=== PATIENT | female | born 1940 | race Caucasian/White ===

== ENCOUNTER → 2018-03-04 10:38 | Outpatient (CLI) | payer MEDICARE, SELFPAY ==
[2018-03-04 12:22] LABS: Absolute Lymphocyte Count 1.89 X10^3/ul (0.83-4.51); Absolute Neutrophil Count 5.1 X10^3/uL (2.0-7.7); Basophil# 0.04 X10^3/uL; Basophil% 0.5 % (0-1); Eosinophil# 0.11 X10^3/uL; Eosinophils% 1.5 % (0-5); Hematocrit 38.6 % (37-47); Hemoglobin 13.3 g/dl (12.0-15.0); Lymphocyte # 1.89 X10^3/ul (4.0); Mean Corp Hgb Conc 34.5 g/gl (32-36); Mean Corpuscular Hgb 32.7 pg (27.0-32.0); Mean Corpuscular Volume 94.8 fL (81-99); Mean Platelet Vol. 10.5 fl (6.2-12.0); Monocyte# 0.45 X10^3/uL; Neutrophil # 5.06 X10^3/uL (2.7-7.7); Neutrophil % 66.9 % (47-70); Platelet Count 209 K/mm3 (150-450); RBC Distribution Width CV 12.6 % (11.6-14.6); RBC Distribution Width SD 42.8 fl (35.1-43.9); Red Blood Count 4.07 M/mm3 (4.2-5.4); White Blood Count 7.6 K/mm3 (4.4-11.0)
[2018-03-04 12:38] LABS: POSITIVE COUNT NO; POSITIVE DIFFERENTIAL NO; POSITIVE MORPHOLOGY NO
[2018-03-04 12:51] LABS: Microalbumin,Random Urine 51.6 mg/L (NO RANGE EST.); Microalbumin:Creatinine Ratio 39.1 mg/g CRE (<30 mg/g CRE)
[2018-03-04 12:55] LABS: ALB/GLOB Ratio 1.2 RATIO (0.9-2.4); AST(SGOT) 16 U/L (15-37); Alanine Aminotransfer ALT/SGPT 20 U/L (13-56); Albumin, Serum 3.9 g/dL (3.2-5.0); Alkaline Phosphatase 59 U/L (45-117); Anion Gap 8 (5-15); BUN 21 mg/dL (7-18); BUN/Creat Ratio 18.3 RATIO (10-20); Calcium,Total 9.7 mg/dL (8.5-10.1); Chloride 110 mmol/L (98-107); Cholesterol 163 mg/dL (200); Creatinine, Serum 1.15 mg/dL (0.55-1.02); EST Glomerular Filtration Rate 49 mL/min (>60); Est Glom Filt Rate - Afr Amer 59 mL/min (>60); Globulin 3.2 g/dL (2.2-4.2); Glucose 69 mg/dL (74-106); High Density Lipoprotein 36 mg/dL; Potassium 3.9 mmol/L (3.5-5.1); Protein, Total 7.1 g/dL (6.4-8.2); Sodium Level 142 mmol/L (136-145); T4 Free Direct 1.59 ng/dL (0.76-1.46); Thyroid Stim Hormone (TSH) 0.56 uIU/mL (0.358-3.74); Triglycerides 247 mg/dL; Uric Acid 6.7 mg/dL (2.6-6.0); Very Low Density Lipoprotein 49 mg/dL (5-40)
== END ==
PROVIDERS: Family Provider Family Medicine; PCP Family Medicine; Visit Provider Family Medicine
DX: E11.9 Type 2 diabetes mellitus without complications (principal); E03.9 Hypothyroidism, unspecified; N18.3 Chronic kidney disease, stage 3 (moderate); M10.9 Gout, unspecified; R80.9 Proteinuria, unspecified
CPT/HCPCS: 36415; 80053; 80061; 82043; 82570; 83036; 84439; 84443; 84550; 85025

== ENCOUNTER → 2018-09-08 09:30 | Outpatient (CLI) | payer MEDICARE, SELFPAY ==
[2018-09-08 12:42] LABS: Hemoglobin A1c 6.3 % (4.2-6.3)
[2018-09-08 13:05] LABS: Anion Gap 7 (5-15); BUN 17 mg/dL (7-18); BUN/Creat Ratio 14.7 RATIO (10-20); Chloride 113 mmol/L (98-107); Creatinine, Serum 1.16 mg/dL (0.55-1.02); EST Glomerular Filtration Rate 48 mL/min (>60); Est Glom Filt Rate - Afr Amer 58 mL/min (>60); Glucose 77 mg/dL (74-106); Potassium 4.2 mmol/L (3.5-5.1); Sodium Level 145 mmol/L (136-145); T4 Free Direct 1.47 ng/dL (0.76-1.46); Thyroid Stim Hormone (TSH) 0.99 uIU/mL (0.358-3.74)
== END ==
LOC: LAB.FUTURE 04-17 15:09 → BFHLAB 09-21 14:05
PROVIDERS: Family Provider Family Medicine; PCP Family Medicine; Visit Provider Family Medicine
DX: E11.22 Type 2 diabetes mellitus with diabetic chronic kidney disease (principal); N18.3 Chronic kidney disease, stage 3 (moderate); E03.9 Hypothyroidism, unspecified; M10.9 Gout, unspecified; R80.9 Proteinuria, unspecified
CPT/HCPCS: 36415; 80048; 83036; 84439; 84443

== ENCOUNTER → 2019-03-24 10:04 | Outpatient (CLI) | payer MEDICARE, SELFPAY ==
[2019-03-24 12:21] LABS: Absolute Lymphocyte Count 2.13 X10^3/uL (0.83-4.51); Absolute Neutrophil Count 4.7 X10^3/uL (2.0-7.7); Basophil# 0.05 X10^3/uL; Basophil% 0.7 % (0-1); Eosinophil# 0.09 X10^3/uL; Eosinophils% 1.2 % (0-5); Hematocrit 38.4 % (37-47); Hemoglobin 12.7 g/dL (12.0-15.0); Lymphocyte # 2.13 X10^3/ul (4.0); Lymphocyte % 28.2 % (19-41); Mean Corp Hgb Conc 33.1 g/dL (32-36); Mean Corpuscular Hgb 30.5 pg (27.0-32.0); Mean Corpuscular Volume 92.3 fL (81-99); Monocyte# 0.51 X10^3/uL; Monocyte% 6.8 % (0-10); NRBC Flagged by Analyzer 0 % (0-5); Neutrophil # 4.74 X10^3/uL (2.7-7.7); Neutrophil % 62.8 % (47-70); Platelet Count 216 K/mm3 (150-450); RBC Distribution Width CV 12.4 % (11.6-14.6); RBC Distribution Width SD 42.1 fl (35.1-43.9); Red Blood Count 4.16 M/mm3 (4.2-5.4); White Blood Count 7.5 K/mm3 (4.4-11.0)
[2019-03-24 12:32] LABS: Hemoglobin A1c 6.1 % (4.2-6.3)
[2019-03-24 12:42] LABS: ALB/GLOB Ratio 1.2 RATIO (0.9-2.4); AST(SGOT) 13 U/L (15-37); Alanine Aminotransfer ALT/SGPT 17 U/L (13-56); Albumin, Serum 3.8 g/dL (3.2-5.0); Alkaline Phosphatase 71 U/L (45-117); Anion Gap 8 (5-15); BUN 18 mg/dL (7-18); BUN/Creat Ratio 15.9 RATIO (10-20); Calcium,Total 10.3 mg/dL (8.5-10.1); Chloride 111 mmol/L (98-107); Cholesterol 161 mg/dL (200); Creatinine, Serum 1.13 mg/dL (0.55-1.02); EST Glomerular Filtration Rate 49 mL/min (>60); Est Glom Filt Rate - Afr Amer 60 mL/min (>60); Globulin 3.3 g/dL (2.2-4.2); Glucose 95 mg/dL (74-106); High Density Lipoprotein 35 mg/dL; Potassium 4.2 mmol/L (3.5-5.1); Protein, Total 7.1 g/dL (6.4-8.2); Sodium Level 143 mmol/L (136-145); T4 Total, Thyroxin 14.1 ug/dL (4.8-13.9); Thyroid Stim Hormone (TSH) 0.01 uIU/mL (0.358-3.74); Triglycerides 275 mg/dL; Uric Acid 6.9 mg/dL (2.6-6.0); Very Low Density Lipoprotein 55 mg/dL (5-40)
== END ==
LOC: LAB.FUTURE 03-27 09:34 → BFHLAB 09-21 14:06
PROVIDERS: Family Provider Family Medicine; PCP Family Medicine; Visit Provider Family Medicine
DX: E03.9 Hypothyroidism, unspecified (principal); E11.22 Type 2 diabetes mellitus with diabetic chronic kidney disease; N18.3 Chronic kidney disease, stage 3 (moderate); M10.9 Gout, unspecified; R80.9 Proteinuria, unspecified
CPT/HCPCS: 36415; 80053; 80061; 83036; 84436; 84443; 84550; 85025

== ENCOUNTER → 2020-03-26 10:06 | Outpatient (CLI) | payer MEDICARE, SELFPAY ==
[2020-03-26 12:09] LABS: Absolute Lymphocyte Count 1.84 X10^3/uL (0.83-4.51); Absolute Neutrophil Count 7.4 X10^3/uL (2.0-7.7); Basophil# 0.05 X10^3/uL; Basophil% 0.5 % (0-1); Eosinophil# 0.09 X10^3/uL; Eosinophils% 0.9 % (0-5); Hematocrit 40.3 % (37-47); Hemoglobin 13.4 g/dL (12.0-15.0); Lymphocyte # 1.84 X10^3/ul (4.0); Lymphocyte % 18.1 % (19-41); Mean Corp Hgb Conc 33.3 g/dL (32-36); Mean Corpuscular Hgb 31.9 pg (27.0-32.0); Mean Platelet Vol. 10.4 fl (6.2-12.0); Monocyte# 0.77 X10^3/uL; Monocyte% 7.6 % (0-10); NRBC Flagged by Analyzer 0 % (0-5); Neutrophil # 7.36 X10^3/uL (2.7-7.7); Neutrophil % 72.6 % (47-70); Platelet Count 194 K/mm3 (150-450); RBC Distribution Width CV 12.5 % (11.6-14.6); RBC Distribution Width SD 43.1 fl (35.1-43.9); White Blood Count 10.1 K/mm3 (4.4-11.0)
[2020-03-26 12:25] LABS: Hemoglobin A1c 5.7 % (3.8-5.6)
[2020-03-26 12:44] LABS: ALB/GLOB Ratio 1.2 RATIO (0.9-2.4); AST(SGOT) 16 U/L (15-37); Alanine Aminotransfer ALT/SGPT 16 U/L (13-56); Alkaline Phosphatase 72 U/L (45-117); Anion Gap 6 (5-15); BUN 18 mg/dL (7-18); Calcium,Total 10.4 mg/dL (8.5-10.1); Chloride 112 mmol/L (98-107); Cholesterol 159 mg/dL (200); Creatinine, Serum 1.29 mg/dL (0.55-1.02); EST Glomerular Filtration Rate 42 mL/min (>60); Est Glom Filt Rate - Afr Amer 51 mL/min (>60); Globulin 3.3 g/dL (2.2-4.2); Glucose 64 mg/dL (74-106); High Density Lipoprotein 33 mg/dL; Potassium 4.1 mmol/L (3.5-5.1); Protein, Total 7.3 g/dL (6.4-8.2); Sodium Level 143 mmol/L (136-145); T4 Free Direct 1.57 ng/dL (0.76-1.46); Thyroid Stim Hormone (TSH) 0.68 uIU/mL (0.358-3.74); Triglycerides 296 mg/dL; Very Low Density Lipoprotein 59 mg/dL (5-40)
[2020-03-26 12:46] LABS: Microalbumin,Random Urine 31.8 mg/L (NO RANGE EST.)
== END ==
PROVIDERS: PCP Family Medicine; Visit Provider Family Medicine
DX: E11.9 Type 2 diabetes mellitus without complications (principal); E03.9 Hypothyroidism, unspecified; N18.30 Chronic kidney disease, stage 3 unspecified
CPT/HCPCS: 36415; 80053; 80061; 82043; 82570; 83036; 84439; 84443; 85025

== ENCOUNTER → 2020-10-17 08:33 | Outpatient (CLI) | payer MEDICARE, SELFPAY ==
[2020-10-17 10:22] LABS: Absolute Lymphocyte Count 2.06 X10^3/uL (0.83-4.51); Absolute Neutrophil Count 3.6 X10^3/uL (2.0-7.7); Basophil# 0.06 X10^3/uL; Basophil% 0.9 % (0-1); Eosinophil# 0.22 X10^3/uL; Eosinophils% 3.4 % (0-5); Hematocrit 40.9 % (37-47); Hemoglobin 13.3 g/dL (12.0-15.0); Lymphocyte # 2.06 X10^3/ul (0.83-4.51); Lymphocyte % 31.5 % (19-41); Mean Corp Hgb Conc 32.5 g/dL (32-36); Mean Corpuscular Hgb 31.4 pg (27.0-32.0); Mean Corpuscular Volume 96.7 fL (81-99); Mean Platelet Vol. 9.8 fl (6.2-12.0); Monocyte# 0.61 X10^3/uL; Monocyte% 9.3 % (0-10); NRBC Flagged by Analyzer 0 % (0-5); Neutrophil # 3.59 X10^3/uL (2.7-7.7); Neutrophil % 54.7 % (47-70); Platelet Count 213 K/mm3 (150-450); RBC Distribution Width CV 12.3 % (11.6-14.6); RBC Distribution Width SD 43.6 fl (35.1-43.9); Red Blood Count 4.23 M/mm3 (4.2-5.4); White Blood Count 6.6 K/mm3 (4.4-11.0)
[2020-10-17 10:40] LABS: Microalbumin,Random Urine 20.9 mg/L (NO RANGE EST.); Microalbumin:Creatinine Ratio 29.7 mg/g CRE (<30 mg/g CRE)
[2020-10-17 10:53] LABS: Vitamin D,25 Hydroxy 41.5 ng/mL
[2020-10-17 11:07] LABS: Hemoglobin A1c 5.9 % (3.8-5.6)
[2020-10-17 11:18] LABS: ALB/GLOB Ratio 1.2 RATIO (0.9-2.4); AST(SGOT) 14 U/L (15-37); Alanine Aminotransfer ALT/SGPT 18 U/L (13-56); Alkaline Phosphatase 78 U/L (45-117); Anion Gap 7 (5-15); BUN 33 mg/dL (7-18); BUN/Creat Ratio 22.6 RATIO (10-20); Calcium,Total 10.6 mg/dL (8.5-10.1); Chloride 110 mmol/L (98-107); Cholesterol 169 mg/dL (200); Creatinine, Serum 1.46 mg/dL (0.55-1.02); EST Glomerular Filtration Rate 37 mL/min (>60); Est Glom Filt Rate - Afr Amer 44 mL/min (>60); Globulin 3.2 g/dL (2.2-4.2); Glucose 64 mg/dL (74-106); High Density Lipoprotein 39 mg/dL; Potassium 4.4 mmol/L (3.5-5.1); Protein, Total 7.2 g/dL (6.4-8.2); Sodium Level 144 mmol/L (136-145); Thyroid Stim Hormone (TSH) 1.28 uIU/mL (0.358-3.74); Triglycerides 221 mg/dL; Very Low Density Lipoprotein 44 mg/dL (5-40)
== END ==
PROVIDERS: PCP Family Medicine; Referring Provider Family Medicine; Visit Provider Family Medicine
DX: E11.22 Type 2 diabetes mellitus with diabetic chronic kidney disease (principal); N18.30 Chronic kidney disease, stage 3 unspecified; E03.9 Hypothyroidism, unspecified; R80.9 Proteinuria, unspecified
CPT/HCPCS: 36415; 80053; 80061; 82043; 82306; 82570; 83036; 84443; 85025

== ENCOUNTER → 2022-05-01 | Outpatient (CLI) | payer MEDICARE, SELFPAY ==
[2022-05-01 12:22] LABS: Absolute Lymphocyte Count 2.01 X10^3/uL (0.83-4.51); Absolute Neutrophil Count 7.5 X10^3/uL (2.0-7.7); Basophil# 0.04 X10^3/uL; Basophil% 0.4 % (0-1); Eosinophil# 0.06 X10^3/uL; Eosinophils% 0.6 % (0-5); Hematocrit 39.2 % (37-47); Hemoglobin 13.4 g/dL (12.0-15.0); Lymphocyte # 2.01 X10^3/ul (0.83-4.51); Lymphocyte % 19.8 % (19-41); Mean Corp Hgb Conc 34.2 g/dL (32-36); Mean Corpuscular Hgb 32.1 pg (27.0-32.0); Mean Platelet Vol. 10.4 fl (6.2-12.0); Monocyte# 0.53 X10^3/uL; Monocyte% 5.2 % (0-10); NRBC Flagged by Analyzer 0 % (0-5); Neutrophil # 7.45 X10^3/uL (2.7-7.7); Neutrophil % 73.6 % (47-70); Platelet Count 198 K/mm3 (150-450); RBC Distribution Width CV 12.4 % (11.6-14.6); RBC Distribution Width SD 42.9 fl (35.1-43.9); Red Blood Count 4.17 M/mm3 (4.2-5.4); White Blood Count 10.1 K/mm3 (4.4-11.0)
[2022-05-01 12:58] LABS: PTHIN 103.9 pg/mL (18.4-80.1)
[2022-05-01 13:01] LABS: Vitamin D,25 Hydroxy 72.3 ng/mL
[2022-05-01 13:37] LABS: ALB/GLOB Ratio 1.2 RATIO (0.9-2.4); AST(SGOT) 18 U/L (15-37); Alanine Aminotransfer ALT/SGPT 18 U/L (13-56); Albumin, Serum 3.9 g/dL (3.2-5.0); Alkaline Phosphatase 67 U/L (45-117); Anion Gap 6 (5-15); BUN 25 mg/dL (7-18); BUN/Creat Ratio 19.2 RATIO (10-20); Calcium,Total 10.6 mg/dL (8.5-10.1); Chloride 111 mmol/L (98-107); Cholesterol 178 mg/dL (200); EST Glomerular Filtration Rate 42 mL/min (>60); Est Glom Filt Rate - Afr Amer 50 mL/min (>60); Globulin 3.2 g/dL (2.2-4.2); Glucose 97 mg/dL (74-106); High Density Lipoprotein 54 mg/dL; Protein, Total 7.1 g/dL (6.4-8.2); Sodium Level 142 mmol/L (136-145); Thyroid Stim Hormone (TSH) 1.37 uIU/mL (0.358-3.74); Triglycerides 176 mg/dL; Very Low Density Lipoprotein 35 mg/dL (5-40)
[2022-05-01 14:35] LABS: Microalbumin,Random Urine 36.1 mg/L (NO RANGE EST.); Microalbumin:Creatinine Ratio 36.1 mg/g CRE (<30 mg/g CRE)
== END | disposition home or self-care (01) ==
LOC: BFHLAB 10:56
PROVIDERS: PCP Family Medicine; Referring Provider Family Medicine; Visit Provider Family Medicine
DX: E11.3299 Type 2 diabetes mellitus with mild nonproliferative diabetic retinopathy without macular edema, unspecified eye (principal); E11.22 Type 2 diabetes mellitus with diabetic chronic kidney disease; N18.31 Chronic kidney disease, stage 3a; E03.9 Hypothyroidism, unspecified; R80.9 Proteinuria, unspecified
CPT/HCPCS: 36415; 80053; 80061; 82043; 82306; 82570; 83036; 83970; 84443; 85025

== ENCOUNTER 2022-06-15 09:31 | Inpatient (IN) | payer MEDICARE, SELFPAY ==
[2022-06-15] VITALS (20 sets, daily range): BP systolic 107–180; BP diastolic 43–90; PULSE 26–73; RESP 13–21; TEMP 36.2–36.8; O2SAT 92–99; BMI 21.9; BMI 21.2
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
[2022-06-15 09:48] LABS: Absolute Lymphocyte Count 2.61 X10^3/uL (0.83-4.51); Absolute Neutrophil Count 4.6 X10^3/uL (2.0-7.7); Basophil# 0.06 X10^3/uL; Basophil% 0.8 % (0-1); Eosinophil# 0.08 X10^3/uL; Hematocrit 41.7 % (37-47); Hemoglobin 13.9 g/dL (12.0-15.0); Lymphocyte # 2.61 X10^3/ul (0.83-4.51); Lymphocyte % 33.4 % (19-41); Mean Corp Hgb Conc 33.3 g/dL (32-36); Mean Corpuscular Hgb 31.8 pg (27.0-32.0); Mean Corpuscular Volume 95.4 fL (81-99); Mean Platelet Vol. 9.6 fl (6.2-12.0); Monocyte# 0.44 X10^3/uL; Monocyte% 5.6 % (0-10); NRBC Flagged by Analyzer 0 % (0-5); Neutrophil % 58.8 % (47-70); Platelet Count 201 K/mm3 (150-450); RBC Distribution Width CV 12.2 % (11.6-14.6); RBC Distribution Width SD 42.4 fl (35.1-43.9); Red Blood Count 4.37 M/mm3 (4.2-5.4); White Blood Count 7.8 K/mm3 (4.4-11.0)
[2022-06-15] MEDS: 0.9% Normal Saline 1,000 ML 150 ML IV (09:58)
[2022-06-15 10:06] LABS: ALB/GLOB Ratio 1.2 RATIO (0.9-2.4); AST(SGOT) 208 U/L (15-37); Alanine Aminotransfer ALT/SGPT 171 U/L (13-56); Albumin, Serum 3.8 g/dL (3.2-5.0); Alkaline Phosphatase 70 U/L (45-117); Anion Gap 7 (5-15); BUN 23 mg/dL (7-18); BUN/Creat Ratio 16.5 RATIO (10-20); Calcium,Total 10.7 mg/dL (8.5-10.1); Chloride 110 mmol/L (98-107); Creatinine, Serum 1.39 mg/dL (0.55-1.02); EST Glomerular Filtration Rate 39 mL/min (>60); Est Glom Filt Rate - Afr Amer 47 mL/min (>60); Estimated Creatinine Clearance 30.34 ml/min; Globulin 3.1 g/dL (2.2-4.2); Glucose 101 mg/dL (74-106); Potassium 4.2 mmol/L (3.5-5.1); Protein, Total 6.9 g/dL (6.4-8.2); Sodium Level 144 mmol/L (136-145); Troponin-I HS 39 pg/mL (3.0-54.0)
--- NOTE | 2022-06-15 10:08 | NURSING ---
DR GARBER RETURNED CALL
--- NOTE | 2022-06-15 10:31 | NURSING ---
HOSPITALIST PAGED DR CARRIE RUIZ
--- NOTE | 2022-06-15 10:36 | NURSING ---
DR WHITING FOR DR RAMEY
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
--- NOTE | 2022-06-15 11:08 | ECHOD_ITS ---
Reason For Study: ARRYTHMIA Procedure This was a 2D Doppler, Color Flow transthoracic echocardiogram. Exam performed portable in ED. Left Ventricle Normal LV size. Moderate concentric left ventricular hypertrophy. Left ventricular systolic function is normal. The estimated ejection fraction is 65 %. No regional wall motion abnormalities noted. Right Ventricle Normal RV size. Normal systolic function. Atria Normal left atrium. Normal right atrium. Mitral Valve Normal mitral valve. Tricuspid Valve Normal tricuspid valve. Aortic Valve Normal aortic valve. Pulmonic Valve Normal pulmonic valve. Great Vessels Normal aortic root. The pulmonary artery is normal size. Normal inferior vena cava. Pericardium/Pleural No pericardial effusion. MMode/2D Measurements & Calculations LVIDd: 4.2 cm IVSd: 1.4 cm Ao root diam: 3.0 cm LVIDs: 2.7 cm LVPWd: 1.4 cm FS: 36.0 % LAV(MOD-sp4): 47.2 ml LVAd ap4: 18.4 cm2 SV(MOD-sp4): 21.0 ml LVLd ap4: 6.7 cm EDV(MOD-sp4): 40.6 ml EDV(sp4-el): 42.8 ml LVAs ap4: 11.7 cm2 LVLs ap4: 6.1 cm ESV(MOD-sp4): 19.6 ml ESV(sp4-el): 19.1 ml EF(MOD-sp4): 51.7 % EF(sp4-el): 55.4 % SV(sp4-el): 23.7 ml LA A4 area: 18.0 cm2 LA dimension(2D): 2.4 cm RA A4 area: 15.5 cm2 Doppler Measurements & Calculations Med Peak E' Himanshu: 119.6 cm/sec Ao V2 max: 128.6 cm/sec LV V1 max: 105.4 cm/sec Ao max P.6 mmHg LV V1 max P.5 mmHg Ao V2 mean: 85.6 cm/sec LV V1 mean P.3 mmHg Ao mean P.4 mmHg LV V1 mean: 72.2 cm/sec Ao V2 VTI: 30.4 cm LV V1 VTI: 23.9 cm AV (velocity ratio): 0.79 TR max himanshu: 302.4 cm/sec TR max P.6 mmHg ECHO/Echo Complete Interpretation Summary Normal LV size. Moderate concentric left ventricular hypertrophy. Left ventricular systolic function is normal. The estimated ejection fraction is 65 %. Ordering Physician: Win Mukherjee Referring Physician: Gino Boswell Performed By: Nancy Ko RCS
--- NOTE | 2022-06-15 11:13 | NURSING ---
ICU 6
--- NOTE | 2022-06-15 12:08 | ED.RN ---
REPORT CALLED TO JENNIFER IN ICU
[2022-06-15] MEDS: Cefazolin 2 GM in 0.9% Normal Saline 100 ML IV (13:07)
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
--- NOTE | 2022-06-15 16:06 | CL.IE_ITS ---
Patient: MAHSA CISNEROS Study Date: 06/15/2022 Performing: Win Mukherjee MD : 1940 Age: 82 Gender: female PROCEDURES PERFORMED [id number])INITIAL PACER INSERT+DUAL LEADS INDICATIONS Atrial fibrillation and complete heart block PROCEDURE DETAILS The patient was brought to the Catheterization Lab in the postabsorptive nonsedated state. Informed consent was obtained prior to the procedure. Local anesthetic was given subcutaneously to the left upper chest area with Lidocaine 2%. Incision was made to the left upper chest. PPM ventricular lead was inserted / positioned to right ventricular apex. PPM ventricular lead testing performed. PPM ventricular lead testing performed. PPM atrial lead was inserted / positioned to the right atrial appendage. PPM atrial lead testing performed. The Atrial lead sutured in place with 2-0 Silk. The Ventricular PM lead sutured in place with 2-0 Silk. PPM generator was attached to the lead(s) and inserted into the pocket. Device pocket was irrigated with antibiotic, Anef 1gm. PPM generator was then interrogated by the cobol programmer. Subcutaneous closure was completed with 3-0 Vicryl. Skin closure was completed with 4-0 Vicryl. Steri-strips applied to Lt chest area. The patient tolerated the procedure well. Estimated Blood Loss: 10 ml's IMPLANTED / EX-PLANTED DEVICES IMPLANTED DEVICE(S): PPM Atrial lead - Pot Maker: [employer], Model # Ingevity 7841 52cm , Serial # [id number] PPM Ventricular lead - Pot Maker: [employer], Model # Ingevity 7842 59cm , Serial # [id number] PPM Generator - Pot Maker: [employer], Model # Essentio MRI L111 , Serial # [id number] DEVICE PARAMETERS ATRIAL LEAD PARAMETERS: P wave- 3.8 (mV) Current- 1.6 (mA) threshold- 1.0 (V) impedence- 627 (OHMS) VENTRICULAR LEAD PARAMETERS: R wave- 8.3 (mV) Current- 0.9 (mA) threshold- 0.7 (V) impedence- 807 (OHMS) DEVICE PARAMETERS: Upper rate- DDD Lower rate- 60 Upper rate- 120 CONCLUSIONS / RECOMMENDATIONS Device Conclusions: Successful implantation of a dual chamber pacemaker Device Recommendations: Follow up with Primary Care Physician PROCEDURE MEDICATIONS Versed 1 mg IV Fentanyl 50 mcg IV Oxygen: 2 L/min via nasal cannula Antibiotic given in appropriate timeframe. Ancef 1 Gm IV @ 06/15/2022 14:35:45 Signed By Win Mukherjee MD On 06/15/2022 16:05:50 Win Mukherjee MD
[2022-06-15] MEDS: 0.9% Normal Saline 1,000 ML 75 ML IV (20:20)
[2022-06-16 01:30] VITALS: BP 144/68; PULSE 77; RESP 16; TEMP 36.6; O2SAT 97
[2022-06-16 05:00] VITALS: BP 131/66; PULSE 67; RESP 20; TEMP 36.6; O2SAT 97
--- NOTE | 2022-06-16 05:55 | RAD_ITS ---
INDICATION: Post permanant ICD/Pacemaker -- inspiration/expiration. Arms Down. Wet read to MD EXAMINATION/TECHNIQUE: X-RAY - XR Chest 3 Views COMPARISON: None. FINDINGS: LINES/DEVICES: Pacemaker on the left. LUNGS: No consolidation, edema or effusion. No pneumothorax. MEDIASTINUM AND CARDIOVASCULAR STRUCTURES: Cardiac silhouette not enlarged. Central airways and mediastinal contour are unremarkable. BONES AND SOFT TISSUES: Unremarkable. RAD/Chest 3 View IMPRESSION: No radiographic evidence of acute cardiopulmonary disease. Electronically Signed: Jd Bruce MD at 4:57 EST ,
--- NOTE | 2022-06-16 07:41 | PN.CARD_ITS ---
Subjective Subjective Patient seen and evaluated. Appears to be doing well overnight. Objective Data Vital Signs: Vital Signs Temp Pulse Resp BP Pulse Ox O2 Del Method 97.9 F 67 20 H 131/66 H 97 Room Air 06/16/22 05:00 06/16/22 05:00 06/16/22 05:00 06/16/22 05:00 06/16/22 05:00 06/16/22 05:00 Oxygen Delivery Method Room Air Weight: 133 lb 9.602 oz Body Mass Index (BMI) 21.2 Intake & Output: Intake and Output for Last 24 Hours 06/14/22 06/15/22 06/16/22 23:59 23:59 23:59 Intake Total 1350.0 / 1350.0 120 / 120 Output Total 700 / 700 500 / 500 Balance 650.0 / 650.0 -380 / -380 Lab / Micro Data Result Diagrams: 06/15/22 09:40 06/15/22 09:40 Labs: Laboratory Results - last 24 hr 06/15/22 09:40: WBC 7.8, RBC 4.37, Hgb 13.9, Hct 41.7, MCV 95.4, MCH 31.8, MCHC 33.3, RDW Std Deviation 42.4, RDW Coeff of Reanna 12.2, Plt Count 201, MPV 9.6, Immature Gran % (Auto) 0.400, Neut % (Auto) 58.8, Lymph % (Auto) 33.4, [place] % (Auto) 5.6, Eos % (Auto) 1.0, Baso % (Auto) 0.8, Absolute Neuts (auto) 4.6, Absolute Lymphs (auto) 2.61, Nucleated RBC % 0 06/15/22 09:40: Sodium 144, Potassium 4.2, Chloride 110 H, Carbon Dioxide 27.0, Anion Gap 7, BUN 23 H, Creatinine 1.39 H, Estim Creat Clear Calc 30.34, Est GFR (MDRD) Af Amer 47 L, Est GFR (MDRD) Non-Af 39 L, BUN/Creatinine Ratio 16.5, Glucose 101, Calcium 10.7 H, Total Bilirubin 0.40, AST 208 H, ALT 171 H, Alkali ne Phosphatase 70, Troponin I High Sens 39, Total Protein 6.9, Albumin 3.8, Globulin 3.1, Albumin/Globulin Ratio 1.2 Cardiology Labs/Tests 06/15/22 09:40: WBC 7.8, RBC 4.37, Hgb 13.9, Hct 41.7, MCV 95.4, MCH 31.8, MCHC 33.3, Plt Count 201, MPV 9.6, Immature Gran % (Auto) 0.400, Neut % (Auto) 58.8, Lymph % (Auto) 33.4, [place] % (Auto) 5.6, Eos % (Auto) 1.0, Baso % (Auto) 0.8, Absolute Neuts (auto) 4.6, Nucleated RBC % 0 06/15/22 09:40: Sodium 144, Potassium 4.2, Chloride 110 H, Carbon Dioxide 27.0, Anion Gap 7, BUN 23 H, Creatinine 1.39 H, Est GFR (MDRD) Af Amer 47 L, Est GFR (MDRD) Non-Af 39 L, BUN/Creatinine Ratio 16.5, Glucose 101, Calcium 10.7 H, Total Bilirubin 0.40 Rhythm: EKG: ECHO: Stress Test: Cardiac Cath: PCI: CT Surgery: Holter monitor: EPS: PPM: CXR: Chest CT Scan: Radiography Diagnostic Testing: Radiology Impression Brain CT 06/15/22 09:38 IMPRESSION: Chronic involutional changes of the brain. Electronically Signed: Marco Vazquez MD at 10:18 EST , Cervical Spine CT 06/15/22 09:38 IMPRESSION: Multilevel degenerative changes, as described above. Electronically Signed: Marco Vazquez MD at 10:27 EST , Chest/Abdomen/Pelvis CT 06/15/22 09:38 IMPRESSION: Normal enhanced CT chest, abdomen T pelvis examination. Electronically Signed: Marco Vazquez MD at 10:25 EST , Echocardiogram 06/15/22 11:08 Interpretation Summary Normal LV size. Moderate concentric left ventricular hypertrophy. Left ventricular systolic function is normal. The estimated ejection fraction is 65 %. Ordering Physician: Win Mukherjee Referring Physician: Gino Boswell Performed By: Nancy Ko RCS Chest X-Ray 06/16/22 05:55 IMPRESSION: No radiographic evidence of acute cardiopulmonary disease. Electronically Signed: Jd Bruce MD at 4:57 EST , Physical Exam Const alert, oriented x3, no apparent distress, average body habitus and healthy appearing General Appearance: cooperative, well kempt and well developed Orientation / Consciousness: awake, oriented to person, oriented to place and oriented to time HEENT normocephalic and moist oral mucous membranes HEENT Narrative: There is some swelling noted over the left side of the patient's face, no ecchymosis is noted and there are no lacerations noted Eyes PERRL, EOMs intact bilaterally and conjunctivae normal Neck supple, no JVD, thyroid normal and no carotid bruits General: trachea midline Resp normal respiratory effort, no retractions, no use of accessory muscles and clear to auscultation bilaterally Auscultation: Negative for rales, rhonchi or wheezes Cardio S1 normal heart sound, S2 normal heart sound, no murmurs, no rub, no gallops and no clicks Cardio Narrative: Heart rate and rhythm is irregular and bradycardic GI normal to inspection, nondistended, normoactive bowel sounds, soft to palpation, non-tender and non-distended Extremity no clubbing, cyanosis or edema Skin no rashes or lesions noted General Skin Exam: no breakdown Neuro oriented x3, CN's II-XII intact bilaterally, moves all extremities, no focal motor deficits and no sensory deficits noted Sensorium / Orientation: awake, alert, oriented to person, oriented to place and oriented to time Speech: speech normal Psych affect normal Assessment & Plan Assessment/Plan (1) Third degree heart block: PLAN: Patient presents with a syncopal episode and is noted to have AV dissociation with complete heart block. * Patient underwent placement of a permanent pacemaker. This appears to be functioning well. * Chest x-ray this morning demonstrates adequate positioning. * Pacemaker will be interrogated later this morning and then follow-up scheduled for the office. (2) Hypertension: PLAN: She has a history of hypertension which appears to be well controlled at this time I would not recommend that we make any changes.
--- NOTE | 2022-06-16 08:22 | DCINST_ITS ---
Discharge Instructions Diet Discharge Diet: No restrictions Activity Discharge Activity: May Not Drive Additional Activity Instructions:: May shower or bathe on [day 3]. Do not scrub the incision or soak in the tub. Just wash with soap and let the water run over the incision. Gently pat dry with towel. Medications: Take your pain medication as directed. Refer to your discharge instruction sheet for a list of medications you are to take. Dressing / Incision Call your doctor if your incision/area has: Continuous Slow Oozing, Sudden Increased Bleeding, Increased Pain/ Swelling, Increased Redness, Foul Smelling Discharge and Swelling at the incision site Call your doctor if you observe: Fever of 101 or Higher, Shortness of breath, Dizziness, Fainting spells, Swelling in the ankles, Chest pain, Prolonged hiccupping and Increased palpitations (irregular heartbeat) Suture Line Care: Avoid Pulling/Pushing and Avoid Pinching/Bending Change Dressing in: 3 days Remove Dressing in: 3 days Additional Dressing/Incision Instructions:: When dressing is removed, wash and dry incision. Keep covered with a light bandage if it is rubbing against your clothing. Do not cover the incision with an airtight bandage. Change the bandage daily. Do not remove steri strips. The strips will fall off on their own. Follow Up Care Please Follow Up With: Win Mukherjee MD When: Pacer follow up on June 23 at 3 PM at the device clinic. Test Results: Test results from this visit will be discussed in further detail at your follow- up appointment, if applicable. Discharge Plan Admission Admit Date/Time: 06/15/22 10:56 Attending Provider: Gino Bangura Primary Care Provider: Gino Boswell Consulting Providers: Win Mukherjee Discharge Orders/Prescriptions Prescriptions: No Action metformin 500 MG tablet 500 mg PO BIDCM levothyroxine 125 MCG tablet 125 mcg PO DAILY glimepiride 4 MG tablet 4 mg PO DAILY ramipril [Altace] 10 MG capsule 10 mg PO DAILY glimepiride 4 mg tablet 2 mg PO DAILY Label Comments: take 1 tablet by mouth every morning and take 1/2 tablet by mouth every evening diphenhydramine-acetaminophen [Acetaminophen PM] 25-500 mg Tablet 1 tab PO QHS PRN (Reason: PAIN/SLEEP) cholecalciferol (vitamin D3) 25 mcg (1,000 unit) Tablet 25 mcg PO DAILY coQ10 (ubiquinol) 100 mg Capsule 100 mg PO DAILY Referrals / Follow Up: Gino Boswell DO [Primary Care Provider] -
--- NOTE | 2022-06-16 09:40 | CASEMGMT ---
RN?CM?PSYCHIATRIC NURSE PRACTITIONER?CM?to room to meet with patient for initial transition planning/care coordination?assessment.?RN?CM?introduced self and role at [facility].? Pt voices understanding and consents to?assessment?at this time.? Pt sitting up in recliner chair in room in no distress at this time.? @ bedside. Pt is A/O at this time and answers all questions appropriately.?? Care providers, pharmacy, and demographics verified/updated at this time. PCP: Dr Boswell Specialists: Dr Bailon-GARMENT EXAMINER Preferred Pharmacy:[facility] Insurance: [facility] Prescription Benefit:?Yes Living Will/HPOA:?Pt has both LW and HCPOA, who is her , Adarsh. LNOK: , Adarsh Living Arrangements: Lives w/ in one-story home w/one step to enter. They live @ [facility] independent living. Pt is indep w/ADL'S and IADL's @ baseline. attentive and able to help as needed. Transportation:?Pt states drives self and states no transportation concerns at this time.? also drives DME: ?Pt used no DME prior to hospitalization, but does have a shower chair, WW, and cane available, if needed. Pt has sling in place. HHC/SNF: No hx of either. Denies needs and no needs identified. Pt wishes to return home and states has no concerns with going home at time of discharge.?CM?to follow for any discharge planning/needs.? Pt voices no concerns/needs at this time.? Advised pt to ask for?CM?if any questions/concerns/needs arise.? Voices understanding. PLAN:??Home w/spousal support and discharge plans in place. Erik SWARTZN?RN?CM
[2022-06-16 09:48] VITALS: O2SAT 99
--- NOTE | 2022-06-16 09:54 | DCINST_ITS ---
Discharge Instructions Diet Discharge Diet: No restrictions Activity Discharge Activity: Return to Normal Activity and May Not Drive Weight Bearing Status: Full weight bearing Additional Activity Instructions:: May shower or bathe on [day 3]. Do not scrub the incision or soak in the tub. Just wash with soap and let the water run over the incision. Gently pat dry with towel. Medications: Take your pain medication as directed. Refer to your discharge instruction sheet for a list of medications you are to take. Dressing / Incision Call your doctor if your incision/area has: Continuous Slow Oozing, Sudden Increased Bleeding, Increased Pain/ Swelling, Increased Redness, Foul Smelling Discharge and Swelling at the incision site Call your doctor if you observe: Fever of 101 or Higher, Shortness of breath, Dizziness, Fainting spells, Swelling in the ankles, Chest pain, Prolonged hiccupping and Increased palpitations (irregular heartbeat) Suture Line Care: Avoid Pulling/Pushing and Avoid Pinching/Bending Additional Dressing/Incision Instructions:: When dressing is removed, wash and dry incision. Keep covered with a light bandage if it is rubbing against your clothing. Do not cover the incision with an airtight bandage. Change the bandage daily. Do not remove steri strips. The strips will fall off on their own. Follow Up Care Please Follow Up With: Win Mukherjee MD Test Results: Test results from this visit will be discussed in further detail at your follow- up appointment, if applicable. Discharge Plan Admission Admit Date/Time: 06/15/22 10:56 Primary Reason for Your Visit: heart block Attending Provider: Gino Bangura Primary Care Provider: Gino Boswell Consulting Providers: Win Mukherjee Instructions Additional Instructions / Restrictions: You have some elevations in your liver enzymes, have your family physician repeat a liver profile (lab) as an outpatient Discharge Orders/Prescriptions Prescriptions: Continued metformin 500 MG tablet 500 mg PO BIDCM levothyroxine 125 MCG tablet 125 mcg PO DAILY glimepiride 4 MG tablet 4 mg PO DAILY ramipril [Altace] 10 MG capsule 10 mg PO DAILY glimepiride 4 mg tablet 2 mg PO DAILY Label Comments: take 1 tablet by mouth every morning and take 1/2 tablet by mouth every evening diphenhydramine-acetaminophen [Acetaminophen PM] 25-500 mg Tablet 1 tab PO QHS PRN (Reason: PAIN/SLEEP) cholecalciferol (vitamin D3) 25 mcg (1,000 unit) Tablet 25 mcg PO DAILY Discontinued coQ10 (ubiquinol) 100 mg Capsule 100 mg PO DAILY Referrals / Follow Up: Win Mukherjee MD [Med Staff - Active Staff] - See Referral Note (As directed, office will contact you, call the office on Wednesday if you have not heard from the office by then) Gino Boswell, [Primary Care Provider] - Within 2 Weeks (Make sure that you have a follow-up liver function test) Disposition Disposition (needs filled in before D/C Order can be placed): Home, Self Care
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
== END 2022-06-16 11:21 | disposition home or self-care (01) | DRG 244 ==
LOC: ED 10:52 → ICU 06-16 01:44
PROVIDERS: Admitting Provider Internal Medicine; Emergency Provider Emergency Medicine; PCP Family Medicine; Visit Provider Internal Medicine
DX: I44.2 Atrioventricular block, complete (principal); E03.9 Hypothyroidism, unspecified; E11.9 Type 2 diabetes mellitus without complications; I10 Essential (primary) hypertension; S00.83XA Contusion of other part of head, initial encounter; V43.02XA Car driver injured in collision with other type car in nontraffic accident, initial encounter; Y92.414 Local residential or business street as the place of occurrence of the external cause; Z79.84 Long term (current) use of oral hypoglycemic drugs; Z79.899 Other long term (current) drug therapy; Z87.891 Personal history of nicotine dependence
CPT/HCPCS: 33208; 70450; 71047; 71260; 72125; 74177; 80053; 84484; 85025; 93005; 93306; 97162; 97166; 99152; 99153; 99285; J7030; J7050; Q9967; A4216; C1894

== ENCOUNTER 2022-09-22 10:38 | Inpatient (IN) | payer MEDICARE, SELFPAY ==
[2022-09-22] VITALS (8 sets, daily range): BP systolic 100–154; BP diastolic 48–83; PULSE 79–98; RESP 16–18; TEMP 36.2–36.8; O2SAT 93–100; BMI 22.2; BMI 21.5
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
[2022-09-22 11:39] LABS: Absolute Lymphocyte Count 0.81 X10^3/uL (0.83-4.51); Absolute Neutrophil Count 19.6 X10^3/uL (2.0-7.7); Basophil# 0.06 X10^3/uL; Basophil% 0.3 % (0-1); Hematocrit 41.8 % (37-47); Lymphocyte # 0.81 X10^3/ul (0.83-4.51); Lymphocyte % 3.8 % (19-41); Mean Corp Hgb Conc 33.5 g/dL (32-36); Mean Corpuscular Hgb 31.3 pg (27.0-32.0); Mean Corpuscular Volume 93.3 fL (81-99); Monocyte# 0.45 X10^3/uL; Monocyte% 2.1 % (0-10); NRBC Flagged by Analyzer 0 % (0-5); Neutrophil # 19.64 X10^3/uL (2.7-7.7); Neutrophil % 91.8 % (47-70); POSITIVE COUNT YES; RBC Distribution Width CV 12.5 % (11.6-14.6); RBC Distribution Width SD 42.8 fl (35.1-43.9); Red Blood Count 4.48 M/mm3 (4.2-5.4); White Blood Count 21.4 K/mm3 (4.4-11.0)
[2022-09-22] MEDS: 0.9% Normal Saline 1,000 ML 150 ML IV (11:46)
[2022-09-22] MEDS: Ondansetron 4 MG/2 ML Vial IV (11:46)
--- NOTE | 2022-09-22 12:15 | CM.ED ---
Social Work SW introduced self and role to patient and patient's spouse. SW spoke with patient regarding advance directives. Pt's spouse reports they have a HCPOA and Living Will. Spouse agreed to bring in documents when able. Juana Pringle TREND INVESTIGATOR, [employer] STUD WORKER
[2022-09-22 12:23] LABS: Differential Indicated SCAN CRITERIA MET; Mean Platelet Vol. 9.6 fl (6.2-12.0)
[2022-09-22 12:24] LABS: Platelet Estimate ADEQUATE (ADEQ)
[2022-09-22 12:50] LABS: AST(SGOT) 26 U/L (15-37); Alanine Aminotransfer ALT/SGPT 15 U/L (13-56); Albumin, Serum 3.5 g/dL (3.2-5.0); Alkaline Phosphatase 71 U/L (45-117); Anion Gap 9 (5-15); BUN 26 mg/dL (7-18); BUN/Creat Ratio 17.4 RATIO (10-20); Calcium,Total 10.9 mg/dL (8.5-10.1); Chloride 109 mmol/L (98-107); Creatinine, Serum 1.49 mg/dL (0.55-1.02); EST Glomerular Filtration Rate 36 mL/min (>60); Est Glom Filt Rate - Afr Amer 43 mL/min (>60); Estimated Creatinine Clearance 26.19 ml/min; Globulin 3.5 g/dL (2.2-4.2); Glucose 296 mg/dL (74-106); Sodium Level 139 mmol/L (136-145)
--- NOTE | 2022-09-22 13:08 | CT_ITS ---
STUDY: CT Abdomen And Pelvis W/ Contrast Injection 09/22/2022 3:46 PM REASON FOR EXAM: Female, 82 years old. Abdominal pain abd pain, leukocytosis -- IV PO Contrast Individualized dose optimization techniques were used for this CT. COMPARISON: 06.15.22. TECHNIQUE: CT Abdomen And Pelvis W/ Contrast Injection 100ML ISOVUE 300 FINDINGS: There are atherosclerotic calcifications of visualized coronary arteries. There is minimal groundglass right lower lobe pneumonia. Normal liver. Normal gallbladder and extrahepatic biliary system. Normal spleen. Normal pancreas. Normal bilateral adrenal glands. Trace free fluid around the liver. Free fluid extends along the right paracolic gutter. No acute findings of the right kidney. There are hypodensities in the left kidney. These are consistent for cysts. No follow up required. There is moderate cortical atrophy of the left kidney, consistent with chronic medical renal disease. Normal visualized stomach. There are dilated loops of the small intestine with a non-distended colon consistent with a small bowel obstruction. There are multiple colonic diverticula consistent with diverticulosis. There is non-visualization of the appendix. There are calcifications of the abdominal aorta. This is consistent for atherosclerotic disease. There is NO abdominal aortic aneurysm. Vascular workup can be obtained based on clinical correlation. Normal inferior vena cava. Subcentimeter mesenteric lymph nodes. Normal urinary bladder. There is absence of the uterus consistent with a prior hysterectomy. Moderate free fluid in the pelvis. There is an umbilical hernia containing fluid. There are diffuse degenerative changes of the visualized lumbar spine. There is a Grade 1 anterolisthesis of L4 on L5. CT/Abdomen/Pelvis WITH Contrast IMPRESSION: (NOT LISTED IN ORDER OF SIGNIFICANCE) There is a small bowel obstruction. The transition point is noted in the right lower quadrant. Series 2 image 53.. There is minimal groundglass right lower lobe pneumonia. There are multiple colonic diverticula consistent with diverticulosis. Ascites. Other findings as above. Electronically Signed: Jose A Caraballo MD at 15:51 EDT ,
[2022-09-22 14:14] LABS: Mucous, Urine 0 SEEN /hpf (<or=2+)
[2022-09-22 14:21] LABS: Color, Urine Straw (Yellow); Glucose, Dipstick 1000 mg/dl (Normal); Ketone-Dipstick 15 mg/dl (Negative); Leukocyte Esterase-Dipstick 25 /ul (Negative); Nitrite-Dipstick Positive (Negative); Occult Blood-Urine 25 /ul (Negative); Protein-Dipstick 30 mg/dl (Negative); Urine Bilirubin Dipstick Negative (Negative); Urine Clarity Clear (Clear); Urine Urobilinogen Normal (Normal)
[2022-09-22 14:29] LABS: Red Blood Cells-Urine 0-5 SEEN /hpf (0-5); Squamous Epithelial Cells - UA 0-5 SEEN /hpf (5-10); White Blood Cells 0-5 SEEN /hpf (0-5)
[2022-09-22 14:30] LABS: Bacteria 1+ /hpf (None Seen)
[2022-09-22] MEDS: Ceftriaxone 1 GM/50 ML BAG IV (15:11)
[2022-09-22] MEDS: fentaNYL 100 MCG/2 ML Ampul 12.5 MCG IV (15:49)
[2022-09-22] MEDS: Dicyclomine 20 MG/2 ML Vial IM (15:50)
--- NOTE | 2022-09-22 16:21 | EKG12_ITS ---
Test Reason : PREOP Blood Pressure : / mmHG Vent. Rate : 093 BPM Atrial Rate : 093 BPM P-R Int : 216 ms QRS Dur : 116 ms QT Int : 380 ms P-R-T Axes : 078 -88 090 degrees QTc Int : 472 ms Atrial-sensed ventricular-paced rhythm with prolonged AV conduction Abnormal ECG Confirmed by SHIRLENE MOELLER, CASSANDRA ([id number]), development editor SILVA ENGLE ([id number]) on 09/24/2022 8:51:20 AM Referred By: MEG Confirmed By:CASSANDRA GARBER MD
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
[2022-09-22 18:27] LABS: Lactic Acid 2.4 mmol/L (0.4-1.9)
[2022-09-22] MEDS: Bupivacaine Mpf 0.5% 30 ML VIAL (18:59)
--- NOTE | 2022-09-22 19:06 | PCM.OPRPT ---
Report of Operation Date of Procedure: 09/22/22 Pre-Operative Diagnosis: Small bowel obstruction Post-Operative Diagnosis: Small bowel obstruction due to internal hernia Surgery/Procedure Performed:: Exploratory laparoscopy with takedown of adhesions Specimen's removed: None Description of Procedure: Patient was brought back to the operating room and general anesthesia was induced. The abdomen was prepped and draped in usual sterile fashion. Midline incision was made and deepened to the fascia. The fascia was elevated and incised and there was some mesh that was also incised. Port was placed into the abdomen the abdomen was insufflated 15 mmHg. Camera was placed into the abdomen there were no injuries from entry. Under direct visualization port was placed in the suprapubic space and the right lower quadrant. Using atraumatic graspers the bowel was inspected. There appeared to be an internal hernia caused by the omentum adherent to something in the pelvis. There was hyperemic bowel associated with this. The Enseal was used to take down this omentum and free this bowel. The bowel was then run from the ligament of Treitz to the terminal ileum. There were no other adhesions or internal hernias. The bowel was inspected for 15 minutes and did not appear to be ischemic. There was some hyperemia and some congestion but no necrosis or signs of bowel. The bowel did have peristalsis. The ascites was suctioned and then the abdomen was allowed to desufflate. The midline incision mesh was closed with interrupted Prolene sutures. The skin was injected with local anesthetic and closed with interrupted 4-0 Monocryl's. Steri-Strips and bandages were applied and patient was taken to PACU in stable condition. Admit VTE Documentation VTE Mechan Device Prophylaxis: SCD's
[2022-09-22 20:00] LABS: Bedside Glucose 240 mg/dL (74-106)
--- NOTE | 2022-09-22 20:06 | NURSING ---
Latasha checked with dr dorantes about bp in 100. said bp ok and amp is good.
[2022-09-22 20:45] LABS: Reflex Lactate? Y
[2022-09-22] MEDS: 0.9% Normal Saline 1,000 ML 100 ML IV ×2 (20:56→23:35)
[2022-09-22 21:51] LABS: Lactic Acid 3.3 mmol/L (0.4-1.9)
[2022-09-22] MEDS: 0.9% Normal Saline 1,000 ML 999 ML IV (22:30)
[2022-09-22 22:50] LABS: Bedside Glucose 247 mg/dL (74-106)
[2022-09-23 00:31] VITALS: BP 115/59; PULSE 89; RESP 18; TEMP 36.6; O2SAT 96
[2022-09-23 03:04] LABS: Absolute Lymphocyte Count 0.73 X10^3/uL (0.83-4.51); Absolute Neutrophil Count 15.8 X10^3/uL (2.0-7.7); Basophil# 0.03 X10^3/uL; Basophil% 0.2 % (0-1); Hematocrit 35.3 % (37-47); Hemoglobin 11.7 g/dL (12.0-15.0); Lymphocyte # 0.73 X10^3/ul (0.83-4.51); Lymphocyte % 4.3 % (19-41); Mean Corp Hgb Conc 33.1 g/dL (32-36); Mean Corpuscular Hgb 31.6 pg (27.0-32.0); Mean Corpuscular Volume 95.4 fL (81-99); Mean Platelet Vol. 9.4 fl (6.2-12.0); Monocyte% 1.2 % (0-10); NRBC Flagged by Analyzer 0 % (0-5); Neutrophil # 15.76 X10^3/uL (2.7-7.7); Neutrophil % 93.8 % (47-70); Platelet Count 190 K/mm3 (150-450); RBC Distribution Width CV 12.6 % (11.6-14.6); RBC Distribution Width SD 43.3 fl (35.1-43.9); White Blood Count 16.8 K/mm3 (4.4-11.0)
--- NOTE | 2022-09-23 03:10 | NURSING ---
results given to naila tamez
[2022-09-23 03:57] LABS: Anion Gap 9 (5-15); BUN 27 mg/dL (7-18); BUN/Creat Ratio 18.6 RATIO (10-20); Calcium,Total 9.2 mg/dL (8.5-10.1); Chloride 112 mmol/L (98-107); Creatinine, Serum 1.45 mg/dL (0.55-1.02); EST Glomerular Filtration Rate 37 mL/min (>60); Est Glom Filt Rate - Afr Amer 44 mL/min (>60); Estimated Creatinine Clearance 29.09 ml/min; Glucose 294 mg/dL (74-106); Potassium 4.9 mmol/L (3.5-5.1); Sodium Level 140 mmol/L (136-145)
[2022-09-23 04:29] LABS: Lactic Acid 2.7 mmol/L (0.4-1.9)
[2022-09-23 04:30] LABS: Reflex Lactate? Y
[2022-09-23 04:32] VITALS: BP 116/58; PULSE 87; RESP 18; TEMP 36.6; O2SAT 96
[2022-09-23 05:20] LABS: Bedside Glucose 283 mg/dL (74-106)
[2022-09-23] MEDS: Insulin Lispro 100 UNIT/ML INSULN.PEN SC ×3 (05:33→21:42)
[2022-09-23] MEDS: 0.9% Normal Saline 1,000 ML 100 ML IV ×2 (05:33→18:51)
[2022-09-23 07:43] VITALS: BP 133/69; PULSE 90; RESP 18; TEMP 36.7; O2SAT 97
--- NOTE | 2022-09-23 08:14 | PCM.PN.SRG ---
Subjective Subjective Patient says she is feeling better than before surgery. She has not passed any flatus yet. Objective Data Objective Data Vital Signs: Vital Signs Temp Pulse Resp BP Pulse Ox O2 Del Method 98.1 F 90 18 133/69 H 97 Room Air 09/23/22 07:43 09/23/22 07:43 09/23/22 07:43 09/23/22 07:43 09/23/22 07:43 09/23/22 07:49 Oxygen Delivery Method Room Air Weight: 137 lb 12.623 oz Body Mass Index (BMI) 21.5 Intake & Output: Intake and Output for Last 24 Hours 09/21/22 09/22/22 09/23/22 23:59 23:59 23:59 Intake Total 2256.67 / 2256.67 646.67 / 646.67 Balance 2256.67 / 2256.67 646.67 / 646.67 Lab / Micro Data Result Diagrams: 09/23/22 02:55 09/23/22 02:55 Labs: Laboratory Results - last 24 hr 09/22/22 11:28: WBC 21.4 H, RBC 4.48, Hgb 14.0, Hct 41.8, MCV 93.3, MCH 31.3, MCHC 33.5, RDW Std Deviation 42.8, RDW Coeff of Reanna 12.5, Plt Count TNP, MPV 9.6, Immature Gran % (Auto) 2.000 H, Neut % (Auto) 91.8 H, Lymph % (Auto) 3.8 L, [place] % (Auto) 2.1, Eos % (Auto) 0.0, Baso % (Auto) 0.3, Absolute Neuts (auto) 19.6 H, Absolute Lymphs (auto) 0.81 L, Nucleated RBC % 0, Platelet Estimate ADEQUATE 09/22/22 11:28: Sodium 139, Potassium 5.0, Chloride 109 H, Carbon Dioxide 21.0, Anion Gap 9, BUN 26 H, Creatinine 1.49 H, Estim Creat Clear Calc 26.19, Est GFR (MDRD) Af Amer 43 L, Est GFR (MDRD) Non-Af 36 L, BUN/Creatinine Ratio 17.4, Glucose 296 H, Calcium 10.9 H, Total Bilirubin 0.40, AST 26, ALT 15, Alkaline Phosphatase 71, Total Protein 7.0, Albumin 3.5, Globulin 3.5, Albumin/Globulin Ratio 1.0 09/22/22 14:06: Urine Color Straw, Urine Clarity Clear, Urine pH 5.0, Ur Specific [place] 1.020, Urine Protein 30 H, Urine Glucose (UA) 1000 H, Urine Ketones 15 H, Urine Occult Blood 25 H, Urine Nitrite Positive H, Urine Bilirubin Negative, Urine Urobilinogen Normal, Ur Leukocyte Esterase 25 H, Urine RBC 0-5 SEEN, Urine WBC 0-5 SEEN, Ur Squamous Epith Cells 0-5 SEEN, Urine Bacteria 1+, Urine Mucus 0 SEEN 09/22/22 16:30: Lactic Acid 2.4 H* 09/22/22 19:41: POC Glucose 240 H 09/22/22 21:05: Lactic Acid 3.3 H* 09/22/22 22:24: POC Glucose 247 H 09/23/22 02:55: WBC 16.8 H, RBC 3.70 L, Hgb 11.7 L, Hct 35.3 L, MCV 95.4, MCH 31.6, MCHC 33.1, RDW Std Deviation 43.3, RDW Coeff of Reanna 12.6, Plt Count 190, MPV 9.4, Immature Gran % (Auto) 0.500, Neut % (Auto) 93.8 H, Lymph % (Auto) 4.3 L, [place] % (Auto) 1.2, Eos % (Auto) 0.0, Baso % (Auto) 0.2, Absolute Neuts (auto) 15.8 H, Absolute Lymphs (auto) 0.73 L, Nucleated RBC % 0 09/23/22 02:55: Sodium 140, Potassium 4.9, Chloride 112 H, Carbon Dioxide 19.0 L, Anion Gap 9, BUN 27 H, Creatinine 1.45 H, Estim Creat Clear Calc 29.09, Est GFR (MDRD) Af Amer 44 L, Est GFR (MDRD) Non-Af 37 L, BUN/Creatinine Ratio 18.6, Glucose 294 H, Calcium 9.2 09/23/22 02:55: Lactic Acid 2.7 H* 09/23/22 04:35: POC Glucose 283 H 09/23/22 06:50: Lactic Acid 3.0 H* Radiography Diagnostic Testing: Radiology Impression Abdomen/Pelvis CT 09/22/22 13:08 IMPRESSION: (NOT LISTED IN ORDER OF SIGNIFICANCE) There is a small bowel obstruction. The transition point is noted in the right lower quadrant. Series 2 image 53.. There is minimal groundglass right lower lobe pneumonia. There are multiple colonic diverticula consistent with diverticulosis. Ascites. Other findings as above. Electronically Signed: Jose A Caraballo MD at 15:51 EDT , Physical Exam Const oriented x3 Resp normal respiratory effort GI soft to palpation Inspection: Negative for abdominal distention Palpation: tender Assessment & Plan Assessment/Plan (1) Small bowel obstruction: PLAN: Patient has some diffuse tenderness but it is mild. She is not guarding today. She has much less tender than when I palpate her abdomen before surgery. Her white count is coming down but her creatinine is still elevated and her lactate is still elevated. I believe she is some renal insufficiency that may be causing her lactate not come back down to normal but I will order her another fluid bolus and we will recheck lactic acid in 3 hours. If anything starts to worsen like her pain or if she becomes febrile or if her white count starts going up I would have a little hesitation of going back into remove that segment of bowel. Patient also had questionable groundglass opacity of the lung and questionable UTI. Those were present upon admission and I will keep her on Zosyn until her white count normalizes. Lane Cagle MD Pager: [facility] [address] [place], [place] [address], [address] [place] [address] Office:
[2022-09-23] MEDS: Ramipril 10 MG Capsule PO (10:01)
--- NOTE | 2022-09-23 10:45 | CASEMGMT ---
MIKE SUTTON Assessment: Face to Face with pt for initial transition planning/care coordination assessment. RN LESLEY introduced self and role at [facility], pt voices understanding and consents to assessment. Pt is A/O x4 and answers all questions appropriately at this time. Pt lying in bed with and dtr at bedside. Pt agreeable to assessment with visitors present. Care providers, pharmacy, and demographics verified/updated. 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 Pt reports she is I in ADL's and denies concerns at home. Transportation: Pt drives self and denies concerns with transportation. DME/HHC/SNF: Pt has access to a shower chair, FWW and cane if needed. Pt does not use AD typically. Pt denies hx of HHC or SNF stays. Pt states no concerns with going home at time of dc. Pt denies any homegoing needs. Pt seen up ambulating in halls with walker. Pt states no further concerns/needs. CM to follow. Advised pt to ask CM if any further question/concerns/needs arise, voices understanding. Pt Goal: Home Plan: Home
[2022-09-23 10:56] LABS: Reflex Lactate? Y
[2022-09-23 11:48] LABS: Lactic Acid 2.3 mmol/L (0.4-1.9)
--- NOTE | 2022-09-23 11:48 | WOUNDNOTE ---
Lab called lactic acid result of 2.3. will notify MIKE Collado. result is trending down. previous was 3.0.
[2022-09-23 12:20] LABS: Bedside Glucose 201 mg/dL (74-106)
[2022-09-23 13:16] VITALS: BP 117/70; PULSE 84; RESP 18; TEMP 36.6; O2SAT 99
[2022-09-23 19:10] LABS: Bedside Glucose 128 mg/dL (74-106)
[2022-09-23 19:51] VITALS: BP 133/69; PULSE 102; RESP 18; TEMP 37.1; O2SAT 93
[2022-09-23 22:06] LABS: Bedside Glucose 151 mg/dL (74-106)
[2022-09-24] VITALS (8 sets, daily range): BP systolic 130–156; BP diastolic 61–79; PULSE 96–116; RESP 18–22; TEMP 36.3–37.1; O2SAT 92–96
[2022-09-24] MEDS: 0.9% Normal Saline 1,000 ML 100 ML IV ×2 (03:45→13:27)
[2022-09-24 04:35] LABS: Absolute Lymphocyte Count 1.42 X10^3/uL (0.83-4.51); Absolute Neutrophil Count 13.3 X10^3/uL (2.0-7.7); Basophil# 0.03 X10^3/uL; Basophil% 0.2 % (0-1); Hematocrit 33.8 % (37-47); Hemoglobin 11.2 g/dL (12.0-15.0); Lymphocyte # 1.42 X10^3/ul (0.83-4.51); Lymphocyte % 8.8 % (19-41); Mean Corp Hgb Conc 33.1 g/dL (32-36); Mean Corpuscular Hgb 32.3 pg (27.0-32.0); Mean Corpuscular Volume 97.4 fL (81-99); Mean Platelet Vol. 9.6 fl (6.2-12.0); Monocyte# 1.23 X10^3/uL; Monocyte% 7.6 % (0-10); NRBC Flagged by Analyzer 0 % (0-5); Neutrophil # 13.31 X10^3/uL (2.7-7.7); Neutrophil % 82.8 % (47-70); Platelet Count 151 K/mm3 (150-450); RBC Distribution Width CV 13.2 % (11.6-14.6); RBC Distribution Width SD 46.5 fl (35.1-43.9); Red Blood Count 3.47 M/mm3 (4.2-5.4); White Blood Count 16.1 K/mm3 (4.4-11.0)
[2022-09-24 05:08] LABS: Anion Gap 8 (5-15); BUN 28 mg/dL (7-18); BUN/Creat Ratio 19.3 RATIO (10-20); Chloride 117 mmol/L (98-107); Creatinine, Serum 1.45 mg/dL (0.55-1.02); EST Glomerular Filtration Rate 37 mL/min (>60); Est Glom Filt Rate - Afr Amer 44 mL/min (>60); Estimated Creatinine Clearance 29.09 ml/min; Glucose 191 mg/dL (74-106); Potassium 4.5 mmol/L (3.5-5.1); Sodium Level 144 mmol/L (136-145)
[2022-09-24] MEDS: Levothyroxine 125 MCG Tablet PO (05:58)
[2022-09-24] MEDS: Insulin Lispro 100 UNIT/ML INSULN.PEN SC (05:59)
[2022-09-24 06:51] LABS: Bedside Glucose 213 mg/dL (74-106)
--- NOTE | 2022-09-24 09:08 | PCM.PN.SRG ---
Subjective Subjective Patient states she is improving and feeling better. She is hungry with no nausea or belching. She has had several bowel movements and is passing flatus. Objective Data Objective Data Vital Signs: Vital Signs Temp Pulse Resp BP Pulse Ox O2 Del Method 98.1 F 96 18 134/66 H 93 Room Air 09/24/22 03:45 09/24/22 03:45 09/24/22 03:45 09/24/22 03:45 09/24/22 03:45 09/24/22 03:45 Oxygen Delivery Method Room Air Weight: 137 lb 12.623 oz Body Mass Index (BMI) 21.5 Intake & Output: Intake and Output for Last 24 Hours 09/22/22 09/23/22 09/24/22 23:59 23:59 23:59 Intake Total 2256.67 / 2256.67 2246.67 / 2246.67 940 / 940 Output Total 550 / 550 Balance 2256.67 / 2256.67 1696.67 / 1696.67 940 / 940 Lab / Micro Data Result Diagrams: 09/24/22 04:25 09/24/22 04:25 Labs: Laboratory Results - last 24 hr 09/23/22 11:05: Lactic Acid 2.3 H* 09/23/22 11:55: POC Glucose 201 H 09/23/22 18:47: POC Glucose 128 H 09/23/22 21:40: POC Glucose 151 H 09/24/22 04:25: WBC 16.1 H, RBC 3.47 L, Hgb 11.2 L, Hct 33.8 L, MCV 97.4, MCH 32.3 H, MCHC 33.1, RDW Std Deviation 46.5 H, RDW Coeff of Reanna 13.2, Plt Count 151, MPV 9.6, Immature Gran % (Auto) 0.600, Neut % (Auto) 82.8 H, Lymph % (Auto) 8.8 L, [place] % (Auto) 7.6, Eos % (Auto) 0.0, Baso % (Auto) 0.2, Absolute Neuts (auto) 13.3 H, Absolute Lymphs (auto) 1.42, Nucleated RBC % 0 09/24/22 04:25: Sodium 144, Potassium 4.5, Chloride 117 H, Carbon Dioxide 19.0 L, Anion Gap 8, BUN 28 H, Creatinine 1.45 H, Estim Creat Clear Calc 29.09, Est GFR (MDRD) Af Amer 44 L, Est GFR (MDRD) Non-Af 37 L, BUN/Creatinine Ratio 19.3, Glucose 191 H, Calcium 9.0 09/24/22 05:58: POC Glucose 213 H Micro: Microbiology 09/22/22 14:06 Urine, Clean Catch Urine Culture - Final Presumptive E. coli Streptococcus agalactiae (B) Physical Exam Const oriented x3 Resp normal respiratory effort GI soft to palpation Inspection: Negative for abdominal distention Assessment & Plan Assessment/Plan (1) Small bowel obstruction: PLAN: Patient clinically seems to be improving. She had several bowel movements and she does report passing flatus. She is feeling hungry. Her creatinine remains slightly elevated. Her white count also remains elevated at 16. Her urine culture came back positive for E. coli UTI from admission. She is still on Zosyn. I will try clear liquids today and see how she does. Lane Cagle MD Pager: [facility] [address] [place] [address], [address] [place] [address] Office:
[2022-09-24] MEDS: Ramipril 10 MG Capsule PO (09:43)
[2022-09-24 11:55] LABS: Bedside Glucose 286 mg/dL (74-106)
--- NOTE | 2022-09-24 16:10 | RAD_ITS ---
INDICATION: Shortness of breath EXAMINATION/TECHNIQUE: X-RAY - XR Chest 2 Views COMPARISON: 06/16/2022 FINDINGS: LINES/DEVICES: Dual lead cardiac device. Multiple lower chest and upper abdomen surgical clips. LUNGS: Small right pleural effusion. No focal consolidation. MEDIASTINUM AND CARDIOVASCULAR STRUCTURES: Cardiac silhouette not enlarged. Central airways and mediastinal contour are unremarkable. RAD/Chest PA and Lateral IMPRESSION: Small right pleural effusion. Electronically Signed: Lauro Shah MD at 17:47 EDT ,
[2022-09-24] MEDS: Ipratropium/Albuterol Sulfate 3 ML AMPUL.NEB INHALATION (16:27)
[2022-09-24] MEDS: metFORMIN HCl 500 MG Tablet PO (16:28)
[2022-09-24 16:47] LABS: Bedside Glucose 250 mg/dL (74-106)
[2022-09-24] MEDS: Glimepiride 4 MG Tablet 2 MG PO (20:43)
[2022-09-24 22:13] LABS: Bedside Glucose 316 mg/dL (74-106)
[2022-09-25] VITALS (29 sets, daily range): BP systolic 110–166; BP diastolic 58–99; PULSE 78–116; RESP 18–32; TEMP 36.1–38; O2SAT 90–100
--- NOTE | 2022-09-25 02:45 | NURSING ---
0245 pt was assisted up to BSC with help from PETROLEUM ENGINEERING PROFESSOR. pt c/o dizziness and just not feeling right. pt presents pale, diaphoretic, wheezy, SOB with labored breathing. BG checked and was 373. pts liquid BM at this time with greenish red tint to it. VS obtained. pt is tachy. Gurjit was called and notified of above findings. EKG ordered, labs ordered. hospitalist consulted. Gurjit and Poonam both in to see pt. decision was to move pt to ICU.
--- NOTE | 2022-09-25 03:08 | EKG12_ITS ---
Test Reason : RHYTHM CHANGE Blood Pressure : / mmHG Vent. Rate : 103 BPM Atrial Rate : 093 BPM P-R Int : 000 ms QRS Dur : 120 ms QT Int : 362 ms P-R-T Axes : 000 -81 089 degrees QTc Int : 474 ms Sinus tachycardia Left axis deviation Right bundle branch block Inferior infarct , age undetermined Anterolateral infarct , age undetermined Abnormal ECG When compared with ECG of 22-SEP-2022 16:30, Wide QRS rhythm has replaced Electronic ventricular pacemaker Confirmed by SHIRLENE MOELLER, CASSANDRA ([id number]), features editor SILVA ENGLE ([id number]) on 09/25/2022 1:31:42 PM Referred By: CARRILLO Confirmed By:CASSANDRA GARBER MD
[2022-09-25 03:18] LABS: Bedside Glucose 373 mg/dL (74-106)
[2022-09-25 03:40] LABS: Absolute Lymphocyte Count 1.12 X10^3/uL (0.83-4.51); Basophil# 0.02 X10^3/uL; Basophil% 0.1 % (0-1); Eosinophil# 0.01 X10^3/uL; Eosinophils% 0.1 % (0-5); Hematocrit 35.2 % (37-47); Hemoglobin 11.4 g/dL (12.0-15.0); Lymphocyte # 1.12 X10^3/ul (0.83-4.51); Lymphocyte % 6.9 % (19-41); Mean Corp Hgb Conc 32.4 g/dL (32-36); Mean Corpuscular Hgb 31.6 pg (27.0-32.0); Mean Corpuscular Volume 97.5 fL (81-99); Mean Platelet Vol. 10.3 fl (6.2-12.0); Monocyte% 5.6 % (0-10); NRBC Flagged by Analyzer 0 % (0-5); Neutrophil % 86.5 % (47-70); Platelet Count 188 K/mm3 (150-450); RBC Distribution Width CV 12.9 % (11.6-14.6); RBC Distribution Width SD 45.8 fl (35.1-43.9); Red Blood Count 3.61 M/mm3 (4.2-5.4); White Blood Count 16.2 K/mm3 (4.4-11.0)
[2022-09-25 04:12] LABS: Anion Gap 11 (5-15); BUN 29 mg/dL (7-18); BUN/Creat Ratio 18.5 RATIO (10-20); Calcium,Total 9.6 mg/dL (8.5-10.1); Chloride 113 mmol/L (98-107); Creatinine, Serum 1.57 mg/dL (0.55-1.02); EST Glomerular Filtration Rate 34 mL/min (>60); Est Glom Filt Rate - Afr Amer 41 mL/min (>60); Estimated Creatinine Clearance 26.87 ml/min; Glucose 342 mg/dL (74-106); Potassium 4.7 mmol/L (3.5-5.1); Sodium Level 139 mmol/L (136-145); Troponin-I HS 2711 pg/mL (3.0-54.0)
[2022-09-25 04:13] LABS: Lactic Acid 2.7 mmol/L (0.4-1.9)
[2022-09-25 04:14] LABS: BNP,B-Type NATRIURETIC PEPTIDE 1909.8 pg/mL (0-100)
--- NOTE | 2022-09-25 04:19 | CT_ITS ---
EXAM: CT ANGIOGRAPHY CHEST, ABDOMEN AND PELVIS WITH INTRAVENOUS CONTRAST CLINICAL INDICATION: Ischemic bowel TECHNIQUE: Helically acquired angiography images were obtained of the chest, abdomen and pelvis with intravenous contrast. This CT exam was performed using one or more of the following dose reduction techniques: automated exposure control, adjustment of the mA and/or kV according to patient size, and/or use of iterative reconstruction technique. MIP reconstructed images were created and reviewed. CONTRAST: IV 100mL Isovue-370 RADIATION DOSE: CTDIvol = 17.93 mGy, DLP = 1546.10 mGy-cm COMPARISON: September 22, 2022, there was some thick-walled small bowel in the right abdomen with hazy mesenteric edema and some ascites at that time. FINDINGS: VASCULATURE: AORTA: No acute findings. Normal in caliber. No dissection. PULMONARY ARTERIES: Pulmonary vascular distention without evidence of PE. Normal in caliber. No obvious central pulmonary embolism although this study was not performed with the pulmonary embolism protocol. GREAT VESSELS OF AORTIC ARCH: Unremarkable. Normal in caliber. No dissection. CELIAC TRUNK AND MESENTERIC ARTERIES: Mild calcification with mild narrowing at the origin of the SMA. No dissection. RENAL ARTERIES: Heavily calcified proximal left renal artery which tortuous high-grade stenotic appearance and atrophic left kidney. Minimal atherosclerotic change of the right renal artery. No dissection. ILIAC ARTERIES: No acute findings. No occlusion or significant stenosis. No dissection. PORTAL VEINS: Patent mesenteric and portal veins. CHEST: LUNGS AND PLEURAL SPACES: Increased interstitial markings and apparent mild interstitial edema. Mild dependent consolidation and groundglass opacities, presumably due to compressive atelectasis. Moderate-large right pleural effusion and mild-moderate left pleural effusion. No mass. No pneumothorax. HEART: At least mild coronary artery calcifications. Heart size is normal. No pericardial effusion. MEDIASTINUM: Unremarkable. No mediastinal or hilar adenopathy. Esophagus is unremarkable. No hiatal hernia. THYROID: Unremarkable. No thyroid lesions. ABDOMEN: LIVER: Unremarkable. Homogeneous. No focal mass. GALLBLADDER AND BILE DUCTS: Mildly prominently distended gallbladder without obvious stones or wall thickening, it is 3.8 cm AP. PANCREAS: Unremarkable. No focal cystic or solid mass. SPLEEN: Unremarkable. Normal size without focal cystic or solid mass. ADRENALS: Unremarkable. No nodules. KIDNEYS AND URETERS: Mildly atrophic left kidney with 2.2 cm x 2.4 cm cyst. The left kidney is 6.9 cm in length. The right kidney is 10 cm in length. STOMACH AND BOWEL: Mild gas in the stomach, mild gas and fluid in the duodenal bulb with mild mucosal enhancement. Mild mucosal enhancement of multiple proximal small bowel loops. Mild scattered colon gas. Diverticulosis of descending and sigmoid colon, no evidence of acute diverticulitis. No stomach or bowel distention. PELVIS: APPENDIX: Small appendix or stump is thought to be seen on sagittal images. BLADDER: Moderately distended urinary bladder. REPRODUCTIVE: Hysterectomy. CHEST, ABDOMEN and PELVIS: INTRAPERITONEAL SPACE: Slight intrapelvic fluid. Slight fluid in the perihepatic region and right upper paracolic gutter, improved. Mild fullness of the adrenals, possibly small nodules, not well seen. No free air. BONES/JOINTS: Multilevel degenerative spine changes. Mildly heterogeneous bone density. Mild calcification without narrowing of the origin of the celiac axis. No suspicious lytic or blastic abnormality. SOFT TISSUES: Slight fluid and gas in the ventral abdominal wall of roughly 4 cm superior to the umbilicus. Loculated fluid collection at the region of the neoumbilicus measuring roughly 1.9 cm x 1.5 cm. Mild peripheral calcification of the descending thoracic aorta. 2.8 cm descending thoracic aorta, no león hernia or obvious evidence of dissection. There is faint aortic enhancement. Postoperative changes of bilateral mastectomies and autologous fat breast reconstructions. Mild anasarca in the body wall. Postoperative changes throughout the ventral abdominal wall consistent with donor sites for the autologous breast reconstructions. LYMPH NODES: Unremarkable. No enlarged lymph nodes. TUBES, LINES AND DEVICES: Upper limits of normal heart size. Contrast reflux into the IVC and hepatic veins, mild. Transvenous pacemaker leads in the right heart chambers. No intracardiac filling defects. CT/CTA Chst, Abd, Pel W and/or WO IMPRESSION: 1. Findings consistent with CHF with interstitial edema, dependent compressive atelectasis, and right greater than left pleural effusions. Contrast reflux into the IVC and hepatic veins. 2. No evidence of PE or aortic aneurysm or dissection. 3. Mild anasarca. Postoperative breast changes. 4. Pacemaker leads. 5. Improved appearance of small bowel in the right abdomen, minimal if any residual small bowel wall thickening. 6. The previously seen mesenteric edema has essentially resolved. Significantly decreased mild ascites in the right upper quadrant and pelvis. 7. 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 8. No aortic aneurysm or dissection. Electronically Signed: Ratna Weller MD at 5:40 EDT ,
--- NOTE | 2022-09-25 04:23 | ECHOL_ITS ---
Reason For Study: CHF Procedure This was a limited 2D transthoracic echocardiogram. Exam performed portable in patient room. Left Ventricle Normal LV size. Mild concentric left ventricular hypertrophy. The estimated ejection fraction is 25 %. Severe segmental systolic dysfunction (see wall motion). [place] : Akinetic. Basal anteroseptal: Normal. Mid-anteroseptal : Akinetic. Anterio-Basal: Normal. Mid-Inferior: Mildly hypokinetic. Basal inferoseptal: Normal. Right Ventricle Normal RV size. ICD or pacer leads identified within the right ventricle. Normal systolic function. Atria Normal left atrium. Normal right atrium. Tricuspid Valve Normal tricuspid valve. Mild to moderate (1-2+) tricuspid valve insufficiency. Pulmonary artery systolic pressure is 46 mmHg. Pulmonic Valve The pulmonic valve is not well visualized. Great Vessels Normal aortic root. The pulmonary artery is normal size. Normal inferior vena cava. Pericardium/Pleural No pericardial effusion. MMode/2D Measurements & Calculations LVIDd: 4.5 cm IVSd: 1.2 cm Ao root diam: 3.0 cm LVIDs: 3.3 cm LVPWd: 1.2 cm RVDd: 3.2 cm FS: 26.3 % LAV(MOD-sp4): 26.0 ml SV(MOD-sp4): 10.8 ml LVAd ap4: 26.5 cm2 LVLd ap4: 7.2 cm EDV(MOD-sp4): 79.5 ml EDV(sp4-el): 82.9 ml LVAs ap4: 24.7 cm2 LVLs ap4: 7.2 cm ESV(MOD-sp4): 68.7 ml ESV(sp4-el): 72.3 ml EF(MOD-sp4): 13.6 % EF(sp4-el): 12.8 % SV(sp4-el): 10.6 ml LA dimension(2D): 2.7 cm LA A4 area: 12.1 cm2 RA A4 area: 10.3 cm2 Doppler Measurements & Calculations TR max jesu: 327.4 cm/sec TR max P.9 mmHg ECHO/Echo, Limited Study Interpretation Summary Normal LV size. The estimated ejection fraction is 25 %. Mild concentric left ventricular hypertrophy. Pulmonary artery systolic pressure is 46 mmHg. Severe segmental systolic dysfunction (see wall motion). Compared to previous study, the left ventricular systolic function has worsened .. Ordering Physician: Marek Levin Referring Physician: Gino Boswell Performed By: Lakshmi Patel RDCS
--- NOTE | 2022-09-25 04:26 | PCM.PN.BLA ---
Progress Note I was called due to diaphoresis. I came to assess the patient. She was short of breath but not complaining of abdominal pain. Her abdomen is soft and very mildly tender, improved even from this morning. I consulted medicine and ordered labs. Trop came back significantly elevated. Hospitalist is adjusting her glucose control and we are ordering a CTA of the chest, abd, pelvis to evaluate for PE and to evaluate abdomen. Assistant Attorney General will be consulted and patient is being transferred to ICU. I discussed with patients and he is coming in to see her. Will follow closely Lane Cagle MD
--- NOTE | 2022-09-25 04:30 | NURSING ---
report called to Lolis in ICU
--- NOTE | 2022-09-25 04:31 | PCM.PN.HOSP ---
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 Following surgery patient has decompensated on many counts internal medicine service was consulted to help optimize management. This decompensation includes uncontrolled blood glucose; worsening respiratory status; and dizziness. Her abdominal pain has improved following surgery. Her lactic acid has remained elevated even though she had received IV fluids and she is on Zosyn. Nurses report that overnight of 09/24/2022 to 09/25/2022 patient's woke up to use the bedside commode. Patient complains of dizziness, she reported that she was not feeling good and she was diaphoretic. Of note patient reports dyspnea on exertion ever since she returned from a class reunion in [place]. She reported her symptoms started with a cold. When the symptoms started she had a productive cough but now her cough is dry and her cough is more intermittent. Objective Data Objective Data Vital Signs: Vital Signs Temp Pulse Resp BP Pulse Ox O2 Del Method O2 Flow Rate 98.1 F 116 H 18 156/99 H 95 Nasal Cannula 2 09/25/22 02:47 09/25/22 02:47 09/25/22 02:47 09/25/22 02:47 09/25/22 02:47 09/25/22 02:47 09/25/22 02:47 Oxygen Flow Rate (L/min) 2 Oxygen Delivery Method Nasal Cannula Weight: 62.5 kg Body Mass Index (BMI) 21.5 Intake & Output: Intake and Output for Last 24 Hours 09/23/22 09/24/22 09/25/22 23:59 23:59 23:59 Intake Total 2246.67 / 2246.67 3440 / 3440 50 / 50 Output Total 550 / 550 450 / 450 Balance 1696.67 / 1696.67 2990 / 2990 50 / 50 Lab / Micro Data Attestation: I reviewed the patient's lab results. Result Diagrams: 09/25/22 03:32 09/25/22 03:32 Labs: Laboratory Results - last 24 hr 09/24/22 04:25: WBC 16.1 H, RBC 3.47 L, Hgb 11.2 L, Hct 33.8 L, MCV 97.4, MCH 32.3 H, MCHC 33.1, RDW Std Deviation 46.5 H, RDW Coeff of Reanna 13.2, Plt Count 151, MPV 9.6, Immature Gran % (Auto) 0.600, Neut % (Auto) 82.8 H, Lymph % (Auto) 8.8 L, [place] % (Auto) 7.6, Eos % (Auto) 0.0, Baso % (Auto) 0.2, Absolute Neuts (auto) 13.3 H, Absolute Lymphs (auto) 1.42, Nucleated RBC % 0 09/24/22 04:25: Sodium 144, Potassium 4.5, Chloride 117 H, Carbon Dioxide 19.0 L, Anion Gap 8, BUN 28 H, Creatinine 1.45 H, Estim Creat Clear Calc 29.09, Est GFR (MDRD) Af Amer 44 L, Est GFR (MDRD) Non-Af 37 L, BUN/Creatinine Ratio 19.3, Glucose 191 H, Calcium 9.0 09/24/22 05:58: POC Glucose 213 H 09/24/22 11:10: POC Glucose 286 H 09/24/22 16:27: POC Glucose 250 H 09/24/22 20:45: POC Glucose 316 H 09/25/22 02:46: POC Glucose 373 H 09/25/22 03:32: Lactic Acid 2.7 H* 09/25/22 03:32: WBC 16.2 H, RBC 3.61 L, Hgb 11.4 L, Hct 35.2 L, MCV 97.5, MCH 31.6, MCHC 32.4, RDW Std Deviation 45.8 H, RDW Coeff of Reanna 12.9, Plt Count 188, MPV 10.3, Immature Gran % (Auto) 0.800, Neut % (Auto) 86.5 H, Lymph % (Auto) 6.9 L, [place] % (Auto) 5.6, Eos % (Auto) 0.1, Baso % (Auto) 0.1, Absolute Neuts (auto) 14.0 H, Absolute Lymphs (auto) 1.12, Nucleated RBC % 0 09/25/22 03:32: Sodium 139, Potassium 4.7, Chloride 113 H, Carbon Dioxide 15.0 L, Anion Gap 11, BUN 29 H, Creatinine 1.57 H, Estim Creat Clear Calc 26.87, Est GFR (MDRD) Af Amer 41 L, Est GFR (MDRD) Non-Af 34 L, BUN/Creatinine Ratio 18.5, Glucose 342 H, Calcium 9.6, Troponin I High Sens 2711 H* 09/25/22 03:32: B-Natriuretic Peptide 1909.8 H Micro: Microbiology 09/22/22 14:06 Urine, Clean Catch Urine Culture - Final Presumptive E. coli Streptococcus agalactiae (B) Radiography Diagnostic Testing: Radiology Impression Chest X-Ray 09/24/22 16:10 IMPRESSION: Small right pleural effusion. Electronically Signed: Lauro Shah MD at 17:47 EDT , Physical Exam Narrative Physical exam: General: Well-nourished, well-developed. Head: Normocephalic, atraumatic, no tenderness Eyes: Vision is grossly intact. EOMI ENT, no trauma, moist mucous membranes, no rhinorrhea Neck: Nontender, No thyromegaly. CVS: Tachycardia. S1-S2 present. No murmur, gallop or rub. Respiratory : Tachypnea; audible wheezes. chest wall nontender Abdomen: Dry and intact dressing. Soft, nontender, nondistended, hypoactive bowel sounds. : Deferred Back: Nontender, no CVA tenderness, no midline spinal tenderness, deformities, step-offs Extremities: Nontender full range of motion, no trauma Skin: Normal color, no trauma, abrasions Neuro: Alert, oriented, cranial nerves II through XII grossly intact. Psychiatry: Normal mood. Normal affect. Not depressed. Not anxious. Assessment & Plan Assessment/Plan (1) NSTEMI, initial episode of care: (2) Elevated troponin: (3) Wheezing: PLAN: Plan NSTEMI Initial high sensitivity troponin was 2711; trend. EKG showed left bundle/paced rhythm. Discussed with General surgery; and it is ok to start heparin drip. Of note patient had some old blood in her stool in am of 09/25/2022. Heparin drip ordered. Consult cardiology. Dyspnea/wheezing/Hypoxia/large right pleural effusion BNP of 1909.8 Echocardiogram on 06/15/2022 showed EF of 65%. No hemodynamically significant valvular abnormalities. Will get a limited Echo to check EF. CTA of chest ordered. GFR is appropriate. CT chest with large right pleural effusion. Thoracentesis with fluid studies ordered. Check ABG. Respiratory pathogen panel ordered. COVID screen ordered. Change as needed DuoNeb to scheduled while awake. Lactic acidosis Etiology unclear. It has been trended and remains high. Patient is on Zosyn, agrees Patient has received IV fluids. No further IV fluids at this time Diabetes mellitus Blood glucose is elevated. With ordering CTA will discontinue metformin. We will keep patient n.p.o. and stop glimepiride. Basal insulin ordered. Accu-Chek with correction scale insulin ordered. Small bowel obstruction/incarcerated hernia Status post incarcerated hernia release on 09/22/2022. DVT prophylaxis: Not indicated heparin drip has been started. Charges/Coding Visit Charges Inpatient E&M: 61002 [facility] L3
--- NOTE | 2022-09-25 04:54 | US_ITS ---
PROCEDURE: Ultrasound guided thoracentesis. DATE OF EXAMINATION: 09/25/2022. INDICATION: Female, 82 years old. Pleural effusions. PHYSICIAN: Lloyd Shannon DO TECHNIQUE: The risks, benefits, and alternatives to the procedure were explained to the patient. The specific risks of bleeding, infection, and pneumothorax were detailed and accepted. Witnessed informed consent was obtained. The bilateral pleural cavities were was ultrasonographically surveyed. Small left and moderate right pleural effusions were identified. The right pleural effusion was targeted for drainage, given larger size. The skin were cleaned and prepped in the usual sterile fashion. Using ultrasound guidance, the right pleural cavity was accessed with a 5-[place]yr[place] paracentesis needle/catheter system. The trocar was removed. A total of 920 ml of clear straw-colored fluid was removed from the peritoneal cavity. 100 cc of the collected fluid was sent to lab for for further testing. The catheter was removed and a sterile dressing was applied. The procedure was well tolerated. Immediate postprocedural chest radiograph demonstrated near-complete resolution of the right-sided pleural effusion with no sizable residual pneumothorax. The patient was returned to the floor in stable condition. US/Thoracentesis W US IMPRESSION: 1. Right-sided ultrasound-guided diagnostic and therapeutic pleural effusion. 2. Small left pleural effusion was not drained on this examination given smaller size. Electronically Signed: Lloyd Shannon DO at 16:10 EDT ,
--- NOTE | 2022-09-25 05:01 | NURSING ---
bud called and updated on change in poc
[2022-09-25] MEDS: Levothyroxine 125 MCG Tablet PO (05:06)
[2022-09-25] MEDS: Ipratropium/Albuterol Sulfate 3 ML AMPUL.NEB INHALATION ×3 (05:06→19:38)
[2022-09-25] MEDS: Insulin Lispro 100 UNIT/ML INSULN.PEN SC ×3 (05:07→21:57)
[2022-09-25] MEDS: Insulin Glargine-YFGN 100 UNIT/ML Pen 15 UNIT SC (05:07)
[2022-09-25 05:21] LABS: Bedside Glucose 293 mg/dL (74-106)
[2022-09-25] MEDS: 0.9% Saline Lock 10 ML Syringe IV ×2 (05:47→21:37)
--- NOTE | 2022-09-25 06:07 | PCM.PN.HOSP ---
Reason for Visit Reason for Visit: Diagnoses Non-ST elevation (NSTEMI) myocardial infarction (09/22/22) Unspecified intestinal obstruction, unspecified as to partial versus complete obstruction (09/22/22) Wheezing (09/22/22) Other specified abnormalities of plasma proteins (09/22/22) Subjective Subjective Patient to ICU overnight. Reports she feels her breathing is slightly better, no cough. Reports abdomen also is feeling better Objective Data Objective Data Vital Signs: Vital Signs Temp Pulse Resp BP Pulse Ox O2 Del Method O2 Flow Rate 98.1 F 108 H 30 H 156/99 H 95 Nasal Cannula 2 09/25/22 02:47 09/25/22 05:06 09/25/22 05:06 09/25/22 02:47 09/25/22 02:47 09/25/22 02:47 09/25/22 02:47 Oxygen Flow Rate (L/min) 2 Oxygen Delivery Method Nasal Cannula Weight: 62.5 kg Body Mass Index (BMI) 21.5 Intake & Output: Intake and Output for Last 24 Hours 09/23/22 09/24/22 09/25/22 23:59 23:59 23:59 Intake Total 2246.67 / 2246.67 3440 / 3440 250 / 250 Output Total 550 / 550 450 / 450 Balance 1696.67 / 1696.67 2990 / 2990 250 / 250 Lab / Micro Data Result Diagrams: 09/25/22 06:35 09/25/22 06:35 Labs: Laboratory Results - last 24 hr 09/24/22 05:58: POC Glucose 213 H 09/24/22 11:10: POC Glucose 286 H 09/24/22 16:27: POC Glucose 250 H 09/24/22 20:45: POC Glucose 316 H 09/25/22 02:46: POC Glucose 373 H 09/25/22 03:32: Lactic Acid 2.7 H* 09/25/22 03:32: WBC 16.2 H, RBC 3.61 L, Hgb 11.4 L, Hct 35.2 L, MCV 97.5, MCH 31.6, MCHC 32.4, RDW Std Deviation 45.8 H, RDW Coeff of Reanna 12.9, Plt Count 188, MPV 10.3, Immature Gran % (Auto) 0.800, Neut % (Auto) 86.5 H, Lymph % (Auto) 6.9 L, [place] % (Auto) 5.6, Eos % (Auto) 0.1, Baso % (Auto) 0.1, Absolute Neuts (auto) 14.0 H, Absolute Lymphs (auto) 1.12, Nucleated RBC % 0 09/25/22 03:32: Sodium 139, Potassium 4.7, Chloride 113 H, Carbon Dioxide 15.0 L, Anion Gap 11, BUN 29 H, Creatinine 1.57 H, Estim Creat Clear Calc 26.87, Est GFR (MDRD) Af Amer 41 L, Est GFR (MDRD) Non-Af 34 L, BUN/Creatinine Ratio 18.5, Glucose 342 H, Calcium 9.6, Troponin I High Sens 2711 H* 09/25/22 03:32: B-Natriuretic Peptide 1909.8 H 09/25/22 05:02: POC Glucose 293 H Micro: Microbiology 09/22/22 14:06 Urine, Clean Catch Urine Culture - Final Presumptive E. coli Streptococcus agalactiae (B) Radiography Diagnostic Testing: Radiology Impression Chest X-Ray 09/24/22 16:10 IMPRESSION: Small right pleural effusion. Electronically Signed: Lauro Shah MD at 17:47 EDT , Chest/Abdomen/Pelvis CTA 09/25/22 04:19 IMPRESSION: 1. Findings consistent with CHF with interstitial edema, dependent compressive atelectasis, and right greater than left pleural effusions. Contrast reflux into the IVC and hepatic veins. 2. No evidence of PE or aortic aneurysm or dissection. 3. Mild anasarca. Postoperative breast changes. 4. Pacemaker leads. 5. Improved appearance of small bowel in the right abdomen, minimal if any residual small bowel wall thickening. 6. The previously seen mesenteric edema has essentially resolved. Significantly decreased mild ascites in the right upper quadrant and pelvis. 7. 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 8. No aortic aneurysm or dissection. Electronically Signed: Ratna Weller MD at 5:40 EDT Reading Location ID and State: [facility] / [place] Tel , Service support , Physical Exam Narrative General: Alert, oriented, appears to have increased work of breathing HEENT: Atraumatic, normocephalic Eyes: Anicteric, normal conjunctiva, extraocular movements grossly intact Neck: Supple Respiratory: Diminished at the bases with increased respiratory effort Cardiovascular: Regular rate and rhythm GI: Soft, nontender, nondistended Extremities: No edema Musculoskeletal: Moving all extremities Neuro: No overt focal neurological deficits Skin: No rashes appreciated Psych: Cooperative Assessment & Plan Assessment/Plan (1) NSTEMI, initial episode of care: (2) Elevated troponin: (3) Wheezing: (4) Pleural effusion: PLAN: Plan #Increased shortness of breath and tachypnea secondary to bilateral pleural effusions -CT of chest with no PE however did note bilateral pleural effusions -Could potentially be parapneumonic in nature though unclear at this time, does have elevated white count to 19.1 with neutrophil predominance, Zosyn started -Patient have thoracentesis this a.m. on right side for diagnostic and therapeutic purposes -May need diuretics depending on improvement, BNP obtained was 1909 -COVID obtained -nebs ordered #High anion gap metabolic acidosis with partial respiratory compensation -Slightly acidotic on ABG with pH of 7.32 with a bicarb of 15 and a PCO2 of 29.5. PO2 81 requiring 4 L of nasal cannula to maintain -Does have an anion gap of 14, suspect this is due to lactic acidosis with an uptrending lactic most recently 2.9 -Continue to trend and treat underlying etiology -We will panculture given significant decompensation and rising lactic acid #NSTEMI -Unclear type I or type II -Troponin 2711 down trended to 2410 -Patient is to start heparin drip post thoracentesis -Cardiology consulted #CKD stage IIIb -Appears close to baseline, continue present management, avoid nephrotoxic agents #Small bowel obstruction status post reduction -Status post surgery 3 days ago with reduction, managed by surgery -CT abdomen benign -No significant abdominal complaints #History of complete heart block status post permanent pacemaker implantation -Continue current management #Type 2 diabetes mellitus -Glucose checks and sliding scale insulin -Also on 15 units long-acting #Hypothyroidism -TSH 0.34, will obtain free T4 -Continue Synthroid #DVT ppx: To start heparin drip Zoey Jimenez MD Time spent in the patient's overall evaluation,decision-making process, review of diagnostic data, adjustment of management, discussion with other providers, nursing nursing and ancillary staff involved in patient's care documentation, 30 minutes
[2022-09-25 06:15] LABS: Allen Test Positive; Base Excess -11 mmol/L (-2 to +2); Bicarbonate 15.1 mmol/L (22-26); Blood Gas Specimen Type ART; O2 Delivery Device Cannula; PO2 81 mmHG (75-100); SITE L Radial; SO2 95 % (95-99); Total Carbon Dioxide 16 mmol/L; pCO2 29.5 mmHg (35-45); pH 7.32 (7.35-7.45)
[2022-09-25 06:35] LABS: International Normalized Ratio 1.4; Partial Thromboplast Time 29.9 Seconds (24.1-36.2); Prothrombin Time (Protime)PT. 17.2 SECONDS (11.7-14.9)
[2022-09-25 07:07] LABS: Mucous, Urine 0 SEEN /hpf (<or=2+); Red Blood Cells-Urine 0 SEEN /hpf (0-5)
[2022-09-25 07:19] LABS: Color, Urine Yellow (Yellow); Glucose, Dipstick 1000 mg/dl (Normal); Ketone-Dipstick 15 mg/dl (Negative); Leukocyte Esterase-Dipstick 25 /ul (Negative); Nitrite-Dipstick Negative (Negative); Occult Blood-Urine 10 /ul (Negative); Protein-Dipstick 30 mg/dl (Negative); Specific Gravity, Urine 1.015 (1.002-1.030); Urine Bilirubin Dipstick Negative (Negative); Urine Clarity Clear (Clear); Urine Urobilinogen Normal (Normal)
[2022-09-25 07:25] LABS: Anion Gap 14 (5-15); BUN 30 mg/dL (7-18); BUN/Creat Ratio 19.1 RATIO (10-20); Calcium,Total 9.6 mg/dL (8.5-10.1); Chloride 112 mmol/L (98-107); Creatinine, Serum 1.57 mg/dL (0.55-1.02); EST Glomerular Filtration Rate 34 mL/min (>60); Est Glom Filt Rate - Afr Amer 41 mL/min (>60); Estimated Creatinine Clearance 26.87 ml/min; Glucose 295 mg/dL (74-106); Potassium 4.8 mmol/L (3.5-5.1); Sodium Level 143 mmol/L (136-145)
[2022-09-25 07:26] LABS: Bacteria 1+ /hpf (None Seen); Squamous Epithelial Cells - UA 0-5 SEEN /hpf (5-10); White Blood Cells 0-5 SEEN /hpf (0-5)
--- NOTE | 2022-09-25 07:36 | PN.SURG_ITS ---
Subjective Subjective Patient resting in the ICU. Objective Data Objective Data Vital Signs: Vital Signs Temp Pulse Resp BP Pulse Ox O2 Del Method O2 Flow Rate 98.1 F 108 H 30 H 156/99 H 95 Nasal Cannula 2 09/25/22 02:47 09/25/22 05:06 09/25/22 05:06 09/25/22 02:47 09/25/22 02:47 09/25/22 02:47 09/25/22 02:47 Oxygen Flow Rate (L/min) 2 Oxygen Delivery Method Nasal Cannula Weight: 137 lb 12.623 oz Body Mass Index (BMI) 21.5 Intake & Output: Intake and Output for Last 24 Hours 09/23/22 09/24/22 09/25/22 23:59 23:59 23:59 Intake Total 2246.67 / 2246.67 3440 / 3440 250 / 250 Output Total 550 / 550 450 / 450 Balance 1696.67 / 1696.67 2990 / 2990 250 / 250 Lab / Micro Data Result Diagrams: 09/25/22 03:32 09/25/22 06:35 Labs: Laboratory Results - last 24 hr 09/24/22 11:10: POC Glucose 286 H 09/24/22 16:27: POC Glucose 250 H 09/24/22 20:45: POC Glucose 316 H 09/25/22 02:46: POC Glucose 373 H 09/25/22 03:32: Lactic Acid 2.7 H* 09/25/22 03:32: WBC 16.2 H, RBC 3.61 L, Hgb 11.4 L, Hct 35.2 L, MCV 97.5, MCH 31.6, MCHC 32.4, RDW Std Deviation 45.8 H, RDW Coeff of Reanna 12.9, Plt Count 188, MPV 10.3, Immature Gran % (Auto) 0.800, Neut % (Auto) 86.5 H, Lymph % (Auto) 6.9 L, [place] % (Auto) 5.6, Eos % (Auto) 0.1, Baso % (Auto) 0.1, Absolute Neuts (auto) 14.0 H, Absolute Lymphs (auto) 1.12, Nucleated RBC % 0 09/25/22 03:32: Sodium 139, Potassium 4.7, Chloride 113 H, Carbon Dioxide 15.0 L , Anion Gap 11, BUN 29 H, Creatinine 1.57 H, Estim Creat Clear Calc 26.87, Est GFR (MDRD) Af Amer 41 L, Est GFR (MDRD) Non-Af 34 L, BUN/Creatinine Ratio 18.5, Glucose 342 H, Calcium 9.6, Troponin I High Sens 2711 H* 09/25/22 03:32: B-Natriuretic Peptide 1909.8 H 09/25/22 05:02: POC Glucose 293 H 09/25/22 05:50: PT 17.2 H, INR 1.4, APTT 29.9 09/25/22 06:35: Sodium 143, Potassium 4.8, Chloride 112 H, Carbon Dioxide 17.0 L , Anion Gap 14, BUN 30 H, Creatinine 1.57 H, Estim Creat Clear Calc 26.87, Est GFR (MDRD) Af Amer 41 L, Est GFR (MDRD) Non-Af 34 L, BUN/Creatinine Ratio 19.1, Glucose 295 H, Calcium 9.6 09/25/22 06:50: Urine Color Yellow, Urine Clarity Clear, Urine pH 5.0, Ur Specific [place] 1.015, Urine Protein 30 H, Urine Glucose (UA) 1000 H, Urine Ketones 15 H, Urine Occult Blood 10 H, Urine Nitrite Negative, Urine Bilirubin Negative, Urine Urobilinogen Normal, Ur Leukocyte Esterase 25 H, Urine RBC 0 SEEN, Urine WBC 0-5 SEEN, Ur Squamous Epith Cells 0-5 SEEN, Urine Bacteria 1+, Urine Mucus 0 SEEN Micro: Microbiology 09/22/22 14:06 Urine, Clean Catch Urine Culture - Final Presumptive E. coli Streptococcus agalactiae (B) ABG Data ABG results: ABG 09/25/22 06:10 Specimen Type ART Sample Site L Radial pH 7.32 L Bicarbonate Actual 15.1 L Total CO2 16 Base Excess -11 L O2 Saturation 95 ABG pCO2 29.5 L ABG pO2 81 Jean Marie Test Positive O2 Delivery Device Cannula Liter Flow 4.0 Radiography Diagnostic Testing: Radiology Impression Chest X-Ray 09/24/22 16:10 IMPRESSION: Small right pleural effusion. Electronically Signed: Lauro Shah MD at 17:47 EDT , Chest/Abdomen/Pelvis CTA 09/25/22 04:19 IMPRESSION: 1. Findings consistent with CHF with interstitial edema, dependent compressive atelectasis, and right greater than left pleural effusions. Contrast reflux into the IVC and hepatic veins. 2. No evidence of PE or aortic aneurysm or dissection. 3. Mild anasarca. Postoperative breast changes. 4. Pacemaker leads. 5. Improved appearance of small bowel in the right abdomen, minimal if any residual small bowel wall thickening. 6. The previously seen mesenteric edema has essentially resolved. Significantly decreased mild ascites in the right upper quadrant and pelvis. 7. 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 8. No aortic aneurysm or dissection. Electronically Signed: Ratna Weller MD at 5:40 EDT , Assessment & Plan Assessment/Plan (1) Small bowel obstruction: (2) Elevated troponin: PLAN: Plan Patient developed some diaphoresis and more shortness of breath overnight. She was moved to the ICU and a CTA was performed. The patient has a large right pleural effusion and signs of congestive heart failure. Patient is being diuresed by ICU and is having a thoracentesis today. Patient also had elevated troponin. Cardiology was consulted. Heparin drip was started by the hospitalist service. The intensive service was consulted as well. Patient is still on antibiotics for possible pneumonia versus UTI. CTA of her abdomen appeared normal and the bowel appears improved. I am okay to start a regular diet once it is okay with all the consulting services. Lane Cagle MD Pager: [facility] [address] [place] [address], [address] [place] [address] Office:
[2022-09-25 07:39] LABS: Reflex Lactate? Y
[2022-09-25 07:40] LABS: Erythrocyte Sedimentation Rate 27 mm/hr (0-30)
[2022-09-25 07:43] LABS: Absolute Lymphocyte Count 0.67 X10^3/uL (0.83-4.51); Absolute Neutrophil Count 17.4 X10^3/uL (2.0-7.7); Basophil# 0.03 X10^3/uL; Basophil% 0.2 % (0-1); Hemoglobin 11.8 g/dL (12.0-15.0); Lymphocyte # 0.67 X10^3/ul (0.83-4.51); Lymphocyte % 3.5 % (19-41); Mean Corp Hgb Conc 32.8 g/dL (32-36); Mean Corpuscular Hgb 31.8 pg (27.0-32.0); Mean Platelet Vol. 10.8 fl (6.2-12.0); Monocyte# 0.87 X10^3/uL; Monocyte% 4.5 % (0-10); NRBC Flagged by Analyzer 0 % (0-5); Neutrophil % 90.9 % (47-70); Platelet Count 193 K/mm3 (150-450); RBC Distribution Width CV 13.1 % (11.6-14.6); RBC Distribution Width SD 46.1 fl (35.1-43.9); Red Blood Count 3.71 M/mm3 (4.2-5.4); White Blood Count 19.1 K/mm3 (4.4-11.0)
[2022-09-25 07:46] LABS: ALB/GLOB Ratio 0.8 RATIO (0.9-2.4); AST(SGOT) 52 U/L (15-37); Alanine Aminotransfer ALT/SGPT 38 U/L (13-56); Albumin, Serum 2.9 g/dL (3.2-5.0); Alkaline Phosphatase 62 U/L (45-117); Bilirubin, Direct 0.17 mg/dL (0.00-0.30); Globulin 3.7 g/dL (2.2-4.2); LDH 344 U/L (84-246); Lactic Acid 2.9 mmol/L (0.4-1.9); Protein, Total 6.6 g/dL (6.4-8.2); Thyroid Stim Hormone (TSH) 0.34 uIU/mL (0.358-3.74); Troponin-I HS 2410 pg/mL (3.0-54.0)
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
[2022-09-25 08:55] LABS: Procalcitonin 0.18 ng/mL (0.00-0.09)
--- NOTE | 2022-09-25 09:30 | CASEMGMT ---
Addendum entered by Romeo George 09/25/22 13:37: Pt made aware [facility] able to accept pt w/SOC slated for Wed. Original Note: MIKE SUTTON NOTE: Met w/pt and . Discussed discharge planning. Pt and prefer for pt to return home and would like [facility]. They decline wanting list of other [facility] options. and pt stated, if by the time pt is ready for d/c, if she is feeling to weak to return home at that time, they would be amenable to pt going to a SNF. They currently live @ [facility] [employer] living and 1st preference would be for pt to go to [facility]. They decline wanting list of other SNF options at this time. Call placed to Britta @ [facility] and referral made. She was made aware possibility of pt being medically ready for d/c on Wednesday. She states they are able to accept w/SOC slated for Wed. Erik PARKS RN CM
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
--- NOTE | 2022-09-25 09:46 | CASEMGMT ---
Social Work As per CM, pt and live in the independent living at [facility]. Pt and informed CM is SNF needed, they would want SW. SW met w/pt and , provided to them a list of long-term facilities via [facility] in pt's insurance network, preferred geographic area, and complete with quality and resource use data. and pt confirm they would want [facility] if SNF is needed. SW explained will call to let [facility] know, and if pt is still here Wednesday(as it is anticipated pt will be here all ), SW/CM will follow up to confirm the most appropriate discharge plan. Pt and state understanding. SW called [facility], let Gayle to let her know that we may be making a referral for this pt on Wednesday if pt is still here and skilled is needed, pt wants to come to [facility] skilled. Gayle asked if SW can go ahead and send clinical information today. business continuity planner Anita will follow up on this. JAQUELINE Jensen
--- NOTE | 2022-09-25 10:13 | CASEMGMT ---
Discharge Planning SNF referral made via [employer] to CC per patients request. Anita Muro
[2022-09-25 10:26] LABS: T4 Free Direct 1.53 ng/dL (0.76-1.46)
[2022-09-25] MEDS: Cholecalciferol (VIT D3) 25 MCG TABLET (1,000 UNITS) PO (10:30)
[2022-09-25 10:49] LABS: Bedside Glucose 217 mg/dL (74-106)
[2022-09-25 11:03] LABS: Reflex Lactate? Y
--- NOTE | 2022-09-25 14:31 | NURSING ---
to x-ray for thoracentesis, errol
[2022-09-25] MEDS: Lidocaine 2% (20 ml mdv) 20 ML Vial INFILT (14:48)
--- NOTE | 2022-09-25 14:50 | FLU_PTH ---
PATIENT: MAHSA CISNEROS LOC: [facility] U#:[id number] AGE/SX: 82/F ROOM: [facility] RE09/22/[address]: Dr. Lane Cagle MD : 1940 BED: 1 DIS: 09/29/2022 SPEC #: [id number] RECD: 09/25/22 15:10 STATUS: RAJENDRA RE #: [id number] ARMANDO: 09/25/22 14:[address]: Lane Cagle DEPT: CYTOLOGY RECD BY: Kellie Obrien ENTERED: 09/29/22 08:14 SP TYPE: Fluid OTHR DR: MD Dr. Yong Lynn MD Dr. Cyril Ofori, MD Dr. Derek Brown, DO Dr. Joseph Agyepong, MD Dr. Lee Ann Baggott, MD Dr. Mark Stutzman, DO Dr. Tanmay Panchabhai, MD Christina Muller, MENTAL HEALTH DIRECTOR-C Tissues: Pleural fluid, NOS Procedures: Special Stain Group II Surgery Specimen Level IV Cytospin Fluid HEADER OPERATION: Ultrasound-guided thoracentesis PRE-OP DIAGNOSIS: Right pleural effusion TISSUE SUBMITTED: Thoracentesis fluid for cytology DIAGNOSIS CYTOLOGY Thoracentesis fluid for cytology (cytospin and cell block): Negative for malignant cells. AM:kayleigh 09/30/2022 CYTOLOGY STUDY Slides are reviewed. CYTOLOGY GROSS Received is 100 ml of yellow cloudy fluid labeled with the patient's name and and designated per the requisition as thoracentesis. Submitted for cytology preparation including cell block. / kayleigh 09/29/2022 TC:5 CPT: 86668, 18973
--- NOTE | 2022-09-25 15:00 | RAD_ITS ---
HISTORY: Postthoracentesis. TECHNIQUE: XR Chest 2 Views. COMPARISON: Prior day. FINDINGS: LINES/TUBES: Cardiac pacemaker and multiple surgical clips again seen. CARDIOMEDIASTINAL BORDERS: Stable. LUNGS: Mild interstitial and bibasilar opacities, increased on the left. PLEURA: No apical pneumothorax identified. Mild pleural effusions, increased on the left and decreased on the right. RAD/Chest Insp/Exp 2 View IMPRESSION: Increased left pleural effusion and left basilar opacity. Decreased right pleural effusion. No pneumothorax identified. Electronically Signed: Yodit Verma MD at 15:48 EDT ,
[2022-09-25 15:15] LABS: Cytology, Body Fluid / CSF SEE PATHOLOGY REPORT
[2022-09-25] MEDS: HEPARIN/D5w 25,000 UNITS 25,000 UNITS/250 ML IV.SOLN. 10 UNITS CONT INF (15:27)
[2022-09-25 15:31] LABS: Body Fluid Mononuclear WBC # 0.054 10^3/uL; Body Fluid Polynuclear WBC # 0.018 10^3/uL; Body Fluid Total Cells Counted 0.137 10^3/ul; White Blood Count/Body Fluid 0.072 10^3/uL
[2022-09-25 15:52] LABS: Bedside Glucose 147 mg/dL (74-106)
[2022-09-25 15:56] LABS: Glucose, Body Fluid 239 mg/dL (40-70); LDH,Body Fluid 113 Units/l (Not Establ.); Protein, Body Fluid 1.9 g/dL (Not Establ.)
[2022-09-25 16:36] LABS: Lymphocytes 15 %; Macrophages 15 %; Neutrophil (Segs) 24 %
[2022-09-25 16:37] LABS: Mesothelial Cells 45 %; Other Cell Type/BF 1 %
[2022-09-25 16:47] LABS: Appearance/Body Fluid CLEAR; Auto B Fluid Analyzer BKGD Ct COUNTS W/IN LIMITS (W/IN LIMITS); Color/Body Fluid LT YEL; Source- Body Fluid THORACENTESIS
[2022-09-25 16:52] LABS: Body Fluid QC Type(s) BF1Q; Red Cell Count/Body Fluid 437 /mm3
[2022-09-25 22:18] LABS: Bedside Glucose 208 mg/dL (74-106)
[2022-09-25 22:22] LABS: Partial Thromboplast Time > 200.0 Seconds (24.1-36.2)
[2022-09-26] VITALS (21 sets, daily range): BP systolic 107–154; BP diastolic 50–86; PULSE 71–98; RESP 15–22; TEMP 36.6–37.9; O2SAT 95–100
[2022-09-26 05:40] LABS: Bedside Glucose 130 mg/dL (74-106)
[2022-09-26] MEDS: 0.9% Saline Lock 10 ML Syringe IV (05:45)
[2022-09-26] MEDS: Levothyroxine 125 MCG Tablet PO (05:47)
[2022-09-26 06:01] LABS: Absolute Lymphocyte Count 1.66 X10^3/uL (0.83-4.51); Absolute Neutrophil Count 6.3 X10^3/uL (2.0-7.7); Basophil# 0.04 X10^3/uL; Basophil% 0.4 % (0-1); Eosinophil# 0.03 X10^3/uL; Eosinophils% 0.3 % (0-5); Hematocrit 33.6 % (37-47); Hemoglobin 11.1 g/dL (12.0-15.0); Lymphocyte # 1.66 X10^3/ul (0.83-4.51); Lymphocyte % 18.6 % (19-41); Mean Corpuscular Hgb 31.6 pg (27.0-32.0); Mean Corpuscular Volume 95.7 fL (81-99); Mean Platelet Vol. 10.4 fl (6.2-12.0); Monocyte# 0.85 X10^3/uL; Monocyte% 9.5 % (0-10); NRBC Flagged by Analyzer 0 % (0-5); Neutrophil # 6.29 X10^3/uL (2.7-7.7); Neutrophil % 70.6 % (47-70); Platelet Count 167 K/mm3 (150-450); RBC Distribution Width CV 13.2 % (11.6-14.6); RBC Distribution Width SD 45.6 fl (35.1-43.9); Red Blood Count 3.51 M/mm3 (4.2-5.4); White Blood Count 8.9 K/mm3 (4.4-11.0)
[2022-09-26 06:13] LABS: Bedside Glucose 125 mg/dL (74-106)
[2022-09-26 06:24] LABS: ALB/GLOB Ratio 0.8 RATIO (0.9-2.4); AST(SGOT) 27 U/L (15-37); Alanine Aminotransfer ALT/SGPT 30 U/L (13-56); Albumin, Serum 2.5 g/dL (3.2-5.0); Alkaline Phosphatase 47 U/L (45-117); Anion Gap 6 (5-15); BUN 31 mg/dL (7-18); BUN/Creat Ratio 21.7 RATIO (10-20); Calcium,Total 9.7 mg/dL (8.5-10.1); Chloride 117 mmol/L (98-107); Creatinine, Serum 1.43 mg/dL (0.55-1.02); EST Glomerular Filtration Rate 37 mL/min (>60); Est Glom Filt Rate - Afr Amer 45 mL/min (>60); Glucose 135 mg/dL (74-106); Potassium 3.8 mmol/L (3.5-5.1); Protein, Total 5.5 g/dL (6.4-8.2); Sodium Level 145 mmol/L (136-145)
[2022-09-26 06:31] LABS: Partial Thromboplast Time 141.4 Seconds (24.1-36.2)
--- NOTE | 2022-09-26 06:38 | PN.HOSP_ITS ---
Reason for Visit Reason for Visit: Diagnoses Essential (primary) hypertension (09/22/22) Non-ST elevation (NSTEMI) myocardial infarction (09/22/22) Heart failure, unspecified (09/22/22) Pleural effusion, not elsewhere classified (09/22/22) Unspecified intestinal obstruction, unspecified as to partial versus complete obstruction (09/22/22) Wheezing (09/22/22) Other specified abnormalities of plasma proteins (09/22/22) Presence of cardiac pacemaker (09/22/22) Subjective Subjective Patient remains in ICU but is doing very well, follow-up increased shortness of breath and pleural effusions. Patient with significantly improved work of breathing after thoracentesis with no significant cough. Patient overall feeling well Objective Data Objective Data Vital Signs: Vital Signs Temp Pulse Resp BP Pulse Ox O2 Del Method O2 Flow Rate 99 F 78 17 130/76 H 100 Nasal Cannula 2 09/26/22 06:00 09/26/22 06:00 09/26/22 06:00 09/26/22 06:00 09/26/22 06:00 09/26/22 06:00 09/26/22 06:00 Oxygen Flow Rate (L/min) [3] 4 Oxygen Flow Rate (L/min) [2] 4 Oxygen Flow Rate (L/min) [1 ( 4 Initial Baseline)] Oxygen Flow Rate (L/min) 2 Oxygen Delivery Method [3] Nasal Cannula Oxygen Delivery Method [2] Nasal Cannula Oxygen Delivery Method [1 ( Nasal Cannula Initial Baseline)] Oxygen Delivery Method Nasal Cannula Weight: 62.5 kg Body Mass Index (BMI) 21.5 Intake & Output: Intake and Output for Last 24 Hours 09/24/22 09/25/22 09/26/22 23:59 23:59 23:59 Intake Total 3440 / 3440 902.33 / 902.33 353.20 / 353.20 Output Total 450 / 450 2590 / 2590 100 / 100 Balance 2990 / 2990 -1687.67 / -1687.67 253.20 / 253.20 Lab / Micro Data Result Diagrams: 09/26/22 05:50 09/26/22 05:50 Labs: Laboratory Results - last 24 hr 09/25/22 05:02: COVID-19 (LYSSA) Not Detected 09/25/22 06:35: WBC 19.1 H, RBC 3.71 L, Hgb 11.8 L, Hct 36.0 L, MCV 97.0, MCH 31.8, MCHC 32.8, RDW Std Deviation 46.1 H, RDW Coeff of Reanna 13.1, Plt Count 193, MPV 10.8, Immature Gran % (Auto) 0.900, Neut % (Auto) 90.9 H, Lymph % (Auto) 3.5 L, [place] % (Auto) 4.5, Eos % (Auto) 0.0, Baso % (Auto) 0.2, Absolute Neuts (auto) 17.4 H, Absolute Lymphs (auto) 0.67 L, Nucleated RBC % 0 09/25/22 06:35: Sodium 143, Potassium 4.8, Chloride 112 H, Carbon Dioxide 17.0 L , Anion Gap 14, BUN 30 H, Creatinine 1.57 H, Estim Creat Clear Calc 26.87, Est GFR (MDRD) Af Amer 41 L, Est GFR (MDRD) Non-Af 34 L, BUN/Creatinine Ratio 19.1, Glucose 295 H, Calcium 9.6 09/25/22 06:35: Total Bilirubin 0.50, Direct Bilirubin 0.17, AST 52 H, ALT 38, Alkaline Phosphatase 62, Lactate Dehydrogenase 344 H, Troponin I High Sens 2410 H*, C-React Prot Ext Range 94.90 H, Total Protein 6.6, Albumin 2.9 L, Globulin 3.7, Albumin/Globulin Ratio 0.8 L, TSH 0.34 L 09/25/22 06:35: ESR 27 09/25/22 06:35: Lactic Acid 2.9 H* 09/25/22 06:35: Procalcitonin 0.18 H 09/25/22 06:35: Free T4 1.53 H 09/25/22 06:50: Urine Color Yellow, Urine Clarity Clear, Urine pH 5.0, Ur Specific [place] 1.015, Urine Protein 30 H, Urine Glucose (UA) 1000 H, Urine Ketones 15 H, Urine Occult Blood 10 H, Urine Nitrite Negative, Urine Bilirubin Negative, Urine Urobilinogen Normal, Ur Leukocyte Esterase 25 H, Urine RBC 0 SEEN, Urine WBC 0-5 SEEN, Ur Squamous Epith Cells 0-5 SEEN, Urine Bacteria 1+, Urine Mucus 0 SEEN 09/25/22 10:28: POC Glucose 217 H 09/25/22 14:50: Fluid Glucose 239 H, Fluid Total Protein 1.9, Fluid LDH 113 09/25/22 14:50: Fluid Source THORACENTESIS, Fluid Color LT YEL, Fluid Appearance CLEAR, Fluid WBC 0.072, Fluid RBC 437, Fluid Tot Cell Count 0.137 H, Fld Polynuclear WBCs # 0.018, Fld Polynuclear WBCs % 25.0, Fluid Mononuclear WBCs 0.054, Fld Mononuclear WBCs % 75.0, Fluid Neutrophils 24, Fluid Lymphocytes 15, Fluid Macrophages 15, Fld Mesothelial Cells 45, Fluid Other Cells 1, Fl Pathologist Comment May follow, Fluid Comment 2 SEE COMMENT 09/25/22 15:23: POC Glucose 147 H 09/25/22 21:36: APTT > 200.0 H* 09/25/22 21:56: POC Glucose 208 H 09/26/22 02:23: POC Glucose 130 H 09/26/22 05:44: POC Glucose 125 H 09/26/22 05:50: WBC 8.9, RBC 3.51 L, Hgb 11.1 L, Hct 33.6 L, MCV 95.7, MCH 31.6, MCHC 33.0, RDW Std Deviation 45.6 H, RDW Coeff of Reanna 13.2, Plt Count 167, MPV 10.4, Immature Gran % (Auto) 0.600, Neut % (Auto) 70.6 H, Lymph % (Auto) 18.6 L, [place] % (Auto) 9.5, Eos % (Auto) 0.3, Baso % (Auto) 0.4, Absolute Neuts (auto) 6.3, Absolute Lymphs (auto) 1.66, Nucleated RBC % 0 09/26/22 05:50: Sodium 145, Potassium 3.8, Chloride 117 H, Carbon Dioxide 22.0, Anion Gap 6, BUN 31 H, Creatinine 1.43 H, Estim Creat Clear Calc 29.50, Est GFR (MDRD) Af Amer 45 L, Est GFR (MDRD) Non-Af 37 L, BUN/Creatinine Ratio 21.7 H, Glucose 135 H, Calcium 9.7, Total Bilirubin 0.40, AST 27, ALT 30, Alkaline Phosphatase 47, C-React Prot Ext Range 56.90 H, Total Protein 5.5 L, Albumin 2.5 L, Globulin 3.0, Albumin/Globulin Ratio 0.8 L 09/26/22 05:50: APTT 141.4 H* Micro: Microbiology 09/22/22 16:30 Blood Culture (Wb) - Right Forearm Blood Culture - Preliminary No growth in 48 hours. 09/22/22 16:31 Blood Culture (Wb) - Left Hand Blood Culture - Preliminary No growth in 48 hours. 09/25/22 05:02 Mucosa - Nasopharyngeal Respiratory Panel (PCR) - Final 09/22/22 14:06 Urine, Clean Catch Urine Culture - Final Presumptive E. coli Streptococcus agalactiae (B) Radiography Diagnostic Testing: Radiology Impression Echocardiogram 09/25/22 04:23 Interpretation Summary Normal LV size. The estimated ejection fraction is 25 %. Mild concentric left ventricular hypertrophy. Pulmonary artery systolic pressure is 46 mmHg. Severe segmental systolic dysfunction (see wall motion). Compared to previous study, the left ventricular systolic function has wor sened.. Ordering Physician: Marek Levin Referring Physician: Gino Boswell Performed By: Lakshmi Patel RDCS Thoracentesis Ultrasound 09/25/22 04:54 IMPRESSION: 1. Right-sided ultrasound-guided diagnostic and therapeutic pleural effusion. 2. Small left pleural effusion was not drained on this examination given smaller size. Electronically Signed: Lloyd Shannon DO at 16:10 EDT , Chest X-Ray 09/25/22 15:00 IMPRESSION: Increased left pleural effusion and left basilar opacity. Decreased right pleural effusion. No pneumothorax identified. Electronically Signed: Yodit Verma MD at 15:48 EDT Reading Location ID and State: [facility] / [place] Tel , Service support , Physical Exam Narrative General: Alert, oriented, no acute distress HEENT: Atraumatic, normocephalic Eyes: Anicteric, normal conjunctiva, extraocular movements grossly intact Neck: Supple Respiratory: Improved air movement with no increased work of breathing Cardiovascular: Regular rate and rhythm GI: Soft, nontender, nondistended Extremities: No edema Musculoskeletal: Moving all extremities Neuro: No overt focal neurological deficits Skin: No rashes appreciated Psych: Cooperative Assessment & Plan Assessment/Plan (1) NSTEMI, initial episode of care: (2) Elevated troponin: (3) Wheezing: (4) Pleural effusion: PLAN: Plan #Increased shortness of breath and tachypnea secondary to bilateral pleural effusions with new heart failure with reduced ejection fraction and possible underlying pneumonia cannot be excluded?significantly improved after drainage of right pleural effusion -CT of chest with no PE however did note bilateral pleural effusions -Could potentially be parapneumonic in nature though unclear at this time, does have elevated white count to 19.1 with neutrophil predominance, Zosyn started -Patient have thoracentesis this a.m. on right side for diagnostic and therapeutic purposes -May need diuretics depending on improvement, BNP obtained was 1909 -COVID obtained -nebs ordered -09/26: Respiratory panel and COVID-negative. Blood cultures pending. Status post thoracentesis 09/25/2022. White blood cell count 8.9 today from 19.1 and CRP downtrending as well. Continue broad-spectrum antibiotics for now especially given temp overnight and follow cultures. The thoracentesis does appear to be transudative in nature so do not think this is parapneumonic effusion. #Newly reduced heart failure with reduced ejection fraction -Echo 09/25/2022 with estimated EF of 25% with mild concentric left ventricular hypertrophy and severe segmental systolic dysfunction with PASP of 46 -Last echo 06/15/2022 with EF of 65% and no regional wall motion abnormalities -Cardiology following -Status post thoracentesis for pleural effusion -Started on IV diuresis today -Cardiac cath on Wednesday #NSTEMI -Unclear type I or type II -Troponin 2711 down trended to 2410 -Patient is to start heparin drip post thoracentesis -Cardiology consulted -09/26: On heparin drip, echo 09/25 demonstrates new reduced EF of 25% with severe segmental systolic dysfunction. Cardiac cath Wednesday. To be initiated on low- dose beta-seun #CKD stage IIIb -Appears close to baseline, continue present management, avoid nephrotoxic agents #Small bowel obstruction status post reduction -Status post surgery 3 days ago with reduction, managed by surgery -CT abdomen benign -No significant abdominal complaints #History of complete heart block status post permanent pacemaker implantation -Continue current management #Type 2 diabetes mellitus -Glucose checks and sliding scale insulin -Also on 15 units long-acting #Hypothyroidism -TSH 0.34, will obtain free slightly elevated 1.53 -Continue Synthroid but will decrease slightly and will need labs rechecked on outpatient basis #High anion gap metabolic acidosis with partial respiratory compensation? resolved -Slightly acidotic on ABG with pH of 7.32 with a bicarb of 15 and a PCO2 of 29.5. PO2 81 requiring 4 L of nasal cannula to maintain -Does have an anion gap of 14, suspect this is due to lactic acidosis with an uptrending lactic most recently 2.9 -Continue to trend and treat underlying etiology -We will panculture given significant decompensation and rising lactic acid -09/26: Resolved #DVT ppx: Heparin drip Zoey Jimenez MD Time spent in the patient's overall evaluation,decision-making process, review of diagnostic data, adjustment of management, discussion with other providers, nursing nursing and ancillary staff involved in patient's care documentation, 30 minutes Charges/Coding Visit Charges Inpatient E&M: 82476 Subs Hosp L2
--- NOTE | 2022-09-26 06:47 | PN.CC_ITS ---
Assessment & Plan Assessment/Plan (1) CHF (congestive heart failure): (2) Pleural effusion: (3) Small bowel obstruction: PLAN: Plan RECOMMENDATIONS: 1. Continue heparin drip given decreased EF 2. Initiate diuretic therapy 3. Continue empiric antibiotics 4. Increase activity as tolerated 5. Wean supplemental oxygen as tolerated 6. Potentially okay to leave the intensive care unit later today IMPRESSIONS: 1. Non-ST elevation AK/history of third-degree block with pacemaker Patient with significant elevation in troponin with a peak of 2711. Patient does have a decreased EF noted. Patient likely to require some work-up in the future. We will continue a heparin drip in the interim. Pleural effusion is consistent with a transudate etiology 2. Acute hypoxic respiratory insufficiency secondary to pleural effusion Personal review of the CT scan does show some compressive atelectasis and development of bilateral pleural effusions, right greater than left. Patient's oxygenation status has significantly improved. Pleural effusion is consistent with a transudate etiology. Will initiate diuretic therapy 3. Lactic acidosis/small bowel obstruction Unclear etiology. Patient was hypoxic requiring increased FiO2 requirements. Patient also has had bowel issues recently leading to elevated lactate. Likely not necessary to continue to monitor lactate levels from my opinion. Patient is on metformin at baseline and may have an element of lactic acidosis as a side effect. 4. Diabetes mellitus Patient is on metformin at baseline for diabetes. Blood sugars much better on Lantus. Okay to transition to before meals and at bedtime 5. Possible acute kidney injury Improved renal function today. Unclear baseline creatinine. Patient does have a relatively low GFR. Patient does have diabetes and hypertension in the past, so may have an element of chronic kidney disease. Patient did receive contrast earlier in the hospitalization. We will start with gentle diuresis Subjective Subjective Patient did well overnight. No acute issues were reported. Patient did have a thoracentesis without complications and approximately 900 cc removed. Oxygenation status has improved. Patient is on a heparin drip, but is not reporting any bleeding complications such as epistaxis, hemoptysis, melena or hematochezia. Objective Data Objective Data Thoracentesis laboratory work-up is consistent with a transudate etiology Vital Signs: Vital Signs Temp Pulse Resp BP Pulse Ox O2 Del Method O2 Flow Rate 37.2 C 78 17 130/76 H 100 Nasal Cannula 2 09/26/22 06:00 09/26/22 06:00 09/26/22 06:00 09/26/22 06:00 09/26/22 06:00 09/26/22 06:00 09/26/22 06:00 Oxygen Flow Rate (L/min) [3] 4 Oxygen Flow Rate (L/min) [2] 4 Oxygen Flow Rate (L/min) [1 ( 4 Initial Baseline)] Oxygen Flow Rate (L/min) 2 Oxygen Delivery Method [3] Nasal Cannula Oxygen Delivery Method [2] Nasal Cannula Oxygen Delivery Method [1 ( Nasal Cannula Initial Baseline)] Oxygen Delivery Method Nasal Cannula Weight: 62.5 kg Body Mass Index (BMI) 21.5 Intake & Output: Intake and Output for Last 24 Hours 09/24/22 09/25/22 09/26/22 23:59 23:59 23:59 Intake Total 3440 / 3440 902.33 / 902.33 353.20 / 353.20 Output Total 450 / 450 2590 / 2590 100 / 100 Balance 2990 / 2990 -1687.67 / -1687.67 253.20 / 253.20 Lab / Micro Data Attestation: I reviewed the patient's lab results. Result Diagrams: 09/26/22 05:50 09/26/22 05:50 Labs: Laboratory Results - last 24 hr 09/25/22 05:02: COVID-19 (LYSSA) Not Detected 09/25/22 06:35: WBC 19.1 H, RBC 3.71 L, Hgb 11.8 L, Hct 36.0 L, MCV 97.0, MCH 31.8, MCHC 32.8, RDW Std Deviation 46.1 H, RDW Coeff of Reanna 13.1, Plt Count 193, MPV 10.8, Immature Gran % (Auto) 0.900, Neut % (Auto) 90.9 H, Lymph % (Auto) 3.5 L, [place] % (Auto) 4.5, Eos % (Auto) 0.0, Baso % (Auto) 0.2, Absolute Neuts (auto) 17.4 H, Absolute Lymphs (auto) 0.67 L, Nucleated RBC % 0 09/25/22 06:35: Sodium 143, Potassium 4.8, Chloride 112 H, Carbon Dioxide 17.0 L , Anion Gap 14, BUN 30 H, Creatinine 1.57 H, Estim Creat Clear Calc 26.87, Est GFR (MDRD) Af Amer 41 L, Est GFR (MDRD) Non-Af 34 L, BUN/Creatinine Ratio 19.1, Glucose 295 H, Calcium 9.6 09/25/22 06:35: Total Bilirubin 0.50, Direct Bilirubin 0.17, AST 52 H, ALT 38, Alkaline Phosphatase 62, Lactate Dehydrogenase 344 H, Troponin I High Sens 2410 H*, C-React Prot Ext Range 94.90 H, Total Protein 6.6, Albumin 2.9 L, Globulin 3.7, Albumin/Globulin Ratio 0.8 L, TSH 0.34 L 09/25/22 06:35: ESR 27 09/25/22 06:35: Lactic Acid 2.9 H* 09/25/22 06:35: Procalcitonin 0.18 H 09/25/22 06:35: Free T4 1.53 H 09/25/22 06:50: Urine Color Yellow, Urine Clarity Clear, Urine pH 5.0, Ur Speci fic [place] 1.015, Urine Protein 30 H, Urine Glucose (UA) 1000 H, Urine Ketones 15 H, Urine Occult Blood 10 H, Urine Nitrite Negative, Urine Bilirubin Negative, Urine Urobilinogen Normal, Ur Leukocyte Esterase 25 H, Urine RBC 0 SEEN, Urine WBC 0-5 SEEN, Ur Squamous Epith Cells 0-5 SEEN, Urine Bacteria 1+, Urine Mucus 0 SEEN 09/25/22 10:28: POC Glucose 217 H 09/25/22 14:50: Fluid Glucose 239 H, Fluid Total Protein 1.9, Fluid LDH 113 09/25/22 14:50: Fluid Source THORACENTESIS, Fluid Color LT YEL, Fluid Appearance CLEAR, Fluid WBC 0.072, Fluid RBC 437, Fluid Tot Cell Count 0.137 H, Fld Polynuclear WBCs # 0.018, Fld Polynuclear WBCs % 25.0, Fluid Mononuclear WBCs 0.054, Fld Mononuclear WBCs % 75.0, Fluid Neutrophils 24, Fluid Lymphocytes 15, Fluid Macrophages 15, Fld Mesothelial Cells 45, Fluid Other Cells 1, Fl Pathologist Comment May follow, Fluid Comment 2 SEE COMMENT 09/25/22 15:23: POC Glucose 147 H 09/25/22 21:36: APTT > 200.0 H* 09/25/22 21:56: POC Glucose 208 H 09/26/22 02:23: POC Glucose 130 H 09/26/22 05:44: POC Glucose 125 H 09/26/22 05:50: WBC 8.9, RBC 3.51 L, Hgb 11.1 L, Hct 33.6 L, MCV 95.7, MCH 31.6, MCHC 33.0, RDW Std Deviation 45.6 H, RDW Coeff of Reanna 13.2, Plt Count 167, MPV 10.4, Immature Gran % (Auto) 0.600, Neut % (Auto) 70.6 H, Lymph % (Auto) 18.6 L, [place] % (Auto) 9.5, Eos % (Auto) 0.3, Baso % (Auto) 0.4, Absolute Neuts (auto) 6.3, Absolute Lymphs (auto) 1.66, Nucleated RBC % 0 09/26/22 05:50: Sodium 145, Potassium 3.8, Chloride 117 H, Carbon Dioxide 22.0, Anion Gap 6, BUN 31 H, Creatinine 1.43 H, Estim Creat Clear Calc 29.50, Est GFR (MDRD) Af Amer 45 L, Est GFR (MDRD) Non-Af 37 L, BUN/Creatinine Ratio 21.7 H, Glucose 135 H, Calcium 9.7, Total Bilirubin 0.40, AST 27, ALT 30, Alkaline Phosphatase 47, C-React Prot Ext Range 56.90 H, Total Protein 5.5 L, Albumin 2.5 L, Globulin 3.0, Albumin/Globulin Ratio 0.8 L 09/26/22 05:50: APTT 141.4 H* Micro: Microbiology 09/22/22 16:30 Blood Culture (Wb) - Right Forearm Blood Culture - Preliminary No growth in 48 hours. 09/22/22 16:31 Blood Culture (Wb) - Left Hand Blood Culture - Preliminary No growth in 48 hours. 09/25/22 05:02 Mucosa - Nasopharyngeal Respiratory Panel (PCR) - Final 09/22/22 14:06 Urine, Clean Catch Urine Culture - Final Presumptive E. coli Streptococcus agalactiae (B) Radiography Diagnostic Testing: Radiology Impression Echocardiogram 09/25/22 04:23 Interpretation Summary Normal LV size. The estimated ejection fraction is 25 %. Mild concentric left ventricular hypertrophy. Pulmonary artery systolic pressure is 46 mmHg. Severe segmental systolic dysfunction (see wall motion). Compared to previous study, the left ventricular systolic function has worsened.. Ordering Physician: Marek Levin Referring Physician: Gino Boswell Performed By: Lakshmi Patel RDCS Thoracentesis Ultrasound 09/25/22 04:54 IMPRESSION: 1. Right-sided ultrasound-guided diagnostic and therapeutic pleural effusion. 2. Small left pleural effusion was not drained on this examination given smaller size. Electronically Signed: Lloyd Shannon DO at 16:10 EDT , Chest X-Ray 09/25/22 15:00 IMPRESSION: Increased left pleural effusion and left basilar opacity. Decreased right pleural effusion. No pneumothorax identified. Electronically Signed: Yodit Verma MD at 15:48 EDT , Physical Exam Const alert and oriented x3 Constitutional Narrative: No conversational dyspnea General Appearance: cooperative HEENT normocephalic, head/scalp atraumatic and hearing grossly normal bilaterally Eyes EOMs intact bilaterally Neck General: normal visual inspection Chest inspection of chest normal and palpation of chest normal Resp normal respiratory effort Resp Narrative: Mild dullness noted at the left base, but right base significantly improved Auscultation: clear to auscultation bilaterally; Negative for rales, rhonchi or wheezes Cardio regular rate, regular rhythm, S1 normal heart sound, S2 normal heart sound, no murmurs, no rub and no gallops Jugular Venous Distention: JVD GI normal to inspection, nondistended, normoactive bowel sounds Extremity normal capillary refill and no pedal edema Skin no rashes or lesions noted Neuro oriented x3, CN's II-XII intact bilaterally, moves all extremities and no focal motor deficits Psych cooperative and affect normal Appearance: grossly normal, appropriate and well kempt Charges/Coding Visit Charges Inpatient E&M: 49773 Subs Hosp L3
[2022-09-26] MEDS: Ipratropium/Albuterol Sulfate 3 ML AMPUL.NEB INHALATION ×3 (07:15→19:07)
[2022-09-26] MEDS: Cholecalciferol (VIT D3) 25 MCG TABLET (1,000 UNITS) PO (08:22)
[2022-09-26] MEDS: Furosemide 20 MG/2 ML VIAL IV ×2 (08:22→16:39)
[2022-09-26] MEDS: Insulin Glargine-YFGN 100 UNIT/ML Pen 15 UNIT SC (08:23)
--- NOTE | 2022-09-26 08:37 | PN.SURG_ITS ---
Subjective Subjective Patient is status post thoracentesis for 900 cc?transudate, denies shortness of breath with nasal cannula, denies any abdominal pain?tolerating diet. Objective Data Objective Data Vital Signs: Vital Signs Temp Pulse Resp BP Pulse Ox O2 Del Method O2 Flow Rate 99 F 74 18 130/76 H 98 Room Air 2 09/26/22 06:00 09/26/22 07:15 09/26/22 07:15 09/26/22 06:00 09/26/22 07:15 09/26/22 07:15 09/26/22 06:00 Oxygen Flow Rate (L/min) [3] 4 Oxygen Flow Rate (L/min) [2] 4 Oxygen Flow Rate (L/min) [1 ( 4 Initial Baseline)] Oxygen Flow Rate (L/min) 2 Oxygen Delivery Method [3] Nasal Cannula Oxygen Delivery Method [2] Nasal Cannula Oxygen Delivery Method [1 ( Nasal Cannula Initial Baseline)] Oxygen Delivery Method Room Air Weight: 137 lb 12.623 oz Body Mass Index (BMI) 21.5 Intake & Output: Intake and Output for Last 24 Hours 09/24/22 09/25/22 09/26/22 23:59 23:59 23:59 Intake Total 3440 / 3440 902.33 / 902.33 353.20 / 353.20 Output Total 450 / 450 2590 / 2590 100 / 100 Balance 2990 / 2990 -1687.67 / -1687.67 253.20 / 253.20 Lab / Micro Data Result Diagrams: 09/26/22 05:50 09/26/22 05:50 Labs: Laboratory Results - last 24 hr 09/25/22 05:02: COVID-19 (LYSSA) Not Detected 09/25/22 06:35: Procalcitonin 0.18 H 09/25/22 06:35: Free T4 1.53 H 09/25/22 10:28: POC Glucose 217 H 09/25/22 14:50: Fluid Glucose 239 H, Fluid Total Protein 1.9, Fluid LDH 113 09/25/22 14:50: Fluid Source THORACENTESIS, Fluid Color LT YEL, Fluid Appearance CLEAR, Fluid WBC 0.072, Fluid RBC 437, Fluid Tot Cell Count 0.137 H, Fld Polynuclear WBCs # 0.018, Fld Polynuclear WBCs % 25.0, Fluid Mononuclear WBCs 0.054, Fld Mononuclear WBCs % 75.0, Fluid Neutrophils 24, Fluid Lymphocytes 15, Fluid Macrophages 15, Fld Mesothelial Cells 45, Fluid Other Cells 1, Fl Pathologist Comment May follow, Fluid Comment 2 SEE COMMENT 09/25/22 15:23: POC Glucose 147 H 09/25/22 21:36: APTT > 200.0 H* 09/25/22 21:56: POC Glucose 208 H 09/26/22 02:23: POC Glucose 130 H 09/26/22 05:44: POC Glucose 125 H 09/26/22 05:50: WBC 8.9, RBC 3.51 L, Hgb 11.1 L, Hct 33.6 L, MCV 95.7, MCH 31.6, MCHC 33.0, RDW Std Deviation 45.6 H, RDW Coeff of Reanna 13.2, Plt Count 167, MPV 10.4, Immature Gran % (Auto) 0.600, Neut % (Auto) 70.6 H, Lymph % (Auto) 18.6 L, [place] % (Auto) 9.5, Eos % (Auto) 0.3, Baso % (Auto) 0.4, Absolute Neuts (auto) 6.3, Absolute Lymphs (auto) 1.66, Nucleated RBC % 0 09/26/22 05:50: Sodium 145, Potassium 3.8, Chloride 117 H, Carbon Dioxide 22.0, Anion Gap 6, BUN 31 H, Creatinine 1.43 H, Estim Creat Clear Calc 29.50, Est GFR (MDRD) Af Amer 45 L, Est GFR (MDRD) Non-Af 37 L, BUN/Creatinine Ratio 21.7 H, Glucose 135 H, Calcium 9.7, Total Bilirubin 0.40, AST 27, ALT 30, Alkaline Phosphatase 47, C-React Prot Ext Range 56.90 H, Total Protein 5.5 L, Albumin 2.5 L, Globulin 3.0, Albumin/Globulin Ratio 0.8 L 09/26/22 05:50: APTT 141.4 H* Micro: Microbiology 09/22/22 16:30 Blood Culture (Wb) - Right Forearm Blood Culture - Preliminary No growth in 48 hours. 09/22/22 16:31 Blood Culture (Wb) - Left Hand Blood Culture - Preliminary No growth in 48 hours. 09/25/22 05:02 Mucosa - Nasopharyngeal Respiratory Panel (PCR) - Final 09/22/22 14:06 Urine, Clean Catch Urine Culture - Final Presumptive E. coli Streptococcus agalactiae (B) Radiography Diagnostic Testing: Radiology Impression Echocardiogram 09/25/22 04:23 Interpretation Summary Normal LV size. The estimated ejection fraction is 25 %. Mild concentric left ventricular hypertrophy. Pulmonary artery systolic pressure is 46 mmHg. Severe segmental systolic dysfunction (see wall motion). Compared to previous study, the left ventricular systolic function has worsened.. Ordering Physician: Marek Levin Referring Physician: Gino Boswell Performed By: Lakshmi Patel RDCS Thoracentesis Ultrasound 09/25/22 04:54 IMPRESSION: 1. Right-sided ultrasound-guided diagnostic and therapeutic pleural effusion. 2. Small left pleural effusion was not drained on this examination given smaller size. Electronically Signed: Lloyd Shannon DO at 16:10 EDT , Chest X-Ray 09/25/22 15:00 IMPRESSION: Increased left pleural effusion and left basilar opacity. Decreased right pleural effusion. No pneumothorax identified. Electronically Signed: Yodit Verma MD at 15:48 EDT , Physical Exam Const oriented x3 and no apparent distress Resp normal respiratory effort Cardio regular rate GI soft to palpation and non-tender GI Narrative: incision dressed c/d/i Inspection: Negative for abdominal distention Assessment & Plan Assessment/Plan (1) Small bowel obstruction: PLAN: s/p laparoscopy, NATASHA-release of SBO (2) Elevated troponin: PLAN: Plan ? Tolerating her diet denies abdominal pain ?Heparin drip, status post thoracentesis for 900 cc?transudate--Appreciate ICU, cardiology and hospitalist input.
--- NOTE | 2022-09-26 10:05 | PCM.PN.CARD ---
Subjective Subjective Patient seen and evaluated. Objective Data Vital Signs: Vital Signs Temp Pulse Resp BP Pulse Ox O2 Del Method O2 Flow Rate 98.9 F 98 99 H 118/53 L 98 Room Air 2 09/26/22 10:00 09/26/22 10:00 09/26/22 10:00 09/26/22 10:00 09/26/22 10:00 09/26/22 10:00 09/26/22 06:00 Oxygen Flow Rate (L/min) [3] 4 Oxygen Flow Rate (L/min) [2] 4 Oxygen Flow Rate (L/min) [1 ( 4 Initial Baseline)] Oxygen Flow Rate (L/min) 2 Oxygen Delivery Method [3] Nasal Cannula Oxygen Delivery Method [2] Nasal Cannula Oxygen Delivery Method [1 ( Nasal Cannula Initial Baseline)] Oxygen Delivery Method Room Air Weight: 137 lb 12.623 oz Body Mass Index (BMI) 21.5 Intake & Output: Intake and Output for Last 24 Hours 09/24/22 09/25/22 09/26/22 23:59 23:59 23:59 Intake Total 3440 / 3440 902.33 / 902.33 353.20 / 353.20 Output Total 450 / 450 2590 / 2590 100 / 100 Balance 2990 / 2990 -1687.67 / -1687.67 253.20 / 253.20 Lab / Micro Data Result Diagrams: 09/26/22 05:50 09/26/22 05:50 Labs: Laboratory Results - last 24 hr 09/25/22 06:35: Free T4 1.53 H 09/25/22 10:28: POC Glucose 217 H 09/25/22 14:50: Fluid Glucose 239 H, Fluid Total Protein 1.9, Fluid LDH 113 09/25/22 14:50: Fluid Source THORACENTESIS, Fluid Color LT YEL, Fluid Appearance CLEAR, Fluid WBC 0.072, Fluid RBC 437, Fluid Tot Cell Count 0.137 H, Fld Polynuclear WBCs # 0.018, Fld Polynuclear WBCs % 25.0, Fluid Mononuclear WBCs 0.054, Fld Mononuclear WBCs % 75.0, Fluid Neutrophils 24, Fluid Lymphocytes 15, Fluid Macrophages 15, Fld Mesothelial Cells 45, Fluid Other Cells 1, Fl Pathologist Comment May follow, Fluid Comment 2 SEE COMMENT 09/25/22 15:23: POC Glucose 147 H 09/25/22 21:36: APTT > 200.0 H* 09/25/22 21:56: POC Glucose 208 H 09/26/22 02:23: POC Glucose 130 H 09/26/22 05:44: POC Glucose 125 H 09/26/22 05:50: WBC 8.9, RBC 3.51 L, Hgb 11.1 L, Hct 33.6 L, MCV 95.7, MCH 31.6, MCHC 33.0, RDW Std Deviation 45.6 H, RDW Coeff of Reanna 13.2, Plt Count 167, MPV 10.4, Immature Gran % (Auto) 0.600, Neut % (Auto) 70.6 H, Lymph % (Auto) 18.6 L, [place] % (Auto) 9.5, Eos % (Auto) 0.3, Baso % (Auto) 0.4, Absolute Neuts (auto) 6.3, Absolute Lymphs (auto) 1.66, Nucleated RBC % 0 09/26/22 05:50: Sodium 145, Potassium 3.8, Chloride 117 H, Carbon Dioxide 22.0, Anion Gap 6, BUN 31 H, Creatinine 1.43 H, Estim Creat Clear Calc 29.50, Est GFR (MDRD) Af Amer 45 L, Est GFR (MDRD) Non-Af 37 L, BUN/Creatinine Ratio 21.7 H, Glucose 135 H, Calcium 9.7, Total Bilirubin 0.40, AST 27, ALT 30, Alkaline Phosphatase 47, C-React Prot Ext Range 56.90 H, Total Protein 5.5 L, Albumin 2.5 L, Globulin 3.0, Albumin/Globulin Ratio 0.8 L 09/26/22 05:50: APTT 141.4 H* Micro: Microbiology 09/22/22 16:30 Blood Culture (Wb) - Right Forearm Blood Culture - Preliminary No growth in 48 hours. 09/22/22 16:31 Blood Culture (Wb) - Left Hand Blood Culture - Preliminary No growth in 48 hours. 09/25/22 05:02 Mucosa - Nasopharyngeal Respiratory Panel (PCR) - Final Cardiology Labs/Tests 09/25/22 21:36: APTT > 200.0 H* 09/26/22 05:50: WBC 8.9, RBC 3.51 L, Hgb 11.1 L, Hct 33.6 L, MCV 95.7, MCH 31.6, MCHC 33.0, Plt Count 167, MPV 10.4, Immature Gran % (Auto) 0.600, Neut % (Auto) 70.6 H, Lymph % (Auto) 18.6 L, [place] % (Auto) 9.5, Eos % (Auto) 0.3, Baso % (Auto) 0.4, Absolute Neuts (auto) 6.3, Nucleated RBC % 0 09/26/22 05:50: Sodium 145, Potassium 3.8, Chloride 117 H, Carbon Dioxide 22.0, Anion Gap 6, BUN 31 H, Creatinine 1.43 H, Est GFR (MDRD) Af Amer 45 L, Est GFR (MDRD) Non-Af 37 L, BUN/Creatinine Ratio 21.7 H, Glucose 135 H, Calcium 9.7, Total Bilirubin 0.40 09/26/22 05:50: APTT 141.4 H* Rhythm: EKG: ECHO: Stress Test: Cardiac Cath: PCI: CT Surgery: Holter monitor: EPS: PPM: CXR: Chest CT Scan: Radiography Diagnostic Testing: Radiology Impression Echocardiogram 09/25/22 04:23 Interpretation Summary Normal LV size. The estimated ejection fraction is 25 %. Mild concentric left ventricular hypertrophy. Pulmonary artery systolic pressure is 46 mmHg. Severe segmental systolic dysfunction (see wall motion). Compared to previous study, the left ventricular systolic function has worsened.. Ordering Physician: Marek Levin Referring Physician: Gino Boswell Performed By: Lakshmi Patel RDCS Thoracentesis Ultrasound 09/25/22 04:54 IMPRESSION: 1. Right-sided ultrasound-guided diagnostic and therapeutic pleural effusion. 2. Small left pleural effusion was not drained on this examination given smaller size. Electronically Signed: Lloyd Shannon DO at 16:10 EDT , Chest X-Ray 09/25/22 15:00 IMPRESSION: Increased left pleural effusion and left basilar opacity. Decreased right pleural effusion. No pneumothorax identified. Electronically Signed: Yodit Verma MD at 15:48 EDT , Physical Exam Const oriented x3 and no apparent distress Resp normal respiratory effort Cardio regular rate GI soft to palpation and non-tender GI Narrative: incision dressed c/d/i Inspection: Negative for abdominal distention Assessment & Plan Assessment/Plan (1) NSTEMI, initial episode of care: PLAN: She appears to have had a non-ST elevation myocardial infarction. It is not clear whether this is a Takotsubo or whether this is due to obstructive coronary disease. She will need to have her left heart cath early next week and discussed the above with her she understands and agrees to proceed. We will continue with heparin at this particular time. We will start low-dose beta-seun (2) CHF (congestive heart failure): PLAN: She does have evidence of congestive heart failure. She did benefit from her thoracentesis. She will be started on low-dose Lasix. We will add an NEDA inhibitor as appropriate. (3) Cardiac pacemaker in situ: PLAN: She is status post permanent pacemaker implantation. This appears to be functioning well. No changes to be made at this time. Thank you for allowing me to participate in the care of your patient. Please don't hesitate to call if any issues arise.
[2022-09-26] MEDS: Insulin Lispro 100 UNIT/ML INSULN.PEN SC ×3 (11:25→21:33)
[2022-09-26 11:46] LABS: Bedside Glucose 246 mg/dL (74-106)
[2022-09-26 15:03] LABS: Partial Thromboplast Time 35.3 Seconds (24.1-36.2)
[2022-09-26 16:53] LABS: Bedside Glucose 213 mg/dL (74-106)
[2022-09-26] MEDS: Carvedilol 3.125 MG TABLET PO (21:38)
[2022-09-26 22:26] LABS: Bedside Glucose 170 mg/dL (74-106)
[2022-09-26 23:08] LABS: Partial Thromboplast Time 43.8 Seconds (24.1-36.2)
[2022-09-26] MEDS: Heparin Injection (Vial) 5,000 UNIT/ML VIAL IV (23:26)
[2022-09-27] VITALS (7 sets, daily range): BP systolic 100–124; BP diastolic 47–68; PULSE 63–84; RESP 15–20; TEMP 36.4–37; O2SAT 95–100; BMI 22.4
[2022-09-27 05:31] LABS: Absolute Lymphocyte Count 1.47 X10^3/uL (0.83-4.51); Absolute Neutrophil Count 5.8 X10^3/uL (2.0-7.7); Basophil# 0.04 X10^3/uL; Basophil% 0.5 % (0-1); Eosinophil# 0.08 X10^3/uL; Hematocrit 30.7 % (37-47); Lymphocyte # 1.47 X10^3/ul (0.83-4.51); Lymphocyte % 17.9 % (19-41); Mean Corp Hgb Conc 32.6 g/dL (32-36); Mean Corpuscular Hgb 31.4 pg (27.0-32.0); Mean Corpuscular Volume 96.5 fL (81-99); Mean Platelet Vol. 10.5 fl (6.2-12.0); Monocyte% 9.7 % (0-10); NRBC Flagged by Analyzer 0 % (0-5); Neutrophil % 70.5 % (47-70); Platelet Count 167 K/mm3 (150-450); RBC Distribution Width CV 13.2 % (11.6-14.6); Red Blood Count 3.18 M/mm3 (4.2-5.4); White Blood Count 8.2 K/mm3 (4.4-11.0)
[2022-09-27 05:54] LABS: ALB/GLOB Ratio 0.8 RATIO (0.9-2.4); AST(SGOT) 24 U/L (15-37); Alanine Aminotransfer ALT/SGPT 29 U/L (13-56); Albumin, Serum 2.3 g/dL (3.2-5.0); Alkaline Phosphatase 40 U/L (45-117); Anion Gap 6 (5-15); BUN 31 mg/dL (7-18); BUN/Creat Ratio 20.3 RATIO (10-20); Calcium,Total 9.4 mg/dL (8.5-10.1); Chloride 114 mmol/L (98-107); Creatinine, Serum 1.53 mg/dL (0.55-1.02); EST Glomerular Filtration Rate 35 mL/min (>60); Est Glom Filt Rate - Afr Amer 42 mL/min (>60); Estimated Creatinine Clearance 27.57 ml/min; Glucose 108 mg/dL (74-106); Potassium 3.8 mmol/L (3.5-5.1); Protein, Total 5.3 g/dL (6.4-8.2); Sodium Level 143 mmol/L (136-145)
[2022-09-27 06:07] LABS: Partial Thromboplast Time 50.5 Seconds (24.1-36.2)
[2022-09-27] MEDS: Heparin Injection (Vial) 5,000 UNIT/ML VIAL IV (06:18)
[2022-09-27] MEDS: Levothyroxine 112 MCG Tablet PO (06:24)
[2022-09-27] MEDS: HEPARIN/D5w 25,000 UNITS 25,000 UNITS/250 ML IV.SOLN. 8 UNITS CONT INF (06:30)
--- NOTE | 2022-09-27 06:30 | PN.SURG_ITS ---
Subjective Subjective Patient tolerating diet denies of any dyspnea. Or abdominal pain. Objective Data Objective Data Vital Signs: Vital Signs Temp Pulse Resp BP Pulse Ox O2 Del Method O2 Flow Rate 98.6 F 79 16 109/64 96 Room Air 2 09/27/22 03:40 09/27/22 03:40 09/27/22 03:40 09/27/22 03:40 09/27/22 03:40 09/27/22 03:48 09/26/22 06:00 Oxygen Flow Rate (L/min) [3] 4 Oxygen Flow Rate (L/min) [2] 4 Oxygen Flow Rate (L/min) [1 ( 4 Initial Baseline)] Oxygen Flow Rate (L/min) 2 Oxygen Delivery Method [3] Nasal Cannula Oxygen Delivery Method [2] Nasal Cannula Oxygen Delivery Method [1 ( Nasal Cannula Initial Baseline)] Oxygen Delivery Method Room Air Weight: 143 lb 1.28 oz Body Mass Index (BMI) 22.4 Intake & Output: Intake and Output for Last 24 Hours 09/25/22 09/26/22 09/27/22 23:59 23:59 23:59 Intake Total 902.33 / 902.33 526.43 / 526.43 97.72 / 97.72 Output Total 2590 / 2590 2150 / 2150 500 / 500 Balance -1687.67 / -1687.67 -1623.57 / -1623.57 -402.28 / -402.28 Lab / Micro Data Result Diagrams: 09/27/22 05:10 09/27/22 05:10 Labs: Laboratory Results - last 24 hr 09/26/22 05:50: APTT 141.4 H* 09/26/22 11:24: POC Glucose 246 H 09/26/22 14:35: APTT 35.3 09/26/22 16:35: POC Glucose 213 H 09/26/22 21:31: POC Glucose 170 H 09/26/22 22:46: APTT 43.8 H 09/27/22 05:10: WBC 8.2, RBC 3.18 L, Hgb 10.0 L, Hct 30.7 L, MCV 96.5, MCH 31.4, MCHC 32.6, RDW Std Deviation 46.0 H, RDW Coeff of Reanna 13.2, Plt Count 167, MPV 10.5, Immature Gran % (Auto) 0.400, Neut % (Auto) 70.5 H, Lymph % (Auto) 17.9 L, [place] % (Auto) 9.7, Eos % (Auto) 1.0, Baso % (Auto) 0.5, Absolute Neuts (auto) 5.8, Absolute Lymphs (auto) 1.47, Nucleated RBC % 0 09/27/22 05:10: Sodium 143, Potassium 3.8, Chloride 114 H, Carbon Dioxide 23.0, Anion Gap 6, BUN 31 H, Creatinine 1.53 H, Estim Creat Clear Calc 27.57, Est GFR (MDRD) Af Amer 42 L, Est GFR (MDRD) Non-Af 35 L, BUN/Creatinine Ratio 20.3 H, Glucose 108 H, Calcium 9.4, Total Bilirubin 0.50, AST 24, ALT 29, Alkaline Phosphatase 40 L, Total Protein 5.3 L, Albumin 2.3 L, Globulin 3.0, Albumin/Globulin Ratio 0.8 L 09/27/22 05:10: APTT 50.5 H Micro: Microbiology 09/25/22 06:50 Urine Catheter - Clarke Urine Culture - Preliminary Culture exhibits no growth. 09/22/22 16:30 Blood Culture (Wb) - Right Forearm Blood Culture - Preliminary No growth in 48 hours. 09/22/22 16:31 Blood Culture (Wb) - Left Hand Blood Culture - Preliminary No growth in 48 hours. 09/25/22 05:02 Mucosa - Nasopharyngeal Respiratory Panel (PCR) - Final 09/22/22 14:06 Urine, Clean Catch Urine Culture - Final Presumptive E. coli Streptococcus agalactiae (B) Physical Exam Const oriented x3 and no apparent distress Resp normal respiratory effort Cardio regular rate GI soft to palpation and non-tender GI Narrative: incision dressed c/d/i Inspection: Negative for abdominal distention Assessment & Plan Assessment/Plan (1) Small bowel obstruction: PLAN: s/p laparoscopy, NATASHA-release of SBO (2) Elevated troponin: (3) NSTEMI, initial episode of care: PLAN: Plan ?Tolerating her diet denies abdominal pain ?on Heparin drip, planning for heart cath early next week per cardiology Crystal Hennessy M.D. Pager: [phone] [facility] [address] [place] [address], [address] [place] [address] Office: [phone]
[2022-09-27 06:57] LABS: Bedside Glucose 110 mg/dL (74-106)
[2022-09-27] MEDS: Ipratropium/Albuterol Sulfate 3 ML AMPUL.NEB INHALATION ×4 (07:30→19:33)
--- NOTE | 2022-09-27 08:01 | PN.CC_ITS ---
Assessment & Plan Assessment/Plan (1) CHF (congestive heart failure): (2) Pleural effusion: (3) Small bowel obstruction: PLAN: Plan RECOMMENDATIONS: 1. Continue heparin drip given decreased EF 2. Continue diuretic therapy. Likely transition to p.o. in the next 24 to 48 hours 3. 7 to 10 days of empiric antibiotics likely sufficient 4. Increase activity as tolerated 5. Walking oximetry prior to discharge 6. Hemodynamically stable on room air. Will sign off from a pu lmonary/critical care perspective. IMPRESSIONS: 1. Non-ST elevation IA/history of third-degree block with pacemaker Patient with significant elevation in troponin with a peak of 2711. Patient does have a decreased EF noted. Patient likely to require some work-up in the future. We will continue a heparin drip in the interim. Pleural effus ion is consistent with a transudate etiology. 2. Acute hypoxic respiratory insufficiency secondary to pleural effusion Personal review of the CT scan does show some compressive atelectasis and development of bilateral pleural effusions, right greater than left. Patient's oxygenation status has significantly improved. Pleural effusion is consistent with a transudate etiology. Patient is responding well to diuretic therapy. Will likely need to be transition to p.o. diuretics in the next 24 to 48 hours. Continue to monitor chemistries. 3. Lactic acidosis/small bowel obstruction Unclear etiology. Patient was hypoxic requiring increased FiO2 requirements. Patient also has had bowel issues recently leading to elevated lactate. Likely not necessary to continue to monitor lactate levels from my opinion. Patient is on metformin at baseline and may have an element of lactic acidosis as a side effect. 4. Diabetes mellitus Patient is on metformin at baseline for diabetes. Blood sugars much bett er on Lantus. 5. Possible acute kidney injury Improved renal function today. Unclear baseline creatinine. Patient does have a relatively low GFR. Patient does have diabetes and hypertension in the past, so may have an element of chronic kidney disease. Patient did receive contrast earlier in the hospitalization. We will start with gentle diuresis Subjective Subjective Patient did well overnight. Patient has been weaned to room air. Patient is reporting no abdominal pain at this time. No hypotension has been reported. Objective Data Objective Data Vital Signs: Vital Signs Temp Pulse Resp BP Pulse Ox O2 Del Method O2 Flow Rate 37.0 C 79 16 109/64 96 Room Air 2 09/27/22 03:40 09/27/22 03:40 09/27/22 03:40 09/27/22 03:40 09/27/22 03:40 09/27/22 03:48 09/26/22 06:00 Oxygen Flow Rate (L/min) [3] 4 Oxygen Flow Rate (L/min) [2] 4 Oxygen Flow Rate (L/min) [1 ( 4 Initial Baseline)] Oxygen Flow Rate (L/min) 2 Oxygen Delivery Method [3] Nasal Cannula Oxygen Delivery Method [2] Nasal Cannula Oxygen Delivery Method [1 ( Nasal Cannula Initial Baseline)] Oxygen Delivery Method Room Air Weight: 64.9 kg Body Mass Index (BMI) 22.4 Intake & Output: Intake and Output for Last 24 Hours 09/25/22 09/26/22 09/27/22 23:59 23:59 23:59 Intake Total 902.33 / 902.33 526.43 / 526.43 99.32 / 99.32 Output Total 2590 / 2590 2150 / 2150 500 / 500 Balance -1687.67 / -1687.67 -1623.57 / -1623.57 -400.68 / -400.68 Lab / Micro Data Attestation: I reviewed the patient's lab results. Result Diagrams: 09/27/22 05:10 09/27/22 05:10 Labs: Laboratory Results - last 24 hr 09/26/22 11:24: POC Glucose 246 H 09/26/22 14:35: APTT 35.3 09/26/22 16:35: POC Glucose 213 H 09/26/22 21:31: POC Glucose 170 H 09/26/22 22:46: APTT 43.8 H 09/27/22 05:10: WBC 8.2, RBC 3.18 L, Hgb 10.0 L, Hct 30.7 L, MCV 96.5, MCH 31.4, MCHC 32.6, RDW Std Deviation 46.0 H, RDW Coeff of Reanna 13.2, Plt Count 167, MPV 10.5, Immature Gran % (Auto) 0.400, Neut % (Auto) 70.5 H, Lymph % (Auto) 17.9 L, [place] % (Auto) 9.7, Eos % (Auto) 1.0, Baso % (Auto) 0.5, Absolute Neuts (auto) 5.8, Absolute Lymphs (auto) 1.47, Nucleated RBC % 0 09/27/22 05:10: Sodium 143, Potassium 3.8, Chloride 114 H, Carbon Dioxide 23.0, Anion Gap 6, BUN 31 H, Creatinine 1.53 H, Estim Creat Clear Calc 27.57, Est GFR (MDRD) Af Amer 42 L, Est GFR (MDRD) Non-Af 35 L, BUN/Creatinine Ratio 20.3 H, Glucose 108 H, Calcium 9.4, Total Bilirubin 0.50, AST 24, ALT 29, Alkaline Phosphatase 40 L, Total Protein 5.3 L, Albumin 2.3 L, Globulin 3.0, Albumin/Globulin Ratio 0.8 L 09/27/22 05:10: APTT 50.5 H 09/27/22 06:22: POC Glucose 110 H Micro: Microbiology 09/25/22 10:00 Blood Culture (Wb) - Left Forearm Blood Culture - Preliminary No growth in 48 hours. 09/25/22 06:35 Blood Culture (Wb) - Left Forearm Blood Culture - Preliminary No growth in 48 hours. 09/25/22 06:50 Urine Catheter - Clarke Urine Culture - Preliminary Culture exhibits no growth. 09/22/22 16:30 Blood Culture (Wb) - Right Forearm Blood Culture - Preliminary No growth in 48 hours. 09/22/22 16:31 Blood Culture (Wb) - Left Hand Blood Culture - Preliminary No growth in 48 hours. 09/25/22 05:02 Mucosa - Nasopharyngeal Respiratory Panel (PCR) - Final 09/22/22 14:06 Urine, Clean Catch Urine Culture - Final Presumptive E. coli Streptococcus agalactiae (B) Physical Exam Const alert and oriented x3 Constitutional Narrative: No conversational dyspnea General Appearance: cooperative HEENT normocephalic, head/scalp atraumatic and hearing grossly normal bilaterally Eyes EOMs intact bilaterally Neck General: normal visual inspection Chest inspection of chest normal and palpation of chest normal Resp normal respiratory effort Auscultation: clear to auscultation bilaterally; Negative for rales, rhonchi or wheezes Percussion: Negative for dullness Cardio regular rate, regular rhythm, S1 normal heart sound, S2 normal heart sound, no murmurs, no rub and no gallops Jugular Venous Distention: JVD GI normal to inspection, nondistended, normoactive bowel sounds Extremity normal capillary refill and no pedal edema Skin no rashes or lesions noted Neuro oriented x3, CN's II-XII intact bilaterally, moves all extremities and no focal motor deficits Psych cooperative and affect normal Appearance: grossly normal, appropriate and well maritzatitus Charges/Coding Visit Charges Inpatient E&M: 82702 Subs Hosp L2
--- NOTE | 2022-09-27 09:06 | PN.HOSP_ITS ---
Reason for Visit Reason for Visit: Diagnoses Essential (primary) hypertension (09/22/22) Non-ST elevation (NSTEMI) myocardial infarction (09/22/22) Heart failure, unspecified (09/22/22) Pleural effusion, not elsewhere classified (09/22/22) Unspecified intestinal obstruction, unspecified as to partial versus complete obstruction (09/22/22) Wheezing (09/22/22) Other specified abnormalities of plasma proteins (09/22/22) Presence of cardiac pacemaker (09/22/22) Subjective Subjective Feeling fairly well today, no acute complaints, no changes in her breathing Objective Data Objective Data Vital Signs: Vital Signs Temp Pulse Resp BP Pulse Ox O2 Del Method O2 Flow Rate 98.6 F 79 16 109/64 96 Room Air 2 09/27/22 03:40 09/27/22 03:40 09/27/22 03:40 09/27/22 03:40 09/27/22 03:40 09/27/22 08:25 09/26/22 06:00 Oxygen Flow Rate (L/min) [3] 4 Oxygen Flow Rate (L/min) [2] 4 Oxygen Flow Rate (L/min) [1 ( 4 Initial Baseline)] Oxygen Flow Rate (L/min) 2 Oxygen Delivery Method [3] Nasal Cannula Oxygen Delivery Method [2] Nasal Cannula Oxygen Delivery Method [1 ( Nasal Cannula Initial Baseline)] Oxygen Delivery Method Room Air Weight: 64.9 kg Body Mass Index (BMI) 22.4 Intake & Output: Intake and Output for Last 24 Hours 09/25/22 09/26/22 09/27/22 23:59 23:59 23:59 Intake Total 902.33 / 902.33 526.43 / 526.43 99.32 / 99.32 Output Total 2590 / 2590 2150 / 2150 500 / 500 Balance -1687.67 / -1687.67 -1623.57 / -1623.57 -400.68 / -400.68 Lab / Micro Data Result Diagrams: 09/27/22 05:10 09/27/22 05:10 Labs: Laboratory Results - last 24 hr 09/26/22 11:24: POC Glucose 246 H 09/26/22 14:35: APTT 35.3 09/26/22 16:35: POC Glucose 213 H 09/26/22 21:31: POC Glucose 170 H 09/26/22 22:46: APTT 43.8 H 09/27/22 05:10: WBC 8.2, RBC 3.18 L, Hgb 10.0 L, Hct 30.7 L, MCV 96.5, MCH 31.4, MCHC 32.6, RDW Std Deviation 46.0 H, RDW Coeff of Reanna 13.2, Plt Count 167, MPV 10.5, Immature Gran % (Auto) 0.400, Neut % (Auto) 70.5 H, Lymph % (Auto) 17.9 L, [place] % (Auto) 9.7, Eos % (Auto) 1.0, Baso % (Auto) 0.5, Absolute Neuts (auto) 5. 8, Absolute Lymphs (auto) 1.47, Nucleated RBC % 0 09/27/22 05:10: Sodium 143, Potassium 3.8, Chloride 114 H, Carbon Dioxide 23.0, Anion Gap 6, BUN 31 H, Creatinine 1.53 H, Estim Creat Clear Calc 27.57, Est GFR (MDRD) Af Amer 42 L, Est GFR (MDRD) Non-Af 35 L, BUN/Creatinine Ratio 20.3 H, Glucose 108 H, Calcium 9.4, Total Bilirubin 0.50, AST 24, ALT 29, Alkaline Phosphatase 40 L, Total Protein 5.3 L, Albumin 2.3 L, Globulin 3.0, [place] min/Globulin Ratio 0.8 L 09/27/22 05:10: APTT 50.5 H 09/27/22 06:22: POC Glucose 110 H Micro: Microbiology 09/25/22 10:00 Blood Culture (Wb) - Left Forearm Blood Culture - Preliminary No growth in 48 hours. 09/25/22 06:35 Blood Culture (Wb) - Left Forearm Blood Culture - Preliminary No growth in 48 hours. 09/25/22 06:50 Urine Catheter - Clarke Urine Culture - Preliminary Culture exhibits no growth. 09/22/22 16:30 Blood Culture (Wb) - Right Forearm Blood Culture - Preliminary No growth in 48 hours. 09/22/22 16:31 Blood Culture (Wb) - Left Hand Blood Culture - Preliminary No growth in 48 hours. 09/25/22 05:02 Mucosa - Nasopharyngeal Respiratory Panel (PCR) - Final 09/22/22 14:06 Urine, Clean Catch Urine Culture - Final Presumptive E. coli Streptococcus agalactiae (B) Physical Exam Narrative General: Alert, oriented, no acute distress HEENT: Atraumatic, normocephalic Eyes: Anicteric, normal conjunctiva, extraocular movements grossly intact Neck: Supple Respiratory: Improved air movement with no increased work of breathing Cardiovascular: Regular rate and rhythm GI: Soft, nontender, nondistended Extremities: No edema Musculoskeletal: Moving all extremities Neuro: No overt focal neurological deficits Skin: No rashes appreciated Psych: Cooperative Assessment & Plan Assessment/Plan (1) NSTEMI, initial episode of care: (2) Elevated troponin: (3) Wheezing: (4) Pleural effusion: PLAN: Plan #Increased shortness of breath and tachypnea secondary to bilateral pleural effusions with new heart failure with reduced ejection fraction and possible underlying pneumonia cannot be excluded?significantly improved after drainage of right pleural effusion -CT of chest with no PE however did note bilateral pleural effusions -Could potentially be parapneumonic in nature though unclear at this time, does have elevated white count to 19.1 with neutrophil predominance, Zosyn started -Patient have thoracentesis this a.m. on right side for diagnostic and therapeutic purposes -May need diuretics depending on improvement, BNP obtained was 1909 -COVID obtained -nebs ordered -09/26: Respiratory panel and COVID-negative. Blood cultures pending. Status post thoracentesis 09/25/2022. White blood cell count 8.9 today from 19.1 and CRP downtrending as well. Continue broad-spectrum antibiotics for now especially given temp overnight and follow cultures. The thoracentesis does appear to be transudative in nature so do not think this is parapneumonic effusion. -09/27: Significantly improved, will likely need walking pulse ox prior to discharge. Hemodynamically stable. Patient still on Zosyn, no source of infection was identified but did have fever and elevated white blood cell count as well as elevated inflammatory markers, may have been reactive but unclear. Can reevaluate antibiotics next 1 to 2 days for optimal duration and may be able to DC abx if stable and afebrile #Newly reduced heart failure with reduced ejection fraction -Echo 09/25/2022 with estimated EF of 25% with mild concentric left ventricular hypertrophy and severe segmental systolic dysfunction with PASP of 46 -Last echo 06/15/2022 with EF of 65% and no regional wall motion abnormalities -Cardiology following -Status post thoracentesis for pleural effusion -Started on IV diuresis today -Cardiac cath on Wednesday -09/27: On heparin drip, awaiting cardiac cath. Continue diuretic therapy #NSTEMI -Unclear type I or type II -Troponin 2711 down trended to 2410 -Patient is to start heparin drip post thoracentesis -Cardiology consulted -09/26: On heparin drip, echo 09/25 demonstrates new reduced EF of 25% with severe segmental systolic dysfunction. Cardiac cath Wednesday. To be initiated on low- dose beta-seun -09/27: On heparin drip awaiting cardiac cath #CKD stage IIIb -Appears close to baseline, continue present management, avoid nephrotoxic agents #Small bowel obstruction status post reduction -Status post surgery 3 days ago with reduction, managed by surgery -CT abdomen benign -No significant abdominal complaints #Anemia -Suspect multifactorial -Has been slowly trending down but does not report any bright red blood or signs or symptoms of GI bleed -If any further downtrend may need to consider FOBT -If any [place] bleeding will stop heparin drip #History of complete heart block status post permanent pacemaker implantation -Continue current management #Type 2 diabetes mellitus -Glucose checks and sliding scale insulin -Also on 15 units long-acting #Hypothyroidism -TSH 0.34, will obtain free slightly elevated 1.53 -Continue Synthroid but will decrease slightly and will need labs rechecked on outpatient basis #High anion gap metabolic acidosis with partial respiratory compensation?resolved -Slightly acidotic on ABG with pH of 7.32 with a bicarb of 15 and a PCO2 of 29.5. PO2 81 requiring 4 L of nasal cannula to maintain -Does have an anion gap of 14, suspect this is due to lactic acidosis with an uptrending lactic most recently 2.9 -Continue to trend and treat underlying etiology -We will panculture given significant decompensation and rising lactic acid -09/26: Resolved #DVT ppx: Heparin drip Zoey Jimenez MD Time spent in the patient's overall evaluation,decision-making process, review of diagnostic data, adjustment of management, discussion with other providers, nursing nursing and ancillary staff involved in patient's care documentation, 30 minutes Charges/Coding Visit Charges Inpatient E&M: 68326 Subs Hosp L2
--- NOTE | 2022-09-27 09:43 | PCM.PN.CARD ---
Subjective Subjective Patient seen and evaluated. Objective Data Vital Signs: Vital Signs Temp Pulse Resp BP Pulse Ox O2 Del Method O2 Flow Rate 98.6 F 75 15 109/64 97 Room Air 2 09/27/22 03:40 09/27/22 07:45 09/27/22 07:45 09/27/22 03:40 09/27/22 07:45 09/27/22 08:25 09/26/22 06:00 Oxygen Flow Rate (L/min) [3] 4 Oxygen Flow Rate (L/min) [2] 4 Oxygen Flow Rate (L/min) [1 ( 4 Initial Baseline)] Oxygen Flow Rate (L/min) 2 Oxygen Delivery Method [3] Nasal Cannula Oxygen Delivery Method [2] Nasal Cannula Oxygen Delivery Method [1 ( Nasal Cannula Initial Baseline)] Oxygen Delivery Method Room Air Weight: 143 lb 1.28 oz Body Mass Index (BMI) 22.4 Intake & Output: Intake and Output for Last 24 Hours 09/25/22 09/26/22 09/27/22 23:59 23:59 23:59 Intake Total 902.33 / 902.33 526.43 / 526.43 99.32 / 99.32 Output Total 2590 / 2590 2150 / 2150 500 / 500 Balance -1687.67 / -1687.67 -1623.57 / -1623.57 -400.68 / -400.68 Lab / Micro Data Result Diagrams: 09/27/22 05:10 09/27/22 05:10 Labs: Laboratory Results - last 24 hr 09/26/22 11:24: POC Glucose 246 H 09/26/22 14:35: APTT 35.3 09/26/22 16:35: POC Glucose 213 H 09/26/22 21:31: POC Glucose 170 H 09/26/22 22:46: APTT 43.8 H 09/27/22 05:10: WBC 8.2, RBC 3.18 L, Hgb 10.0 L, Hct 30.7 L, MCV 96.5, MCH 31.4, MCHC 32.6, RDW Std Deviation 46.0 H, RDW Coeff of Reanna 13.2, Plt Count 167, MPV 10.5, Immature Gran % (Auto) 0.400, Neut % (Auto) 70.5 H, Lymph % (Auto) 17.9 L, [place] % (Auto) 9.7, Eos % (Auto) 1.0, Baso % (Auto) 0.5, Absolute Neuts (auto) 5.8, Absolute Lymphs (auto) 1.47, Nucleated RBC % 0 09/27/22 05:10: Sodium 143, Potassium 3.8, Chloride 114 H, Carbon Dioxide 23.0, Anion Gap 6, BUN 31 H, Creatinine 1.53 H, Estim Creat Clear Calc 27.57, Est GFR (MDRD) Af Amer 42 L, Est GFR (MDRD) Non-Af 35 L, BUN/Creatinine Ratio 20.3 H, Glucose 108 H, Calcium 9.4, Total Bilirubin 0.50, AST 24, ALT 29, Alkaline Phosphatase 40 L, Total Protein 5.3 L, Albumin 2.3 L, Globulin 3.0, Albumin/Globulin Ratio 0.8 L 09/27/22 05:10: APTT 50.5 H 09/27/22 06:22: POC Glucose 110 H Micro: Microbiology 09/25/22 06:50 Urine Catheter - Clarke Urine Culture - Final Culture exhibits no growth. 09/25/22 10:00 Blood Culture (Wb) - Left Forearm Blood Culture - Preliminary No growth in 48 hours. 09/25/22 06:35 Blood Culture (Wb) - Left Forearm Blood Culture - Preliminary No growth in 48 hours. Cardiology Labs/Tests 09/26/22 14:35: APTT 35.3 09/26/22 22:46: APTT 43.8 H 09/27/22 05:10: WBC 8.2, RBC 3.18 L, Hgb 10.0 L, Hct 30.7 L, MCV 96.5, MCH 31.4, MCHC 32.6, Plt Count 167, MPV 10.5, Immature Gran % (Auto) 0.400, Neut % (Auto) 70.5 H, Lymph % (Auto) 17.9 L, [place] % (Auto) 9.7, Eos % (Auto) 1.0, Baso % (Auto) 0.5, Absolute Neuts (auto) 5.8, Nucleated RBC % 0 09/27/22 05:10: Sodium 143, Potassium 3.8, Chloride 114 H, Carbon Dioxide 23.0, Anion Gap 6, BUN 31 H, Creatinine 1.53 H, Est GFR (MDRD) Af Amer 42 L, Est GFR (MDRD) Non-Af 35 L, BUN/Creatinine Ratio 20.3 H, Glucose 108 H, Calcium 9.4, Total Bilirubin 0.50 09/27/22 05:10: APTT 50.5 H Rhythm: EKG: ECHO: Stress Test: Cardiac Cath: PCI: CT Surgery: Holter monitor: EPS: PPM: CXR: Chest CT Scan: Physical Exam Const alert, oriented x3 and no apparent distress General Appearance: cooperative HEENT hearing grossly normal bilaterally Head and Scalp: atraumatic Eyes EOMs intact bilaterally Neck General: normal visual inspection Chest inspection of chest normal and palpation of chest normal Resp normal respiratory effort Auscultation: clear to auscultation bilaterally Cardio regular rate, regular rhythm, S1 normal heart sound and S2 normal heart sound Jugular Venous Distention: JVD GI normal to inspection, nondistended, normoactive bowel sounds Extremity normal capillary refill and no pedal edema Peripheral Pulses: Yes pulses 2+ throughout and femoral pulses present Skin no rashes or lesions noted Neuro oriented x3 and CN's II-XII intact bilaterally Psych Appearance: grossly normal and appropriate Assessment & Plan Assessment/Plan (1) NSTEMI, initial episode of care: PLAN: She appears to have had a non-ST elevation myocardial infarction. It is not clear whether this is a Takotsubo or whether this is due to obstructive coronary disease. She will need to have her left heart cath on September 29 and I have discussed the above with her she understands and agrees to proceed. We will continue with heparin at this particular time. We will start low-dose beta-seun (2) CHF (congestive heart failure): PLAN: She does have evidence of congestive heart failure. She did benefit from her thoracentesis. She will be started on low-dose Lasix. We will add an NEDA inhibitor as appropriate. (3) Cardiac pacemaker in situ: PLAN: She is status post permanent pacemaker implantation. This appears to be functioning well. No changes to be made at this time. Thank you for allowing me to participate in the care of your patient. Please don't hesitate to call if any issues arise.
[2022-09-27] MEDS: Cholecalciferol (VIT D3) 25 MCG TABLET (1,000 UNITS) PO (10:32)
[2022-09-27] MEDS: Carvedilol 3.125 MG TABLET PO ×2 (10:33→20:55)
[2022-09-27] MEDS: Insulin Glargine-YFGN 100 UNIT/ML Pen 15 UNIT SC (10:34)
[2022-09-27] MEDS: 0.9% Saline Lock 10 ML Syringe IV ×2 (10:36→17:31)
[2022-09-27] MEDS: Furosemide 20 MG/2 ML VIAL IV ×2 (10:36→17:31)
[2022-09-27] MEDS: Insulin Lispro 100 UNIT/ML INSULN.PEN SC ×2 (11:57→20:56)
[2022-09-27 13:13] LABS: Partial Thromboplast Time 65.7 Seconds (24.1-36.2)
[2022-09-27 14:40] LABS: Bedside Glucose 207 mg/dL (74-106)
[2022-09-27 17:00] LABS: Bedside Glucose 127 mg/dL (74-106)
[2022-09-27 18:47] LABS: Partial Thromboplast Time 60.7 Seconds (24.1-36.2)
[2022-09-27 22:28] LABS: Bedside Glucose 198 mg/dL (74-106)
[2022-09-28] VITALS (7 sets, daily range): BP systolic 104–127; BP diastolic 48–75; PULSE 63–75; RESP 14–18; TEMP 36.5–36.8; O2SAT 95–100
[2022-09-28] MEDS: Levothyroxine 112 MCG Tablet PO (06:24)
[2022-09-28 06:45] LABS: Bedside Glucose 135 mg/dL (74-106)
[2022-09-28 06:49] LABS: Absolute Lymphocyte Count 1.54 X10^3/uL (0.83-4.51); Absolute Neutrophil Count 4.9 X10^3/uL (2.0-7.7); Basophil# 0.06 X10^3/uL; Basophil% 0.8 % (0-1); Eosinophil# 0.14 X10^3/uL; Eosinophils% 1.9 % (0-5); Hematocrit 31.4 % (37-47); Hemoglobin 10.5 g/dL (12.0-15.0); Lymphocyte # 1.54 X10^3/ul (0.83-4.51); Lymphocyte % 20.9 % (19-41); Mean Corp Hgb Conc 33.4 g/dL (32-36); Mean Corpuscular Hgb 31.4 pg (27.0-32.0); Mean Platelet Vol. 10.4 fl (6.2-12.0); Monocyte# 0.69 X10^3/uL; Monocyte% 9.4 % (0-10); NRBC Flagged by Analyzer 0 % (0-5); Neutrophil % 66.5 % (47-70); Platelet Count 179 K/mm3 (150-450); RBC Distribution Width CV 13.2 % (11.6-14.6); Red Blood Count 3.34 M/mm3 (4.2-5.4); White Blood Count 7.4 K/mm3 (4.4-11.0)
[2022-09-28 07:01] LABS: Partial Thromboplast Time 48.4 Seconds (24.1-36.2)
[2022-09-28 07:08] LABS: ALB/GLOB Ratio 0.8 RATIO (0.9-2.4); AST(SGOT) 21 U/L (15-37); Alanine Aminotransfer ALT/SGPT 28 U/L (13-56); Albumin, Serum 2.4 g/dL (3.2-5.0); Alkaline Phosphatase 46 U/L (45-117); Anion Gap 8 (5-15); BUN 34 mg/dL (7-18); BUN/Creat Ratio 19.8 RATIO (10-20); Calcium,Total 9.6 mg/dL (8.5-10.1); Chloride 110 mmol/L (98-107); Creatinine, Serum 1.72 mg/dL (0.55-1.02); EST Glomerular Filtration Rate 30 mL/min (>60); Est Glom Filt Rate - Afr Amer 37 mL/min (>60); Estimated Creatinine Clearance 24.52 ml/min; Glucose 147 mg/dL (74-106); Potassium 3.4 mmol/L (3.5-5.1); Protein, Total 5.4 g/dL (6.4-8.2); Sodium Level 144 mmol/L (136-145)
--- NOTE | 2022-09-28 07:16 | PCM.PN.HOSP ---
Reason for Visit Reason for Visit: Diagnoses Essential (primary) hypertension (09/22/22) Non-ST elevation (NSTEMI) myocardial infarction (09/22/22) Heart failure, unspecified (09/22/22) Pleural effusion, not elsewhere classified (09/22/22) Unspecified intestinal obstruction, unspecified as to partial versus complete obstruction (09/22/22) Wheezing (09/22/22) Other specified abnormalities of plasma proteins (09/22/22) Presence of cardiac pacemaker (09/22/22) Subjective Subjective Patient with no acute events overnight per self and per nursing report. She has been passing flatus and did have a large bowel movement this morning with ongoing aggressive bowel regimen. She denies any marked dyspnea, cough, chest pain. She does understand that plan remains for cardiac catheterization in AM. Patient did have low BP therefore cardiology only initiated low-dose oral Coreg and held off on any scheduled oral Lasix or any oral NEDA inhibitor given also lower creatinine clearance and low blood pressure. Patient denies fevers, chills, nausea, emesis, abdominal pain. Objective Data Objective Data Vital Signs: Vital Signs Temp Pulse Resp BP Pulse Ox O2 Del Method O2 Flow Rate 98.1 F 64 14 127/64 H 100 Room Air 2 09/28/22 02:30 09/28/22 02:30 09/28/22 02:30 09/28/22 02:30 09/28/22 02:30 09/28/22 02:30 09/26/22 06:00 Oxygen Flow Rate (L/min) [3] 4 Oxygen Flow Rate (L/min) [2] 4 Oxygen Flow Rate (L/min) [1 ( 4 Initial Baseline)] Oxygen Flow Rate (L/min) 2 Oxygen Delivery Method [3] Nasal Cannula Oxygen Delivery Method [2] Nasal Cannula Oxygen Delivery Method [1 ( Nasal Cannula Initial Baseline)] Oxygen Delivery Method Room Air Weight: 143 lb 1.28 oz Body Mass Index (BMI) 22.4 Intake & Output: Intake and Output for Last 24 Hours 09/26/22 09/27/22 09/28/22 23:59 23:59 23:59 Intake Total 526.43 / 526.43 679.32 / 679.32 50 / 50 Output Total 2150 / 2150 1400 / 2100 1200 / 1200 Balance -1623.57 / -1623.57 -720.68 / -1420.68 -1150 / -1150 Lab / Micro Data Result Diagrams: 09/28/22 06:34 09/28/22 06:34 Labs: Laboratory Results - last 24 hr 09/27/22 11:55: POC Glucose 207 H 09/27/22 12:40: APTT 65.7 H 09/27/22 16:41: POC Glucose 127 H 09/27/22 18:10: APTT 60.7 H 09/27/22 20:52: POC Glucose 198 H 09/28/22 06:17: POC Glucose 135 H 09/28/22 06:34: Sodium 144, Potassium 3.4 L, Chloride 110 H, Carbon Dioxide 26.0, Anion Gap 8, BUN 34 H, Creatinine 1.72 H, Estim Creat Clear Calc 24.52, Est GFR (MDRD) Af Amer 37 L, Est GFR (MDRD) Non-Af 30 L, BUN/Creatinine Ratio 19.8, Glucose 147 H, Calcium 9.6, Total Bilirubin 0.40, AST 21, ALT 28, Alkaline Phosphatase 46, Total Protein 5.4 L, Albumin 2.4 L, Globulin 3.0, Albumin/Globulin Ratio 0.8 L 09/28/22 06:34: WBC 7.4, RBC 3.34 L, Hgb 10.5 L, Hct 31.4 L, MCV 94.0, MCH 31.4, MCHC 33.4, RDW Std Deviation 45.0 H, RDW Coeff of Reanna 13.2, Plt Count 179, MPV 10.4, Immature Gran % (Auto) 0.500, Neut % (Auto) 66.5, Lymph % (Auto) 20.9, [place] % (Auto) 9.4, Eos % (Auto) 1.9, Baso % (Auto) 0.8, Absolute Neuts (auto) 4.9, Absolute Lymphs (auto) 1.54, Nucleated RBC % 0 09/28/22 06:34: APTT 48.4 H Micro: Microbiology 09/22/22 16:31 Blood Culture (Wb) - Left Hand Blood Culture - Final No growth in 5 days. 09/22/22 16:30 Blood Culture (Wb) - Right Forearm Blood Culture - Final No growth in 5 days. 09/25/22 06:50 Urine Catheter - Clarke Urine Culture - Final Culture exhibits no growth. 09/25/22 10:00 Blood Culture (Wb) - Left Forearm Blood Culture - Preliminary No growth in 48 hours. 09/25/22 06:35 Blood Culture (Wb) - Left Forearm Blood Culture - Preliminary No growth in 48 hours. 09/25/22 05:02 Mucosa - Nasopharyngeal Respiratory Panel (PCR) - Final 09/22/22 14:06 Urine, Clean Catch Urine Culture - Final Presumptive E. coli Streptococcus agalactiae (B) Physical Exam Narrative Physical Examination: General: Awake, alert, oriented x 3 and cooperative, seated upright in the PCU bed, fatigued but no acute distress Skin: Normal color, normal turgor, no icterus, no cyanosis except for very staged ecchymoses likely secondary lab draws as well as dressings in place to the abdomen with recent operative intervention, no drainage. HEENT: AT/NC, EOMI, PERRLA, MMM Lungs: Mildly diminished, left greater than right, appropriate respiratory rate and effort, no markedly appreciated rales, ronchi or wheezing. Heart: Currently regular rate and rhythm; no gallop, rub audible. Abdomen: Soft, expected mild tenderness to palpation given recent surgery, appears mildly distended, normal current bowel sounds. Extremities: No cyanosis, clubbing, or edema. Neurological: Patient awake, alert, oriented x 3, cognitive function intact; pupils equally reactive to light and accommodation, cranial nerves II-XII grossly normal, moving all 4 extremities, no focal deficits, strength preserved. Psychiatric: Affect appears normal, no acute evidence of depressive or anxiety feelings. Assessment & Plan Assessment/Plan (1) NSTEMI, initial episode of care: PLAN: Plan The patient is an 82 y/o F w/ PMHx: Hypothyroidism, HTN, Diabetes mellitus type II, Former tobacco use, Hx complete HB s/p pacemaker placement who presents to the [facility] ED on 09/22/22 with abdominal pain worse on the right, nausea and emesis started the day prior prompting eventual ED evaluation. #1. Acute NSTEMI, unclear if possibly Takotsubo or possibly secondary to obstructive CAD, complicated by Acute Systolic CHF exacerbation, new onset:: EKG with no acute evidence of ischemia, troponin 2711 and trended down to 2410, status post thoracentesis with heparin drip initiated, maintained on aspirin, echocardiogram 09/25 with new reduced EF 25% with severe segmental systolic dysfunction, maintained on low-dose Coreg and statin therapy but unable to initiate NEDA inhibitor given renal function and low BP, plan for cardiac catheterization 09/29/2022 with cardiology consulted and following. #2. Acute Systolic CHF Exacerbation, complicated by BL pleural effusions, R>L and possible Underlying PNA, unable to immediately rule out: Patient presentation unfortunately following operative intervention with onset of tachypnea and dyspnea with bilateral pleural effusions and new onset reduced EF with systolic heart failure with CT of the chest with no obvious PE but bilateral pleural effusions noted with elevated white count 19.1 with left shift at that time therefore IV Zosyn initiated and patient underwent 09/27/2022 right-sided diagnostic and therapeutic thoracentesis, BNP 1909 with initial IV Lasix diuresis however BP low normal with initial plan for initiation of oral Lasix however this has been held. Cardiology following and patient is currently on heparin drip, aspirin, statin, Coreg low-dose but given creatinine clearance and BP unable to initiate oral Lasix or NEDA inhibitor at this time. Respiratory panel and COVID-negative, leukocytosis improving on broad-spectrum antibiotic therapy. Thoracentesis appears transudative at this time. We will continue to evaluate with potential de-escalation off antibiotic therapy if appropriate. Blood culture 09/25/2022 with no growth. 09/25/2022 urine culture with no growth. FLP in AM, held on statin addition given cardiology consulted and following, will await the results and defer to their discretion. #3. Small bowel obstruction, resolved: Patient status post 09/22/2022 laparotomy with lysis of adhesions related with small bowel obstruction, currently on aggressive bowel regimen, tolerating oral intake, admission complicated by NSTEMI and CHF exacerbation noted, tolerating heparin drip of which surgery was amenable. #4. Acute on Chronic normocytic anemia, multifactorial: Patient hemoglobin has been trending down, no bright red blood per rectum or dark black stools or any GI bleed type symptoms, maintained on heparin drip given NSTEMI as noted, admission hemoglobin 14 with baseline prior to this appears 13-14, 09/23/2022 hemoglobin 11.7 and most recently 09/28/2022 hemoglobin 10.5. Complicated given recent surgery but will obtain iron panel, ferritin and guaiac to be cautious especially with heparin drip usage and plans cardiac catheterization in a.m. with potential antiplatelet therapy needs. #5. Acute Renal Insufficiency on Chronic Kidney Disease Stage IIIb: Admission BUN/Cr /.49, baseline renal function appears primarily 1.2-1.5, repeat BMP in AM, mild increase likely secondary to recent attempt at pulse dose Lasix, held at this time. #6. Hypokalemia: Admission K+ 3.4, supplementation given, repeat level in AM. #7. Hyperglycemia: Potentially stress response, a.m. glucose 147, hemoglobin A1c requested to be cautious. #8. History complete heart block: Patient with history of complete heart block 06/2022 status post permanent pacemaker implantation at that time, given NSTEMI and CHF exacerbation cardiology consulted and following. EKG upon presentation paced. #9. Hypertension: Given presentation patient BP regimen adjusted with NEDA inhibitor held and started now on a low-dose beta-seun therapy. If able and renal function improves/creatinine clearance improves preference for potential addition of a low-dose Lasix and NEDA inhibitor regimen but deferred at this time. #10. Diabetes mellitus type II: Hold oral home regimen, ADA diet, accu checks w/ ISS. #11. Hypothyroidism: We will continue patient home levothyroxine regimen. 09/25/2022 thyroid function studies with TSH 0.34 and free T4 1.53, given acute presentation with recent intervention surgically would plan to continue to repeat outpatient once clinically resolved from her acute presentation and if remains abnormal adjust thyroid medication at that time. #12. Former tobacco use: Encourage continued tobacco cessation. #13. DVT prophylaxis: Maintained on a heparin drip. Admission Evaluation Time spent evaluating chart, patient history, patient evaluation, care planning and discussion with specialists: 50 minutes. Charges/Coding Visit Charges Inpatient E&M: 19142 Subs Hosp L3
[2022-09-28] MEDS: Ipratropium/Albuterol Sulfate 3 ML AMPUL.NEB INHALATION ×2 (07:34→11:25)
[2022-09-28] MEDS: Heparin Injection (Vial) 5,000 UNIT/ML VIAL IV (07:40)
[2022-09-28] MEDS: Cholecalciferol (VIT D3) 25 MCG TABLET (1,000 UNITS) PO (08:53)
[2022-09-28] MEDS: Carvedilol 3.125 MG TABLET PO ×2 (08:53→22:08)
[2022-09-28] MEDS: 0.9% Saline Lock 10 ML Syringe IV (08:54)
[2022-09-28] MEDS: Potassium Chloride Oral Tablet 20 MEQ 40 MEQ PO (08:54)
[2022-09-28] MEDS: Furosemide 20 MG/2 ML VIAL IV (08:54)
[2022-09-28] MEDS: Insulin Glargine-YFGN 100 UNIT/ML Pen 15 UNIT SC (08:55)
--- NOTE | 2022-09-28 09:52 | PN.SURG_ITS ---
Subjective Subjective Patient is tolerating diet and having no abdominal discomfort. Objective Data Objective Data Vital Signs: Vital Signs Temp Pulse Resp BP Pulse Ox O2 Del Method O2 Flow Rate 97.7 F L 75 18 119/52 L 96 Room Air 2 09/28/22 08:30 09/28/22 08:30 09/28/22 08:30 09/28/22 08:30 09/28/22 08:30 09/28/22 08:30 09/26/22 06:00 Oxygen Flow Rate (L/min) [3] 4 Oxygen Flow Rate (L/min) [2] 4 Oxygen Flow Rate (L/min) [1 ( 4 Initial Baseline)] Oxygen Flow Rate (L/min) 2 Oxygen Delivery Method [3] Nasal Cannula Oxygen Delivery Method [2] Nasal Cannula Oxygen Delivery Method [1 ( Nasal Cannula Initial Baseline)] Oxygen Delivery Method Room Air Weight: 143 lb 1.28 oz Body Mass Index (BMI) 22.4 Intake & Output: Intake and Output for Last 24 Hours 09/26/22 09/27/22 09/28/22 23:59 23:59 23:59 Intake Total 526.43 / 526.43 679.32 / 679.32 251.6 / 251.6 Output Total 2150 / 2150 1400 / 2100 1200 / 1200 Balance -1623.57 / -1623.57 -720.68 / -1420.68 -948.4 / -948.4 Lab / Micro Data Result Diagrams: 09/28/22 06:34 09/28/22 06:34 Labs: Laboratory Results - last 24 hr 09/27/22 11:55: POC Glucose 207 H 09/27/22 12:40: APTT 65.7 H 09/27/22 16:41: POC Glucose 127 H 09/27/22 18:10: APTT 60.7 H 09/27/22 20:52: POC Glucose 198 H 09/28/22 06:17: POC Glucose 135 H 09/28/22 06:34: Sodium 144, Potassium 3.4 L, Chloride 110 H, Carbon Dioxide 26.0, Anion Gap 8, BUN 34 H, Creatinine 1.72 H, Estim Creat Clear Calc 24.52, Est GFR (MDRD) Af Amer 37 L, Est GFR (MDRD) Non-Af 30 L, BUN/Creatinine Ratio 19.8, Glucose 147 H, Calcium 9.6, Total Bilirubin 0.40, AST 21, ALT 28, Alkaline Phosphatase 46, Total Protein 5.4 L, Albumin 2.4 L, Globulin 3.0, Albumin/Globulin Ratio 0.8 L 09/28/22 06:34: WBC 7.4, RBC 3.34 L, Hgb 10.5 L, Hct 31.4 L, MCV 94.0, MCH 31.4, MCHC 33.4, RDW Std Deviation 45.0 H, RDW Coeff of Reanna 13.2, Plt Count 179, MPV 10.4, Immature Gran % (Auto) 0.500, Neut % (Auto) 66.5, Lymph % (Auto) 20.9, [place] % (Auto) 9.4, Eos % (Auto) 1.9, Baso % (Auto) 0.8, Absolute Neuts (auto) 4.9, Absolute Lymphs (auto) 1.54, Nucleated RBC % 0 09/28/22 06:34: APTT 48.4 H Micro: Microbiology 09/22/22 16:31 Blood Culture (Wb) - Left Hand Blood Culture - Final No growth in 5 days. 09/22/22 16:30 Blood Culture (Wb) - Right Forearm Blood Culture - Final No growth in 5 days. 09/25/22 06:50 Urine Catheter - Clarke Urine Culture - Final Culture exhibits no growth. 09/25/22 10:00 Blood Culture (Wb) - Left Forearm Blood Culture - Preliminary No growth in 48 hours. 09/25/22 06:35 Blood Culture (Wb) - Left Forearm Blood Culture - Preliminary No growth in 48 hours. 09/25/22 05:02 Mucosa - Nasopharyngeal Respiratory Panel (PCR) - Final 09/22/22 14:06 Urine, Clean Catch Urine Culture - Final Presumptive E. coli Streptococcus agalactiae (B) Physical Exam Const oriented x3 and no apparent distress Resp normal respiratory effort Cardio regular rate GI soft to palpation and non-tender GI Narrative: incision dressed c/d/i Inspection: Negative for abdominal distention Assessment & Plan Assessment/Plan (1) Small bowel obstruction: PLAN: s/p laparoscopy, NATASHA-release of SBO (2) Elevated troponin: (3) NSTEMI, initial episode of care: PLAN: Plan ?Tolerating her diet denies abdominal pain ?on Heparin drip, planning for heart cath tomorrow. Crystal Hennessy M.D. Pager: [phone] [facility] [address] [place] [address], [address] [place] [address] Office: [phone]
--- NOTE | 2022-09-28 10:52 | PN.CARD_ITS ---
Subjective Subjective Patient seen and evaluated Objective Data Vital Signs: Vital Signs Temp Pulse Resp BP Pulse Ox O2 Del Method O2 Flow Rate 97.7 F L 75 18 119/52 L 96 Room Air 2 09/28/22 08:30 09/28/22 08:30 09/28/22 08:30 09/28/22 08:30 09/28/22 08:30 09/28/22 08:30 09/26/22 06:00 Oxygen Flow Rate (L/min) [3] 4 Oxygen Flow Rate (L/min) [2] 4 Oxygen Flow Rate (L/min) [1 ( 4 Initial Baseline)] Oxygen Flow Rate (L/min) 2 Oxygen Delivery Method [3] Nasal Cannula Oxygen Delivery Method [2] Nasal Cannula Oxygen Delivery Method [1 ( Nasal Cannula Initial Baseline)] Oxygen Delivery Method Room Air Weight: 143 lb 1.28 oz Body Mass Index (BMI) 22.4 Intake & Output: Intake and Output for Last 24 Hours 09/26/22 09/27/22 09/28/22 23:59 23:59 23:59 Intake Total 526.43 / 526.43 679.32 / 679.32 251.6 / 251.6 Output Total 2150 / 2150 1400 / 2100 1200 / 1200 Balance -1623.57 / -1623.57 -720.68 / -1420.68 -948.4 / -948.4 Lab / Micro Data Result Diagrams: 09/28/22 06:34 09/28/22 06:34 Labs: Laboratory Results - last 24 hr 09/27/22 11:55: POC Glucose 207 H 09/27/22 12:40: APTT 65.7 H 09/27/22 16:41: POC Glucose 127 H 09/27/22 18:10: APTT 60.7 H 09/27/22 20:52: POC Glucose 198 H 09/28/22 06:17: POC Glucose 135 H 09/28/22 06:34: Sodium 144, Potassium 3.4 L, Chloride 110 H, Carbon Dioxide 26.0, Anion Gap 8, BUN 34 H, Creatinine 1.72 H, Estim Creat Clear Calc 24.52, Est GFR (MDRD) Af Amer 37 L, Est GFR (MDRD) Non-Af 30 L, BUN/Creatinine Ratio 19.8, Glucose 147 H, Calcium 9.6, Total Bilirubin 0.40, AST 21, ALT 28, Alkaline Phosphatase 46, Total Protein 5.4 L, Albumin 2.4 L, Globulin 3.0, Albumin/Globulin Ratio 0.8 L 09/28/22 06:34: WBC 7.4, RBC 3.34 L, Hgb 10.5 L, Hct 31.4 L, MCV 94.0, MCH 31.4, MCHC 33.4, RDW Std Deviation 45.0 H, RDW Coeff of Reanna 13.2, Plt Count 179, MPV 10.4, Immature Gran % (Auto) 0.500, Neut % (Auto) 66.5, Lymph % (Auto) 20.9, [place] % (Auto) 9.4, Eos % (Auto) 1.9, Baso % (Auto) 0.8, Absolute Neuts (auto) 4.9, Absolute Lymphs (auto) 1.54, Nucleated RBC % 0 09/28/22 06:34: APTT 48.4 H Micro: Microbiology 09/22/22 16:31 Blood Culture (Wb) - Left Hand Blood Culture - Final No growth in 5 days. 09/22/22 16:30 Blood Culture (Wb) - Right Forearm Blood Culture - Final No growth in 5 days. 09/25/22 06:50 Urine Catheter - Clarke Urine Culture - Final Culture exhibits no growth. Cardiology Labs/Tests 09/27/22 12:40: APTT 65.7 H 09/27/22 18:10: APTT 60.7 H 09/28/22 06:34: Sodium 144, Potassium 3.4 L, Chloride 110 H, Carbon Dioxide 26.0, Anion Gap 8, BUN 34 H, Creatinine 1.72 H, Est GFR (MDRD) Af Amer 37 L, Est GFR (MDRD) Non-Af 30 L, BUN/Creatinine Ratio 19.8, Glucose 147 H, Calcium 9.6, Total Bilirubin 0.40 09/28/22 06:34: WBC 7.4, RBC 3.34 L, Hgb 10.5 L, Hct 31.4 L, MCV 94.0, MCH 31.4, MCHC 33.4, Plt Count 179, MPV 10.4, Immature Gran % (Auto) 0.500, Neut % (Auto) 66.5, Lymph % (Auto) 20.9, [place] % (Auto) 9.4, Eos % (Auto) 1.9, Baso % (Auto) 0.8, Absolute Neuts (auto) 4.9, Nucleated RBC % 0 09/28/22 06:34: APTT 48.4 H Rhythm: EKG: ECHO: Stress Test: Cardiac Cath: PCI: CT Surgery: Holter monitor: EPS: PPM: CXR: Chest CT Scan: Assessment & Plan Assessment/Plan (1) NSTEMI, initial episode of care: PLAN: She appears to have had a non-ST elevation myocardial infarction. It is not clear whether this is a Takotsubo or whether this is due to obstructive coronary disease. She will need to have her left heart cath on September 29 and I have discussed the above with her she understands and agrees to proceed. We will continue with heparin at this particular time and DC 4 hours prior to procedure. We will start low-dose beta-seun (2) CHF (congestive heart failure): PLAN: She does have evidence of congestive heart failure. She did benefit from her thoracentesis. She appears to be euvolemic at this time. We will hold off on Lasix. We will add an NEDA inhibitor as appropriate. (3) Cardiac pacemaker in situ: PLAN: She is status post permanent pacemaker implantation. This appears to be functioning well. No changes to be made at this time. Thank you for allowing me to participate in the care of your patient. Please don't hesitate to call if any issues arise.
[2022-09-28] MEDS: Insulin Lispro 100 UNIT/ML INSULN.PEN SC ×3 (11:48→22:06)
[2022-09-28 12:21] LABS: Bedside Glucose 272 mg/dL (74-106)
[2022-09-28 13:47] LABS: Partial Thromboplast Time 69.7 Seconds (24.1-36.2)
[2022-09-28] MEDS: HEPARIN/D5w 25,000 UNITS 25,000 UNITS/250 ML IV.SOLN. 9 UNITS CONT INF (17:06)
[2022-09-28 17:31] LABS: Bedside Glucose 154 mg/dL (74-106)
[2022-09-28 19:16] LABS: Ferritin 104 ng/mL (8-252); Iron 46 ug/dL (50-170); Iron Binding Capacity,Total 210 ug/dL (250-450); PERCENT IRON SATURATION 21.9 % (15.0-55.0)
[2022-09-28 20:28] LABS: Partial Thromboplast Time 62.9 Seconds (24.1-36.2)
[2022-09-28] MEDS: 0.9% Normal Saline 1,000 ML 15 ML IV (22:04)
[2022-09-28 23:20] LABS: Bedside Glucose 268 mg/dL (74-106)
[2022-09-29] VITALS (11 sets, daily range): BP systolic 99–154; BP diastolic 53–83; PULSE 58–71; RESP 14–18; TEMP 36.6–36.8; O2SAT 93–99
[2022-09-29 04:51] LABS: Absolute Lymphocyte Count 1.37 X10^3/uL (0.83-4.51); Absolute Neutrophil Count 5.1 X10^3/uL (2.0-7.7); Basophil# 0.04 X10^3/uL; Basophil% 0.5 % (0-1); Eosinophil# 0.14 X10^3/uL; Eosinophils% 1.9 % (0-5); Hemoglobin 10.6 g/dL (12.0-15.0); Lymphocyte # 1.37 X10^3/ul (0.83-4.51); Lymphocyte % 18.6 % (19-41); Mean Corp Hgb Conc 33.1 g/dL (32-36); Mean Corpuscular Hgb 31.7 pg (27.0-32.0); Mean Corpuscular Volume 95.8 fL (81-99); Mean Platelet Vol. 10.6 fl (6.2-12.0); Monocyte# 0.72 X10^3/uL; Monocyte% 9.8 % (0-10); NRBC Flagged by Analyzer 0 % (0-5); Neutrophil # 5.09 X10^3/uL (2.7-7.7); Neutrophil % 68.9 % (47-70); Platelet Count 180 K/mm3 (150-450); RBC Distribution Width CV 13.4 % (11.6-14.6); RBC Distribution Width SD 45.7 fl (35.1-43.9); Red Blood Count 3.34 M/mm3 (4.2-5.4); White Blood Count 7.4 K/mm3 (4.4-11.0)
[2022-09-29] MEDS: Aspirin 81 MG TAB.CHEW PO (05:19)
[2022-09-29] MEDS: Carvedilol 3.125 MG TABLET PO (05:20)
[2022-09-29] MEDS: Levothyroxine 112 MCG Tablet PO (05:20)
[2022-09-29 05:34] LABS: ALB/GLOB Ratio 0.8 RATIO (0.9-2.4); AST(SGOT) 21 U/L (15-37); Alanine Aminotransfer ALT/SGPT 25 U/L (13-56); Albumin, Serum 2.3 g/dL (3.2-5.0); Alkaline Phosphatase 44 U/L (45-117); Anion Gap 9 (5-15); BUN 29 mg/dL (7-18); BUN/Creat Ratio 18.8 RATIO (10-20); Calcium,Total 9.4 mg/dL (8.5-10.1); Chloride 108 mmol/L (98-107); Cholesterol 139 mg/dL (200); Creatinine, Serum 1.54 mg/dL (0.55-1.02); EST Glomerular Filtration Rate 34 mL/min (>60); Est Glom Filt Rate - Afr Amer 41 mL/min (>60); Estimated Creatinine Clearance 27.39 ml/min; Glucose 144 mg/dL (74-106); High Density Lipoprotein 36 mg/dL; Potassium 3.5 mmol/L (3.5-5.1); Protein, Total 5.3 g/dL (6.4-8.2); Sodium Level 142 mmol/L (136-145); Triglycerides 149 mg/dL; Very Low Density Lipoprotein 30 mg/dL (5-40)
--- NOTE | 2022-09-29 06:31 | PN.HOSP_ITS ---
Reason for Visit Reason for Visit: Diagnoses Essential (primary) hypertension (09/22/22) Non-ST elevation (NSTEMI) myocardial infarction (09/22/22) Heart failure, unspecified (09/22/22) Pleural effusion, not elsewhere classified (09/22/22) Unspecified intestinal obstruction, unspecified as to partial versus complete obstruction (09/22/22) Wheezing (09/22/22) Other specified abnormalities of plasma proteins (09/22/22) Presence of cardiac pacemaker (09/22/22) Objective Data Objective Data Vital Signs: Vital Signs Temp Pulse Resp BP Pulse Ox O2 Del Method O2 Flow Rate 97.9 F 60 18 112/55 L 95 Room Air 2 09/29/22 06:25 09/29/22 06:25 09/29/22 06:25 09/29/22 06:25 09/29/22 06:25 09/29/22 06:25 09/26/22 06:00 Oxygen Flow Rate (L/min) [3] 4 Oxygen Flow Rate (L/min) [2] 4 Oxygen Flow Rate (L/min) [1 ( 4 Initial Baseline)] Oxygen Flow Rate (L/min) 2 Oxygen Delivery Method [3] Nasal Cannula Oxygen Delivery Method [2] Nasal Cannula Oxygen Delivery Method [1 ( Nasal Cannula Initial Baseline)] Oxygen Delivery Method Room Air Weight: 143 lb 1.28 oz Body Mass Index (BMI) 22.4 Intake & Output: Intake and Output for Last 24 Hours 09/27/22 09/28/22 09/29/22 23:59 23:59 23:59 Intake Total 679.32 / 679.32 880.25 / 880.25 147.8 / 147.8 Output Total 1400 / 2100 2525 / 2525 250 / 250 Balance -720.68 / -1420.68 -1644.75 / -1644.75 -102.2 / -102.2 Lab / Micro Data Result Diagrams: 09/29/22 04:15 09/29/22 04:15 Labs: Laboratory Results - last 24 hr 09/28/22 06:17: POC Glucose 135 H 09/28/22 06:34: Sodium 144, Potassium 3.4 L, Chloride 110 H, Carbon Dioxide 26.0, Anion Gap 8, BUN 34 H, Creatinine 1.72 H, Estim Creat Clear Calc 24.52, Est GFR (MDRD) Af Amer 37 L, Est GFR (MDRD) Non-Af 30 L, BUN/Creatinine Ratio 19.8, Glucose 147 H, Calcium 9.6, Total Bilirubin 0.40, AST 21, ALT 28, Alkaline Phosphatase 46, Total Protein 5.4 L, Albumin 2.4 L, Globulin 3.0, Albumin/Globulin Ratio 0.8 L 09/28/22 06:34: WBC 7.4, RBC 3.34 L, Hgb 10.5 L, Hct 31.4 L, MCV 94.0, MCH 31.4, MCHC 33.4, RDW Std Deviation 45.0 H, RDW Coeff of Reanna 13.2, Plt Count 179, MPV 10.4, Immature Gran % (Auto) 0.500, Neut % (Auto) 66.5, Lymph % (Auto) 20.9, [place] % (Auto) 9.4, Eos % (Auto) 1.9, Baso % (Auto) 0.8, Absolute Neuts (auto) 4.9, Absolute Lymphs (auto) 1.54, Nucleated RBC % 0 09/28/22 06:34: APTT 48.4 H 09/28/22 06:34: Iron 46 L, TIBC 210 L, Iron Saturation 21.9, Ferritin 104 09/28/22 11:47: POC Glucose 272 H 09/28/22 13:28: APTT 69.7 H 09/28/22 17:04: POC Glucose 154 H 09/28/22 19:50: APTT 62.9 H 09/28/22 22:03: POC Glucose 268 H 09/29/22 04:15: Sodium 142, Potassium 3.5, Chloride 108 H, Carbon Dioxide 25.0, Anion Gap 9, BUN 29 H, Creatinine 1.54 H, Estim Creat Clear Calc 27.39, Est GFR (MDRD) Af Amer 41 L, Est GFR (MDRD) Non-Af 34 L, BUN/Creatinine Ratio 18.8, Glucose 144 H, Calcium 9.4, Total Bilirubin 0.30, AST 21, ALT 25, Alkaline Phosphatase 44 L, Total Protein 5.3 L, Albumin 2.3 L, Globulin 3.0, Albumin/Globulin Ratio 0.8 L, Triglycerides 149, Cholesterol 139, LDL Cholesterol 73, VLDL Cholesterol 30, HDL Cholesterol 36 L 09/29/22 04:15: WBC 7.4, RBC 3.34 L, Hgb 10.6 L, Hct 32.0 L, MCV 95.8, MCH 31.7, MCHC 33.1, RDW Std Deviation 45.7 H, RDW Coeff of [place] 13.4, Plt Count 180, MPV 10.6, Immature Gran % (Auto) 0.300, Neut % (Auto) 68.9, Lymph % (Auto) 18.6 L, [place] % (Auto) 9.8, Eos % (Auto) 1.9, Baso % (Auto) 0.5, Absolute Neuts (auto) 5.1, Absolute Lymphs (auto) 1.37, Nucleated RBC % 0 Micro: Microbiology 09/22/22 16:31 Blood Culture (Wb) - Left Hand Blood Culture - Final No growth in 5 days. 09/22/22 16:30 Blood Culture (Wb) - Right Forearm Blood Culture - Final No growth in 5 days. 09/25/22 06:50 Urine Catheter - Clarke Urine Culture - Final Culture exhibits no growth. 09/25/22 10:00 Blood Culture (Wb) - Left Forearm Blood Culture - Preliminary No growth in 48 hours. 09/25/22 06:35 Blood Culture (Wb) - Left Forearm Blood Culture - Preliminary No growth in 48 hours. 09/25/22 05:02 Mucosa - Nasopharyngeal Respiratory Panel (PCR) - Final 09/22/22 14:06 Urine, Clean Catch Urine Culture - Final Presumptive E. coli Streptococcus agalactiae (B)
[2022-09-29 06:39] LABS: Bedside Glucose 143 mg/dL (74-106)
--- NOTE | 2022-09-29 07:11 | PN.SURG_ITS ---
Subjective Subjective Patient denies any abdominal pain. She is having bowel movements tolerating regular diet. Objective Data Objective Data Vital Signs: Vital Signs Temp Pulse Resp BP Pulse Ox O2 Del Method O2 Flow Rate 97.9 F 60 18 112/55 L 95 Room Air 2 09/29/22 06:25 09/29/22 06:25 09/29/22 06:25 09/29/22 06:25 09/29/22 06:25 09/29/22 06:25 09/26/22 06:00 Oxygen Flow Rate (L/min) [3] 4 Oxygen Flow Rate (L/min) [2] 4 Oxygen Flow Rate (L/min) [1 ( 4 Initial Baseline)] Oxygen Flow Rate (L/min) 2 Oxygen Delivery Method [3] Nasal Cannula Oxygen Delivery Method [2] Nasal Cannula Oxygen Delivery Method [1 ( Nasal Cannula Initial Baseline)] Oxygen Delivery Method Room Air Weight: 143 lb 1.28 oz Body Mass Index (BMI) 22.4 Intake & Output: Intake and Output for Last 24 Hours 09/27/22 09/28/22 09/29/22 23:59 23:59 23:59 Intake Total 679.32 / 679.32 880.25 / 880.25 147.8 / 147.8 Output Total 1400 / 2100 2525 / 2525 250 / 250 Balance -720.68 / -1420.68 -1644.75 / -1644.75 -102.2 / -102.2 Lab / Micro Data Result Diagrams: 09/29/22 04:15 09/29/22 04:15 Labs: Laboratory Results - last 24 hr 09/28/22 06:34: Iron 46 L, TIBC 210 L, Iron Saturation 21.9, Ferritin 104 09/28/22 11:47: POC Glucose 272 H 09/28/22 13:28: APTT 69.7 H 09/28/22 17:04: POC Glucose 154 H 09/28/22 19:50: APTT 62.9 H 09/28/22 22:03: POC Glucose 268 H 09/29/22 04:15: Sodium 142, Potassium 3.5, Chloride 108 H, Carbon Dioxide 25.0, Anion Gap 9, BUN 29 H, Creatinine 1.54 H, Estim Creat Clear Calc 27.39, Est GFR (MDRD) Af Amer 41 L, Est GFR (MDRD) Non-Af 34 L, BUN/Creatinine Ratio 18.8, Glucose 144 H, Calcium 9.4, Total Bilirubin 0.30, AST 21, ALT 25, Alkaline Phosphatase 44 L, Total Protein 5.3 L, Albumin 2.3 L, Globulin 3.0, Albumin/Globulin Ratio 0.8 L, Triglycerides 149, Cholesterol 139, LDL Cholesterol 73, VLDL Cholesterol 30, HDL Cholesterol 36 L 09/29/22 04:15: WBC 7.4, RBC 3.34 L, Hgb 10.6 L, Hct 32.0 L, MCV 95.8, MCH 31.7, MCHC 33.1, RDW Std Deviation 45.7 H, RDW Coeff of Reanna 13.4, Plt Count 180, MPV 10.6, Immature Gran % (Auto) 0.300, Neut % (Auto) 68.9, Lymph % (Auto) 18.6 L, [place] % (Auto) 9.8, Eos % (Auto) 1.9, Baso % (Auto) 0.5, Absolute Neuts (auto) 5.1, Absolute Lymphs (auto) 1.37, Nucleated RBC % 0 09/29/22 06:19: POC Glucose 143 H Micro: Microbiology 09/22/22 16:31 Blood Culture (Wb) - Left Hand Blood Culture - Final No growth in 5 days. 09/22/22 16:30 Blood Culture (Wb) - Right Forearm Blood Culture - Final No growth in 5 days. 09/25/22 06:50 Urine Catheter - Clarke Urine Culture - Final Culture exhibits no growth. 09/25/22 10:00 Blood Culture (Wb) - Left Forearm Blood Culture - Preliminary No growth in 48 hours. 09/25/22 06:35 Blood Culture (Wb) - Left Forearm Blood Culture - Preliminary No growth in 48 hours. 09/25/22 05:02 Mucosa - Nasopharyngeal Respiratory Panel (PCR) - Final 09/22/22 14:06 Urine, Clean Catch Urine Culture - Final Presumptive E. coli Streptococcus agalactiae (B) Physical Exam Const oriented x3 and no apparent distress Resp normal respiratory effort GI normal to inspection, nondistended, normoactive bowel sounds Assessment & Plan Assessment/Plan (1) NSTEMI, initial episode of care: PLAN: Patient is on heparin drip. She is having a heart cath today. (2) Small bowel obstruction: PLAN: Patient seems to be doing well with no abdominal pain. I have stopped antibiotics and added Tylenol. Stop the morphine as well. Resume heparin drip as needed for her heart. DC after heart cath when okay with cardiology. Lane Cagle MD Pager: [facility] [address] [place] [address], [address] [place] [address] Office:
[2022-09-29 07:28] LABS: Partial Thromboplast Time 47.8 Seconds (24.1-36.2)
[2022-09-29 08:11] LABS: Hemoglobin A1c 6.6 % (3.8-5.6)
--- NOTE | 2022-09-29 09:10 | CASEMGMT ---
Tertiary facilities in-network with patient's insurance: [facility], [facility], , [facility]
--- NOTE | 2022-09-29 10:06 | PN.CARD_ITS ---
Subjective Subjective Patient seen and evaluated and underwent cardiac catheterization today. Objective Data Vital Signs: Vital Signs Temp Pulse Resp BP Pulse Ox O2 Del Method O2 Flow Rate 97.8 F 68 15 115/57 L 94 Room Air 2 09/29/22 08:30 09/29/22 08:30 09/29/22 08:30 09/29/22 08:30 09/29/22 08:30 09/29/22 08:30 09/26/22 06:00 Oxygen Flow Rate (L/min) [3] 4 Oxygen Flow Rate (L/min) [2] 4 Oxygen Flow Rate (L/min) [1 ( 4 Initial Baseline)] Oxygen Flow Rate (L/min) 2 Oxygen Delivery Method [3] Nasal Cannula Oxygen Delivery Method [2] Nasal Cannula Oxygen Delivery Method [1 ( Nasal Cannula Initial Baseline)] Oxygen Delivery Method Room Air Weight: 143 lb 1.28 oz Body Mass Index (BMI) 22.4 Intake & Output: Intake and Output for Last 24 Hours 09/27/22 09/28/22 09/29/22 23:59 23:59 23:59 Intake Total 679.32 / 679.32 880.25 / 880.25 197.8 / 197.8 Output Total 1400 / 2100 2525 / 2525 250 / 250 Balance -720.68 / -1420.68 -1644.75 / -1644.75 -52.2 / -52.2 Lab / Micro Data Result Diagrams: 09/29/22 04:15 09/29/22 04:15 Labs: Laboratory Results - last 24 hr 09/28/22 06:34: Iron 46 L, TIBC 210 L, Iron Saturation 21.9, Ferritin 104 09/28/22 11:47: POC Glucose 272 H 09/28/22 13:28: APTT 69.7 H 09/28/22 17:04: POC Glucose 154 H 09/28/22 19:50: APTT 62.9 H 09/28/22 22:03: POC Glucose 268 H 09/29/22 04:15: Sodium 142, Potassium 3.5, Chloride 108 H, Carbon Dioxide 25.0, Anion Gap 9, BUN 29 H, Creatinine 1.54 H, Estim Creat Clear Calc 27.39, Est GFR (MDRD) Af Amer 41 L, Est GFR (MDRD) Non-Af 34 L, BUN/Creatinine Ratio 18.8, Glucose 144 H, Calcium 9.4, Total Bilirubin 0.30, AST 21, ALT 25, Alkaline Phosphatase 44 L, Total Protein 5.3 L, Albumin 2.3 L, Globulin 3.0, Albumin/Globulin Ratio 0.8 L, Triglycerides 149, Cholesterol 139, LDL Cholesterol 73, VLDL Cholesterol 30, HDL Cholesterol 36 L 09/29/22 04:15: WBC 7.4, RBC 3.34 L, Hgb 10.6 L, Hct 32.0 L, MCV 95.8, MCH 31.7, MCHC 33.1, RDW Std Deviation 45.7 H, RDW Coeff of Reanna 13.4, Plt Count 180, MPV 10.6, Immature Gran % (Auto) 0.300, Neut % (Auto) 68.9, Lymph % (Auto) 18.6 L, [place] % (Auto) 9.8, Eos % (Auto) 1.9, Baso % (Auto) 0.5, Absolute Neuts (auto) 5.1, Absolute Lymphs (auto) 1.37, Nucleated RBC % 0 09/29/22 04:15: Hemoglobin A1c 6.6 H 09/29/22 04:15: APTT 47.8 H 09/29/22 06:19: POC Glucose 143 H Micro: Microbiology 09/22/22 16:31 Blood Culture (Wb) - Left Hand Blood Culture - Final No growth in 5 days. 09/22/22 16:30 Blood Culture (Wb) - Right Forearm Blood Culture - Final No growth in 5 days. Cardiology Labs/Tests 09/28/22 06:34: Iron 46 L, TIBC 210 L, Iron Saturation 21.9, Ferritin 104 09/28/22 13:28: APTT 69.7 H 09/28/22 19:50: APTT 62.9 H 09/29/22 04:15: Sodium 142, Potassium 3.5, Chloride 108 H, Carbon Dioxide 25.0, Anion Gap 9, BUN 29 H, Creatinine 1.54 H, Est GFR (MDRD) Af Amer 41 L, Est GFR (MDRD) Non-Af 34 L, BUN/Creatinine Ratio 18.8, Glucose 144 H, Calcium 9.4, Total Bilirubin 0.30, Triglycerides 149, Cholesterol 139, LDL Cholesterol 73, VLDL Cholesterol 30, HDL Cholesterol 36 L 05/30/23 04:15: WBC 7.4, RBC 3.34 L, Hgb 10.6 L, Hct 32.0 L, MCV 95.8, MCH 31.7, MCHC 33.1, Plt Count 180, MPV 10.6, Immature Gran % (Auto) 0.300, Neut % (Auto) 68.9, Lymph % (Auto) 18.6 L, [place] % (Auto) 9.8, Eos % (Auto) 1.9, Baso % (Auto) 0.5, Absolute Neuts (auto) 5.1, Nucleated RBC % 0 09/29/22 04:15: Hemoglobin A1c 6.6 H 09/29/22 04:15: APTT 47.8 H Rhythm: EKG: ECHO: Stress Test: Cardiac Cath: PCI: CT Surgery: Holter monitor: EPS: PPM: CXR: Chest CT Scan: Radiography Diagnostic Testing: Radiology Impression Thoracentesis Ultrasound 09/25/22 04:54 IMPRESSION: 1. Right-sided ultrasound-guided diagnostic and therapeutic pleural effusion. 2. Small left pleural effusion was not drained on this examination given smaller size. Electronically Signed: Lloyd Shannon DO at 16:10 EDT , Physical Exam Const alert, oriented x3 and no apparent distress General Appearance: cooperative HEENT hearing grossly normal bilaterally Head and Scalp: atraumatic Eyes EOMs intact bilaterally Neck General: normal visual inspection Chest inspection of chest normal and palpation of chest normal Resp normal respiratory effort Auscultation: clear to auscultation bilaterally Cardio regular rate, regular rhythm, S1 normal heart sound and S2 normal heart sound Jugular Venous Distention: JVD GI normal to inspection, nondistended, normoactive bowel sounds Extremity normal capillary refill and no pedal edema Peripheral Pulses: Yes pulses 2+ throughout and femoral pulses present Skin no rashes or lesions noted Neuro oriented x3 and CN's II-XII intact bilaterally Psych Appearance: grossly normal and appropriate Assessment & Plan Assessment/Plan (1) NSTEMI, initial episode of care: PLAN: She appears to have had a non-ST elevation myocardial infarction. Cardiac catheterization demonstrated moderate disease in the LAD, mild disease in the circumflex and right coronary artery. The above is suggestive more of a Takotsubo pattern. No intervention needed at this time We will continue with beta-seun High intensity statin (2) CHF (congestive heart failure): PLAN: She does have evidence of congestive heart failure. She did benefit from her thoracentesis. She appears to be euvolemic at this time. We will hold off on Lasix. We will add an NEDA inhibitor as appropriate as outpatient. (3) Cardiac pacemaker in situ: PLAN: She is status post permanent pacemaker implantation. This appears to be functioning well. No changes to be made at this time. Thank you for allowing me to participate in the care of your patient. Please don't hesitate to call if any issues arise.
--- NOTE | 2022-09-29 10:15 | CL.D_ITS ---
Patient Name: MAHSA CISNEROS Study Date: 09/29/2022 Performing: Win Mukherjee MD Ht: 67 inches 170.18 cm : 1940 Wt: 143.08 lbs 64.9 kg Age: 82 Gender: female BSA: 1.75 PROCEDURE(S) PERFORMED [id number])[facility] CLINICAL PROFILE AND INDICATIONS Indications: Suspected CAD Heart Failure: NYHA Class: 3, Newly Diagnosed: Yes, Heart Failure Type: Systolic Stress/Imaging Stress/Image Study Performed: No CONCLUSIONS Moderate CAD noted in the left anterior descending artery with mild disease noted in the ramus intermedius, circumflex artery, and right coronary artery. Takotsubo pattern noted on echocardiogram. RECOMMENDATIONS Medical therapy DESCRIPTION OF PROCEDURE The patient arrived to the procedure lab. The risks and benefits of the procedure as well as a full description of our services here and current unavailability of surgical backup were fully explained to the patient and/or their significant other prior to the catheterization. The Timeout was completed, verifying the correct patient and procedure. The patient's procedural site was prepped and draped in the usual fashion. Local anesthetic was given subcutaneously to right radial region with Lidocaine 2%. Using a modified Seldinger technique, arterial access was obtained via the ulnar a 6Fr sheath was inserted. Left Coronary Artery selective angiography was performed in multiple views using a 5 Fr. 4.0 Bryant catheter. Right Coronary Artery selective angiography was then performed in multiple views using a 5 Fr. 4.0 Bryant catheter.The arterial sheath was pulled and a TR Band was applied for hemostasis CORONARY ANGIOGRAPHY DOMINANCE: Right Dominant LEFT HEART ASSESSMENT Left Ventricular Ejection Fraction: by Echo 25 % Anterior Hypokinesis - Severe Consistent with Takotsubo cardiomyopathy. LEFT MAIN: Mild calcification, Mild luminal irregularities LEFT ANTERIOR DESCENDING ARTERY: Mild calcification, Moderate luminal irregularities up to 50% CIRCUMFLEX ARTERY: Mild luminal irregularities RAMUS: Mild luminal irregularities RIGHT CORONARY ARTERY: No significant disease noted COMPLICATIONS No Complications PROCEDURE MEDICATIONS Versed .5 mg IV Fentanyl 25 mcg IV Oxygen: 2 L/min via nasal cannula SUMMARY OF HEMODYNAMIC DATA Time AIR REST ECG 09:01:50 AO 120/65 (88) SA 09:55:46 Signed By Win Mukherjee MD On 09/29/2022 10:14:18 Win Mukherjee MD
[2022-09-29] MEDS: Cholecalciferol (VIT D3) 25 MCG TABLET (1,000 UNITS) PO (10:38)
[2022-09-29] MEDS: Insulin Glargine-YFGN 100 UNIT/ML Pen 15 UNIT SC (10:38)
[2022-09-29] MEDS: Insulin Lispro 100 UNIT/ML INSULN.PEN SC (10:41)
--- NOTE | 2022-09-29 10:47 | DCINST_ITS ---
Discharge Instructions Diet Discharge Diet: 1800 Calorie Control Diet Activity Discharge Activity: - (See parameters in the additional instruction section.) May resume sexual activity in: - (Hold until reassess by Dr. Rowell.) Weight Bearing Status: Weight bearing as tolerated Dressing / Incision Call your doctor if your incision/area has: Continuous Slow Oozing, Sudden Inc reased Bleeding, Increased Pain/ Swelling, Increased Redness, Foul Smelling Discharge and Swelling at the incision site Call your doctor if you observe: Fever of 101 or Higher, Shortness of breath, Dizziness, Swelling in the ankles, Chest pain, Increased palpitations (irregular heartbeat) and Uncontrolled pain Cleanse incision/area with: Soap & Water and Keep Dressing Clean & Dry Additional Dressing/Incision Instructions:: See additional section instructions. Follow Up Care Test Results: Test results from this visit will be discussed in further detail at your follow- up appointment, if applicable. Discharge Plan Admission Admit Date/Time: 09/22/22 19:00 Primary Reason for Your Visit: Bowel obstruction, NSTEMI (Takotsubo pattern), Systolic CHF Exacerbation Attending Provider: Lane Rowell Primary Care Provider: Gino Boswell Consulting Providers: Win Mukherjee ; Marek Levin ; Yong Ambrocio ; Hao Cunningham ; Jak Baltazar ; Campbell Wray ; Agnieszka Bhatti NP ; Diann Peralta Instructions Patient Instructions: PAULINO MCKEON Thoracentesis Dc Additional Instructions / Restrictions: Recent NSTEMI (Heart attack) and Congestion Heart Failure Information/Review: Cardiac catheterization demonstrated moderate disease in the LAD, mild disease in the circumflex and right coronary artery which is suggestive of Takotsubo pattern with no intervention necessary at this time with decision for medication management. Please continue newly initiated medications including: Aspirin 81 mg daily Atorvastatin 40 mg each night Coreg 3.125 mg twice daily The heart team stopped your ramipril. They will reassess your blood pressures at follow-up and decide if this needs restarted or if you need a diuretic like lasix in the future but currently these are discontinued/not added. The ultrasound of your heart (echocardiogram) was performed on 09/25 with new reduced ejection fraction of 25% with severe segmental systolic dysfunction. You will likely a a future repeat ultrasound which will be arranged in the future by Dr. Mukherjee. Please follow-up with Dr. Mukherjee as his office arranges. If you notice any weight gain, increasing lower extremity swelling, shortness of breath or difficulty laying flat please immediately notify Dr. Mukherjee office. ADDITIONAL MEDICATIONS INFORMATION: Please hold your metformin for the next 48 hours and then may resume. SMALL BOWEL SURGERY DISCHARGE INFORMATION PER DR. ROWELL: Lifting limit of 15 lbs for 2 weeks from the day of your initial surgical interventions. Change your abdominal bandages daily or as needed. You are allowed to take a bath and shower at your discretion. If you notice any increased drainage from your incisions, foul smelling drainage, or have any redness or fevers immediately notify his office. Discharge Orders/Prescriptions Prescriptions: New atorvastatin 40 mg Tablet 40 mg PO QHS 30 Days Qty: 30 1RF carvedilol 3.125 mg Tablet 3.125 mg PO BID 30 Days Qty: 60 1RF aspirin 81 mg Tablet,Chewable 81 mg PO BREAKFAST 30 Days Qty: 30 1RF Continued metformin 500 MG tablet 500 mg PO BIDCM levothyroxine 125 MCG tablet 125 mcg PO DAILY glimepiride 4 mg tablet 2 mg PO QHS cholecalciferol (vitamin D3) 25 mcg (1,000 unit) Tablet 25 mcg PO DAILY glimepiride 4 mg tablet 4 mg PO DAILY Discontinued ramipril [Altace] 10 MG capsule 10 mg PO DAILY Referrals / Follow Up: Lane Rowell MD [Med Staff - Active Staff] - Within 2 Weeks (Please follow-up as discussed/arranged per Dr. Rowell office.) Win Mukherjee MD [Med Staff - Active Staff] - None (Please follow-up with Dr. Mukherjee in the office as discussed/arranged per his office.) Gino Boswell DO [Primary Care Provider] - In 1 Week (Please follow-up to review recent admission and have BP check given recent medication alterations with NSTEMI.) Disposition Disposition (needs filled in before D/C Order can be placed): Home, Self Care
[2022-09-29 11:07] LABS: Bedside Glucose 155 mg/dL (74-106)
--- NOTE | 2022-09-29 11:13 | PCM.DC.SUM ---
Providers Date of Admission: 09/22/22 Date of Discharge: 09/29/22 Primary Care Physician: Dr. Gino Boswell, Consultations 09/25/22 03:09 Consult: Hospitalist Routine Consulting Provider: Marek Levin Reason for Consult: tachy, diaphoretic EMERGENT Consult: Yes Notified: Yes Date Notified: 09/25/22 Time Notified: 03:09 Method of Notification: Verbal Comments:: bud called hospitalist himself 09/25/22 03:23 Consult: Hospitalist Routine Consulting Provider: Marek Levin Reason for Consult: medical management EMERGENT Consult: Yes MD Notified: Yes Date Notified: 09/25/22 Time Notified: 03:23 Method of Notification: Text 09/25/22 04:20 Consult: Cardiology Routine Consulting Provider: Win Mukherjee Reason for Consult: NSTEMI EMERGENT Consult: No MD Notified: Yes Date Notified: 09/25/22 Time Notified: 04:20 Method of Notification: Verbal 09/25/22 06:22 Consult: Relay Record Clerk / Pulmonary Medicine Routine Consulting Provider: Pulmonary Medicine babatunde [place] Reason for Consult: Respiratory Distress EMERGENT Consult: No MD Notified: Yes Date Notified: 09/25/22 Time Notified: 06:22 Method of Notification: Verbal Reason For Visit: SBO Diagnosis Discharge Diagnosis (1) Small bowel obstruction: Status: Acute Code(s): K56.609 - Unspecified intestinal obstruction, unspecified as to partial versus complete obstruction Plan: Additional diagnoses: #1. Acute NSTEMI secondary to Takotsubo with nonobstructive CAD, complicated by Acute Systolic CHF exacerbation, new onset as noted #2 (Cardiac catheterization demonstrated moderate disease in the LAD, mild disease in the circumflex and right coronary artery) #2. Acute Systolic CHF Exacerbation, complicated by BL pleural effusions, R>L, treated for concurrent possibly underlying PNA (GN/GP), lower suspicion as unable to immediately rule out, s/p 09/27/2022 right-sided diagnostic and therapeutic thoracentesis (transudative) with negative growth. #3. Small bowel obstruction, resolved, status post 09/22/2022 laparotomy with lysis of adhesions related with small bowel obstruction #4. Acute on Chronic normocytic anemia, multifactorial with Fe low, TIBC low with suspected AOCD, guiac not obtained during admission. #5. Acute Renal Insufficiency on Chronic Kidney Disease Stage IIIb #6. Hypokalemia #7. Diabetes mellitus type II with Hyperglycemia (HgbA1c 6.6%, increased from prior, last 05/01/22 6.0%, had been prediabetic) #8. History complete heart block status post permanent pacemaker implantation #9. Hypertension #10. Hypothyroidism (09/25/2022 thyroid function studies with TSH 0.34 and free T4 1.53, given acute presentation with recent intervention surgically would plan to continue to repeat outpatient once clinically resolved from her acute presentation) #11. Former tobacco use: Encourage continued tobacco cessation. Medications at Discharge Home Medications levothyroxine 125 mcg tablet 125 mcg PO DAILY THYROID 09/13/14 metformin 500 mg tablet 500 mg PO BIDCM DIABETES 09/13/14 cholecalciferol (vitamin D3) 25 mcg (1,000 unit) tablet 25 mcg PO DAILY SUPPLEMENT 06/15/22 glimepiride 4 mg tablet 2 mg PO QHS DIABETES 06/15/22 glimepiride 4 mg tablet 4 mg PO DAILY DIABETES 09/22/22 aspirin 81 mg chewable tablet 81 mg PO BREAKFAST 30 days #30 tabs 09/29/22 atorvastatin 40 mg tablet 40 mg PO QHS 30 days #30 tabs 09/29/22 carvedilol 3.125 mg tablet 3.125 mg PO BID 30 days #60 tabs 09/29/22 Hospital Course Operations - (09/22/2022 laparotomy with lysis of adhesions related with small bowel obstruction. 09/29/22 cardiac catheterization with no intervention.) Procedures 2-D Echocardiogram, Cardiac catheterization, EKG, Intubation and - Summary of Care Provided Minutes Spent on Discharge: 40 Hospital Course: The patient is an 82 y/o F w/ PMHx: Hypothyroidism, HTN, Diabetes mellitus type II, Former tobacco use, Hx complete HB s/p pacemaker placement who presented to [facility] ED on 09/22/22 with abdominal pain worse on the right, nausea and emesis started the day prior prompting eventual ED evaluation. Patient status post 09/22/2022 laparotomy with lysis of adhesions related with small bowel obstruction per Dr. Rowell with slow improvement and eventual diet advancement following onset flatus and BM. Patient once appropriate was maintained on bowel regimen. Patient presentation unfortunately following operative intervention with onset of tachypnea and dyspnea with bilateral pleural effusions and new onset reduced EF with systolic heart failure with CT of the chest with no obvious PE but bilateral pleural effusions noted with elevated white count 19.1 with left shift at that time therefore IV Zosyn initiated and patient underwent 09/27/2022 right-sided diagnostic and therapeutic thoracentesis, BNP 1909 with initial IV Lasix diuresis however BP low normal with initial plan for initiation of oral Lasix however was never pursued given eventual euvolemic appearance and lower normal BPs.? Cardiology followed and patient had been placed on heparin drip, aspirin, statin, Coreg low-dose for also concurrently noted NSTEMI.? Respiratory panel and COVID-negative, leukocytosis resolved. Thoracentesis transudative and abx discontinued. Blood culture 09/25/2022 with no growth. 09/25/2022 urine culture with no growth. EKG with no acute evidence of ischemia, noted elevated troponin 2711 and trended down to 2410 obtained in the setting of chest discomfort and dyspnea. Patient of note status post thoracentesis with once appropriate heparin drip initiated, maintained on aspirin, echocardiogram 09/25 with new reduced EF 25% with severe segmental systolic dysfunction, maintained on low-dose Coreg and statin therapy but unable to initiate JAIR inhibitor given renal function and low BP. 09/29/22 Cardiac catheterization performed demonstrating moderate disease in the LAD, mild disease in the circumflex and right coronary artery suggestive of a Takotsubo pattern with medication management decision (ASA, statin, BB, possibly future ACEI/lasix). Patient hemoglobin had been trending down, no bright red blood per rectum or dark black stools or any GI bleed type symptoms, maintained on heparin drip given NSTEMI as noted, admission hemoglobin 14 with baseline prior to this appears 13-14, 09/23/2022 hemoglobin 11.7 and most recently 09/29/2022 hemoglobin 1065.? Complicated given recent surgery but will obtain iron panel, ferritin c/w AOCD more so, guiac not obtained as of discharge date with recommendation for continued outpatient re-assessment. During admission given hyperglycemia with underlying diabetic history although upon previous hemoglobin A1c review appeared prediabetic and was increased from April at 6.6% with recommendation once clinically appropriate given recent contrast usage resumption of patient oral home regimen and close early follow-up with her primary care physician. Encouraged strongly aggressive lifestyle and diet changes especially given recent NSTEMI and CHF exacerbation of new onset. Also during admission thyroid functions were obtained and TSH 0.34 with free T4 noted to be 1.53, subclinical with recommended repeat testing once acute clinical picture resolved given this certainly could be falsely altered in the acute setting. Patient discharged to home in improved condition with planned follow-up with general surgery in 2 weeks with continued incisional general care, ability for bathing and showering, avoidance of lifting young 15 pounds for 2 weeks from initial surgery date. Patient with plan for follow-up with cardiology at their discretion with medications for medical management initiated and continued at discharge. Recommended early PCP follow-up for review of current prolonged admission. DAY OF DISCHARGE PROGRESS NOTE: Subjective: Patient without acute event overnight per self and nursing report. Patient denies fever, chills, nausea, emesis, abdominal pain, chest pain or dyspnea. Patient notes continued ongoing flatus, no recent BM. She notes feeling well and eager for discharge if appropriate. Patient agreeable to discharge to home. Patient will be discharged with follow-up with primary care physician, general surgery as well as cardiology. Objective: Heart rate 64, BP 119/58, respiratory rate 16, 95% room air. Physical Examination: General: Awake, alert, oriented x 3 and cooperative, seated upright in the PCU bed, well-appearing, denies any complaints Skin: Normal color, normal turgor, no icterus, no cyanosis except for very staged ecchymoses likely secondary lab draws as well as dressings in place to the abdomen with recent operative intervention, no drainage. HEENT: AT/NC, EOMI, PERRLA, MMM. Lungs: Mildly diminished, respiratory rate appropriate, no evidence of any distress, no appreciated rales, rhonchi or wheezing. Heart: Regular rate and rhythm; no gallop, rub audible. Abdomen: Soft, expected mild tenderness to palpation given recent surgery, less distended than a prior and more soft, mildly hyperactive bowel sounds.? Extremities: No cyanosis, clubbing, or edema. Neurological: Patient awake, alert, oriented as noted, cognitive function intact; pupils equally reactive to light and accommodation, cranial nerves II-XII grossly normal, moving all 4 extremities, no focal deficits, strength improved. Psychiatric: Affect appears normal, no acute evidence of depressive or anxiety feelings. Assessment and Plan: Please see hospital summary above. Weight / BMI Weight Weight: 143 lb 1.28 oz Body Mass Index (BMI) 22.4 ABG / Lab / Microbiology Data Result Diagrams: 09/29/22 04:15 09/29/22 04:15 Laboratory: Laboratory Results - last 24 hr 09/28/22 06:34: Iron 46 L, TIBC 210 L, Iron Saturation 21.9, Ferritin 104 09/28/22 11:47: POC Glucose 272 H 09/28/22 13:28: APTT 69.7 H 09/28/22 17:04: POC Glucose 154 H 09/28/22 19:50: APTT 62.9 H 09/28/22 22:03: POC Glucose 268 H 09/29/22 04:15: Sodium 142, Potassium 3.5, Chloride 108 H, Carbon Dioxide 25.0, Anion Gap 9, BUN 29 H, Creatinine 1.54 H, Estim Creat Clear Calc 27.39, Est GFR (MDRD) Af Amer 41 L, Est GFR (MDRD) Non-Af 34 L, BUN/Creatinine Ratio 18.8, Glucose 144 H, Calcium 9.4, Total Bilirubin 0.30, AST 21, ALT 25, Alkaline Phosphatase 44 L, Total Protein 5.3 L, Albumin 2.3 L, Globulin 3.0, Albumin/Globulin Ratio 0.8 L, Triglycerides 149, Cholesterol 139, LDL Cholesterol 73, VLDL Cholesterol 30, HDL Cholesterol 36 L 09/29/22 04:15: WBC 7.4, RBC 3.34 L, Hgb 10.6 L, Hct 32.0 L, MCV 95.8, MCH 31.7, MCHC 33.1, RDW Std Deviation 45.7 H, RDW Coeff of Reanna 13.4, Plt Count 180, MPV 10.6, Immature Gran % (Auto) 0.300, Neut % (Auto) 68.9, Lymph % (Auto) 18.6 L, Fountain % (Auto) 9.8, Eos % (Auto) 1.9, Baso % (Auto) 0.5, Absolute Neuts (auto) 5.1, Absolute Lymphs (auto) 1.37, Nucleated RBC % 0 09/29/22 04:15: Hemoglobin A1c 6.6 H 09/29/22 04:15: APTT 47.8 H 09/29/22 06:19: POC Glucose 143 H 09/29/22 10:39: POC Glucose 155 H Microbiology: Microbiology 09/22/22 16:31 Blood Culture (Wb) - Left Hand Blood Culture - Final No growth in 5 days. 09/22/22 16:30 Blood Culture (Wb) - Right Forearm Blood Culture - Final No growth in 5 days. 09/25/22 06:50 Urine Catheter - Clarke Urine Culture - Final Culture exhibits no growth. 09/25/22 10:00 Blood Culture (Wb) - Left Forearm Blood Culture - Preliminary No growth in 48 hours. 09/25/22 06:35 Blood Culture (Wb) - Left Forearm Blood Culture - Preliminary No growth in 48 hours. 09/25/22 05:02 Mucosa - Nasopharyngeal Respiratory Panel (PCR) - Final 09/22/22 14:06 Urine, Clean Catch Urine Culture - Final Presumptive E. coli Streptococcus agalactiae (B) Radiography Diagnostic Testing: Radiology Impression Thoracentesis Ultrasound 09/25/22 04:54 IMPRESSION: 1. Right-sided ultrasound-guided diagnostic and therapeutic pleural effusion. 2. Small left pleural effusion was not drained on this examination given smaller size. Electronically Signed: Lloyd Shannon DO at 16:10 EDT , D/C Instructions Discharge Diet: 1800 Calorie Control Diet May resume sexual activity in: - (Hold until reassess by Dr. Rowell.) Weight Bearing Status: Weight bearing as tolerated Call your doctor if your incision/area has: Continuous Slow Oozing, Sudden Increased Bleeding, Increased Pain/ Swelling, Increased Redness, Foul Smelling Discharge and Swelling at the incision site Call your doctor if you observe: Fever of 101 or Higher, Shortness of breath, Dizziness, Swelling in the ankles, Chest pain, Increased palpitations (irregular heartbeat) and Uncontrolled pain Cleanse incision/area with: Soap & Water and Keep Dressing Clean & Dry Additional Dressing/Incision Instructions: See additional section instructions. Meaningful Use Info Meaningful Use Diagnoses (Choose all that apply): AMI and CHF AMI/Post PCI/Angioplasty Aspirin given w/in 24hrs of arrival?: Yes ASA at discharge?: Yes Antiplatelet Therapy at Discharge:: No Reason Antiplatelet Therapy not ordered:: ASA only, no dual. Statins at discharge?: Yes Jair/ARB at discharge?: No Reason Jair/ARB not ordered:: Hypotension Beta Gisella at discharge?: Yes Done w/ Acute ME measure.: Yes Documented LVEF (%): 25 CHF JAIR/ARB ordered at discharge?: Yes Reason JAIR/ARB not ordered?: Hypotension Documented LVEF (%): 25 Discharge Plan Admission Admit Date/Time: 09/22/22 19:00 Primary Reason for Your Visit: Bowel obstruction, NSTEMI (Takotsubo pattern), Systolic CHF Exacerbation Attending Provider: Lane Rowell Primary Care Provider: Gino Boswell Consulting Providers: Win Mukherjee ; Marek Levin ; Yong Ambrocio ; Hoa Cunningham ; Jak Baltazar ; Campbell Wray ; Agnieszka Bhatti NP ; Diann Peralta Instructions Patient Instructions: PAULINO RN Thoracentesis Dc Additional Instructions / Restrictions: Recent NSTEMI (Heart attack) and Congestion Heart Failure Information/Review: Cardiac catheterization demonstrated moderate disease in the LAD, mild disease in the circumflex and right coronary artery which is suggestive of Takotsubo pattern with no intervention necessary at this time with decision for medication management. Please continue newly initiated medications including: Aspirin 81 mg daily Atorvastatin 40 mg each night Coreg 3.125 mg twice daily The heart team stopped your ramipril. They will reassess your blood pressures at follow-up and decide if this needs restarted or if you need a diuretic like lasix in the future but currently these are discontinued/not added. The ultrasound of your heart (echocardiogram) was performed on 09/25 with new reduced ejection fraction of 25% with severe segmental systolic dysfunction. You will likely a a future repeat ultrasound which will be arranged in the future by Dr. Mukherjee. Please follow-up with Dr. Mukherjee as his office arranges. If you notice any weight gain, increasing lower extremity swelling, shortness of breath or difficulty laying flat please immediately notify Dr. Mukherjee office. ADDITIONAL MEDICATIONS INFORMATION: Please hold your metformin for the next 48 hours and then may resume. SMALL BOWEL SURGERY DISCHARGE INFORMATION PER DR. ROWELL: Lifting limit of 15 lbs for 2 weeks from the day of your initial surgical interventions. Change your abdominal bandages daily or as needed. You are allowed to take a bath and shower at your discretion. If you notice any increased drainage from your incisions, foul smelling drainage, or have any redness or fevers immediately notify his office. Diabetes mellitus type II with Hyperglycemia: HgbA1c 6.6%, increased from prior, last 05/01/22 6.0%, had been prediabetic Please continue to aggressively pursue diet/lifestyle changes as your BS were elevated and repeat HgBA1c check was increased as noted. You are above the prediabetic range and now in the diabetic range. Please closely follow with your primary care physician. Hypothyroidism: During admission 09/25/2022 thyroid function studies obtained with noted TSH 0.34 and free T4 1.53, given acute presentation with recent intervention surgically would plan to continue to repeat outpatient once clinically resolved from her acute presentation. Discharge Orders/Prescriptions Prescriptions: New atorvastatin 40 mg Tablet 40 mg PO QHS 30 Days Qty: 30 1RF carvedilol 3.125 mg Tablet 3.125 mg PO BID 30 Days Qty: 60 1RF aspirin 81 mg Tablet,Chewable 81 mg PO BREAKFAST 30 Days Qty: 30 1RF Continued metformin 500 MG tablet 500 mg PO BIDCM levothyroxine 125 MCG tablet 125 mcg PO DAILY glimepiride 4 mg tablet 2 mg PO QHS cholecalciferol (vitamin D3) 25 mcg (1,000 unit) Tablet 25 mcg PO DAILY glimepiride 4 mg tablet 4 mg PO DAILY Discontinued ramipril [Altace] 10 MG capsule 10 mg PO DAILY Referrals / Follow Up: Lane Rowell MD [Med Staff - Active Staff] - Within 2 Weeks (Please follow-up as discussed/arranged per Dr. Rowell office.) Gino Boswell DO [Primary Care Provider] - In 1 Week (Please follow-up to review recent admission and have BP check given recent medication alterations with NSTEMI.) Deonna Maher PA [Med Staff - Adv Practice Prof] - 10/27/22 9:30 am Disposition Disposition (needs filled in before D/C Order can be placed): Home, Self Care Charges/Coding Visit Charges Inpatient E&M: 73421 Disch Hosp >30min
--- NOTE | 2022-09-29 11:27 | CASEMGMT ---
Patient is now walking 400'. Patient does not need to go to a retirement now. SW notified [facility] via [employer]. SW also spoke with patient and family and confirmed patient plans on going home. Shante AGUILERA
[2022-09-29 12:00] LABS: Pathologist Comment/Body Fluid Reviewed
--- NOTE | 2022-09-29 12:00 | PHA.DC.MC ---
Pharmacy Service has performed discharge medication reconciliation and counseling for this patient. 1. ATORVASTATIN 40MG PO QHS 2. ASPIRIN 81MG PO BREAKFAST 3. CARVEDILOL 3.125MG PO BID The patient's discharge medication list was reviewed for discrepancies and discrepancies were resolved. Home Medications levothyroxine 125 mcg tablet 125 mcg PO DAILY THYROID 09/13/14 metformin 500 mg tablet 500 mg PO BIDCM DIABETES 09/13/14 cholecalciferol (vitamin D3) 25 mcg (1,000 unit) tablet 25 mcg PO DAILY SUPPLEMENT 06/15/22 glimepiride 4 mg tablet 2 mg PO QHS DIABETES 06/15/22 glimepiride 4 mg tablet 4 mg PO DAILY DIABETES 09/22/22 aspirin 81 mg chewable tablet 81 mg PO BREAKFAST 30 days #30 tabs 09/29/22 atorvastatin 40 mg tablet 40 mg PO QHS 30 days #30 tabs 09/29/22 carvedilol 3.125 mg tablet 3.125 mg PO BID 30 days #60 tabs 09/29/22 The patient was counseled on the following discharge medications and changes in medications for homegoing were reviewed. The Reason for Use, instructions for use, and potential side effects were reviewed for all new medications. The patient's questions regarding all of their medications were answered. The patient was able to verbally demonstrate an understanding of their discharge medications.
--- NOTE | 2022-09-29 13:30 | CASEMGMT ---
MIKE SUTTON updated that patient will discharge today. MIKE SUTTON in to discuss discharge needs. Plan is for patient to return home with [facility] with planned start of care for tomorrow. Patient will need FWW at discharge and prefers [employer]. MIKE SUTTON received script and sent to [facility]. Patient and had no further questions or concerns at this time.
== END 2022-09-29 15:24 | disposition home health service (06) | DRG 335 ==
LOC: ED 11:56 → SDC 16:42 → ACINP 16:43 → SDC 16:50 → MS3 19:17 → ICU 09-25 04:50 → PCU 09-26 14:44
PROVIDERS: Family Medicine; Hospitalist; Internal Medicine; Internal Medicine Critical Care Medicine; Physician Assistant; Admitting Provider Surgery; Emergency Provider Emergency Medicine; PCP Family Medicine; Visit Provider Surgery
PROC: 0DNW4ZZ Release Peritoneum, Percutaneous Endoscopic Approach (ICD-10-PCS; CPT 49320; principal; 2022-09-22 17:00)
DX: K56.50 Intestinal adhesions [bands], unspecified as to partial versus complete obstruction (principal); I21.4 Non-ST elevation (NSTEMI) myocardial infarction; I50.21 Acute systolic (congestive) heart failure; J18.9 Pneumonia, unspecified organism; I44.2 Atrioventricular block, complete; E87.20 Acidosis, unspecified; I13.0 Hypertensive heart and chronic kidney disease with heart failure and stage 1 through stage 4 chronic kidney disease, or unspecified chronic kidney disease; J90 Pleural effusion, not elsewhere classified; N17.9 Acute kidney failure, unspecified; J98.11 Atelectasis; R18.8 Other ascites; N39.0 Urinary tract infection, site not specified; D63.1 Anemia in chronic kidney disease; E11.65 Type 2 diabetes mellitus with hyperglycemia; N18.32 Chronic kidney disease, stage 3b; E11.22 Type 2 diabetes mellitus with diabetic chronic kidney disease; E03.9 Hypothyroidism, unspecified; E87.6 Hypokalemia; I25.10 Atherosclerotic heart disease of native coronary artery without angina pectoris; B96.20 Unspecified Escherichia coli [E. coli] as the cause of diseases classified elsewhere; Z95.0 Presence of cardiac pacemaker; Z79.01 Long term (current) use of anticoagulants; Z79.84 Long term (current) use of oral hypoglycemic drugs; Z79.899 Other long term (current) drug therapy; Z87.891 Personal history of nicotine dependence
CPT/HCPCS: 32555; 36415; 36600; 71046; 71275; 74174; 74177; 80048; 80053; 80061; 80076; 81001; 82728; 82803; 82945; 82962; 83036; 83540; 83550; 83605; 83615; 83880; 84145; 84156; 84157; 84439; 84443; 84484; 85025; 85610; 85652; 85730; 86140; 87040; 87077; 87086; 87088; 87186; 87633; 87635; 88108; 88305; 88313; 89050; 93005; 93308; 93454; 94640; 94668; 94762; 97110; 97116; 97162; 97166; 97530; 97535; 99152; 99153; 99252; 99282; J7030; J7040; J7050; J7120; Q9967; A4216; C1760; C1769; C1894; G0463; J1940; J2405; U0005

== ENCOUNTER → 2022-10-27 | Outpatient (CLI) | payer MEDICARE, SELFPAY ==
[2022-10-27 10:38] LABS: Absolute Lymphocyte Count 1.71 X10^3/uL (0.83-4.51); Absolute Neutrophil Count 3.8 X10^3/uL (2.0-7.7); Basophil# 0.06 X10^3/uL; Eosinophil# 0.13 X10^3/uL; Eosinophils% 2.1 % (0-5); Hematocrit 35.3 % (37-47); Hemoglobin 11.9 g/dL (12.0-15.0); Lymphocyte # 1.71 X10^3/ul (0.83-4.51); Lymphocyte % 27.5 % (19-41); Mean Corp Hgb Conc 33.7 g/dL (32-36); Mean Corpuscular Hgb 32.8 pg (27.0-32.0); Mean Corpuscular Volume 97.2 fL (81-99); Mean Platelet Vol. 10.1 fl (6.2-12.0); Monocyte% 8.1 % (0-10); NRBC Flagged by Analyzer 0 % (0-5); Neutrophil % 61.1 % (47-70); Platelet Count 143 K/mm3 (150-450); RBC Distribution Width CV 13.3 % (11.6-14.6); RBC Distribution Width SD 47.8 fl (35.1-43.9); Red Blood Count 3.63 M/mm3 (4.2-5.4); White Blood Count 6.2 K/mm3 (4.4-11.0)
[2022-10-27 11:27] LABS: Anion Gap 7 (5-15); BUN 27 mg/dL (7-18); BUN/Creat Ratio 19.4 RATIO (10-20); Calcium,Total 10.4 mg/dL (8.5-10.1); Chloride 111 mmol/L (98-107); Creatinine, Serum 1.39 mg/dL (0.55-1.02); EST Glomerular Filtration Rate 39 mL/min (>60); Est Glom Filt Rate - Afr Amer 47 mL/min (>60); Glucose 182 mg/dL (74-106); Potassium 4.4 mmol/L (3.5-5.1); Sodium Level 141 mmol/L (136-145); T4 Free Direct 1.53 ng/dL (0.76-1.46); Thyroid Stim Hormone (TSH) 0.89 uIU/mL (0.358-3.74)
== END | disposition home or self-care (01) ==
LOC: LAB 10:12
PROVIDERS: PCP Family Medicine; Referring Provider Physician Assistant Medical; Visit Provider Physician Assistant Medical
DX: E03.9 Hypothyroidism, unspecified (principal); N18.32 Chronic kidney disease, stage 3b
CPT/HCPCS: 36415; 80048; 84439; 84443; 85025

== ENCOUNTER → 2023-04-08 | Outpatient (CLI) | payer MEDICARE, SELFPAY ==
--- NOTE | 2023-04-08 10:54 | ECHOL_ITS ---
Reason For Study: [place] Procedure This was a limited 2D transthoracic echocardiogram. Exam performed in department. Left Ventricle Normal LV size. Moderate concentric left ventricular hypertrophy. Mild segmental systolic dysfunction (see wall motion). The estimated ejection fraction is 50 %. [place] : Hypokinetic. There is mild global hypokinesis of the left ventricle. Right Ventricle Normal RV size. ICD or pacer leads identified within the right ventricle. Normal systolic function. Atria Normal left atrium. Normal right atrium. Mitral Valve Normal mitral valve. Tricuspid Valve Normal tricuspid valve. Aortic Valve Normal aortic valve. Pulmonic Valve Normal pulmonic valve. Great Vessels Normal aortic root. The pulmonary artery is normal size. Normal inferior vena cava. Pericardium/Pleural No pericardial effusion. MMode/2D Measurements & Calculations LVIDd: 3.8 cm IVSd: 1.5 cm LAV(MOD-bp): 39.2 ml LVIDs: 3.0 cm LVPWd: 1.6 cm LAV(MOD-bp) Indexed: 23.0 ml/m2 FS: 22.8 % LAV(MOD-sp2): 35.9 ml LAV(MOD-sp4): 40.5 ml SV(MOD-sp4): 32.1 ml SV(sp4-el): 32.3 ml LVAd ap4: 25.1 cm2 LVLd ap4: 7.9 cm EDV(MOD-sp4): 67.3 ml EDV(sp4-el): 67.8 ml LVAs ap4: 16.7 cm2 LVLs ap4: 6.6 cm ESV(MOD-sp4): 35.2 ml ESV(sp4-el): 35.6 ml EF(MOD-sp4): 47.7 % EF(sp4-el): 47.6 % LA A4 area: 15.4 cm2 LA dimension(2D): 2.2 cm RA A4 area: 12.3 cm2 ECHO/Echo, Limited Study Interpretation Summary Normal LV size. Mild segmental systolic dysfunction (see wall motion). The estimated ejection fraction is 50 %. Moderate concentric left ventricular hypertrophy. Compared to previous study, the left ventricular systolic function has improved .. Ordering Physician: Loree Garcias Referring Physician: Loree Garcias Performed By: Nancy Ko RCS
== END | disposition home or self-care (01) ==
LOC: CVS 10:53
PROVIDERS: PCP Family Medicine; Referring Provider Nurse Practitioner Gerontology; Visit Provider Nurse Practitioner Gerontology
DX: I51.81 Takotsubo syndrome (principal)
CPT/HCPCS: 93308

== ENCOUNTER → 2023-05-04 | Outpatient (CLI) | payer MEDICARE, SELFPAY ==
[2023-05-04 12:19] LABS: Absolute Lymphocyte Count 1.66 X10^3/uL (0.83-4.51); Absolute Neutrophil Count 5.3 X10^3/uL (2.0-7.7); Basophil# 0.07 X10^3/uL; Basophil% 0.9 % (0-1); Eosinophil# 0.28 X10^3/uL; Eosinophils% 3.5 % (0-5); Hematocrit 36.6 % (37-47); Hemoglobin 11.9 g/dL (12.0-15.0); Lymphocyte # 1.66 X10^3/ul (0.83-4.51); Lymphocyte % 20.9 % (19-41); Mean Corp Hgb Conc 32.5 g/dL (32-36); Mean Corpuscular Hgb 31.5 pg (27.0-32.0); Mean Corpuscular Volume 96.8 fL (81-99); Mean Platelet Vol. 10.6 fl (6.2-12.0); Monocyte# 0.57 X10^3/uL; Monocyte% 7.2 % (0-10); NRBC Flagged by Analyzer 0 % (0-5); Neutrophil # 5.34 X10^3/uL (2.7-7.7); Neutrophil % 67.2 % (47-70); Platelet Count 178 K/mm3 (150-450); RBC Distribution Width CV 11.9 % (11.6-14.6); RBC Distribution Width SD 42.1 fl (35.1-43.9); Red Blood Count 3.78 M/mm3 (4.2-5.4); White Blood Count 7.9 K/mm3 (4.4-11.0)
[2023-05-04 12:39] LABS: PTHIN 96.2 pg/mL (18.4-80.1)
[2023-05-04 12:45] LABS: Vitamin B12 335 pg/mL (211-911); Vitamin D,25 Hydroxy 93.8 ng/mL
[2023-05-04 12:50] LABS: ALB/GLOB Ratio 1.1 RATIO (0.9-2.4); AST(SGOT) 22 U/L (15-37); Alanine Aminotransfer ALT/SGPT 25 U/L (13-56); Albumin, Serum 3.7 g/dL (3.2-5.0); Alkaline Phosphatase 76 U/L (45-117); Anion Gap 6 (5-15); BUN 27 mg/dL (7-18); BUN/Creat Ratio 17.2 RATIO (10-20); Calcium,Total 10.3 mg/dL (8.5-10.1); Chloride 109 mmol/L (98-107); Creatinine, Serum 1.57 mg/dL (0.55-1.02); EST Glomerular Filtration Rate 33 mL/min (>60); Est Glom Filt Rate - Afr Amer 41 mL/min (>60); Ferritin 28 ng/mL (8-252); Globulin 3.3 g/dL (2.2-4.2); Glucose 161 mg/dL (74-106); Potassium 4.6 mmol/L (3.5-5.1); Sodium Level 142 mmol/L (136-145); Thyroid Stim Hormone (TSH) 0.11 uIU/mL (0.358-3.74)
[2023-05-04 13:04] LABS: Hemoglobin A1c 6.9 % (3.8-5.6)
== END | disposition home or self-care (01) ==
LOC: BFHLAB 10:15
PROVIDERS: PCP Family Medicine; Visit Provider Family Medicine
DX: E11.22 Type 2 diabetes mellitus with diabetic chronic kidney disease (principal); N18.32 Chronic kidney disease, stage 3b; E03.9 Hypothyroidism, unspecified; D64.9 Anemia, unspecified; R53.83 Other fatigue
CPT/HCPCS: 36415; 80053; 82306; 82607; 82728; 83036; 83970; 84443; 85025

== ENCOUNTER → 2023-11-08 | Outpatient (CLI) | payer MEDICARE, SELFPAY ==
[2023-11-08 12:41] LABS: Anion Gap 5 (5-15); BUN 24 mg/dL (7-18); BUN/Creat Ratio 17.9 RATIO (10-20); Calcium,Total 10.5 mg/dL (8.5-10.1); Chloride 110 mmol/L (98-107); Creatinine, Serum 1.34 mg/dL (0.55-1.02); EST Glomerular Filtration Rate 40 mL/min (>60); Est Glom Filt Rate - Afr Amer 49 mL/min (>60); Glucose 115 mg/dL (74-106); Potassium 4.5 mmol/L (3.5-5.1); Sodium Level 141 mmol/L (136-145); Thyroid Stim Hormone (TSH) 0.05 uIU/mL (0.358-3.74)
== END | disposition home or self-care (01) ==
LOC: BFHLAB 10:22
PROVIDERS: PCP Family Medicine; Referring Provider Family Medicine; Visit Provider Family Medicine
DX: N18.32 Chronic kidney disease, stage 3b (principal); E03.9 Hypothyroidism, unspecified
CPT/HCPCS: 36415; 80048; 84443

== ENCOUNTER → 2024-05-05 | Outpatient (CLI) | payer MEDICARE, SELFPAY ==
[2024-05-05 12:52] LABS: Absolute Lymphocyte Count 2.25 X10^3/uL (0.83-4.51); Absolute Neutrophil Count 4.8 X10^3/uL (2.0-7.7); Basophil# 0.05 X10^3/uL; Basophil% 0.6 % (0-1); Eosinophil# 0.12 X10^3/uL; Eosinophils% 1.5 % (0-5); Hematocrit 37.5 % (37-47); Hemoglobin 12.3 g/dL (12.0-15.0); Lymphocyte # 2.25 X10^3/ul (0.83-4.51); Lymphocyte % 28.9 % (19-41); Mean Corp Hgb Conc 32.8 g/dL (32-36); Mean Corpuscular Hgb 31.4 pg (27.0-32.0); Mean Corpuscular Volume 95.7 fL (81-99); Monocyte# 0.55 X10^3/uL; Monocyte% 7.1 % (0-10); NRBC Flagged by Analyzer 0 % (0-5); Neutrophil % 61.6 % (47-70); Platelet Count 153 K/mm3 (150-450); RBC Distribution Width CV 12.4 % (11.6-14.6); RBC Distribution Width SD 42.7 fl (35.1-43.9); Red Blood Count 3.92 M/mm3 (4.2-5.4); White Blood Count 7.8 K/mm3 (4.4-11.0)
[2024-05-05 12:57] LABS: PTHIN 127.3 pg/mL (18.4-80.1)
[2024-05-05 13:07] LABS: ALB/GLOB Ratio 1.2 RATIO (0.9-2.4); AST(SGOT) 23 U/L (15-37); Alanine Aminotransfer ALT/SGPT 30 U/L (13-56); Albumin, Serum 3.8 g/dL (3.2-5.0); Alkaline Phosphatase 71 U/L (45-117); Anion Gap 6 (5-15); BUN 22 mg/dL (7-18); BUN/Creat Ratio 15.1 RATIO (10-20); Calcium,Total 10.3 mg/dL (8.5-10.1); Chloride 108 mmol/L (98-107); Cholesterol 99 mg/dL (200); Creatinine, Serum 1.46 mg/dL (0.55-1.02); EST Glomerular Filtration Rate 36 mL/min (>60); Est Glom Filt Rate - Afr Amer 44 mL/min (>60); Globulin 3.1 g/dL (2.2-4.2); Glucose 157 mg/dL (74-106); High Density Lipoprotein 50 mg/dL; Protein, Total 6.9 g/dL (6.4-8.2); Sodium Level 140 mmol/L (136-145); T4 Free Direct 1.56 ng/dL (0.76-1.46); Thyroid Stim Hormone (TSH) 0.502 uIU/mL (0.358-3.740); Triglycerides 167 mg/dL; Very Low Density Lipoprotein 33 mg/dL (5-40)
[2024-05-05 13:43] LABS: Hemoglobin A1c 7.1 % (3.8-5.6)
[2024-05-05 13:50] LABS: Microalbumin,Random Urine 62.7 mg/L (NO RANGE EST.); Microalbumin:Creatinine Ratio 48.2 mg/g CRE (<30 mg/g CRE)
== END | disposition home or self-care (01) ==
LOC: MTLAB 10:42
PROVIDERS: PCP Family Medicine; Referring Provider Family Medicine; Visit Provider Family Medicine
DX: E11.22 Type 2 diabetes mellitus with diabetic chronic kidney disease (principal); N18.32 Chronic kidney disease, stage 3b; E03.9 Hypothyroidism, unspecified; E21.3 Hyperparathyroidism, unspecified
CPT/HCPCS: 36415; 80053; 80061; 82043; 82570; 83036; 83970; 84439; 84443; 85025

== ENCOUNTER → 2024-08-08 | Outpatient (CLI) | payer MEDICARE, SELFPAY ==
[2024-08-08 18:45] LABS: Anion Gap 13 (5-15); BUN 26 mg/dL (4-19); BUN/Creat Ratio 17.1 RATIO (10-20); Calcium,Total 10.8 mg/dL (7.6-11.0); Carbon Dioxide 23.7 mmol/L (21.0-32.0); Chloride 106 mmol/L (98-108); EST Glomerular Filtration Rate 34 (>60); Glucose 107 mg/dL (70-99); Potassium 4.1 mmol/L (3.3-5.1); Sodium Level 143 mmol/L (133-145); Thyroid Stim Hormone (TSH) 0.077 uIU/mL (0.300-4.200)
== END | disposition home or self-care (01) ==
LOC: MTLAB 14:29
PROVIDERS: PCP Family Medicine; Referring Provider Family Medicine; Visit Provider Family Medicine
DX: R60.9 Edema, unspecified (principal); N18.32 Chronic kidney disease, stage 3b; E03.9 Hypothyroidism, unspecified
CPT/HCPCS: 36415; 80048; 84439; 84443

== ENCOUNTER → 2024-10-17 | Outpatient (CLI) | payer MEDICARE, SELFPAY ==
[2024-10-17 18:26] LABS: Uric Acid 7.8 mg/dL (2.6-6.0)
[2024-10-18 08:34] LABS: Anion Gap 16 (5-15); BUN 22 mg/dL (4-19); Calcium,Total 10.1 mg/dL (7.6-11.0); Carbon Dioxide 24.1 mmol/L (21.0-32.0); Chloride 100 mmol/L (98-108); Creatinine, Serum 1.67 mg/dL (0.70-1.20); EST Glomerular Filtration Rate 30 (>60); Glucose 257 mg/dL (70-99); Potassium 3.8 mmol/L (3.3-5.1); Sodium Level 140 mmol/L (133-145)
== END | disposition home or self-care (01) ==
LOC: BFHLAB 14:33
PROVIDERS: PCP Family Medicine; Visit Provider Family Medicine
DX: M10.9 Gout, unspecified (principal); I10 Essential (primary) hypertension
CPT/HCPCS: 36415; 80048; 84550

== ENCOUNTER → 2024-10-30 | Outpatient (CLI) | payer MEDICARE, SELFPAY ==
[2024-10-30 18:45] LABS: Anion Gap 10 (5-15); BUN 25 mg/dL (4-19); BUN/Creat Ratio 15.1 RATIO (10-20); Calcium,Total 10.4 mg/dL (7.6-11.0); Carbon Dioxide 25.9 mmol/L (21.0-32.0); Chloride 101 mmol/L (98-108); Creatinine, Serum 1.66 mg/dL (0.70-1.20); EST Glomerular Filtration Rate 30 (>60); Glucose 362 mg/dL (70-99); Sodium Level 136 mmol/L (133-145); Uric Acid 5.5 mg/dL (2.6-6.0)
--- OUTSIDE RECORDS SUMMARY | 2024-10-30 23:57 | XMS RPT_ITS | CCD ---
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 [facility] Comment on above: Performed By: #### L 500.2500, L501.9520 #### [facility] [address] [place], [address] Chloride [Moles/Vol] 110 mmol/L High 98-107 [facility] Comment on above: Performed By: #### L 500.2500, L501.9520 #### [facility] [address] [place], [address] CO2 [Moles/Vol] 26.0 mmol/L Normal 21.0-32.0 [facility] Comment on above: Performed By: #### L 500.2500, L501.9520 #### [facility] [address] [place], [address] Creatinine [Mass/Vol] 1.34 mg/dL High 0.55-1.02 [facility] Comment on above: Result Comment: The validity of the calculated GFR GFRAA in patients over 70 years has not been determined. Clinical correlation is essential. Performed By: #### L 500.2500, L501.9520 #### [facility] [address] [place], [address] EST GFR - AA 49 mL/min Low >60 [facility] Comment on above: Result Comment: Afri can [place]an GFR Calc Performed By: #### L 500.2500, [id number] #### [facility] [address] [place], [address] GAP 5 Normal 5-15 [facility] Comment on above: Performed By: #### L 500.2500, [id number] #### [facility] [address] [place], [address] GFR/1.73 sq M.predicted among non-blacks MDRD (S/P/Bld) [Vol rate/Area] 40 mL/min/{1.73_m2} Low >60 [facility] Comment on above: Result Comment: Non- GFR Calc Performed By: #### L 500.2500, L501.9520 #### [facility] [address] [place], [address] Glucose [Mass/Vol] 115 mg/dL High 74-106 [facility] Comment on above: Result Comment: Fast ing Glucose result from 100 to 125 mg/dL suggests IMPAIRED HOMEOSTASIS per A.D.A. criteria. Performed By: #### L 500.2500, L501.9520 #### [facility] [address] [place], [address] Potassium [Moles/Vol] 4.5 mmol/L Normal 3.5-5.1 [facility] Comment on above: Performed By: #### L 500.2500, [id number] #### [facility] [address] [place], [address] Sodium [Moles/Vol] 141 mmol/L Normal 136-145 [facility] Comment on above: Performed By: #### L 500.2500, [id number] #### [facility] [address] [place], [address] Urea nitrogen [Mass/Vol] 24 mg/dL High 7-18 [facility] Comment on above: Performed By: #### L 500.2500, L501.9520 #### [facility] [address] [place], [address] Thyroid Stim Hormone (TSH)on 11-08-2023 TSH 0.05 uIU/mL Low 0.358-3.74 [facility] Comment on above: Performed By: #### L 500.2500, [id number] #### [facility] [address] [place], [address] No Panel Informationon 01-02 POC SARS CoV-2 Antigen Negative [facility] Absolute lymphocyte countOrd ered By: Deonna Maher on 10-27-2022 Lymphocytes Auto (Unsp spec) [#/Vol] 1.71 10*3/uL 0.83-4.51 [facility] Basophil percentageOrdered B y: Deonna Maher on 10-27-2022 Basophils/100 WBC (Bld) 1.0 % 0-1 [place] Chloride [Moles/Vol] 111 mmol/L 98-107 [facility] Eosinophils/100 WBC (Bld) 2.1 % 0-5 [facility] Glucose [Mass/Vol] 182 mg/dL 74-106 [facility] Comment on above: Fasting Glucose resu lt greater than or equal to 126 mg/dL suggests DIABETES MELLITUS per A.D.A. criteria. Neutrophils (Bld) [#/Vol] 3.8 10*3/uL 2.0-7.7 [facility] Neutrophils/100 WBC (Bld) 61.1 % 47-70 [facility] Potassium [Moles/Vol] 4.4 mmol/L 3.5-5.1 [facility] Sodium [Moles/Vol] 141 mmol/L 136-145 [facility] WBC (Bld) [#/Vol] 6.2 10*3/uL 4.4-11.0 [facility] Blood erythrocytes count (nu mber/volume)Ordered By: Deonna Maher on 10-27-2022 RBC (Bld) [#/Vol] 3.63 10*6/uL 4.2-5.4 [facility] Blood hemoglobin measurement (mass/volume)Ordered By: Deonna Maher on 10-27-2022 Hemoglobin (Bld) [Mass/Vol] 11.9 g/dL 12.0-15. 0 [facility] Blood lymphocytes/100 leukoc ytesOrdered By: Deonna Maher on 10-27-2022 Lymphocytes/100 WBC (Bld) 27.5 % 19-41 [facility] Blood monocytes/100 leukocyt esOrdered By: Deonna Maher on 10-27-2022 Monocytes/100 WBC (Bld) 8.1 % 0-10 [facility] Blood platelet mean volumeOr dered By: Deonna Maher on 10-27-2022 Platelet mean volume (Bld) [Entitic vol] 10.1 fL 6.2-12.0 [facility] Determination of erythrocyte mean corpuscular volume (MCV)Ordered By: Deonna Maher on 10-27-2022 MCV (RBC) [Entitic vol] 97.2 fL 81-99 [facility] Hematocrit Auto (Bld) [Volum e fraction]Ordered By: Deonna Maher on 10-27-2022 Hematocrit (Bld) [Volume fraction] 35.3 % 37-47 [facility] - Chemistry and C hemistry - challengeOrdered By: Deonan Maher on 10-27-2022 CO2 [Moles/Vol] 23.0 mmol/L 21.0-32.0 [facility] Free T4 [Mass/Vol] 1.53 ng/dL 0.76-1.46 [facility] Urea nitrogen/Creatinine [Mass ratio] 19.4 mg/mg 10-20 [facility] - Hematology and Cell countsOrdered By: Deonna Maher on 10-27-2022 Erythrocyte distribution width (RBC) [Entitic vol] 47.8 fL 35.1-43.9 [facility] Erythrocyte distribution width (RBC) [Ratio] 13.3 % 11.6-14.6 [facility] Immature granulocytes/100 WBC (Bld) 0.200 % 0.0-0.9 [facility] Comment on above: IG% - Immature Granu locytes (promyelocytes, myelocytes and metamyelocytes) > 1% indicates that a LEFT SHIFT is Present. MCH (RBC) [Entitic mass] 32.8 pg 27.0-32.0 [facility] Nucleated RBC/100 WBC (Bld) [Ratio] 0 % 0-5 [facility] MCHC Auto (RBC) [Mass/Vol]Or dered By: Deonna Maher on 10-27-2022 MCHC (RBC) [Mass/Vol] 33.7 g/dL 32-36 [facility] No Panel InformationOrdered By: Deonna Maher on 10-27-2022 Estimated GFR (MDRD) Amer 47 mL/min >60 [facility] Comment on above: GFR Calc Estimated GFR (MDRD) Non-Af Amer 39 mL/min >60 [facility] Comment on above: Non- GFR Calc Thyroid Stimulating Hormone (TSH) 0.89 uIU/mL 0.358-3.74 [facility] Platelets bldOrdered By: Tl Maher on 10-27-2022 Platelets (Bld) [#/Vol] 143 10*3/uL 150-450 [facility] Serum or plasma calcium debi urement (mass/volume)Ordered By: Deonna Maher on 10-27-2022 Calcium [Mass/Vol] 10.4 mg/dL 8.5-10.1 [facility] Serum or plasma creatinine m easurement (mass/volume)Ordered By: Deonna Maher on 10-27-2022 Creatinine [Mass/Vol] 1.39 mg/dL 0.55-1.02 [facility] Comment on above: The validity of the calculated GFR & GFRAA in patients over 70 years has not been determined. Clinical correlation is essential. Serum or plasma urea nitroge n measurement (mass/volume)Ordered By: Deonna Maher on 10-27-2022 Urea nitrogen [Mass/Vol] 27 mg/dL 7-18 [facility] Thin prep Papanicolaou smear with manual screeningOrdered By: Deonna Maher on 10-27-2022 Thin prep Papanicolaou smear with manual screening 7 5-15 [facility] Absolute lymphocyte countOrd ered By: Dr. Jimenez on 09-29-2022 Lymphocytes Auto (Unsp spec) [#/Vol] 1.37 10*3/uL 0.83-4.51 [facility] Basophil percentageOrdered B y: Dr. Jimenez on 09-29-2022 Basophils/100 WBC (Bld) 0.5 % 0-1 [place] Bilirubin [Mass/Vol] 0.30 mg/dL 0.20-1.00 [facility] Comment on above: For patients on eltr ombopag therapy, use of Dimension Mikana TBIL is not recommended. Chloride [Moles/Vol] 108 mmol/L 98-107 [facility] Eosinophils/100 WBC (Bld) 1.9 % 0-5 [facility] Glucose [Mass/Vol] 144 mg/dL 74-106 [facility] Comment on above: Fasting Glucose resu lt greater than or equal to 126 mg/dL suggests DIABETES MELLITUS per A.D.A. criteria. Neutrophils (Bld) [#/Vol] 5.1 10*3/uL 2.0-7.7 [facility] Neutrophils/100 WBC (Bld) 68.9 % 47-70 [facility] Potassium [Moles/Vol] 3.5 mmol/L 3.5-5.1 [facility] Protein [Mass/Vol] 5.3 g/dL 6.4-8.2 [facility] Sodium [Moles/Vol] 142 mmol/L 136-145 [facility] WBC (Bld) [#/Vol] 7.4 10*3/uL 4.4-11.0 [facility] Basophil percentageOrdered B y: Dr. Peralat on 09-29-2022 Cholesterol [Mass/Vol] 139 mg/dL <200 [facility] Comment on above: <200 mg/dL Desirable 200-240 mg/dL Borderline >240 mg/dL High Risk Triglyceride [Mass/Vol] 149 mg/dL <199 [facility] Comment on above: The drugs N-Acetylcy steine and Metamizole may falsely depress this assay.Serum Triglycerides Reference Interval Normal <150 mg/dL Borderline high 150 - 199 mg/dL High 200 - 499 mg/dL Very High > or = 500 mg/dL Blood erythrocytes count (nu mber/volume)Ordered By: Dr. Jimenez on 09-29-2022 RBC (Bld) [#/Vol] 3.34 10*6/uL 4.2-5.4 [facility] Blood hemoglobin measurement (mass/volume)Ordered By: Dr. Jimenez on 09-29-2022 Hemoglobin (Bld) [Mass/Vol] 10.6 g/dL 12.0-15. 0 [facility] Blood lymphocytes/100 leukoc ytesOrdered By: Dr. Jimenez on 09-29-2022 Lymphocytes/100 WBC (Bld) 18.6 % 19-41 [facility] Blood monocytes/100 leukocyt esOrdered By: Dr. Jimenez on 09-29-2022 Monocytes/100 WBC (Bld) 9.8 % 0-10 [facility] Blood platelet mean volumeOr dered By: Dr. Jimenez on 09-29-2022 Platelet mean volume (Bld) [Entitic vol] 10.6 fL 6.2-12.0 [facility] Determination of erythrocyte mean corpuscular volume (MCV)Ordered By: Dr. Jimenez on 09-29-2022 MCV (RBC) [Entitic vol] 95.8 fL 81-99 [facility] Glucose Glucometer (BldC) [M ass/Vol]Ordered By: Dr. Rowell on 09-29-2022 Glucose [Mass/Vol] 155 mg/dL 74-106 [facility] Comment on above: Dr Lisy muir GivenMANAGEMENT OF PATIENT CARE PER NURSING PROTOCOL Hematocrit Auto (Bld) [Volum e fraction]Ordered By: Dr. Jimenez on 09-29-2022 Hematocrit (Bld) [Volume fraction] 32.0 % 37-47 [facility] - Chemistry and C hemistry - challengeOrdered By: Dr. Jimenez on 09-29-2022 ALP [Catalytic activity/Vol] 44 U/L 45-117 [facility] ALT [Catalytic activity/Vol] 25 U/L 13-56 [facility] CO2 [Moles/Vol] 25.0 mmol/L 21.0-32.0 [facility] Globulin (S) [Mass/Vol] 3.0 g/dL 2.2-4.2 [facility] Urea nitrogen/Creatinine [Mass ratio] 18.8 mg/mg 10-20 [facility] - CoagulationOrde red By: Dr. Levin on 09-29-2022 aPTT Coag (Bld) [Time] 47.8 s 24.1-36.2 [facility] - Hematology and Cell countsOrdered By: Dr. Jimenez on 09-29-2022 Erythrocyte distribution width (RBC) [Entitic vol] 45.7 fL 35.1-43.9 [facility] Erythrocyte distribution width (RBC) [Ratio] 13.4 % 11.6-14.6 [facility] Immature granulocytes/100 WBC (Bld) 0.300 % 0.0-0.9 [facility] Comment on above: IG% - Immature Granu locytes (promyelocytes, myelocytes and metamyelocytes) > 1% indicates that a LEFT SHIFT is Present. MCH (RBC) [Entitic mass] 31.7 pg 27.0-32.0 [facility] Nucleated RBC/100 WBC (Bld) [Ratio] 0 % 0-5 [facility] MCHC Auto (RBC) [Mass/Vol]Or dered By: Dr. Jimenez on 09-29-2022 MCHC (RBC) [Mass/Vol] 33.1 g/dL 32-36 [facility] No Panel InformationOrdered By: Dr. Jimenez on 09-29-2022 Estimated Creatinine Clearance Calc 27.39 ml/min [facility] Estimated GFR (MDRD) Amer 41 mL/min >60 [facility] Comment on above: GFR Calc Estimated GFR (MDRD) Non-Af Amer 34 mL/min >60 [facility] Comment on above: Non- GFR Calc Platelets bldOrdered By: Dr. Jimenez on 09-29-2022 Platelets (Bld) [#/Vol] 180 10*3/uL 150-450 [facility] Serum or plasma albumin debi urement (mass/volume)Ordered By: Dr. Jimenez on 09-29-2022 Albumin [Mass/Vol] 2.3 g/dL 3.2-5.0 [facility] Serum or plasma albumin/glob ulin mass ratioOrdered By: Dr. Jimenez on 09-29-2022 Albumin/Globulin [Mass ratio] 0.8 {ratio} 0.9-2.4 [facility] Serum or plasma calcium debi urement (mass/volume)Ordered By: Dr. Jimenez on 09-29-2022 Calcium [Mass/Vol] 9.4 mg/dL 8.5-10.1 [facility] Serum or plasma cholesterol in HDL measurement (mass/volume)Ordered By: Dr. Peralta on 09-29-2022 Cholesterol in HDL [Mass/Vol] 36 mg/dL >40 [facility] Comment on above: The drugs N-Acetylcy steine and Metamizole may falsely depress this assay. Reference Range HDL <40 mg/dL Low HDL Cholesterol HDL >or= 60 mg/dL High HDL Cholesterol Serum or plasma cholesterol in VLDL measurement (mass/volume)Ordered By: Dr. Peralta on 09-29-2022 Cholesterol in VLDL [Mass/Vol] 30 mg/dL 5-40 [facility] Serum or plasma creatinine m easurement (mass/volume)Ordered By: Dr. Jimenez on 09-29-2022 Creatinine [Mass/Vol] 1.54 mg/dL 0.55-1.02 [facility] Comment on above: The validity of the calculated GFR & GFRAA in patients over 70 years has not been determined. Clinical correlation is essential. Serum or plasma low density lipoprotein (LDL) cholesterol measurement (mass/volume)Ordered By: Dr. Peralta on 09-29-2022 Cholesterol in LDL [Mass/Vol] 73 mg/dL 0-130 [facility] Serum or plasma urea nitroge n measurement (mass/volume)Ordered By: Dr. Jimenez on 09-29-2022 Urea nitrogen [Mass/Vol] 29 mg/dL 7-18 [facility] Thin prep Papanicolaou smear with manual screeningOrdered By: Dr. Jimenez on 09-29-2022 Thin prep Papanicolaou smear with manual screening 21 U/L 15-37 [facility] Thin prep Papanicolaou smear with manual screening 9 5-15 [facility] Whole blood hemoglobin A1c/t otal hemoglobin ratio (mass fraction)Ordered By: Dr. Peralta on 09-29-2022 HbA1c (Bld) [Mass fraction] 6.6 % 3.8-5.6 [facility] Comment on above: Normal < 5.7 % Predi abetic 5.7 - 6.4 % Diabetic >or= 6.5 % Please note range changes. Iron measurement (mass/mass) Ordered By: Dr. Peralta on 09-28-2022 Iron (Unsp spec) [Mass/Mass] 46 ug/dL 50-170 [facility] - Microbiology an d Antimicrobial susceptibilityOrdered By: Dr. Rodriguez on 09-28-2022 Bacteria identified Cx Nom (Bld) No growth in 5 days. [facility] No Panel InformationOrdered By: Dr. Peralta on 09-28-2022 Total Iron Binding Capacity 210 ug/dL 250-450 [facility] Serum or plasma ferritin jordana surement (mass/volume)Ordered By: Dr. Peralta on 09-28-2022 Ferritin [Mass/Vol] 104 ng/mL 8-252 [facility] Serum or plasma iron saturat ion measurement (mass fraction)Ordered By: Dr. Peralta on 09-28-2022 Iron saturation [Mass fraction] 21.9 % 15.0-55.0 [facility] Culture, urineOrdered By: Dr Indy Jimenez on 09-27-2022 Bacteria identified Cx Nom (U) Culture exhibits no growth. [facility] Serum or plasma C reactive p rotein measurement (mass/volume)Ordered By: Dr. Jimenez on 09-26-2022 CRP [Mass/Vol] 56.90 mg/L 0.0-3.0 [facility] Comment on above: C-Reactive Protein ( CRP) provides useful information for thediagnosis, therapy and monitoring of inflammatory processesand associated diseases. For the evaluation of Relative Riskfor Cardiovascular Disease, a High Sensitivity CRP (HSCRP)should be ordered. Assessment of wrist artery p atency prior to arterial punctureOrdered By: Dr. Rowell on 09-25-2022 Arterial patency Wrist artery --pre arterial puncture Positive [facility] Base excessOrdered By: Dr. Chuy metzger on 09-25-2022 Base excess Calc (BldV) [Moles/Vol] -11 mmol/L -2-2 [facility] Basophil percentageOrdered B y: Dr. Jimenez on 09-25-2022 Basophil percentage 0-5 SEEN /hpf 0-5 [facility] Lactate [Moles/Vol] 2.9 mmol/L 0.4-2.0 [facility] Comment on above: Critical Result(s) C alled at: 07:53:25 09/25/2022 by: Elma TAVARESmnzhanna. Results read back by same. Basophil percentageOrdered B y: Dr. Levin on 09-25-2022 LDH [Catalytic activity/Vol] 344 U/L 84-246 [facility] Basophil percentageOrdered B y: Dr. Rowell on 09-25-2022 Basophil percentage 15.1 mmol/L 22- [facility] Basophils/100 WBC (Bld) 95 % 95-99 [facility] Bilirubin Test strip Ql (U)O rdered By: Dr. Jimenez on 09-25-2022 Bilirubin Ql (U) Negative Negative [facility] Body fluid appearanceOrdered By: Dr. Levin on 09-25-2022 Appearance (Body fld) CLEAR [facility] Body fluid color determinati onOrdered By: Dr. Levin on 09-25-2022 Color (Body fld) LT YEL [facility] Body fluid lactate dehydroge nase measurement (enzymatic activity/volume) by pyruvateOrdered By: Dr. Levin on 09-25-2022 LDH Pyruvate to lactate reaction (Body fld) [Catalytic activity/Vol] 113 Units/l Not Establ. [facility] Body fluid leukocytes count (number/volume)Ordered By: Dr. Levin on 09-25-2022 WBC (Body fld) [#/Vol] 0.072 10*3/uL [facility] Body fluid lymphocytes/100 l eukocytesOrdered By: Dr. Levin on 09-25-2022 Lymphocytes/100 WBC (Body fld) 15 % [facility] Body fluid macrophage countO rdered By: Dr. Levin on 09-25-2022 Macrophages (Body fld) [#/Vol] 15 % [facility] Body fluid mesothelial cell percentageOrdered By: Dr. Levin on 09-25-2022 Mesothelial cells/100 WBC (Body fld) 45 % [facility] Body fluid protein measureme nt (mass/volume)Ordered By: Dr. Levin on 09-25-2022 Protein (Body fld) [Mass/Vol] 1.9 g/dL Not Establ. [facility] Body fluid segmented neutrop hils count (number/volume)Ordered By: Dr. Levin on 09-25-2022 Segmented neutrophils (Body fld) [#/Vol] 24 % [facility] CO2 (BldA) [Partial pressure ]Ordered By: Dr. Rowell on 09-25-2022 CO2 (Bld) [Partial pressure] 29.5 mm[Hg] 35-45 [facility] COVID-19 virus antigen assay Ordered By: Dr. Levin on 09-25-2022 SARS-CoV-2 (COVID-19) Ag IA.rapid Ql (Resp) Not detected Not Detect [facility] Comment on above: Normal Reference Ran ge: Not DetectedMethod:(RT-PCR) real-time reverse transcriptase PCRLuminex GABRIEL Instrument*The Food and Drug Administration (FDA) has issued an Emergency Use Authorization (EAU) for the GABRIEL SARS-CoV-2 Assay for the rapid detection of the virus that causes COVID-19. This test has been validated, but the FDAs independent review of this validation is pending.*Negative results do not preclude infection and should not be used as the sole basis for treatment or patient management. Optimum specimen types and timing for peak viral levels during infections caused by SARS-CoV-2 have not been determined. Collection of multiple specimens from the same patient may be necessary to detect the virus. The possibility of a false negative result should be considered if the patient has clinical presentation or has had recent exposure. Culture, urineOrdered By: Rachelle Jimenez on 09-25-2022 Bacteria identified Cx Nom (U) Culture exhibits no growth. [facility] Cytology report of Body flui d Cyto stainOrdered By: Marek Levin on 09-25-2022 Cytology report Cyto stain Doc (Body fld) SEE PATHOLOGY REPORT [facility] Comment on above: Specimen submitted t o Anatomical Pathology Department for testing. Direct bilirubinOrdered By: Dr. Jimenez on 09-25-2022 Bilirubin.direct [Mass/Vol] 0.17 mg/dL 0.00-0.3 0 [facility] Erythrocyte sedimentation ra teOrdered By: Dr. Jimenez on 09-25-2022 ESR (Bld) [Velocity] 27 mm/h 0-30 [facility] INR in Blood by Coagulation assayOrdered By: Dr. Levin on 09-25-2022 INR Coag (Bld) [Relative time] 1.4 {INR} [facility] Ketones Test strip Ql (U)Ord ered By: Dr. Jimenez on 09-25-2022 Ketones Ql (U) 15 mg/dl Negative [facility] - Chemistry and C hemistry - challengeOrdered By: Dr. Jimenez on 09-25-2022 Free T4 [Mass/Vol] 1.53 ng/dL 0.76-1.46 [facility] - Chemistry and C hemistry - challengeOrdered By: Dr. Rowell on 09-25-2022 Natriuretic peptide B (Bld) [Mass/Vol] 1909.8 pg/mL 0-100 [facility] - CoagulationOrde red By: Dr. Levin on 09-25-2022 PT Coag (PPP) [Time] 17.2 s 11.7-14.9 [facility] - Microbiology an d Antimicrobial susceptibilityOrdered By: Zoey Jimenez on 09-25-2022 Bacteria identified Cx Nom (Bld) No growth in 5 days. [facility] Mononuclear cells Auto (Body fld) [#/Vol]Ordered By: Dr. Levin on 09-25-2022 Mononuclear cells (Body fld) [#/Vol] 0.054 10*3/uL [facility] Mucus LM Ql (Urine sed)Order ed By: Dr. Jimenez on 09-25-2022 Mucus Ql (Urine sed) 0 SEEN /hpf [facility] Nitrite Test strip Ql (U)Ord ered By: Dr. Jimenez on 09-25-2022 Nitrite Ql (U) Negative Negative [facility] No Panel InformationOrdered By: Dr. Levin on 09-25-2022 Body Fluid Comment 2 SEE COMMENT [facility] Body Fluid Glucose 239 mg/dL 40-70 [facility] Body Fluid Mononuclear WBCs (%) 75.0 % [facility] Body Fluid Pathologist Comment Reviewed [facility] Comment on above: Previous reported re sult: May follow Edited by: RGOOD on 09/29/22:1200Negative for malignant cells.Please also refer to cytology report [id number].Dmitriy Agudelo M.D. 09/29/22 AMENDED REPORT 09/29/22 1200 PATH COMM/BF previously reported as: May follow Body Fluid Polynuclear WBCs (#) 0.018 10^3/uL [facility] Body Fluid Polynuclear WBCs (%) 25.0 % [facility] Body Fluid RBC 437 /mm3 [facility] No Panel InformationOrdered By: Dr. Jimenez on 09-25-2022 Thyroid Stimulating Hormone (TSH) 0.34 uIU/mL 0.358-3.74 [facility] Troponin I High Sensitivity 2410 pg/mL 3.0-54.0 [facility] Comment on above: Critical Result(s) C alled at: 07:53:25 09/25/2022 by: Elma [facility] Results read back by same. Please Note: New Test Units and Gender Specific Reference Ranges. For more information see Policy Stat Procedure Mikana High Sensitivity Troponin (TNIH) and attachments. No Panel InformationOrdered By: Dr. Rowell on 09-25-2022 Blood Gas Liter Flow 4.0 /min [facility] Blood Gas Sample Site L Radial [facility] Blood Gas Specimen Type ART W [facility] Blood Gas Total CO2 16 mmol/L [facility] Oxygen Delivery Device Cannula [facility] Oxygen (BldA) [Partial press ure]Ordered By: Dr. Rowell on 09-25-2022 Oxygen (Bld) [Partial pressure] 81 mmHG 75-100 [facility] Protein Test strip Ql (U)Ord ered By: Dr. Jimenez on 09-25-2022 Protein Ql (U) 30 mg/dl Negative [facility] Respiratory pathogens detect ion panel by molecular detection methodOrdered By: Marek Levin on 09-25-2022 Respiratory pathogens DNA and RNA panel LYSSA+probe (Resp) [facility] Respiratory pathogens detect ion panel by molecular detection methodOrdered By: Dr. Levin on 09-25-2022 Respiratory pathogens DNA and RNA panel LYSSA+probe (Resp) [facility] Serum procalcitonin measurem entOrdered By: Dr. Jimenez on 09-25-2022 Procalcitonin [Mass/Vol] 0.18 ng/mL 0.00-0.09 [facility] Comment on above: A procalcitonin (PCT ) level above 2.0 ng/mL on the first day of ICU admission is associated with a high risk for progression to severe sepsis and/or septic shock. A PCT level below 0.5 ng/mL on the first day of ICU admission is associated with a low risk for progression to severe and/or septic shock. Note: Concentrations <0.5 ng/mL do not exclude an infection on account of localized infections (without systemic signs) which can be associated with such low concentrations, or a systemic infection in its initial stages (<6 hours). Furthermore, increased procalcitonin can occur without infection. PCT concentrations between 0.5 and 2.0 ng/mL should be interpreted taking into account the patient's history. It is recommended to retest PCT within 6-24 hours if any concentrations <2 ng/mL are obtained. Specimen source identificati on of body fluidOrdered By: Dr. Levin on 09-25-2022 Specimen source Nom (Body fld) THORACENTESIS [facility] Squamous epithelial cells de tection in urine sediment by light microscopyOrdered By: Dr. Jimenez on 09-25-2022 Epithelial cells.squamous LM Ql (Urine sed) 0-5 SEEN /hpf 5-10 [facility] Thin prep Papanicolaou smear with manual screeningOrdered By: Dr. Levin on 09-25-2022 Thin prep Papanicolaou smear with manual screening 1 % [facility] Total cell countOrdered By: Dr. Levin on 09-25-2022 Cells counted Molgen (Bld/Tiss) [#] 0.137 10^3/ul 0.000-0.000 [facility] Comment on above: This is the Total Nu mber of Nucleated Cell Types in the Body Fluid. Urine blood detectionOrdered By: Dr. Jimenez on 09-25-2022 RBC Ql (U) 10 /ul Negative [facility] RBC Ql (U) 0 SEEN /hpf 0-5 [facility] Urine clarityOrdered By: Dr. Jimenez on 09-25-2022 Clarity (U) Clear Clear [facility] Urine color determinationOrd ered By: Dr. Jimenez on 09-25-2022 Color (U) Yellow Yellow [facility] Urine glucose detectionOrder ed By: Dr. Jimenez on 09-25-2022 Glucose Ql (U) 1000 mg/dl Normal [facility] Urine leukocyte esterase det ection by dipstickOrdered By: Dr. Jimenez on 09-25-2022 Leukocyte esterase Test strip Ql (U) 25 /ul Negative [facility] Urine pHOrdered By: Dr. Jovan collins on 09-25-2022 pH (U) 5.0 [pH] 5.0 - 8.0 [facility] Urine sediment bacteria coun t by microscopy (number/high power field)Ordered By: Dr. Jimenez on 09-25-2022 Bacteria LM.HPF (Urine sed) [#/Area] 1 /[HPF] None Seen [facility] Urine specific gravity measu rementOrdered By: Dr. Jimenez on 09-25-2022 Specific gravity (U) [Rel density] 1.015 1.002-1.030 [facility] Urobilinogen Auto test strip Ql (U)Ordered By: Dr. Jimenez on 09-25-2022 Urobilinogen Ql (U) Normal mg/dl Normal [facility] pH measurementOrdered By: Dr Indy Rowell on 09-25-2022 pH (Unsp spec) 7.32 [pH] 7.35-7.45 [facility] Blood platelet adequacy dete ction by light microscopyOrdered By: Dr. Rodriguez on 09-22-2022 Platelets LM Ql (Bld) ADEQUATE ADEQ [facility] Absolute lymphocyte countOrd ered By: Dr. Luong on 06-15-2022 Lymphocytes Auto (Unsp spec) [#/Vol] 2.61 10*3/uL 0.83-4.51 [facility] Basophil percentageOrdered B y: Dr. Luong on 06-15-2022 Basophils/100 WBC (Bld) 0.8 % 0-1 [facility] Bilirubin [Mass/Vol] 0.40 mg/dL 0.20-1.00 [facility] Comment on above: For patients on eltr ombopag therapy, use of Dimension Mikana TBIL is not recommended. Chloride [Moles/Vol] 110 mmol/L 98-107 [facility] Eosinophils/100 WBC (Bld) 1.0 % 0-5 [facility] Glucose [Mass/Vol] 101 mg/dL 74-106 [facility] Comment on above: Fasting Glucose resu lt from 100 to 125 mg/dL suggests IMPAIRED HOMEOSTASIS per A.D.A. criteria. Neutrophils (Bld) [#/Vol] 4.6 10*3/uL 2.0-7.7 [facility] Neutrophils/100 WBC (Bld) 58.8 % 47-70 [facility] Potassium [Moles/Vol] 4.2 mmol/L 3.5-5.1 [facility] Protein [Mass/Vol] 6.9 g/dL 6.4-8.2 [facility] Sodium [Moles/Vol] 144 mmol/L 136-145 [facility] WBC (Bld) [#/Vol] 7.8 10*3/uL 4.4-11.0 [facility] Blood erythrocytes count (nu mber/volume)Ordered By: Dr. Luong on 06-15-2022 RBC (Bld) [#/Vol] 4.37 10*6/uL 4.2-5.4 [facility] Blood hemoglobin measurement (mass/volume)Ordered By: Dr. Luong on 06-15-2022 Hemoglobin (Bld) [Mass/Vol] 13.9 g/dL 12.0-15. 0 [facility] Blood lymphocytes/100 leukoc ytesOrdered By: Dr. Luong on 06-15-2022 Lymphocytes/100 WBC (Bld) 33.4 % 19-41 [facility] Blood monocytes/100 leukocyt esOrdered By: Dr. Luong on 06-15-2022 Monocytes/100 WBC (Bld) 5.6 % 0-10 [facility] Blood platelet mean volumeOr dered By: Dr. Luong on 06-15-2022 Platelet mean volume (Bld) [Entitic vol] 9.6 fL 6.2-12.0 [facility] Determination of erythrocyte mean corpuscular volume (MCV)Ordered By: Dr. Luong on 06-15-2022 MCV (RBC) [Entitic vol] 95.4 fL 81-99 [facility] Hematocrit Auto (Bld) [Volum e fraction]Ordered By: Dr. Luong on 06-15-2022 Hematocrit (Bld) [Volume fraction] 41.7 % 37-47 [facility] - Chemistry and C hemistry - challengeOrdered By: Dr. Luong on 06-15-2022 ALP [Catalytic activity/Vol] 70 U/L 45-117 [facility] ALT [Catalytic activity/Vol] 171 U/L 13-56 [facility] CO2 [Moles/Vol] 27.0 mmol/L 21.0-32.0 [facility] Globulin (S) [Mass/Vol] 3.1 g/dL 2.2-4.2 [place] Urea nitrogen/Creatinine [Mass ratio] 16.5 mg/mg 10-20 [facility] - Hematology and Cell countsOrdered By: Dr. Luong on 06-15-2022 Erythrocyte distribution width (RBC) [Entitic vol] 42.4 fL 35.1-43.9 [facility] Erythrocyte distribution width (RBC) [Ratio] 12.2 % 11.6-14.6 [facility] Immature granulocytes/100 WBC (Bld) 0.400 % 0.0-0.9 [facility] Comment on above: IG% - Immature Granu locytes (promyelocytes, myelocytes and metamyelocytes) > 1% indicates that a LEFT SHIFT is Present. MCH (RBC) [Entitic mass] 31.8 pg 27.0-32.0 [facility] Nucleated RBC/100 WBC (Bld) [Ratio] 0 % 0-5 [facility] MCHC Auto (RBC) [Mass/Vol]Or dered By: Dr. Luong on 06-15-2022 MCHC (RBC) [Mass/Vol] 33.3 g/dL 32-36 [facility] No Panel InformationOrdered By: Dr. Luong on 06-15-2022 Estimated Creatinine Clearance Calc 30.34 ml/min [facility] Estimated GFR (MDRD) Amer 47 mL/min >60 [facility] Comment on above: GFR Calc Estimated GFR (MDRD) Non-Af Amer 39 mL/min >60 [facility] Comment on above: Non- GFR Calc Troponin I High Sensitivity 39 pg/mL 3.0-54.0 [facility] Comment on above: Please Note: New Anna t Units and Gender Specific Reference Ranges. For more information see Policy Stat Procedure Mikana High Sensitivity Troponin (TNIH) and attachments. Platelets bldOrdered By: Dr. Luong on 06-15-2022 Platelets (Bld) [#/Vol] 201 10*3/uL 150-450 [facility] Serum or plasma albumin debi urement (mass/volume)Ordered By: Dr. Luong on 06-15-2022 Albumin [Mass/Vol] 3.8 g/dL 3.2-5.0 [facility] Serum or plasma albumin/glob ulin mass ratioOrdered By: Dr. Luong on 06-15-2022 Albumin/Globulin [Mass ratio] 1.2 {ratio} 0.9-2.4 [facility] Serum or plasma calcium debi urement (mass/volume)Ordered By: Dr. Luong on 06-15-2022 Calcium [Mass/Vol] 10.7 mg/dL 8.5-10.1 [facility] Serum or plasma creatinine m easurement (mass/volume)Ordered By: Dr. Luong on 06-15-2022 Creatinine [Mass/Vol] 1.39 mg/dL 0.55-1.02 [facility] Comment on above: The validity of the calculated GFR & GFRAA in patients over 70 years has not been determined. Clinical correlation is essential. Serum or plasma urea nitroge n measurement (mass/volume)Ordered By: Dr. Luong on 06-15-2022 Urea nitrogen [Mass/Vol] 23 mg/dL 7-18 [facility] Thin prep Papanicolaou smear with manual screeningOrdered By: Dr. Luong on 06-15-2022 Thin prep Papanicolaou smear with manual screening 208 U/L 15-37 [facility] Thin prep Papanicolaou smear with manual screening 7 5-15 [facility] Absolute lymphocyte countOrd ered By: Dr. Boswell on 05-01-2022 Lymphocytes Auto (Unsp spec) [#/Vol] 2.01 10*3/uL 0.83-4.51 [facility] Basophil percentageOrdered B y: Dr. Boswell on 05-01-2022 Basophils/100 WBC (Bld) 0.4 % 0-1 [facility] Bilirubin [Mass/Vol] 0.50 mg/dL 0.20-1.00 [facility] Comment on above: For patients on eltr ombopag therapy, use of Dimension Mikana TBIL is not recommended. Chloride [Moles/Vol] 111 mmol/L 98-107 [facility] Cholesterol [Mass/Vol] 178 mg/dL <200 [facility] Comment on above: <200 mg/dL Desirable 200-240 mg/dL Borderline >240 mg/dL High Risk Eosinophils/100 WBC (Bld) 0.6 % 0-5 [facility] Glucose [Mass/Vol] 97 mg/dL 74-106 [facility] Neutrophils (Bld) [#/Vol] 7.5 10*3/uL 2.0-7.7 [facility] Neutrophils/100 WBC (Bld) 73.6 % 47-70 [facility] Potassium [Moles/Vol] 4.0 mmol/L 3.5-5.1 [facility] Protein [Mass/Vol] 7.1 g/dL 6.4-8.2 [facility] Sodium [Moles/Vol] 142 mmol/L 136-145 [facility] Triglyceride [Mass/Vol] 176 mg/dL <199 [facility] Comment on above: The drugs N-Acetylcy steine and Metamizole may falsely depress this assay.Serum Triglycerides Reference Interval Normal <150 mg/dL Borderline high 150 - 199 mg/dL High 200 - 499 mg/dL Very High > or = 500 mg/dL WBC (Bld) [#/Vol] 10.1 10*3/uL 4.4-11.0 [facility] Blood erythrocytes count (nu mber/volume)Ordered By: Dr. Boswell on 05-01-2022 RBC (Bld) [#/Vol] 4.17 10*6/uL 4.2-5.4 [facility] Blood hemoglobin measurement (mass/volume)Ordered By: Dr. Boswell on 05-01-2022 Hemoglobin (Bld) [Mass/Vol] 13.4 g/dL 12.0-15. 0 [facility] Blood lymphocytes/100 leukoc ytesOrdered By: Dr. Boswell on 05-01-2022 Lymphocytes/100 WBC (Bld) 19.8 % 19-41 [facility] Blood monocytes/100 leukocyt esOrdered By: Dr. Boswell on 05-01-2022 Monocytes/100 WBC (Bld) 5.2 % 0-10 [facility] Blood platelet mean volumeOr dered By: Dr. Boswell on 05-01-2022 Platelet mean volume (Bld) [Entitic vol] 10.4 fL 6.2-12.0 [facility] Determination of erythrocyte mean corpuscular volume (MCV)Ordered By: Dr. Boswell on 05-01-2022 MCV (RBC) [Entitic vol] 94.0 fL 81-99 [facility] Hematocrit Auto (Bld) [Volum e fraction]Ordered By: Dr. Boswell on 05-01-2022 Hematocrit (Bld) [Volume fraction] 39.2 % 37-47 [facility] - Chemistry and C hemistry - challengeOrdered By: Dr. Boswell on 05-01-2022 ALP [Catalytic activity/Vol] 67 U/L 45-117 [facility] ALT [Catalytic activity/Vol] 18 U/L 13-56 [facility] CO2 [Moles/Vol] 25.0 mmol/L 21.0-32.0 [facility] Globulin (S) [Mass/Vol] 3.2 g/dL 2.2-4.2 [place] Urea nitrogen/Creatinine [Mass ratio] 19.2 mg/mg 10-20 [facility] - Hematology and Cell countsOrdered By: Dr. Boswell on 05-01-2022 Erythrocyte distribution width (RBC) [Entitic vol] 42.9 fL 35.1-43.9 [facility] Erythrocyte distribution width (RBC) [Ratio] 12.4 % 11.6-14.6 [facility] Immature granulocytes/100 WBC (Bld) 0.400 % 0.0-0.9 [facility] Comment on above: IG% - Immature Granu locytes (promyelocytes, myelocytes and metamyelocytes) > 1% indicates that a LEFT SHIFT is Present. MCH (RBC) [Entitic mass] 32.1 pg 27.0-32.0 [facility] Nucleated RBC/100 WBC (Bld) [Ratio] 0 % 0-5 [facility] MCHC Auto (RBC) [Mass/Vol]Or dered By: Dr. Boswell on 05-01-2022 MCHC (RBC) [Mass/Vol] 34.2 g/dL 32-36 [facility] No Panel InformationOrdered By: Dr. Boswell on 05-01-2022 Estimated GFR (MDRD) Amer 50 mL/min >60 [facility] Comment on above: GFR Calc Estimated GFR (MDRD) Non-Af Amer 42 mL/min >60 [facility] Comment on above: Non- GFR Calc Parathyroid Hormone (Intact) 103.9 pg/mL 18.4-80.1 [facility] Thyroid Stimulating Hormone (TSH) 1.37 uIU/mL 0.358-3.74 [facility] Urine Microalbumin/Creatinine Ratio 36.1 mg/g CRE <30 [facility] Vitamin D 25-Hydroxy 72.3 ng/mL [facility] Comment on above: Vitamin D 25(OH) Sta tus Range Deficiency <20 ng/mL (50nmol/L) Insufficiency 20 - 30 ng/mL (50 - 75 nmol/L) Sufficiency 30 - 100 ng/mL (75 - 250 nmol/L) Toxicity >100 ng/mL (>250 nmol/L) Platelets bldOrdered By: Dr. Boswell on 05-01-2022 Platelets (Bld) [#/Vol] 198 10*3/uL 150-450 [facility] Serum or plasma albumin debi urement (mass/volume)Ordered By: Dr. Boswell on 05-01-2022 Albumin [Mass/Vol] 3.9 g/dL 3.2-5.0 [facility] Serum or plasma albumin/glob ulin mass ratioOrdered By: Dr. Boswell on 05-01-2022 Albumin/Globulin [Mass ratio] 1.2 {ratio} 0.9-2.4 [facility] Serum or plasma calcium debi urement (mass/volume)Ordered By: Dr. Boswell on 05-01-2022 Calcium [Mass/Vol] 10.6 mg/dL 8.5-10.1 [facility] Serum or plasma cholesterol in HDL measurement (mass/volume)Ordered By: Dr. Boswell on 05-01-2022 Cholesterol in HDL [Mass/Vol] 54 mg/dL >40 [facility] Comment on above: The drugs N-Acetylcy steine and Metamizole may falsely depress this assay. Reference Range HDL <40 mg/dL Low HDL Cholesterol HDL >or= 60 mg/dL High HDL Cholesterol Serum or plasma cholesterol in VLDL measurement (mass/volume)Ordered By: Dr. Boswell on 05-01-2022 Cholesterol in VLDL [Mass/Vol] 35 mg/dL 5-40 [facility] Serum or plasma creatinine m easurement (mass/volume)Ordered By: Dr. Boswell on 05-01-2022 Creatinine [Mass/Vol] 1.30 mg/dL 0.55-1.02 [facility] Comment on above: The validity of the calculated GFR & GFRAA in patients over 70 years has not been determined. Clinical correlation is essential. Serum or plasma low density lipoprotein (LDL) cholesterol measurement (mass/volume)Ordered By: Dr. Boswell on 05-01-2022 Cholesterol in LDL [Mass/Vol] 89 mg/dL 0-130 [facility] Serum or plasma urea nitroge n measurement (mass/volume)Ordered By: Dr. Boswell on 05-01-2022 Urea nitrogen [Mass/Vol] 25 mg/dL 7-18 [facility] Thin prep Papanicolaou smear with manual screeningOrdered By: Dr. Boswell on 05-01-2022 Thin prep Papanicolaou smear with manual screening 18 U/L 15-37 [facility] Thin prep Papanicolaou smear with manual screening 6 5-15 [facility] Thin prep Papanicolaou smear with manual screening 36.1 mg/L NO RANGE EST. [facility] Urine creatinine measurement (mass/volume)Ordered By: Dr. Boswell on 05-01-2022 Creatinine (U) [Mass/Vol] 100.00 mg/dL NO RANGE EST. [facility] Whole blood hemoglobin A1c/t otal hemoglobin ratio (mass fraction)Ordered By: Dr. Boswell on 05-01-2022 HbA1c (Bld) [Mass fraction] 6.0 % 3.8-5.6 [facility] Comment on above: Normal < 5.7 % Predi abetic 5.7 - 6.4 % Diabetic >or= 6.5 % Please note range changes. Vital Signs Date Time Vital Sign Value Performing Clinician Faci lity 04-18-2024 09:54-0500 Diastolic blood pressure 80 mm[Hg] Dr. Gino Boswell DO Work Phone: [facility] 04-18-2024 09:54-0500 Systolic blood pressure 140 mm[Hg] Dr. Gino Boswell DO Work Phone: [facility] 04-18-2024 09:11-0500 Body height 167.[address] Gino Boswell DO Work Phone: [facility] 04-18-2024 09:11-0500 Body mass index (BMI) [Ratio] 22.4 kg/m2 Dr. Gino Boswell DO Work Phone: [facility] 04-18-2024 09:11-0500 Body weight 63.[address] Gino Boswell DO Work Phone: [facility] 04-18-2024 09:11-0500 Heart rate 61 /min Dr. Gino Boswell DO Work Phone: [facility] 04-18-2024 09:11-0500 Respiratory rate 18 /min Dr. Gino Boswell DO Work Phone: [facility] 04-18-2024 09:11-0500 SaO2% (BldA) [Mass fraction] 97 % Dr. Gino Boswell DO Work Phone: [facility] 03-16-2023 10:53-0500 Body height 167.[address] Gino Boswell Work Phone: [facility] 03-16-2023 10:49-0500 Body mass index (BMI) [Ratio] 22.2 kg/m2 Dr. Gino Boswell Work Phone: [facility] 03-16-2023 10:49-0500 Body weight 62.[address] Gino Boswell Work Phone: [facility] 03-16-2023 10:49-0500 Diastolic blood pressure 81 mm[Hg] Dr. Gino Boswell Work Phone: [facility] 03-16-2023 10:49-0500 Heart rate 60 /min Dr. Gino Boswell Work Phone: [facility] 03-16-2023 10:49-0500 Respiratory rate 18 /min Dr. Gino Boswell Work Phone: [facility] 03-16-2023 10:49-0500 SaO2% (BldA) [Mass fraction] 99 % Dr. Gino Boswell Work Phone: [facility] 03-16-2023 10:49-0500 Systolic blood pressure 140 mm[Hg] Dr. Gino Boswell Work Phone: [facility] 01-02-2023 13:33-0400 Body mass index (BMI) [Ratio] 20.8 kg/m2 Dr. Gino Boswell Work Phone: [facility] 01-02-2023 13:33-0400 Body temperature 98.6 [degF] Dr. Gino Boswell Work Phone: [facility] 01-02-2023 13:33-0400 Body weight 58.[address] Gino Boswell Work Phone: [facility] 01-02-2023 13:33-0400 Diastolic blood pressure 72 mm[Hg] Dr. Gino Boswell Work Phone: [facility] 01-02-2023 13:33-0400 Heart rate 65 /min Dr. Gino Boswell Work Phone: [facility] 01-02-2023 13:33-0400 Respiratory rate 16 /min Dr. Gino Boswell Work Phone: [facility] 01-02-2023 13:33-0400 SaO2% (BldA) [Mass fraction] 93 % Dr. Gino Boswell Work Phone: [facility] 01-02-2023 13:33-0400 Systolic blood pressure 162 mm[Hg] Dr. Gino Boswell Work Phone: [facility] 10-27-2022 09:27-0400 Body height 170.[address] Gino Boswell Work Phone: [facility] 10-27-2022 09:27-0400 Body mass index (BMI) [Ratio] 21.1 kg/m2 Dr. Gino Boswell Work Phone: [facility] 10-27-2022 09:27-0400 Body weight 61.[address] Gino Boswell Work Phone: [facility] 10-27-2022 09:27-0400 Diastolic blood pressure 66 mm[Hg] Dr. Gino Boswell Work Phone: [facility] 10-27-2022 09:27-0400 Heart rate 60 /min Dr. Gino Boswell Work Phone: [facility] 10-27-2022 09:27-0400 Respiratory rate 16 /min Dr. Gino Boswell Work Phone: [facility] 10-27-2022 09:27-0400 Systolic blood pressure 122 mm[Hg] Dr. Gino Boswell Work Phone: [facility] 09-29-2022 15:10-0400 Diastolic blood pressure 68 mm[Hg] Dr. Gino Boswell Work Phone: [facility] 09-29-2022 15:10-0400 Heart rate 61 /min Dr. Gino Boswell Work Phone: [facility] 09-29-2022 15:10-0400 Respiratory rate 15 /min Dr. Gino Boswell Work Phone: [facility] 09-29-2022 15:10-0400 SaO2% (BldA) [Mass fraction] 94 % Dr. Gino Boswell Work Phone: [facility] 09-29-2022 15:10-0400 Systolic blood pressure 120 mm[Hg] Dr. Gino Boswell Work Phone: [facility] 09-29-2022 10:50-0400 Inhaled oxygen flow rate 2 L/min Dr. Gino Boswell Work Phone: [facility] 09-29-2022 08:30-0400 Body temperature 97.8 [degF] Dr. Gino Boswell Work Phone: [facility] 09-27-2022 03:59-0400 Body mass index (BMI) [Ratio] 22.4 kg/m2 Dr. Gino Boswell Work Phone: [facility] 09-27-2022 03:59-0400 Body weight 64.[address] Gino Boswell Work Phone: [facility] 09-26-2022 09:24-0400 Body height 170.[address] Gino Boswell Work Phone: [facility] 09-15-2022 11:01-0400 Body mass index (BMI) [Ratio] 20.3 kg/m2 Dr. Gino Boswell Work Phone: [facility] 09-15-2022 11:01-0400 Body weight 58.[address] Gino Boswell Work Phone: [facility] 09-15-2022 11:01-0400 Diastolic blood pressure 75 mm[Hg] Dr. Gino Boswell Work Phone: [facility] 09-15-2022 11:01-0400 Heart rate 60 /min Dr. Gino Boswell Work Phone: [facility] 09-15-2022 11:01-0400 Respiratory rate 16 /min Dr. Gino Boswell Work Phone: [facility] 09-15-2022 11:01-0400 Systolic blood pressure 176 mm[Hg] Dr. Gino Boswell Work Phone: [facility] 06-16-2022 09:48-0500 SaO2% (BldA) [Mass fraction] 99 % Dr. Gino Boswell Work Phone: [facility] 06-16-2022 05:00-0500 Body temperature 97.9 [degF] Dr. Gino Boswell Work Phone: [facility] 06-16-2022 05:00-0500 Diastolic blood pressure 66 mm[Hg] Dr. Gino Boswell Work Phone: [facility] 06-16-2022 05:00-0500 Heart rate 67 /min Dr. Gino Boswell Work Phone: [facility] 06-16-2022 05:00-0500 Respiratory rate 20 /min Dr. Gino Boswell Work Phone: [facility] 06-16-2022 05:00-0500 SaO2% (BldA) [Mass fraction] 97 % Dr. Gino Boswell Work Phone: [facility] 06-16-2022 05:00-0500 Systolic blood pressure 131 mm[Hg] Dr. Gino Boswell Work Phone: [facility] 06-16-2022 04:41-0500 Body weight 60.[address] Gino Boswell Work Phone: [facility] 06-15-2022 12:05-0500 Body height 170.[address] Gino Boswell Work Phone: [facility] 06-15-2022 12:05-0500 Body mass index (BMI) [Ratio] 21.2 kg/m2 Dr. Gino Boswell Work Phone: [facility] Encounters Encounter Date Encounter Type Care Provider Facility Start: 10-25-2024 ambulatory Gino Elbert Facility: [facility] Start: 10-17-2024 End: 10-17-[address] iGno Boswell DO Work Phone: [facility] Work Phone: Start: 10-17-2024 End: 10-17-[address] [facility] Start: 10-17-2024 End: 10-17-2024 ambulatory Gino Boswell Facility:[facility] Start: 08-14-2024 End: 08-14-2024 ambulatory Win Mukherjee Facility:[facility] Start: 08-14-2024 End: 08-14-[address] Win Mukherjee MD -[facility] Work Phone: Start: 08-08-2024 End: 08-08-[address] Gino Boswell DO Work Phone: [facility] Work Phone: Start: 08-08-2024 End: 08-08-[address] [facility] Start: 08-08-2024 End: 08-08-2024 ambulatory Gino Boswell Facility:[facility] Start: 05-15-2024 End: 05-15-2024 ambulatory Gino Elbert Facility:[facility] Start: 05-15-2024 End: 05-15-[address] Win Mukherjee MD -[facility] Work Phone: Start: 05-05-2024 End: 05-05-[address] [facility] Start: 05-05-2024 End: 05-05-2024 ambulatory Gino Boswell Facility:[facility] Start: 04-18-2024 End: 04-18-2024 Patient encounter procedure Deonna Maher PA -[facility] Work Phone: Start: 04-18-2024 End: 04-18-2024 ambulatory Deonna BUSH Facility:[facility] Start: 02-14-2024 End: 02-14-2024 ambulatory Gino Boswell Facility:[facility] Start: 11-11-2023 End: 11-11-2023 ambulatory Win Mukherjee Facility:[facility] Start: 11-08-2023 End: 11-08-2023 ambulatory [facility] Facility:[facility] Start: 04-08-2023 End: 04-08-[address] Gino Boswell Work Phone: [facility] Work Phone: Start: 04-08-2023 End: 04-08-[address] Gino Boswell Work Phone: [facility] Work Phone: Start: 03-16-2023 End: 03-16-[address] Gino Boswell Work Phone: [facility] Work Phone: Start: 01-02-2023 End: 01-02-[address] Gino Boswell Work Phone: [facility] Work Phone: Start: 10-27-2022 End: 10-27-[address] Gino Boswell Work Phone: [facility] Work Phone: Start: 10-27-2022 End: 10-27-[address] Gino Boswell Work Phone: [facility] Work Phone: Start: 10-21-2022 End: 10-21-[address] Gino Boswell Work Phone: [facility] Work Phone: Start: 10-12-2022 End: 10-12-[address] Gino Boswell Work Phone: [facility] Work Phone: Start: 09-29-2022 Non-patient / Non-visit Dr. Terry Boswell Work Phone: [facility] Start: 09-29-2022 Non-patient / Non-visit Dr. Terry Boswell Work Phone: [facility] Start: 09-29-2022 Non-patient / Non-visit Dr. Terry Boswell Work Phone: [facility] Start: 09-28-2022 Non-patient / Non-visit Dr. Terry Boswell Work Phone: [facility] Start: 09-28-2022 Non-patient / Non-visit Dr. Terry Boswell Work Phone: [facility] Start: 09-27-2022 Non-patient / Non-visit Dr. Terry Boswell Work Phone: [facility] Start: 09-27-2022 Non-patient / Non-visit Dr. Terry Boswell Work Phone: [facility] Start: 09-27-2022 Non-patient / Non-visit Dr. Terry Boswell Work Phone: [facility] Start: 09-26-2022 Non-patient / Non-visit Dr. Terry Boswell Work Phone: [facility] Start: 09-26-2022 Non-patient / Non-visit Dr. Terry Boswell Work Phone: [facility] Start: 09-26-2022 Non-patient / Non-visit Dr. Terry Boswell Work Phone: [facility] Start: 09-25-2022 Non-patient / Non-visit Dr. Terry Boswell Work Phone: [facility] Start: 09-25-2022 Non-patient / Non-visit Dr. Terry Boswell Work Phone: [facility] Start: 09-25-2022 Non-patient / Non-visit Dr. Terry Boswell Work Phone: [facility] Start: 09-24-2022 Non-patient / Non-visit Dr. Terry Boswell Work Phone: [facility] Start: 09-23-2022 Non-patient / Non-visit Dr. Terry Boswell Work Phone: [facility] Start: 09-22-2022 End: 09-29-2022 Evaluation and management of inpatient Dr. Gino Boswell Work Phone: [facility] Start: 09-22-2022 Non-patient / Non-visit Dr. Terry Boswell Work Phone: [facility] Start: 09-15-2022 End: 09-15-[address] Gino Boswell Work Phone: [facility] Start: 07-21-2022 End: 07-21-[address] Gino Boswell Work Phone: [facility] Start: 06-23-2022 End: 06-23-[address] Gino Boswell Work Phone: [facility] Start: 06-16-2022 Non-patient / Non-visit Dr. Terry Boswell Work Phone: [facility] Start: 06-16-2022 End: 06-16-[address] Gino Boswell Work Phone: [facility] Start: 06-16-2022 Non-patient / Non-visit Dr. Terry Boswell Work Phone: [facility] Start: 06-15-2022 Non-patient / Non-visit Dr. Terry Boswell Work Phone: [facility] Start: 06-15-2022 Non-patient / Non-visit Dr. Terry Boswell Work Phone: [facility] Start: 06-15-2022 End: 06-16-2022 Evaluation and management of inpatient Dr. Gino Boswell Work Phone: [facility] Start: 05-01-2022 End: 05-01-2022 ambulatory [facility] Work Phone: Start: 05-01-2022 End: 05-01-2022 Patient encounter procedure [facility] [place] [facility] Procedures Date Procedure Procedure Detail Performing Clinician Start: 09-25-2022 Plain chest X-ray Dr. Holly Boswell Work Phone: Start: 09-25-2022 Bacteria identified in Blood by Culture Dr. Gino Boswell Work Phone: Start: 09-25-[address] Gino Boswell Work Phone: Start: 09-25-[address] Gino Boswell Work Phone: Start: 09-25-2022 Ultrasonic guidance for thoracentesis Dr. Gino Boswell Work Phone: Start: 09-25-2022 CT of thorax, abdome n and pelvis with contrast Dr. Gino Boswell Work Phone: Start: 09-24-2022 Plain chest X-ray Dr. Holly Boswell Work Phone: Start: 09-22-[address] Gino Boswell Work Phone: Start: 09-22-2022 Computed tomography of abdomen and pelvis with contrast Dr. Gino Boswell Work Phone: Start: 06-16-2022 Plain chest X-ray Dr. Holly Boswell Work Phone: Start: 06-15-2022 CT cervical spine wi thout contrast Dr. Gino Boswell Work Phone: Start: 06-15-2022 CT of chest and abdomen Dr. Gino Boswell Work Phone: Start: 06-15-2022 CT of head without contrast Dr. Gino Boswell Work Phone: Bacteria identified in Blood by Culture Dr. Gino Boswell Work Phone: Urine culture Dr. Gino disla Work Phone: Plan of Treatment Date Care Activity Detail Author Start: 10-02-2022 [facility] Start: 10-01-2022 [facility] Start: 09-30-2022 [facility] Start: 09-29-2022 Patient discharge [facility] Start: 09-29-2022 Notification of physician [facility] Start: 09-29-2022 Patient education [facility] Start: 09-29-2022 Provision of activity privileges [facility] Start: 09-29-2022 Pulse taking [facility] Start: 09-29-2022 Taking patient vital signs [facility] Start: 09-29-2022 Wound care [facility] Start: 09-29-2022 [facility] Start: 09-28-2022 Measurement of occult blood in stool specimen using immunoassay [facility] Start: 09-28-2022 [facility] Start: 09-27-2022 Catheterization of vein [facility] Start: 09-27-2022 Medication not administered [facility] Start: 09-27-2022 Notification of physician [facility] Start: 09-27-2022 [facility] Start: 09-26-2022 Care planning and problem solving actions [facility] Start: 09-26-2022 Oxygen therapy [facility] Start: 09-25-2022 Vital signs measurements [facility] Start: 09-25-2022 Referral to 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 [facility] Start: 09-25-2022 End: 09-25-2022 Referral to service [facility] Start: 09-25-2022 End: 09-25-2022 Blood culture [facility] Start: 09-25-2022 Consultation [facility] Start: 09-25-2022 [facility] Start: 09-25-2022 Care regimes management [facility] Start: 09-25-2022 Notification of physician [facility] Start: 09-25-2022 Referral to microfilm clerk [facility] Start: 09-25-2022 End: 09-25-2022 [facility] Start: 09-25-2022 End: 09-25-2022 Consultation [facility] Start: 09-24-2022 Inhalation therapy procedure [facility] Start: 09-23-2022 End: 09-23-2022 [facility] Start: 09-22-2022 Application of intermittent pneumatic compression device [facility] Start: 09-22-2022 End: 09-22-2022 Following clinical pathway protocol [facility] Start: 09-22-2022 Ambulation without limitation [facility] Start: 09-22-2022 Care regimes management [facility] Start: 09-22-2022 Measuring intake and output [facility] Start: 09-22-2022 Notification of physician [facility] Start: 09-22-2022 Taking patient vital signs [facility] Start: 09-22-2022 [facility] Start: 09-22-2022 Admission procedure [facility] Start: 06-16-2022 Patient discharge [facility] Start: 06-15-2022 Care planning and problem solving actions [facility] Start: 06-15-2022 Assessment of risk of venous thromboembolism [facility] Start: 06-15-2022 Bedrest [facility] Start: 06-15-2022 Elevation of head of bed [facility] Start: 06-15-2022 Taking patient vital signs [facility] Start: 06-15-2022 Wound care [facility] Start: 06-15-2022 End: 06-15-2022 [facility] Start: 06-15-2022 Assessment of risk of venous thromboembolism [facility] Start: 06-15-2022 Bedrest [facility] Start: 06-15-2022 Continuous pulse oximetry [facility] Start: 06-15-2022 Insertion of catheter into peripheral vein [facility] Start: 06-15-2022 Measuring intake and output [facility] Start: 06-15-2022 Providing care according to standard [facility] Start: 06-15-2022 Referral to microfilm clerk [facility] Start: 06-15-2022 Referral to 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 [facility] Start: 06-15-2022 Referral to service [facility] Start: 06-15-2022 Vital signs measurements [facility] Start: 06-15-2022 [facility] Start: 06-15-2022 Following clinical pathway protocol [facility] Start: 06-15-2022 Admission procedure [facility] Alanine aminotransfe rase [Enzymatic activity/volume] in Serum or Plasma [facility] Albumin [Mass/volume ] in Serum or Plasma [facility] Alkaline phosphatase [Enzymatic activity/volume] in Serum or Plasma [facility] Anion gap measurement [facility] Aspartate aminotrans ferase [Enzymatic activity/volume] in Serum or Plasma [facility] Bacteria identified in Blood by Culture Blood Culture [facility] Bilirubin, total measurement [facility] BUN/Creatinine ratio [facility] Calcium [Mass/volume ] in Serum or Plasma [facility] Carbon dioxide, tota l [Moles/volume] in Serum or Plasma [facility] Chloride [Moles/volu me] in Serum or Plasma [facility] Creatinine [Moles/vo lume] in Serum or Plasma [facility] Cytology report of B makayla fluid Cyto stain [facility] Glucose [Mass/volume ] in Serum or Plasma [facility] Hematocrit [Volume Fraction] of Blood [facility] Hematocrit [Volume Fraction] of Blood [facility] Hematocrit [Volume Fraction] of Blood [facility] Hematocrit [Volume Fraction] of Blood [facility] Hematocrit [Volume Fraction] of Blood [facility] Hemoglobin [Mass/vol ume] in Blood [facility] Hemoglobin [Mass/vol ume] in Blood [facility] Hemoglobin [Mass/vol ume] in Blood [facility] Hemoglobin [Mass/vol ume] in Blood [facility] Hemoglobin [Mass/vol ume] in Blood [facility] Leukocytes [#/volume ] in Blood [facility] Leukocytes [#/volume ] in Blood [facility] Leukocytes [#/volume ] in Blood [facility] Leukocytes [#/volume ] in Blood [facility] Leukocytes [#/volume ] in Blood [facility] Mean corpuscular hem oglobin concentration determination [facility] Mean corpuscular hem oglobin concentration determination [facility] Mean corpuscular hem oglobin concentration determination [facility] Mean corpuscular hem oglobin concentration determination [facility] Mean corpuscular hem oglobin concentration determination [facility] Mean corpuscular hem oglobin determination [facility] Mean corpuscular hem oglobin determination [facility] Mean corpuscular hem oglobin determination [facility] Mean corpuscular hem oglobin determination [facility] Mean corpuscular hem oglobin determination [facility] Measurement of renal function [facility] Neutrophil count [facility] Neutrophil count [facility] Neutrophil count [facility] Neutrophil count [facility] Neutrophil count [facility] Neutrophil percent differential count [facility] Neutrophil percent differential count [facility] Neutrophil percent differential count [facility] Neutrophil percent differential count [facility] Neutrophil percent differential count [facility] NM Heart Views W str ess and W radionuclide IV [facility] Patient Education RAD RN Thoracentesis Dc [facility] Work Phone: Patient referral [facility] Work Phone: Platelets [#/volume] in Blood [facility] Platelets [#/volume] in Blood [facility] Platelets [#/volume] in Blood [facility] Platelets [#/volume] in Blood [facility] Platelets [#/volume] in Blood [facility] Potassium [Moles/vol ume] in Serum or Plasma [facility] Red blood cell count [facility] Red blood cell count [facility] Red blood cell count [facility] Red blood cell count [facility] Red blood cell count [facility] Red cell distributio n width determination [facility] Red cell distributio n width determination [facility] Red cell distributio n width determination [facility] Red cell distributio n width determination [facility] Red cell distributio n width determination [facility] Sodium [Moles/volume ] in Serum or Plasma [facility] Total protein measurement [facility] Urea nitrogen [Mass/ volume] in Serum or Plasma [facility] Payers Date Payer Category Payer Self-pay [id number] 2014 Medicare [id number] Unknown [id number] 2.16.8 [id number] Unknown [id number] 2.16.8 [id number] Unknown [id number] 2.16.8 [id number] Unknown [id number] 2.16.8 [id number] Unknown [id number] 2.16.8 [id number] Unknown [id number] 2.16.8 [id number] Unknown [id number] 2.16.8 [id number] Unknown [id number] 2.16.8 [id number] Unknown [id number] 2.16.8 [id number] Unknown [id number] 2.16.8 [id number] Unknown [id number] 2.16.8 [id number] Unknown [id number] 2.16.8 [id number] Social History Date Type Detail Facility Start: 09-13-2014 End: 03-16-2023 Tobacco smoking status NCIS Unknown if ever smoked [facility] Start: 1940 Sex Assigned At Female W [facility] Start: 03-16-2023 Tobacco smoking stat us NCIS Ex-smoker (finding) [facility] Start: 08-11-2024 Sex Female (finding) [facility] Medical Equipment Procedure Code Equipment Code Equipment Origin al Text Equipment Identifier Dates ([id number]) Dual-chamber implantable pacemaker, rate-responsive ()[id number] [id number] FDA Start: 06-15-2022 ([id number]) Endocardial paci ng lead ()[id number] FDA Start: 06-15-2022 ([id number]) Endocardial paci ng lead ()[id number] FDA Start: 06-15-2022 Goals Date Patient Goal Desired Activity /State Functional Status Date Assessment Result Facility 09-29-2022 Functional status Ambulates [facility] Work Phone: 06-16-2022 Functional status Bedrest [facility] Work Phone: Mental Status Date Assessment Result Facility 09-29-2022 Cognitive function Voice/Name [facility] Work Phone: 09-25-2022 Cognitive function Level Of Cons ciousness Awake;Alert;Appropriate [facility] Work Phone: 06-16-2022 Cognitive function Voice/Name [facility] Work Phone: Clinical Notes 06-03-2022 to 04-18-2024 Note Date & Type Note Facility 04-18-2024 Evaluation note Diagnosis Onset Date Resolution Atherosclerotic heart disease of [place] coronary artery without angina pectoris acute April 18, 2024 9:07am Cardiac pacemaker in situ June, acute April 18, 2024 9:07am Takotsubo cardiomyopathy acute April 18, 2024 9:07am Hypertension chronic April 9:07am [facility] Work Phone: 1(775) 759-384005-30-[address] Peralta [facility] September 29, 2022 11:33am Note Date/Time September 29, 2022 11:19 am [facility] Medical Records Department [address] [place] [address] Discharge Summary 09/29/22 1113 MR#: [id number] Acct: [id number] Name: SUSAN CISNEROS Rep #:[id number] : 1940 82 From: Diann Peralta MD PCP: Dr. Gino Boswell DO Status:ADM [facility] Prov[facility] Date of Admission: 09/22/22 Date of Discharge: 09/29/22 Primary Care Physician: Dr. Gino Boswell DO Consultations 09/25/22 03:09 Consult: Hospitalist Routine Consulting Provider: Marek Levin Reason for Consult: tachy, diaphoretic EMERGENT Consult: Yes Notified: Yes Date Notified: 09/25/22 Time Notified: 03:09 Method of Notification: Verbal Comments:: bud called hospitalist himself 09/25/22 03:23 Consult: Hospitalist Routine Consulting Provider: Marek Levin Reason for Consult: medical management EMERGENT Consult: Yes MD Notified: Yes Date Notified: 09/25/22 Time Notified: 03:23 Method of Notification: Text 09/25/22 04:20 Consult: Cardiology Routine Consulting Provider: Win Mukherjee Reason for Consult: NSTEMI EMERGENT Consult: No Notified: Yes Date Notified: 09/25/22 Time Notified: 04:20 Method of Notification: Verbal 09/25/22 06:22 Consult: Manager Stone / Pulmonary Medicine Routine Consulting Provider: Pulmonary Medicine babatunde Silver Reason for Consult: Respiratory Distress EMERGENT Consult: No Notified: Yes Date Notified: 09/25/22 Time Notified: 06:22 Method of Notification: Verbal Reason For Visit: SBO Diagnosis Discharge Diagnosis (1) Small bowel obstruction: Status: Acute Code(s): K56.609 - Unspecified intestinal obstruction, unspecified as to partial versus complete obstruction Plan: Additional diagnoses: #1. Acute NSTEMI secondary to Takotsubo with nonobstructive CAD, complicated byAcute Systolic CHF exacerbation, new onset as noted #2 (Cardiac catheterization demonstrated moderate disease in the LAD, mild disease in the circumflex and right coronary artery) #2. Acute Systolic CHF Exacerbation, complicated by BL pleural effusions, R>L, treated for concurrent possibly underlying PNA (GN/GP), lower suspicion as unable to immediately rule out, s/p 09/27/2022 right-sided diagnostic and therapeutic thoracentesis (transudative) with negative growth. #3. Small bowel obstruction, resolved, status post 09/22/2022 laparotomy with lysis of adhesions related with small bowel obstruction #4. Acute on Chronic normocytic anemia, multifactorial with Fe low, TIBC low with suspected AOCD, guiac not obtained during admission. #5. Acute Renal Insufficiency on Chronic Kidney Disease Stage IIIb #6. Hypokalemia #7. Diabetes mellitus type II with Hyperglycemia (HgbA1c 6.6%, increased from prior, last 05/01/22 6.0%, had been prediabetic) #8. History complete heart block status post permanent pacemaker implantation #9. Hypertension #10. Hypothyroidism (09/25/2022 thyroid function studies with TSH 0.34 and free T4 1.53, given acute presentation with recent intervention surgically would planto continue to repeat outpatient once clinically resolved from her acute presentation) #11. Former tobacco use: Encourage continued tobacco cessation. Medications at Discharge Home Medications levothyroxine 125 mcg tablet 125 mcg PO DAILY THYROID 09/13/14 metformin 500 mg tablet 500 mg PO BIDCM DIABETES 09/13/14 cholecalciferol (vitamin D3) 25 mcg (1,000 unit) tablet 25 mcg PO DAILY SUPPLEMENT 06/15/22 glimepiride 4 mg tablet 2 mg PO QHS DIABETES 06/15/22 glimepiride 4 mg tablet 4 mg PO DAILY DIABETES 09/22/22 aspirin 81 mg chewable tablet 81 mg PO BREAKFAST 30 days #30 tabs 09/29/22 atorvastatin 40 mg tablet 40 mg PO QHS 30 days #30 tabs 09/29/22 carvedilol 3.125 mg tablet 3.125 mg PO BID 30 days #60 tabs 09/29/22 Hospital Course Operations - (09/22/2022 laparotomy with lysis of adhesions related with small bowel obstruction. 09/29/22 cardiac catheterization with no intervention.) Procedures 2-D Echocardiogram, Cardiac catheterization, EKG, Intubation and - Summary of Care Provided Minutes Spent on Discharge: 40 Hospital Course: The patient is an 82 y/o F w/ PMHx: Hypothyroidism, HTN, Diabetes mellitus type II, Former tobacco use, Hx complete HB s/p pacemaker placement who presented to the [facility] ED on 09/22/22 with abdominal pain worse on the right, nausea and emesis started the day prior prompting eventual ED evaluation. Patient status post 09/22/2022 laparotomy with lysis of adhesions related with small bowel obstruction per Dr. Rowell with slow improvement and eventual diet advancement following onset flatus and BM. Patient once appropriate was maintained on bowel regimen. Patient presentation unfortunately following operative intervention with onset of tachypnea and dyspnea with bilateral pleural effusions and new onset reduced EF with systolic heart failure with CT of thechest with no obvious PE but bilateral pleural effusions noted with elevated white count 19.1 with left shift at that time therefore IV Zosyn initiated and patient underwent 09/27/2022 right-sided diagnostic and therapeutic thoracentesis, BNP 1909 with initial IV Lasix diuresis however BP low normal with initial plan for initiation of oral Lasix however was never pursued given eventual euvolemic appearance and lower normal BPs.? Cardiology followed and patient had been placed on heparin drip, aspirin, statin, Coreg low-dose for also concurrently noted NSTEMI.? Respiratory panel and COVID-negative, leukocytosis resolved. Thoracentesis transudative and abx discontinued. Blood culture 09/25/2022 with no growth. 09/25/2022 urine culture with no growth. EKG with no acute evidence of ischemia, noted elevated troponin 2711 and trended down to 2410 obtained in the setting of chest discomfort and dyspnea. Patient ofnote status post thoracentesis with once appropriate heparin drip initiated, maintained on aspirin, echocardiogram 09/25 with new reduced EF 25% with severe segmental systolic dysfunction, maintained on low-dose Coreg and statin therapy but unable to initiate NEDA inhibitor given renal function and low BP. 09/29/22 Cardiac catheterization performed demonstrating moderate disease in the LAD, mild disease in the circumflex and right coronary artery suggestive of a Takotsubo pattern with medication management decision (ASA, statin, BB, possiblyfuture ACEI/lasix). Patient hemoglobin had been trending down, no bright red blood per rectum or dark black stools or any GI bleed type symptoms, maintained on heparin drip given NSTEMI as noted, admission hemoglobin 14 with baseline prior to this appears 13-14, 09/23/2022 hemoglobin 11.7 and most recently 09/29/2022 hemoglobin 1065.? Complicated given recent surgery but will obtain iron panel, ferritin c/w AOCD more so, guiac not obtained as of discharge date with recommendation for continued outpatient re-assessment. During admission given hyperglycemia with underlying diabetic history although upon previous hemoglobin A1c review appeared prediabetic and was increased from April at 6.6% with recommendation once clinically appropriate given recent contrast usageresumption of patient oral home regimen and close early follow-up with her primary care physician. Encouraged strongly aggressive lifestyle and diet changes especially given recent NSTEMI and CHF exacerbation of new onset. Also during admission thyroid functions were obtained and TSH 0.34 with free T4 notedto be 1.53, subclinical with recommended repeat testing once acute clinical picture resolved given this certainly could be falsely altered in the acute setting. Patient discharged to home in improved condition with planned follow-up with general surgery in 2 weeks with continued incisional general care, ability for bathing and showering, avoidance of lifting young 15 pounds for 2 weeks from initial surgery date. Patient with plan for follow-up with cardiology at their discretion with medications for medical management initiatedand continued at discharge. Recommended early PCP follow-up for review of current prolonged admission. DAY OF DISCHARGE PROGRESS NOTE: Subjective: Patient without acute event overnight per self and nursing report. Patient denies fever, chills, nausea, emesis, abdominal pain, chest pain or dyspnea. Patient notes continued ongoing flatus, no recent BM. She notes feeling well and eager for discharge if appropriate. Patient agreeable to discharge to home. Patient will be discharged with follow-up with primary care physician, general surgery as well as cardiology. Objective: Heart rate 64, BP 119/58, respiratory rate 16, 95% room air. Physical Examination: General: Awake, alert, oriented x 3 and cooperative, seated upright in the PCU bed, well-appearing, denies any complaints Skin: Normal color, normal turgor, no icterus, no cyanosis except for very staged ecchymoses likely secondary lab draws as well as dressings in place to the abdomen with recent operative intervention, no drainage. HEENT: AT/NC, EOMI, PERRLA, MMM. Lungs: Mildly diminished, respiratory rate appropriate, no evidence of any distress, no appreciated rales, rhonchi or wheezing. Heart: Regular rate and rhythm; no gallop, rub audible. Abdomen: Soft, expected mild tenderness to palpation given recent surgery, less distended than a prior and more soft, mildly hyperactive bowel sounds.? Extremities: No cyanosis, clubbing, or edema. Neurological: Patient awake, alert, oriented as noted, cognitive function intact; pupils equally reactive to light and accommodation, cranial nerves II-XII grossly normal, moving all 4 extremities, no focal deficits, strength improved. Psychiatric: Affect appears normal, no acute evidence of depressive or anxiety feelings. Assessment and Plan: Please see hospital summary above. Weight / BMI Weight Weight: 143 lb 1.28 oz Body Mass Index (BMI) 22.4 ABG / Lab / Microbiology Data Result Diagrams: 09/29/22 04:15 09/29/22 04:15 Laboratory: Laboratory Results - last 24 hr 09/28/22 06:34: Iron 46 L, TIBC 210 L, Iron Saturation 21.9, Ferritin 104 09/28/22 11:47: POC Glucose 272 H 09/28/22 13:28: APTT 69.7 H 09/28/22 17:04: POC Glucose 154 H 09/28/22 19:50: APTT 62.9 H 09/28/22 22:03: POC Glucose 268 H 09/29/22 04:15: Sodium 142, Potassium 3.5, Chloride 108 H, Carbon Dioxide 25.0, Anion Gap 9, BUN 29 H, Creatinine 1.54 H, Estim Creat Clear Calc 27.39, Est GFR (MDRD) Af Amer 41 L, Est GFR (MDRD) Non-Af 34 L, BUN/Creatinine Ratio 18.8, Glucose 144 H, Calcium 9.4, Total Bilirubin 0.30, AST 21, ALT 25, Alkaline Phosphatase 44 L, Total Protein 5.3 L, Albumin 2.3 L, Globulin 3.0, Albumin/Globulin Ratio 0.8 L, Triglycerides 149, Cholesterol 139, LDL Cholesterol 73, VLDL Cholesterol 30, HDL Cholesterol 36 L 09/29/22 04:15: WBC 7.4, RBC 3.34 L, Hgb 10.6 L, Hct 32.0 L, MCV 95.8, MCH 31.7,MCHC 33.1, RDW Std Deviation 45.7 H, RDW Coeff of Reanna 13.4, Plt Count 180, MPV 10.6, Immature Gran % (Auto) 0.300, Neut % (Auto) 68.9, Lymph % (Auto) 18.6 L, [place] % (Auto) 9.8, Eos % (Auto) 1.9, Baso % (Auto) 0.5, Absolute Neuts (auto) 5.1, Absolute Lymphs (auto) 1.37, Nucleated RBC % 0 09/29/22 04:15: Hemoglobin A1c 6.6 H 09/29/22 04:15: APTT 47.8 H 09/29/22 06:19: POC Glucose 143 H 09/29/22 10:39: POC Glucose 155 H Microbiology: Microbiology 09/22/22 16:31 Blood Culture (Wb) - Left Hand Blood Culture - Final No growth in 5 days. 09/22/22 16:30 Blood Culture (Wb) - Right Forearm Blood Culture - Final No growth in 5 days. 09/25/22 06:50 Urine Catheter - Clarke Urine Culture - Final Culture exhibits no growth. 09/25/22 10:00 Blood Culture (Wb) - Left Forearm Blood Culture - Preliminary No growth in 48 hours. 09/25/22 06:35 Blood Culture (Wb) - Left Forearm Blood Culture - Preliminary No growth in 48 hours. 09/25/22 05:02 Mucosa - Nasopharyngeal Respiratory Panel (PCR) - Final 09/22/22 14:06 Urine, Clean Catch Urine Culture - Final Presumptive E. coli Streptococcus agalactiae (B) Radiography Diagnostic Testing: Radiology Impression Thoracentesis Ultrasound 09/25/22 04:54 IMPRESSION: 1. Right-sided ultrasound-guided diagnostic and therapeutic pleural effusion. 2. Small left pleural effusion was not drained on this examination given smaller size. Electronically Signed: Lloyd Shannon DO at 16:10 EDT , D/C Instructions Discharge Diet: 1800 Calorie Control Diet May resume sexual activity in: - (Hold until reassess by Dr. Rowell.) Weight Bearing Status: Weight bearing as tolerated Call your doctor if your incision/area has: Continuous Slow Oozing, Sudden Increased Bleeding, Increased Pain/ Swelling, Increased Redness, Foul Smelling Discharge and Swelling at the incision site Call your doctor if you observe: Fever of 101 or Higher, Shortness of breath, Dizziness, Swelling in the ankles, Chest pain, Increased palpitations (irregularheartbeat) and Uncontrolled pain Cleanse incision/area with: Soap & Water and Keep Dressing Clean & Dry Additional Dressing/Incision Instructions: See additional section instructions. Meaningful Use Info Meaningful Use Diagnoses (Choose all that apply): AMI and CHF AMI/Post PCI/Angioplasty Aspirin given w/in 24hrs of arrival?: Yes ASA at discharge?: Yes Antiplatelet Therapy at Discharge:: No Reason Antiplatelet Therapy not ordered:: ASA only, no dual. Statins at discharge?: Yes Neda/ARB at discharge?: No Reason Neda/ARB not ordered:: Hypotension Beta Seun at discharge?: Yes Done w/ Acute [place] measure.: Yes Documented LVEF (%): 25 CHF NEDA/ARB ordered at discharge?: Yes Reason NEDA/ARB not ordered?: Hypotension Documented LVEF (%): 25 Discharge Plan Admission Admit Date/Time: 09/22/22 19:00 Primary Reason for Your Visit: Bowel obstruction, NSTEMI (Takotsubo pattern), Systolic CHF Exacerbation Attending Provider: Lane Rowell Primary Care Provider: Gino Boswell Consulting Providers: Win Mukherjee ; Marek Levin ; Yong Ambrocio ; Hao Cunningham; Jak Baltazar ; Campbell Wray ; Agnieszka Bhatti NP ; Diann Peralta Instructions Patient Instructions: PAULINO RN Thoracentesis Dc Additional Instructions / Restrictions: Recent NSTEMI (Heart attack) and Congestion Heart Failure Information/Review: Cardiac catheterization demonstrated moderate disease in the LAD, mild disease in the circumflex and right coronary artery which is suggestive of Takotsubo pattern with no intervention necessary at this time with decision for medicationmanagement. Please continue newly initiated medications including: Aspirin 81 mg daily Atorvastatin 40 mg each night Coreg 3.125 mg twice daily The heart team stopped your ramipril. They will reassess your blood pressuresat follow-up and decide if this needs restarted or if you need a diuretic like lasix in the future but currently these are discontinued/not added. The ultrasound of your heart (echocardiogram) was performed on 09/25 with new reduced ejection fraction of 25% with severe segmental systolic dysfunction. Youwill likely a a future repeat ultrasound which will be arranged in the future byDr. Mukherjee. Please follow-up with Dr. Mukherjee as his office arranges. If you notice any weight gain, increasing lower extremity swelling, shortnessof breath or difficulty laying flat please immediately notify Dr. Mukherjee office. ADDITIONAL MEDICATIONS INFORMATION: Please hold your metformin for the next 48 hours and then may resume. SMALL BOWEL SURGERY DISCHARGE INFORMATION PER DR. ROWELL: Lifting limit of 15 lbs for 2 weeks from the day of your initial surgical interventions. Change your abdominal bandages daily or as needed. You are allowed to take a bath and shower at your discretion. If you notice any increased drainage from your incisions, foul smelling drainage, or have any redness or fevers immediately notify his office. Diabetes mellitus type II with Hyperglycemia: HgbA1c 6.6%, increased from prior, last 05/01/22 6.0%, had been prediabetic Please continue to aggressively pursue diet/lifestyle changes as your BS wereelevated and repeat HgBA1c check was increased as noted. You are above the prediabetic range and now in the diabetic range. Please closely follow with yourprimary care physician. Hypothyroidism: During admission 09/25/2022 thyroid function studies obtained with noted TSH 0.34and free T4 1.53, given acute presentation with recent intervention surgically would plan to continue to repeat outpatient once clinically resolved from her acute presentation. Discharge Orders/Prescriptions Prescriptions: New atorvastatin 40 mg Tablet 40 mg PO QHS 30 Days Qty: 30 1RF carvedilol 3.125 mg Tablet 3.125 mg PO BID 30 Days Qty: 60 1RF aspirin 81 mg Tablet,Chewable 81 mg PO BREAKFAST 30 Days Qty: 30 1RF Continued metformin 500 MG tablet 500 mg PO BIDCM levothyroxine 125 MCG tablet 125 mcg PO DAILY glimepiride 4 mg tablet 2 mg PO QHS cholecalciferol (vitamin D3) 25 mcg (1,000 unit) Tablet 25 mcg PO DAILY glimepiride 4 mg tablet 4 mg PO DAILY Discontinued ramipril [Altace] 10 MG capsule 10 mg PO DAILY Referrals / Follow Up: Lane Rowell MD [Med Staff - Active Staff] - Within 2 Weeks (Please follow-up as discussed/arranged per Dr. Rowell office.) Gino Boswell DO [Primary Care Provider] - In 1 Week (Please follow-up to review recent admission and have BP check given recent medication alterations with NSTEMI.) Deonna Maher PA [Med Staff - Adv Practice Prof] - 10/27/22 9:30 am Disposition Disposition (needs filled in before D/C Order can be placed): Home, Self Care Charges/Coding Visit Charges Inpatient E&M: 69798 Disch Hosp >30min 09/29/22 1133 <Electronically signed by Diann Peralta MD> Cosigner Signature (if applicable): CC: Dr. Diann Peralta MD; Dr. Gino Boswell DO~ Signed [facility] Work Phone: [phone]) 130-262805-30-[address] Peralta [facility] September 29, 2022 11:21am Note Date/Time September 29, 2022 10:48 am [facility] Medical Records Department [address] [place] [id number] Instructions for Home/Discharge Instructions 09/29/22 1047 MR#: [id number] Acct: [id number] Name: SUSAN CISNEROS Rep #:[id number] : 1940 82 From: Diann Peralta MD PCP: Dr. Gino Boswell, DO Status:ADM IN Discharge Instructions Diet Discharge Diet: 1800 Calorie Control Diet Activity Discharge Activity: - (See parameters in the additional instruction section.) May resume sexual activity in: - (Hold until reassess by Dr. Rowell.) Weight Bearing Status: Weight bearing as tolerated Dressing / Incision Call your doctor if your incision/area has: Continuous Slow Oozing, Sudden Increased Bleeding, Increased Pain/ Swelling, Increased Redness, Foul Smelling Discharge and Swelling at the incision site Call your doctor if you observe: Fever of 101 or Higher, Shortness of breath, Dizziness, Swelling in the ankles, Chest pain, Increased palpitations (irregularheartbeat) and Uncontrolled pain Cleanse incision/area with: Soap & Water and Keep Dressing Clean & Dry Additional Dressing/Incision Instructions:: See additional section instructions. Follow Up Care Test Results: Test results from this visit will be discussed in further detail at your follow- up appointment, if applicable. Discharge Plan Admission Admit Date/Time: 09/22/22 19:00 Primary Reason for Your Visit: Bowel obstruction, NSTEMI (Takotsubo pattern), Systolic CHF Exacerbation Attending Provider: Lane Rowell Primary Care Provider: Gino Boswell Consulting Providers: Win Mukherjee ; Marek Levin ; Yong Ambrocio ; Hao Cunningham; Jak Baltazar ; Campbell Wray ; Agnieszka Bhatti SAMPLE TAILOR ; Diann Peralta Instructions Patient Instructions: PAULINO RN Thoracentesis Dc Additional Instructions / Restrictions: Recent NSTEMI (Heart attack) and Congestion Heart Failure Information/Review: Cardiac catheterization demonstrated moderate disease in the LAD, mild disease in the circumflex and right coronary artery which is suggestive of Takotsubo pattern with no intervention necessary at this time with decision for medicationmanagement. Please continue newly initiated medications including: Aspirin 81 mg daily Atorvastatin 40 mg each night Coreg 3.125 mg twice daily The heart team stopped your ramipril. They will reassess your blood pressuresat follow-up and decide if this needs restarted or if you need a diuretic like lasix in the future but currently these are discontinued/not added. The ultrasound of your heart (echocardiogram) was performed on 09/25 with new reduced ejection fraction of 25% with severe segmental systolic dysfunction. Youwill likely a a future repeat ultrasound which will be arranged in the future byDr. Mukherjee. Please follow-up with Dr. Mukherjee as his office arranges. If you notice any weight gain, increasing lower extremity swelling, shortnessof breath or difficulty laying flat please immediately notify Dr. Mukherjee office. ADDITIONAL MEDICATIONS INFORMATION: Please hold your metformin for the next 48 hours and then may resume. SMALL BOWEL SURGERY DISCHARGE INFORMATION PER DR. ROWELL: Lifting limit of 15 lbs for 2 weeks from the day of your initial surgical interventions. Change your abdominal bandages daily or as needed. You are allowed to take a bath and shower at your discretion. If you notice any increased drainage from your incisions, foul smelling drainage, or have any redness or fevers immediately notify his office. Discharge Orders/Prescriptions Prescriptions: New atorvastatin 40 mg Tablet 40 mg PO QHS 30 Days Qty: 30 1RF carvedilol 3.125 mg Tablet 3.125 mg PO BID 30 Days Qty: 60 1RF aspirin 81 mg Tablet,Chewable 81 mg PO BREAKFAST 30 Days Qty: 30 1RF Continued metformin 500 MG tablet 500 mg PO BIDCM levothyroxine 125 MCG tablet 125 mcg PO DAILY glimepiride 4 mg tablet 2 mg PO QHS cholecalciferol (vitamin D3) 25 mcg (1,000 unit) Tablet 25 mcg PO DAILY glimepiride 4 mg tablet 4 mg PO DAILY Discontinued ramipril [Altace] 10 MG capsule 10 mg PO DAILY Referrals / Follow Up: Lane Rowell MD [Med Staff - Active Staff] - Within 2 Weeks (Please follow-up as discussed/arranged per Dr. Rowell office.) Win Mukherjee MD [Med Staff - Active Staff] - None (Please follow-up with Dr. Mukherjee in the office as discussed/arranged per his office.) Gino Boswell DO [Primary Care Provider] - In 1 Week (Please follow-up to review recent admission and have BP check given recent medication alterations with NSTEMI.) Disposition Disposition (needs filled in before D/C Order can be placed): Home, Self Care 09/29/22 1048<Electronically signed by Diann Peralta MD>Diann Peralta MD CC: YARELIS Bhatti; Dr. Diann Peralta MD; Dr. Yong Ambrocio MD; Dr. Win Mukherjee MD; Dr. Hao Cunningham DO; Dr. Marek Levin MD; Dr. Jak Baltazar MD; Dr. Gino Boswell DO; Dr. Campbell Wray MD ~ Signed ADDENDUM by Dr. Diann Peralta MD on 09/29/22 at 1121 Additional: Diabetes mellitus type II with Hyperglycemia (HgbA1c 6.6%, increased from prior,last 05/01/22 6.0%, had been prediabetic). Please continue to aggressively pursue diet/lifestyle changes as your BS were elevated and repeat HgBA1c check was increased as noted. You are above the prediabetic range and now in the diabetic range. Please closely follow with your primary care physician. Hypothyroidism: During admission 09/25/2022 thyroid function studies obtained with noted TSH 0.34 and free T4 1.53, given acute presentation with recent intervention surgically would plan to continue to repeat outpatient once clinically resolved from her acute presentation. 09/29/22 1121<Electronically signed by Diann Peralta MD>Diann Peralta MD cc: YARELIS Bhatti; Dr. Diann Peralta MD; Dr. Yong Ambrocio MD; Dr. Win Mukherjee MD; Dr. Hao Cunningham DO; Dr. Marek Levin MD; Dr. Jak Baltazar MD; Dr. Gino Boswell DO; Dr. Campbell Wray MD ~* Signed [facility] Work Phone: [phone] 240-572305-30-[address] Mukherjee [facility] September 29, 2022 10:08am Note Date/Time September 29, 2022 10:08 am [facility] Medical Records Department [address] [place] [address] Progress Note - Cardiology 09/29/22 1006 MR#: [id number] Acct: [id number] Name: SUSAN CISNEROS #:[id number] : 1940 82 From: Win Mukherjee MD PCP: Dr. Gino Boswell, DO Status:ADM IN Location: [address] Subjective Subjective Patient seen and evaluated and underwent cardiac catheterization today. Objective Data Vital Signs: Vital Signs Temp Pulse Resp BP Pulse Ox O2 Del Method O2 Flow Rate 97.8 F 68 15 115/57 L 94 Room Air 2 09/29/22 08:30 09/29/22 08:30 09/29/22 08:30 09/29/22 08:30 09/29/22 08:30 09/29/22 08:30 09/26/22 06:00 Oxygen Flow Rate (L/min) [3] 4 Oxygen Flow Rate (L/min) [2] 4 Oxygen Flow Rate (L/min) [1 ( 4 Initial Baseline)] Oxygen Flow Rate (L/min) 2 Oxygen Delivery Method [3] Nasal Cannula Oxygen Delivery Method [2] Nasal Cannula Oxygen Delivery Method [1 ( Nasal Cannula Initial Baseline)] Oxygen Delivery Method Room Air Weight: 143 lb 1.28 oz Body Mass Index (BMI) 22.4 Intake & Output: Intake and Output for Last 24 Hours 09/27/22 09/28/22 09/29/22 23:59 23:59 23:59 Intake Total 679.32 / 679.32 880.25 / 880.25 197.8 / 197.8 Output Total 1400 / 2100 2525 / 2525 250 / 250 Balance -720.68 / -1420.68 -1644.75 / -1644.75 -52.2 / -52.2 Lab / Micro Data Result Diagrams: 09/29/22 04:15 09/29/22 04:15 Labs: Laboratory Results - last 24 hr 09/28/22 06:34: Iron 46 L, TIBC 210 L, Iron Saturation 21.9, Ferritin 104 09/28/22 11:47: POC Glucose 272 H 09/28/22 13:28: APTT 69.7 H 09/28/22 17:04: POC Glucose 154 H 09/28/22 19:50: APTT 62.9 H 09/28/22 22:03: POC Glucose 268 H 09/29/22 04:15: Sodium 142, Potassium 3.5, Chloride 108 H, Carbon Dioxide 25.0, Anion Gap 9, BUN 29 H, Creatinine 1.54 H, Estim Creat Clear Calc 27.39, Est GFR (MDRD) Af Amer 41 L, Est GFR (MDRD) Non-Af 34 L, BUN/Creatinine Ratio 18.8, Glucose 144 H, Calcium 9.4, Total Bilirubin 0.30, AST 21, ALT 25, Alkaline Phosphatase 44 L, Total Protein 5.3 L, Albumin 2.3 L, Globulin 3.0, Albumin/Globulin Ratio 0.8 L, Triglycerides 149, Cholesterol 139, LDL Cholesterol 73, VLDL Cholesterol 30, HDL Cholesterol 36 L 09/29/22 04:15: WBC 7.4, RBC 3.34 L, Hgb 10.6 L, Hct 32.0 L, MCV 95.8, MCH 31.7,MCHC 33.1, RDW Std Deviation 45.7 H, RDW Coeff of Reanna 13.4, Plt Count 180, MPV 10.6, Immature Gran % (Auto) 0.300, Neut % (Auto) 68.9, Lymph % (Auto) 18.6 L, [place] % (Auto) 9.8, Eos % (Auto) 1.9, Baso % (Auto) 0.5, Absolute Neuts (auto) 5.1, Absolute Lymphs (auto) 1.37, Nucleated RBC % 0 09/29/22 04:15: Hemoglobin A1c 6.6 H 09/29/22 04:15: APTT 47.8 H 09/29/22 06:19: POC Glucose 143 H Micro: Microbiology 09/22/22 16:31 Blood Culture (Wb) - Left Hand Blood Culture - Final No growth in 5 days. 09/22/22 16:30 Blood Culture (Wb) - Right Forearm Blood Culture - Final No growth in 5 days. Cardiology Labs/Tests 09/28/22 06:34: Iron 46 L, TIBC 210 L, Iron Saturation 21.9, Ferritin 104 09/28/22 13:28: APTT 69.7 H 09/28/22 19:50: APTT 62.9 H 09/29/22 04:15: Sodium 142, Potassium 3.5, Chloride 108 H, Carbon Dioxide 25.0, Anion Gap 9, BUN 29 H, Creatinine 1.54 H, Est GFR (MDRD) Af Amer 41 L, Est GFR (MDRD) Non-Af 34 L, BUN/Creatinine Ratio 18.8, Glucose 144 H, Calcium 9.4, TotalBilirubin 0.30, Triglycerides 149, Cholesterol 139, LDL Cholesterol 73, VLDL Cholesterol 30, HDL Cholesterol 36 L 09/29/22 04:15: WBC 7.4, RBC 3.34 L, Hgb 10.6 L, Hct 32.0 L, MCV 95.8, MCH 31.7,MCHC 33.1, Plt Count 180, MPV 10.6, Immature Gran % (Auto) 0.300, Neut % (Auto) 68.9, Lymph % (Auto) 18.6 L, [place] % (Auto) 9.8, Eos % (Auto) 1.9, Baso % (Auto) 0.5, Absolute Neuts (auto) 5.1, Nucleated RBC % 0 09/29/22 04:15: Hemoglobin A1c 6.6 H 09/29/22 04:15: APTT 47.8 H Rhythm: EKG: ECHO: Stress Test: Cardiac Cath: PCI: CT Surgery: Holter monitor: EPS: PPM: CXR: Chest CT Scan: Radiography Diagnostic Testing: Radiology Impression Thoracentesis Ultrasound 09/25/22 04:54 IMPRESSION: 1. Right-sided ultrasound-guided diagnostic and therapeutic pleural effusion. 2. Small left pleural effusion was not drained on this examination given smaller size. Electronically Signed: Lloyd Shannon DO at 16:10 EDT , Physical Exam Const alert, oriented x3 and no apparent distress General Appearance: cooperative HEENT hearing grossly normal bilaterally Head and Scalp: atraumatic Eyes EOMs intact bilaterally Neck General: normal visual inspection Chest inspection of chest normal and palpation of chest normal Resp normal respiratory effort Auscultation: clear to auscultation bilaterally Cardio regular rate, regular rhythm, S1 normal heart sound and S2 normal heart sound Jugular Venous Distention: JVD GI normal to inspection, nondistended, normoactive bowel sounds Extremity normal capillary refill and no pedal edema Peripheral Pulses: Yes pulses 2+ throughout and femoral pulses present Skin no rashes or lesions noted Neuro oriented x3 and CN's II-XII intact bilaterally Psych Appearance: grossly normal and appropriate Assessment & Plan Assessment/Plan (1) NSTEMI, initial episode of care: PLAN: She appears to have had a non-ST elevation myocardial infarction. Cardiac catheterization demonstrated moderate disease in the LAD, mild disease in the circumflex and right coronary artery. The above is suggestive more of a Takotsubo pattern. No intervention needed at this time We will continue with beta-seun High intensity statin (2) CHF (congestive heart failure): PLAN: She does have evidence of congestive heart failure. She did benefit from her thoracentesis. She appears to be euvolemic at this time. We will hold off on Lasix. We will add an NEDA inhibitor as appropriate as outpatient. (3) Cardiac pacemaker in situ: PLAN: She is status post permanent pacemaker implantation. This appears to be functioning well. No changes to be made at this time. Thank you for allowing me to participate in the care of your patient. Please don't hesitate to call if any issues arise. 09/29/22 1008 <Electronically signed by Win Mukherjee MD> Cosigner Signature (if applicable): CC: ~ Signed [facility] Work Phone: [phone] 290-678805-30-[address] Rowell [facility] September 29, 2022 7:13am Note Date/Time September 29, 2022 7:13a [facility] [facility] Medical Records Department [address] [place] [address] Progress Note - Surgery 09/29/22 0711 MR#: [id number] Acct: [id number] Name: SUSAN CISNEROS Rep #:[id number] : 1940 82 From: Lane dias MD PCP: Dr. Gino Boswell, DO Status:ADM IN Location: [place] [address] 1 Subjective Subjective Patient denies any abdominal pain. She is having bowel movements tolerating regular diet. Objective Data Objective Data Vital Signs: Vital Signs Temp Pulse Resp BP Pulse Ox O2 Del Method O2 Flow Rate 97.9 F 60 18 112/55 L 95 Room Air 2 09/29/22 06:25 09/29/22 06:25 09/29/22 06:25 09/29/22 06:25 09/29/22 06:25 09/29/22 06:25 09/26/22 06:00 Oxygen Flow Rate (L/min) [3] 4 Oxygen Flow Rate (L/min) [2] 4 Oxygen Flow Rate (L/min) [1 ( 4 Initial Baseline)] Oxygen Flow Rate (L/min) 2 Oxygen Delivery Method [3] Nasal Cannula Oxygen Delivery Method [2] Nasal Cannula Oxygen Delivery Method [1 ( Nasal Cannula Initial Baseline)] Oxygen Delivery Method Room Air Weight: 143 lb 1.28 oz Body Mass Index (BMI) 22.4 Intake & Output: Intake and Output for Last 24 Hours 09/27/22 09/28/22 09/29/22 23:59 23:59 23:59 Intake Total 679.32 / 679.32 880.25 / 880.25 147.8 / 147.8 Output Total 1400 / 2100 2525 / 2525 250 / 250 Balance -720.68 / -1420.68 -1644.75 / -1644.75 -102.2 / -102.2 Lab / Micro Data Result Diagrams: 09/29/22 04:15 09/29/22 04:15 Labs: Laboratory Results - last 24 hr 09/28/22 06:34: Iron 46 L, TIBC 210 L, Iron Saturation 21.9, Ferritin 104 09/28/22 11:47: POC Glucose 272 H 09/28/22 13:28: APTT 69.7 H 09/28/22 17:04: POC Glucose 154 H 09/28/22 19:50: APTT 62.9 H 09/28/22 22:03: POC Glucose 268 H 09/29/22 04:15: Sodium 142, Potassium 3.5, Chloride 108 H, Carbon Dioxide 25.0, Anion Gap 9, BUN 29 H, Creatinine 1.54 H, Estim Creat Clear Calc 27.39, Est GFR (MDRD) Af Amer 41 L, Est GFR (MDRD) Non-Af 34 L, BUN/Creatinine Ratio 18.8, Glucose 144 H, Calcium 9.4, Total Bilirubin 0.30, AST 21, ALT 25, Alkaline Phosphatase 44 L, Total Protein 5.3 L, Albumin 2.3 L, Globulin 3.0, Albumin/Globulin Ratio 0.8 L, Triglycerides 149, Cholesterol 139, LDL Cholesterol 73, VLDL Cholesterol 30, HDL Cholesterol 36 L 09/29/22 04:15: WBC 7.4, RBC 3.34 L, Hgb 10.6 L, Hct 32.0 L, MCV 95.8, MCH 31.7,MCHC 33.1, RDW Std Deviation 45.7 H, RDW Coeff of Reanna 13.4, Plt Count 180, MPV 10.6, Immature Gran % (Auto) 0.300, Neut % (Auto) 68.9, Lymph % (Auto) 18.6 L, [place] % (Auto) 9.8, Eos % (Auto) 1.9, Baso % (Auto) 0.5, Absolute Neuts (auto) 5.1, Absolute Lymphs (auto) 1.37, Nucleated RBC % 0 09/29/22 06:19: POC Glucose 143 H Micro: Microbiology 09/22/22 16:31 Blood Culture (Wb) - Left Hand Blood Culture - Final No growth in 5 days. 09/22/22 16:30 Blood Culture (Wb) - Right Forearm Blood Culture - Final No growth in 5 days. 09/25/22 06:50 Urine Catheter - Clarke Urine Culture - Final Culture exhibits no growth. 09/25/22 10:00 Blood Culture (Wb) - Left Forearm Blood Culture - Preliminary No growth in 48 hours. 09/25/22 06:35 Blood Culture (Wb) - Left Forearm Blood Culture - Preliminary No growth in 48 hours. 09/25/22 05:02 Mucosa - Nasopharyngeal Respiratory Panel (PCR) - Final 09/22/22 14:06 Urine, Clean Catch Urine Culture - Final Presumptive E. coli Streptococcus agalactiae (B) Physical Exam Const oriented x3 and no apparent distress Resp normal respiratory effort GI normal to inspection, nondistended, normoactive bowel sounds Assessment & Plan Assessment/Plan (1) NSTEMI, initial episode of care: PLAN: Patient is on heparin drip. She is having a heart cath today. (2) Small bowel obstruction: PLAN: Patient seems to be doing well with no abdominal pain. I have stopped antibiotics and added Tylenol. Stop the morphine as well. Resume heparin drip as needed for her heart. DC after heart cath when okay with cardiology. Lane Rowell MD Pager: [facility] [address] [facility], [address] [place] [address] Office: [phone]/29/22712 <Electronically signed by Lane Rowell MD> Cosigner Signature (if applicable): CC: ~ Signed [facility] Work Phone: [phone] 721-561505-29-[address] Peralta [facility] September 28, 2022 6:45pm Note Date/Time September 28, 2022 7:16a m [facility] Medical Records Department [address] [place] [address] Progress Note - Hospitalist 09/28/22715 MR#: [id number] Acct: [id number] Name: SUSAN CISNEROS Rep #:[id number] : 1940 82 From: Diann Peralta MD PCP: Dr. Gino Boswell, DO Status:ADM IN Location: [place] [address] Reason for Visit Reason for Visit: Diagnoses Essential (primary) hypertension (09/22/22) Non-ST elevation (NSTEMI) myocardial infarction (09/22/22) Heart failure, unspecified (09/22/22) Pleural effusion, not elsewhere classified (09/22/22) Unspecified intestinal obstruction, unspecified as to partial versus complete obstruction (09/22/22) Wheezing (09/22/22) Other specified abnormalities of plasma proteins (09/22/22) Presence of cardiac pacemaker (09/22/22) Subjective Subjective Patient with no acute events overnight per self and per nursing report. She hasbeen passing flatus and did have a large bowel movement this morning with ongoing aggressive bowel regimen. She denies any marked dyspnea, cough, chest pain. She does understand that plan remains for cardiac catheterization in AM. Patient did have low BP therefore cardiology only initiated low-dose oral Coreg and held off on any scheduled oral Lasix or any oral NEDA inhibitor given also lower creatinine clearance and low blood pressure. Patient denies fevers, chills, nausea, emesis, abdominal pain. Objective Data Objective Data Vital Signs: Vital Signs Temp Pulse Resp BP Pulse Ox O2 Del Method O2 Flow Rate 98.1 F 64 14 127/64 H 100 Room Air 2 05/29/23 02:30 09/28/22 02:30 09/28/22 02:30 09/28/22 02:30 09/28/22 02:30 09/28/22 02:30 09/26/22 06:00 Oxygen Flow Rate (L/min) [3] 4 Oxygen Flow Rate (L/min) [2] 4 Oxygen Flow Rate (L/min) [1 ( 4 Initial Baseline)] Oxygen Flow Rate (L/min) 2 Oxygen Delivery Method [3] Nasal Cannula Oxygen Delivery Method [2] Nasal Cannula Oxygen Delivery Method [1 ( Nasal Cannula Initial Baseline)] Oxygen Delivery Method Room Air Weight: 143 lb 1.28 oz Body Mass Index (BMI) 22.4 Intake & Output: Intake and Output for Last 24 Hours 09/26/22 09/27/22 09/28/22 23:59 23:59 23:59 Intake Total 526.43 / 526.43 679.32 / 679.32 50 / 50 Output Total 2150 / 2150 1400 / 2100 1200 / 1200 Balance -1623.57 / -1623.57 -720.68 / -1420.68 -1150 / -1150 Lab / Micro Data Result Diagrams: 09/28/22 06:34 09/28/22 06:34 Labs: Laboratory Results - last 24 hr 09/27/22 11:55: POC Glucose 207 H 09/27/22 12:40: APTT 65.7 H 09/27/22 16:41: POC Glucose 127 H 09/27/22 18:10: APTT 60.7 H 09/27/22 20:52: POC Glucose 198 H 09/28/22 06:17: POC Glucose 135 H 09/28/22 06:34: Sodium 144, Potassium 3.4 L, Chloride 110 H, Carbon Dioxide 26.0, Anion Gap 8, BUN 34 H, Creatinine 1.72 H, Estim Creat Clear Calc 24.52, Est GFR (MDRD) Af Amer 37 L, Est GFR (MDRD) Non-Af 30 L, BUN/Creatinine Ratio 19.8, Glucose 147 H, Calcium 9.6, Total Bilirubin 0.40, AST 21, ALT 28, AlkalinePhosphatase 46, Total Protein 5.4 L, Albumin 2.4 L, Globulin 3.0, Albumin/Globulin Ratio 0.8 L 09/28/22 06:34: WBC 7.4, RBC 3.34 L, Hgb 10.5 L, Hct 31.4 L, MCV 94.0, MCH 31.4,MCHC 33.4, RDW Std Deviation 45.0 H, RDW Coeff of Reanna 13.2, Plt Count 179, MPV 10.4, Immature Gran % (Auto) 0.500, Neut % (Auto) 66.5, Lymph % (Auto) 20.9, [place] % (Auto) 9.4, Eos % (Auto) 1.9, Baso % (Auto) 0.8, Absolute Neuts (auto) 4.9, Absolute Lymphs (auto) 1.54, Nucleated RBC % 0 09/28/22 06:34: APTT 48.4 H Micro: Microbiology 09/22/22 16:31 Blood Culture (Wb) - Left Hand Blood Culture - Final No growth in 5 days. 09/22/22 16:30 Blood Culture (Wb) - Right Forearm Blood Culture - Final No growth in 5 days. 09/25/22 06:50 Urine Catheter - Clarke Urine Culture - Final Culture exhibits no growth. 09/25/22 10:00 Blood Culture (Wb) - Left Forearm Blood Culture - Preliminary No growth in 48 hours. 09/25/22 06:35 Blood Culture (Wb) - Left Forearm Blood Culture - Preliminary No growth in 48 hours. 09/25/22 05:02 Mucosa - Nasopharyngeal Respiratory Panel (PCR) - Final 09/22/22 14:06 Urine, Clean Catch Urine Culture - Final Presumptive E. coli Streptococcus agalactiae (B) Physical Exam Narrative Physical Examination: General: Awake, alert, oriented x 3 and cooperative, seated upright in the PCU bed, fatigued but no acute distress Skin: Normal color, normal turgor, no icterus, no cyanosis except for very staged ecchymoses likely secondary lab draws as well as dressings in place to the abdomen with recent operative intervention, no drainage. HEENT: AT/NC, EOMI, PERRLA, MMM Lungs: Mildly diminished, left greater than right, appropriate respiratory rate and effort, no markedly appreciated rales, ronchi or wheezing. Heart: Currently regular rate and rhythm; no gallop, rub audible. Abdomen: Soft, expected mild tenderness to palpation given recent surgery, appears mildly distended, normal current bowel sounds. Extremities: No cyanosis, clubbing, or edema. Neurological: Patient awake, alert, oriented x 3, cognitive function intact; pupils equally reactive to light and accommodation, cranial nerves II-XII grossly normal, moving all 4 extremities, no focal deficits, strength preserved. Psychiatric: Affect appears normal, no acute evidence of depressive or anxiety feelings. Assessment & Plan Assessment/Plan (1) NSTEMI, initial episode of care: PLAN: Plan The patient is an 82 y/o F w/ PMHx: Hypothyroidism, HTN, Diabetes mellitus type II, Former tobacco use, Hx complete HB s/p pacemaker placement who presents to the [facility] ED on 09/22/22 with abdominal pain worse on the right, nausea and emesis started the day prior prompting eventual ED evaluation. #1. Acute NSTEMI, unclear if possibly Takotsubo or possibly secondary to obstructive CAD, complicated by Acute Systolic CHF exacerbation, new onset:: EKGwith no acute evidence of ischemia, troponin 2711 and trended down to 2410, status post thoracentesis with heparin drip initiated, maintained on aspirin, echocardiogram 09/25 with new reduced EF 25% with severe segmental systolic dysfunction, maintained on low-dose Coreg and statin therapy but unable to initiate NEDA inhibitor given renal function and low BP, plan for cardiac catheterization 09/29/2022 with cardiology consulted and following. #2. Acute Systolic CHF Exacerbation, complicated by BL pleural effusions, R>L and possible Underlying PNA, unable to immediately rule out: Patient presentation unfortunately following operative intervention with onset of tachypnea and dyspnea with bilateral pleural effusions and new onset reduced EF with systolic heart failure with CT of the chest with no obvious PE but bilateral pleural effusions noted with elevated white count 19.1 with left shiftat that time therefore IV Zosyn initiated and patient underwent 09/27/2022 right-sided diagnostic and therapeutic thoracentesis, BNP 1909 with initial IV Lasix diuresis however BP low normal with initial plan for initiation of oral Lasix however this has been held. Cardiology following and patient is currently on heparin drip, aspirin, statin, Coreg low-dose but given creatinine clearance andBP unable to initiate oral Lasix or NEDA inhibitor at this time. Respiratory panel and COVID-negative, leukocytosis improving on broad-spectrum antibiotic therapy. Thoracentesis appears transudative at this time. We will continue to evaluate with potential de-escalation off antibiotic therapy if appropriate. Blood culture 09/25/2022 with no growth. 09/25/2022 urine culture with no growth. FLP in AM, held on statin addition given cardiology consulted and following, will await the results and defer to their discretion. #3. Small bowel obstruction, resolved: Patient status post 09/22/2022 laparotomywith lysis of adhesions related with small bowel obstruction, currently on aggressive bowel regimen, tolerating oral intake, admission complicated by NSTEMI and CHF exacerbation noted, tolerating heparin drip of which surgery was amenable. #4. Acute on Chronic normocytic anemia, multifactorial: Patient hemoglobin has been trending down, no bright red blood per rectum or dark black stools or any GI bleed type symptoms, maintained on heparin drip given NSTEMI as noted, admission hemoglobin 14 with baseline prior to this appears 13-14, 09/23/2022 hemoglobin 11.7 and most recently 09/28/2022 hemoglobin 10.5. Complicated given recent surgery but will obtain iron panel, ferritin and guaiac to be cautious especially with heparin drip usage and plans cardiac catheterization in a.m. with potential antiplatelet therapy needs. #5. Acute Renal Insufficiency on Chronic Kidney Disease Stage IIIb: Admission BUN/Cr 26/1.49, baseline renal function appears primarily 1.2-1.5, repeat BMP Miguelito, mild increase likely secondary to recent attempt at pulse dose Lasix, held at this time. #6. Hypokalemia: Admission K+ 3.4, supplementation given, repeat level in AM. #7. Hyperglycemia: Potentially stress response, a.m. glucose 147, hemoglobin A1c requested to be cautious. #8. History complete heart block: Patient with history of complete heart block 06/2022 status post permanent pacemaker implantation at that time, given NSTEMI and CHF exacerbation cardiology consulted and following. EKG upon presentation paced. #9. Hypertension: Given presentation patient BP regimen adjusted with NEDA inhibitor held and started now on a low-dose beta-seun therapy. If able and renal function improves/creatinine clearance improves preference for potential addition of a low-dose Lasix and NEDA inhibitor regimen but deferred at this time. #10. Diabetes mellitus type II: Hold oral home regimen, ADA diet, accu checks w/ ISS. #11. Hypothyroidism: We will continue patient home levothyroxine regimen. 09/25/2022 thyroid function studies with TSH 0.34 and free T4 1.53, given acute presentation with recent intervention surgically would plan to continue to repeat outpatient once clinically resolved from her acute presentation and if remains abnormal adjust thyroid medication at that time. #12. Former tobacco use: Encourage continued tobacco cessation. #13. DVT prophylaxis: Maintained on a heparin drip. Admission Evaluation Time spent evaluating chart, patient history, patient evaluation, care planning and discussion with specialists: 50 minutes. Charges/Coding Visit Charges Inpatient E&M: 02547 Subs Hosp L3 09/28/22 1845 <Electronically signed by Diann Peralta MD> Cosigner Signature (if applicable): CC: ~ Signed [facility] Work Phone: 1([phone]) 235-497605-29-[address] Mukherjee [facility] September 28, 2022 10:54am Note Date/Time September 28, 2022 10:52 am [facility] Medical Records Department [address] [place] [address] Progress Note - Cardiology 09/28/22 1052 MR#: [id number] Acct: [id number] Name: SUSAN CISNEROS Rep #:[id number] : 1940 82 From: Win Mukherjee MD PCP: Dr. Gino Boswell, DO Status:ADM IN Location: [place] [address] Subjective Subjective Patient seen and evaluated Objective Data Vital Signs: Vital Signs Temp Pulse Resp BP Pulse Ox O2 Del Method O2 Flow Rate 97.7 F L 75 18 119/52 L 96 Room Air 2 09/28/22 08:30 09/28/22 08:30 09/28/22 08:30 09/28/22 08:30 09/28/22 08:30 09/28/22 08:30 09/26/22 06:00 Oxygen Flow Rate (L/min) [3] 4 Oxygen Flow Rate (L/min) [2] 4 Oxygen Flow Rate (L/min) [1 ( 4 Initial Baseline)] Oxygen Flow Rate (L/min) 2 Oxygen Delivery Method [3] Nasal Cannula Oxygen Delivery Method [2] Nasal Cannula Oxygen Delivery Method [1 ( Nasal Cannula Initial Baseline)] Oxygen Delivery Method Room Air Weight: 143 lb 1.28 oz Body Mass Index (BMI) 22.4 Intake & Output: Intake and Output for Last 24 Hours 09/26/22 09/27/22 09/28/22 23:59 23:59 23:59 Intake Total 526.43 / 526.43 679.32 / 679.32 251.6 / 251.6 Output Total 2150 / 2150 1400 / 2100 1200 / 1200 Balance -1623.57 / -1623.57 -720.68 / -1420.68 -948.4 / -948.4 Lab / Micro Data Result Diagrams: 09/28/22 06:34 09/28/22 06:34 Labs: Laboratory Results - last 24 hr 09/27/22 11:55: POC Glucose 207 H 09/27/22 12:40: APTT 65.7 H 09/27/22 16:41: POC Glucose 127 H 09/27/22 18:10: APTT 60.7 H 09/27/22 20:52: POC Glucose 198 H 09/28/22 06:17: POC Glucose 135 H 09/28/22 06:34: Sodium 144, Potassium 3.4 L, Chloride 110 H, Carbon Dioxide 26.0, Anion Gap 8, BUN 34 H, Creatinine 1.72 H, Estim Creat Clear Calc 24.52, Est GFR (MDRD) Af Amer 37 L, Est GFR (MDRD) Non-Af 30 L, BUN/Creatinine Ratio 19.8, Glucose 147 H, Calcium 9.6, Total Bilirubin 0.40, AST 21, ALT 28, AlkalinePhosphatase 46, Total Protein 5.4 L, Albumin 2.4 L, Globulin 3.0, Albumin/Globulin Ratio 0.8 L 09/28/22 06:34: WBC 7.4, RBC 3.34 L, Hgb 10.5 L, Hct 31.4 L, MCV 94.0, MCH 31.4,MCHC 33.4, RDW Std Deviation 45.0 H, RDW Coeff of Reanna 13.2, Plt Count 179, MPV 10.4, Immature Gran % (Auto) 0.500, Neut % (Auto) 66.5, Lymph % (Auto) 20.9, [place] % (Auto) 9.4, Eos % (Auto) 1.9, Baso % (Auto) 0.8, Absolute Neuts (auto) 4.9, Absolute Lymphs (auto) 1.54, Nucleated RBC % 0 09/28/22 06:34: APTT 48.4 H Micro: Microbiology 09/22/22 16:31 Blood Culture (Wb) - Left Hand Blood Culture - Final No growth in 5 days. 09/22/22 16:30 Blood Culture (Wb) - Right Forearm Blood Culture - Final No growth in 5 days. 09/25/22 06:50 Urine Catheter - Clarke Urine Culture - Final Culture exhibits no growth. Cardiology Labs/Tests 09/27/22 12:40: APTT 65.7 H 09/27/22 18:10: APTT 60.7 H 09/28/22 06:34: Sodium 144, Potassium 3.4 L, Chloride 110 H, Carbon Dioxide 26.0, Anion Gap 8, BUN 34 H, Creatinine 1.72 H, Est GFR (MDRD) Af Amer 37 L, EstGFR (MDRD) Non-Af 30 L, BUN/Creatinine Ratio 19.8, Glucose 147 H, Calcium 9.6, Total Bilirubin 0.40 09/28/22 06:34: WBC 7.4, RBC 3.34 L, Hgb 10.5 L, Hct 31.4 L, MCV 94.0, MCH 31.4,MCHC 33.4, Plt Count 179, MPV 10.4, Immature Gran % (Auto) 0.500, Neut % (Auto) 66.5, Lymph % (Auto) 20.9, [place] % (Auto) 9.4, Eos % (Auto) 1.9, Baso % (Auto) 0.8, Absolute Neuts (auto) 4.9, Nucleated RBC % 0 09/28/22 06:34: APTT 48.4 H Rhythm: EKG: ECHO: Stress Test: Cardiac Cath: PCI: CT Surgery: Holter monitor: EPS: PPM: CXR: Chest CT Scan: Assessment & Plan Assessment/Plan (1) NSTEMI, initial episode of care: PLAN: She appears to have had a non-ST elevation myocardial infarction. It is not clear whether this is a Takotsubo or whether this is due to obstructive coronary disease. She will need to have her left heart cath on September 29 and I have discussed the above with her she understands and agrees to proceed. We will continue with heparin at this particular time and DC 4 hours prior to procedure. We will start low-dose beta-seun (2) CHF (congestive heart failure): PLAN: She does have evidence of congestive heart failure. She did benefit from her thoracentesis. She appears to be euvolemic at this time. We will hold off on Lasix. We will add an NEDA inhibitor as appropriate. (3) Cardiac pacemaker in situ: PLAN: She is status post permanent pacemaker implantation. This appears to be functioning well. No changes to be made at this time. Thank you for allowing me to participate in the care of your patient. Please don't hesitate to call if any issues arise. 09/28/22 1054 <Electronically signed by Win Mukherjee MD> Cosigner Signature (if applicable): CC: ~ Signed [facility] Work Phone: [phone]) 358-886105-29-[address] Hennessy [facility] September 28, 2022 9:53am Note Date/Time September 28, 2022 9:53a [facility] Medical Records Department [address] [place] [address] Progress Note - Surgery 09/28/22 0952 MR#: [id number] Acct: [id number] Name: SUSAN CISNEROS Rep #:[id number] : 1940 82 From: Crystal Hennessy MD PCP: Dr. Gino Boswell, DO Status:ADM IN Location: [place] [address] Subjective Subjective Patient is tolerating diet and having no abdominal discomfort. Objective Data Objective Data Vital Signs: Vital Signs Temp Pulse Resp BP Pulse Ox O2 Del Method O2 Flow Rate 97.7 F L 75 18 119/52 L 96 Room Air 2 09/28/22 08:30 09/28/22 08:30 09/28/22 08:30 09/28/22 08:30 09/28/22 08:30 09/28/22 08:30 09/26/22 06:00 Oxygen Flow Rate (L/min) [3] 4 Oxygen Flow Rate (L/min) [2] 4 Oxygen Flow Rate (L/min) [1 ( 4 Initial Baseline)] Oxygen Flow Rate (L/min) 2 Oxygen Delivery Method [3] Nasal Cannula Oxygen Delivery Method [2] Nasal Cannula Oxygen Delivery Method [1 ( Nasal Cannula Initial Baseline)] Oxygen Delivery Method Room Air Weight: 143 lb 1.28 oz Body Mass Index (BMI) 22.4 Intake & Output: Intake and Output for Last 24 Hours 09/26/22 09/27/22 09/28/22 23:59 23:59 23:59 Intake Total 526.43 / 526.43 679.32 / 679.32 251.6 / 251.6 Output Total 2150 / 2150 1400 / 2100 1200 / 1200 Balance -1623.57 / -1623.57 -720.68 / -1420.68 -948.4 / -948.4 Lab / Micro Data Result Diagrams: 09/28/22 06:34 09/28/22 06:34 Labs: Laboratory Results - last 24 hr 09/27/22 11:55: POC Glucose 207 H 09/27/22 12:40: APTT 65.7 H 09/27/22 16:41: POC Glucose 127 H 09/27/22 18:10: APTT 60.7 H 09/27/22 20:52: POC Glucose 198 H 09/28/22 06:17: POC Glucose 135 H 09/28/22 06:34: Sodium 144, Potassium 3.4 L, Chloride 110 H, Carbon Dioxide 26.0, Anion Gap 8, BUN 34 H, Creatinine 1.72 H, Estim Creat Clear Calc 24.52, Est GFR (MDRD) Af Amer 37 L, Est GFR (MDRD) Non-Af 30 L, BUN/Creatinine Ratio 19.8, Glucose 147 H, Calcium 9.6, Total Bilirubin 0.40, AST 21, ALT 28, AlkalinePhosphatase 46, Total Protein 5.4 L, Albumin 2.4 L, Globulin 3.0, Albumin/Globulin Ratio 0.8 L 09/28/22 06:34: WBC 7.4, RBC 3.34 L, Hgb 10.5 L, Hct 31.4 L, MCV 94.0, MCH 31.4,MCHC 33.4, RDW Std Deviation 45.0 H, RDW Coeff of Reanna 13.2, Plt Count 179, MPV 10.4, Immature Gran % (Auto) 0.500, Neut % (Auto) 66.5, Lymph % (Auto) 20.9, [place] % (Auto) 9.4, Eos % (Auto) 1.9, Baso % (Auto) 0.8, Absolute Neuts (auto) 4.9, Absolute Lymphs (auto) 1.54, Nucleated RBC % 0 09/28/22 06:34: APTT 48.4 H Micro: Microbiology 09/22/22 16:31 Blood Culture (Wb) - Left Hand Blood Culture - Final No growth in 5 days. 09/22/22 16:30 Blood Culture (Wb) - Right Forearm Blood Culture - Final No growth in 5 days. 09/25/22 06:50 Urine Catheter - Clarke Urine Culture - Final Culture exhibits no growth. 09/25/22 10:00 Blood Culture (Wb) - Left Forearm Blood Culture - Preliminary No growth in 48 hours. 09/25/22 06:35 Blood Culture (Wb) - Left Forearm Blood Culture - Preliminary No growth in 48 hours. 09/25/22 05:02 Mucosa - Nasopharyngeal Respiratory Panel (PCR) - Final 09/22/22 14:06 Urine, Clean Catch Urine Culture - Final Presumptive E. coli Streptococcus agalactiae (B) Physical Exam Const oriented x3 and no apparent distress Resp normal respiratory effort Cardio regular rate GI soft to palpation and non-tender GI Narrative: incision dressed c/d/i Inspection: Negative for abdominal distention Assessment & Plan Assessment/Plan (1) Small bowel obstruction: PLAN: s/p laparoscopy, NATASHA-release of SBO (2) Elevated troponin: (3) NSTEMI, initial episode of care: PLAN: Plan ?Tolerating her diet denies abdominal pain ?on Heparin drip, planning for heart cath tomorrow. Crystal Hennessy M.D. Pager: [phone] [facility] [address] [place] [address], [facility]patient [facility], [address] [place] [address] Office: [phone] 09/28/22 7742 <Electronically signed by Crystal Hennessy MD> Cosigner Signature (if applicable): CC: ~ Signed [facility] Work Phone: 1(278) 147-943705-28-[address] Jimenez [facility] September 27, 2022 11:02am Note Date/Time September 27, 2022 9:07a m [facility] Medical Records Department [address] [facility] [place] [address] Progress Note - Hospitalist 09/27/22905 MR#: [id number] Acct: [id number] Name: SUSAN CISNEROS Rep #:[id number] : 1940 82 From: Zoey Jimenez MD PCP: Dr. Gino Boswell, DO Status:ADM IN Location: [place] [address] Reason for Visit Reason for Visit: Diagnoses Essential (primary) hypertension (09/22/22) Non-ST elevation (NSTEMI) myocardial infarction (09/22/22) Heart failure, unspecified (09/22/22) Pleural effusion, not elsewhere classified (09/22/22) Unspecified intestinal obstruction, unspecified as to partial versus complete obstruction (09/22/22) Wheezing (09/22/22) Other specified abnormalities of plasma proteins (09/22/22) Presence of cardiac pacemaker (09/22/22) Subjective Subjective Feeling fairly well today, no acute complaints, no changes in her breathing Objective Data Objective Data Vital Signs: Vital Signs Temp Pulse Resp BP Pulse Ox O2 Del Method O2 Flow Rate 98.6 F 79 16 109/64 96 Room Air 2 09/27/22 03:40 09/27/22 03:40 09/27/22 03:40 09/27/22 03:40 09/27/22 03:40 09/27/22 08:25 09/26/22 06:00 Oxygen Flow Rate (L/min) [3] 4 Oxygen Flow Rate (L/min) [2] 4 Oxygen Flow Rate (L/min) [1 ( 4 Initial Baseline)] Oxygen Flow Rate (L/min) 2 Oxygen Delivery Method [3] Nasal Cannula Oxygen Delivery Method [2] Nasal Cannula Oxygen Delivery Method [1 ( Nasal Cannula Initial Baseline)] Oxygen Delivery Method Room Air Weight: 64.9 kg Body Mass Index (BMI) 22.4 Intake & Output: Intake and Output for Last 24 Hours 09/25/22 09/26/22 09/27/22 23:59 23:59 23:59 Intake Total 902.33 / 902.33 526.43 / 526.43 99.32 / 99.32 Output Total 2590 / 2590 2150 / 2150 500 / 500 Balance -1687.67 / -1687.67 -1623.57 / -1623.57 -400.68 / -400.68 Lab / Micro Data Result Diagrams: 09/27/22 05:10 09/27/22 05:10 Labs: Laboratory Results - last 24 hr 09/26/22 11:24: POC Glucose 246 H 09/26/22 14:35: APTT 35.3 09/26/22 16:35: POC Glucose 213 H 09/26/22 21:31: POC Glucose 170 H 09/26/22 22:46: APTT 43.8 H 09/27/22 05:10: WBC 8.2, RBC 3.18 L, Hgb 10.0 L, Hct 30.7 L, MCV 96.5, MCH 31.4,MCHC 32.6, RDW Std Deviation 46.0 H, RDW Coeff of Reanna 13.2, Plt Count 167, MPV 10.5, Immature Gran % (Auto) 0.400, Neut % (Auto) 70.5 H, Lymph % (Auto) 17.9 L,[place] % (Auto) 9.7, Eos % (Auto) 1.0, Baso % (Auto) 0.5, Absolute Neuts (auto) 5.8, Absolute Lymphs (auto) 1.47, Nucleated RBC % 0 09/27/22 05:10: Sodium 143, Potassium 3.8, Chloride 114 H, Carbon Dioxide 23.0, Anion Gap 6, BUN 31 H, Creatinine 1.53 H, Estim Creat Clear Calc 27.57, Est GFR (MDRD) Af Amer 42 L, Est GFR (MDRD) Non-Af 35 L, BUN/Creatinine Ratio 20.3 H, Glucose 108 H, Calcium 9.4, Total Bilirubin 0.50, AST 24, ALT 29, Alkaline Phosphatase 40 L, Total Protein 5.3 L, Albumin 2.3 L, Globulin 3.0, Albumin/Globulin Ratio 0.8 L 09/27/22 05:10: APTT 50.5 H 09/27/22 06:22: POC Glucose 110 H Micro: Microbiology 09/25/22 10:00 Blood Culture (Wb) - Left Forearm Blood Culture - Preliminary No growth in 48 hours. 09/25/22 06:35 Blood Culture (Wb) - Left Forearm Blood Culture - Preliminary No growth in 48 hours. 09/25/22 06:50 Urine Catheter - Clarke Urine Culture - Preliminary Culture exhibits no growth. 09/22/22 16:30 Blood Culture (Wb) - Right Forearm Blood Culture - Preliminary No growth in 48 hours. 09/22/22 16:31 Blood Culture (Wb) - Left Hand Blood Culture - Preliminary No growth in 48 hours. 09/25/22 05:02 Mucosa - Nasopharyngeal Respiratory Panel (PCR) - Final 09/22/22 14:06 Urine, Clean Catch Urine Culture - Final Presumptive E. coli Streptococcus agalactiae (B) Physical Exam Narrative General: Alert, oriented, no acute distress HEENT: Atraumatic, normocephalic Eyes: Anicteric, normal conjunctiva, extraocular movements grossly intact Neck: Supple Respiratory: Improved air movement with no increased work of breathing Cardiovascular: Regular rate and rhythm GI: Soft, nontender, nondistended Extremities: No edema Musculoskeletal: Moving all extremities Neuro: No overt focal neurological deficits Skin: No rashes appreciated Psych: Cooperative Assessment & Plan Assessment/Plan (1) NSTEMI, initial episode of care: (2) Elevated troponin: (3) Wheezing: (4) Pleural effusion: PLAN: Plan #Increased shortness of breath and tachypnea secondary to bilateral pleural effusions with new heart failure with reduced ejection fraction and possible underlying pneumonia cannot be excluded?significantly improved after drainage ofright pleural effusion -CT of chest with no PE however did note bilateral pleural effusions -Could potentially be parapneumonic in nature though unclear at this time, does have elevated white count to 19.1 with neutrophil predominance, Zosyn started -Patient have thoracentesis this a.m. on right side for diagnostic and therapeutic purposes -May need diuretics depending on improvement, BNP obtained was 1909 -COVID obtained -nebs ordered -09/26: Respiratory panel and COVID-negative. Blood cultures pending. Status post thoracentesis 09/25/2022. White blood cell count 8.9 today from 19.1 and CRP downtrending as well. Continue broad-spectrum antibiotics for now especially given temp overnight and follow cultures. The thoracentesis does appear to be transudative in nature so do not think this is parapneumonic effusion. -09/27: Significantly improved, will likely need walking pulse ox prior to discharge. Hemodynamically stable. Patient still on Zosyn, no source of infection was identified but did have fever and elevated white blood cell count as well as elevated inflammatory markers, may have been reactive but unclear. Can reevaluate antibiotics next 1 to 2 days for optimal duration and may be ableto DC abx if stable and afebrile #Newly reduced heart failure with reduced ejection fraction -Echo 09/25/2022 with estimated EF of 25% with mild concentric left ventricular hypertrophy and severe segmental systolic dysfunction with PASP of 46 -Last echo 06/15/2022 with EF of 65% and no regional wall motion abnormalities -Cardiology following -Status post thoracentesis for pleural effusion -Started on IV diuresis today -Cardiac cath on Wednesday -09/27: On heparin drip, awaiting cardiac cath. Continue diuretic therapy #NSTEMI -Unclear type I or type II -Troponin 2711 down trended to 2410 -Patient is to start heparin drip post thoracentesis -Cardiology consulted -09/26: On heparin drip, echo 09/25 demonstrates new reduced EF of 25% with severesegmental systolic dysfunction. Cardiac cath Wednesday. To be initiated on low-dose beta-seun -09/27: On heparin drip awaiting cardiac cath #CKD stage IIIb -Appears close to baseline, continue present management, avoid nephrotoxic agents #Small bowel obstruction status post reduction -Status post surgery 3 days ago with reduction, managed by surgery -CT abdomen benign -No significant abdominal complaints #Anemia -Suspect multifactorial -Has been slowly trending down but does not report any bright red blood or signsor symptoms of GI bleed -If any further downtrend may need to consider FOBT -If any león bleeding will stop heparin drip #History of complete heart block status post permanent pacemaker implantation -Continue current management #Type 2 diabetes mellitus -Glucose checks and sliding scale insulin -Also on 15 units long-acting #Hypothyroidism -TSH 0.34, will obtain free slightly elevated 1.53 -Continue Synthroid but will decrease slightly and will need labs rechecked on outpatient basis #High anion gap metabolic acidosis with partial respiratory compensation?resolved -Slightly acidotic on ABG with pH of 7.32 with a bicarb of 15 and a PCO2 of 29.5. PO2 81 requiring 4 L of nasal cannula to maintain -Does have an anion gap of 14, suspect this is due to lactic acidosis with an uptrending lactic most recently 2.9 -Continue to trend and treat underlying etiology -We will panculture given significant decompensation and rising lactic acid -09/26: Resolved #DVT ppx: Heparin drip Zoey Jimenez MD Time spent in the patient's overall evaluation,decision-making process, review of diagnostic data, adjustment of management, discussion with other providers, nursing nursing and ancillary staff involved in patient's care documentation, 30minutes Charges/Coding Visit Charges Inpatient E&M: 87814 Subs Hosp L2 09/27/22 1102 <Electronically signed by Zoey Jimenez MD> Cosigner Signature (if applicable): CC: ~ Signed [facility] Work Phone: [phone]) 220-487505-28-[address] Ambrocio [facility] September 27, 2022 10:12am Note Date/Time September 27, 2022 8:04a [facility] Medical Records Department [address] [place] [address] Progress Note - Manager Stone 09/27/22 0801 MR#: [id number] Acct: [id number] Name: SUSAN CISNEROS Rep #:[id number] : 1940 82 From: Yong Ambrocio MD PCP: Dr. Gino Boswell, DO Status:ADM IN Location: [place] [address] Assessment & Plan Assessment/Plan (1) CHF (congestive heart failure): (2) Pleural effusion: (3) Small bowel obstruction: PLAN: Plan RECOMMENDATIONS: 1. Continue heparin drip given decreased EF 2. Continue diuretic therapy. Likely transition to p.o. in the next 24 to 48 hours 3. 7 to 10 days of empiric antibiotics likely sufficient 4. Increase activity as tolerated 5. Walking oximetry prior to discharge 6. Hemodynamically stable on room air. Will sign off from a pulmonary/critical care perspective. IMPRESSIONS: 1. Non-ST elevation [place]/history of third-degree block with pacemaker Patient with significant elevation in troponin with a peak of 2711. Patient does have a decreased EF noted. Patient likely to require some work-up in the future. We will continue a heparin drip in the interim. Pleural effusion is consistent with a transudate etiology. 2. Acute hypoxic respiratory insufficiency secondary to pleural effusion Personal review of the CT scan does show some compressive atelectasis and development of bilateral pleural effusions, right greater than left. Patient's oxygenation status has significantly improved. Pleural effusion is consistent with a transudate etiology. Patient is responding well to diuretic therapy. Will likely need to be transition to p.o. diuretics in the next 24 to 48 hours. Continue to monitor chemistries. 3. Lactic acidosis/small bowel obstruction Unclear etiology. Patient was hypoxic requiring increased FiO2 requirements. Patient also has had bowel issues recently leading to elevated lactate. Likely not necessary to continue to monitor lactate levels from my opinion. Patient is on metformin at baseline and may have an element of lactic acidosis as a side effect. 4. Diabetes mellitus Patient is on metformin at baseline for diabetes. Blood sugars much better on Lantus. 5. Possible acute kidney injury Improved renal function today. Unclear baseline creatinine. Patient doeshave a relatively low GFR. Patient does have diabetes and hypertension in the past, so may have an element of chronic kidney disease. Patient did receive contrast earlier in the hospitalization. We will start with gentle diuresis Subjective Subjective Patient did well overnight. Patient has been weaned to room air. Patient is reporting no abdominal pain at this time. No hypotension has been reported. Objective Data Objective Data Vital Signs: Vital Signs Temp Pulse Resp BP Pulse Ox O2 Del Method O2 Flow Rate 37.0 C 79 16 109/64 96 Room Air 2 09/27/22 03:40 09/27/22 03:40 09/27/22 03:40 09/27/22 03:40 09/27/22 03:40 09/27/22 03:48 09/26/22 06:00 Oxygen Flow Rate (L/min) [3] 4 Oxygen Flow Rate (L/min) [2] 4 Oxygen Flow Rate (L/min) [1 ( 4 Initial Baseline)] Oxygen Flow Rate (L/min) 2 Oxygen Delivery Method [3] Nasal Cannula Oxygen Delivery Method [2] Nasal Cannula Oxygen Delivery Method [1 ( Nasal Cannula Initial Baseline)] Oxygen Delivery Method Room Air Weight: 64.9 kg Body Mass Index (BMI) 22.4 Intake & Output: Intake and Output for Last 24 Hours 09/25/22 09/26/22 09/27/22 23:59 23:59 23:59 Intake Total 902.33 / 902.33 526.43 / 526.43 99.32 / 99.32 Output Total 2590 / 2590 2150 / 2150 500 / 500 Balance -1687.67 / -1687.67 -1623.57 / -1623.57 -400.68 / -400.68 Lab / Micro Data Attestation: I reviewed the patient's lab results. Result Diagrams: 09/27/22 05:10 09/27/22 05:10 Labs: Laboratory Results - last 24 hr 09/26/22 11:24: POC Glucose 246 H 09/26/22 14:35: APTT 35.3 09/26/22 16:35: POC Glucose 213 H 09/26/22 21:31: POC Glucose 170 H 09/26/22 22:46: APTT 43.8 H 09/27/22 05:10: WBC 8.2, RBC 3.18 L, Hgb 10.0 L, Hct 30.7 L, MCV 96.5, MCH 31.4,MCHC 32.6, RDW Std Deviation 46.0 H, RDW Coeff of Reanna 13.2, Plt Count 167, MPV 10.5, Immature Gran % (Auto) 0.400, Neut % (Auto) 70.5 H, Lymph % (Auto) 17.9 L,[place] % (Auto) 9.7, Eos % (Auto) 1.0, Baso % (Auto) 0.5, Absolute Neuts (auto) 5.8, Absolute Lymphs (auto) 1.47, Nucleated RBC % 0 09/27/22 05:10: Sodium 143, Potassium 3.8, Chloride 114 H, Carbon Dioxide 23.0, Anion Gap 6, BUN 31 H, Creatinine 1.53 H, Estim Creat Clear Calc 27.57, Est GFR (MDRD) Af Amer 42 L, Est GFR (MDRD) Non-Af 35 L, BUN/Creatinine Ratio 20.3 H, Glucose 108 H, Calcium 9.4, Total Bilirubin 0.50, AST 24, ALT 29, Alkaline Phosphatase 40 L, Total Protein 5.3 L, Albumin 2.3 L, Globulin 3.0, Albumin/Globulin Ratio 0.8 L 09/27/22 05:10: APTT 50.5 H 09/27/22 06:22: POC Glucose 110 H Micro: Microbiology 09/25/22 10:00 Blood Culture (Wb) - Left Forearm Blood Culture - Preliminary No growth in 48 hours. 09/25/22 06:35 Blood Culture (Wb) - Left Forearm Blood Culture - Preliminary No growth in 48 hours. 09/25/22 06:50 Urine Catheter - Clarke Urine Culture - Preliminary Culture exhibits no growth. 09/22/22 16:30 Blood Culture (Wb) - Right Forearm Blood Culture - Preliminary No growth in 48 hours. 09/22/22 16:31 Blood Culture (Wb) - Left Hand Blood Culture - Preliminary No growth in 48 hours. 09/25/22 05:02 Mucosa - Nasopharyngeal Respiratory Panel (PCR) - Final 09/22/22 14:06 Urine, Clean Catch Urine Culture - Final Presumptive E. coli Streptococcus agalactiae (B) Physical Exam Const alert and oriented x3 Constitutional Narrative: No conversational dyspnea General Appearance: cooperative HEENT normocephalic, head/scalp atraumatic and hearing grossly normal bilaterally Eyes EOMs intact bilaterally Neck General: normal visual inspection Chest inspection of chest normal and palpation of chest normal Resp normal respiratory effort Auscultation: clear to auscultation bilaterally; Negative for rales, rhonchi or wheezes Percussion: Negative for dullness Cardio regular rate, regular rhythm, S1 normal heart sound, S2 normal heart sound, no murmurs, no rub and no gallops Jugular Venous Distention: JVD GI normal to inspection, nondistended, normoactive bowel sounds Extremity normal capillary refill and no pedal edema Skin no rashes or lesions noted Neuro oriented x3, CN's II-XII intact bilaterally, moves all extremities and no focal motor deficits Psych cooperative and affect normal Appearance: grossly normal, appropriate and well kempt Charges/Coding Visit Charges Inpatient E&M: 84115 Subs Hosp L2 09/27/22 1012 <Electronically signed by Yong Ambrocio MD> Cosigner Signature (if applicable): CC: ~ Signed [facility] Work Phone: [phone]) 244-179205-28-[address] Mukherjee [facility] September 27, 2022 9:45am Note Date/Time September 27, 2022 9:45a m [facility] Medical Records Department [address] [place] [id number] Progress Note - Cardiology 09/27/22 0943 MR#: [id number] Acct: [id number] Name: SUSAN CISNEROS Rep #:[id number] : 1940 82 From: Win Mukherjee MD PCP: Dr. Gino Boswell, DO Status:ADM IN Location: [place] [address] Subjective Subjective Patient seen and evaluated. Objective Data Vital Signs: Vital Signs Temp Pulse Resp BP Pulse Ox O2 Del Method O2 Flow Rate 98.6 F 75 15 109/64 97 Room Air 2 09/27/22 03:40 09/27/22 07:45 09/27/22 07:45 09/27/22 03:40 09/27/22 07:45 09/27/22 08:25 09/26/22 06:00 Oxygen Flow Rate (L/min) [3] 4 Oxygen Flow Rate (L/min) [2] 4 Oxygen Flow Rate (L/min) [1 ( 4 Initial Baseline)] Oxygen Flow Rate (L/min) 2 Oxygen Delivery Method [3] Nasal Cannula Oxygen Delivery Method [2] Nasal Cannula Oxygen Delivery Method [1 ( Nasal Cannula Initial Baseline)] Oxygen Delivery Method Room Air Weight: 143 lb 1.28 oz Body Mass Index (BMI) 22.4 Intake & Output: Intake and Output for Last 24 Hours 09/25/22 09/26/22 09/27/22 23:59 23:59 23:59 Intake Total 902.33 / 902.33 526.43 / 526.43 99.32 / 99.32 Output Total 2590 / 2590 2150 / 2150 500 / 500 Balance -1687.67 / -1687.67 -1623.57 / -1623.57 -400.68 / -400.68 Lab / Micro Data Result Diagrams: 09/27/22 05:10 09/27/22 05:10 Labs: Laboratory Results - last 24 hr 09/26/22 11:24: POC Glucose 246 H 09/26/22 14:35: APTT 35.3 09/26/22 16:35: POC Glucose 213 H 09/26/22 21:31: POC Glucose 170 H 09/26/22 22:46: APTT 43.8 H 09/27/22 05:10: WBC 8.2, RBC 3.18 L, Hgb 10.0 L, Hct 30.7 L, MCV 96.5, MCH 31.4,MCHC 32.6, RDW Std Deviation 46.0 H, RDW Coeff of Reanna 13.2, Plt Count 167, MPV 10.5, Immature Gran % (Auto) 0.400, Neut % (Auto) 70.5 H, Lymph % (Auto) 17.9 L,[place] % (Auto) 9.7, Eos % (Auto) 1.0, Baso % (Auto) 0.5, Absolute Neuts (auto) 5.8, Absolute Lymphs (auto) 1.47, Nucleated RBC % 0 09/27/22 05:10: Sodium 143, Potassium 3.8, Chloride 114 H, Carbon Dioxide 23.0, Anion Gap 6, BUN 31 H, Creatinine 1.53 H, Estim Creat Clear Calc 27.57, Est GFR (MDRD) Af Amer 42 L, Est GFR (MDRD) Non-Af 35 L, BUN/Creatinine Ratio 20.3 H, Glucose 108 H, Calcium 9.4, Total Bilirubin 0.50, AST 24, ALT 29, Alkaline Phosphatase 40 L, Total Protein 5.3 L, Albumin 2.3 L, Globulin 3.0, Albumin/Globulin Ratio 0.8 L 09/27/22 05:10: APTT 50.5 H 09/27/22 06:22: POC Glucose 110 H Micro: Microbiology 09/25/22 06:50 Urine Catheter - Clarke Urine Culture - Final Culture exhibits no growth. 09/25/22 10:00 Blood Culture (Wb) - Left Forearm Blood Culture - Preliminary No growth in 48 hours. 09/25/22 06:35 Blood Culture (Wb) - Left Forearm Blood Culture - Preliminary No growth in 48 hours. Cardiology Labs/Tests 09/26/22 14:35: APTT 35.3 09/26/22 22:46: APTT 43.8 H 09/27/22 05:10: WBC 8.2, RBC 3.18 L, Hgb 10.0 L, Hct 30.7 L, MCV 96.5, MCH 31.4,MCHC 32.6, Plt Count 167, MPV 10.5, Immature Gran % (Auto) 0.400, Neut % (Auto) 70.5 H, Lymph % (Auto) 17.9 L, [place] % (Auto) 9.7, Eos % (Auto) 1.0, Baso % (Auto) 0.5, Absolute Neuts (auto) 5.8, Nucleated RBC % 0 09/27/22 05:10: Sodium 143, Potassium 3.8, Chloride 114 H, Carbon Dioxide 23.0, Anion Gap 6, BUN 31 H, Creatinine 1.53 H, Est GFR (MDRD) Af Amer 42 L, Est GFR (MDRD) Non-Af 35 L, BUN/Creatinine Ratio 20.3 H, Glucose 108 H, Calcium 9.4, Total Bilirubin 0.50 09/27/22 05:10: APTT 50.5 H Rhythm: EKG: ECHO: Stress Test: Cardiac Cath: PCI: CT Surgery: Holter monitor: EPS: PPM: CXR: Chest CT Scan: Physical Exam Const alert, oriented x3 and no apparent distress General Appearance: cooperative HEENT hearing grossly normal bilaterally Head and Scalp: atraumatic Eyes EOMs intact bilaterally Neck General: normal visual inspection Chest inspection of chest normal and palpation of chest normal Resp normal respiratory effort Auscultation: clear to auscultation bilaterally Cardio regular rate, regular rhythm, S1 normal heart sound and S2 normal heart sound Jugular Venous Distention: JVD GI normal to inspection, nondistended, normoactive bowel sounds Extremity normal capillary refill and no pedal edema Peripheral Pulses: Yes pulses 2+ throughout and femoral pulses present Skin no rashes or lesions noted Neuro oriented x3 and CN's II-XII intact bilaterally Psych Appearance: grossly normal and appropriate Assessment & Plan Assessment/Plan (1) NSTEMI, initial episode of care: PLAN: She appears to have had a non-ST elevation myocardial infarction. It is not clear whether this is a Takotsubo or whether this is due to obstructive coronary disease. She will need to have her left heart cath on September 29 and I have discussed the above with her she understands and agrees to proceed. We will continue with heparin at this particular time. We will start low-dose beta-seun (2) CHF (congestive heart failure): PLAN: She does have evidence of congestive heart failure. She did benefit from her thoracentesis. She will be started on low-dose Lasix. We will add an NEDA inhibitor as appropriate. (3) Cardiac pacemaker in situ: PLAN: She is status post permanent pacemaker implantation. This appears to be functioning well. No changes to be made at this time. Thank you for allowing me to participate in the care of your patient. Please don't hesitate to call if any issues arise. 09/27/22 0945 <Electronically signed by Win Mukherjee MD> Cosigner Signature (if applicable): CC: ~ Signed [facility] Work Phone: [phone]) 361-895105-28-[address] Hennessy [facility] September 27, 2022 7:14am Note Date/Time September 27, 2022 6:31a m [facility] Medical Records Department [address] [place] [address] Progress Note - Surgery 09/27/22629 MR#: [id number] Acct: [id number] Name: SUSAN CISNEROS Rep #:[id number] : 1940 82 From: Crystal Hennessy MD PCP: Dr. Gino Boswell, DO Status:ADM IN Location: [place] [address] Subjective Subjective Patient tolerating diet denies of any dyspnea. Or abdominal pain. Objective Data Objective Data Vital Signs: Vital Signs Temp Pulse Resp BP Pulse Ox O2 Del Method O2 Flow Rate 98.6 F 79 16 109/64 96 Room Air 2 09/27/22 03:40 09/27/22 03:40 09/27/22 03:40 09/27/22 03:40 09/27/22 03:40 09/27/22 03:48 09/26/22 06:00 Oxygen Flow Rate (L/min) [3] 4 Oxygen Flow Rate (L/min) [2] 4 Oxygen Flow Rate (L/min) [1 ( 4 Initial Baseline)] Oxygen Flow Rate (L/min) 2 Oxygen Delivery Method [3] Nasal Cannula Oxygen Delivery Method [2] Nasal Cannula Oxygen Delivery Method [1 ( Nasal Cannula Initial Baseline)] Oxygen Delivery Method Room Air Weight: 143 lb 1.28 oz Body Mass Index (BMI) 22.4 Intake & Output: Intake and Output for Last 24 Hours 09/25/22 09/26/22 09/27/22 23:59 23:59 23:59 Intake Total 902.33 / 902.33 526.43 / 526.43 97.72 / 97.72 Output Total 2590 / 2590 2150 / 2150 500 / 500 Balance -1687.67 / -1687.67 -1623.57 / -1623.57 -402.28 / -402.28 Lab / Micro Data Result Diagrams: 09/27/22 05:10 09/27/22 05:10 Labs: Laboratory Results - last 24 hr 09/26/22 05:50: APTT 141.4 H* 09/26/22 11:24: POC Glucose 246 H 09/26/22 14:35: APTT 35.3 09/26/22 16:35: POC Glucose 213 H 09/26/22 21:31: POC Glucose 170 H 09/26/22 22:46: APTT 43.8 H 09/27/22 05:10: WBC 8.2, RBC 3.18 L, Hgb 10.0 L, Hct 30.7 L, MCV 96.5, MCH 31.4,MCHC 32.6, RDW Std Deviation 46.0 H, RDW Coeff of Reanna 13.2, Plt Count 167, MPV 10.5, Immature Gran % (Auto) 0.400, Neut % (Auto) 70.5 H, Lymph % (Auto) 17.9 L,[place] % (Auto) 9.7, Eos % (Auto) 1.0, Baso % (Auto) 0.5, Absolute Neuts (auto) 5.8, Absolute Lymphs (auto) 1.47, Nucleated RBC % 0 09/27/22 05:10: Sodium 143, Potassium 3.8, Chloride 114 H, Carbon Dioxide 23.0, Anion Gap 6, BUN 31 H, Creatinine 1.53 H, Estim Creat Clear Calc 27.57, Est GFR (MDRD) Af Amer 42 L, Est GFR (MDRD) Non-Af 35 L, BUN/Creatinine Ratio 20.3 H, Glucose 108 H, Calcium 9.4, Total Bilirubin 0.50, AST 24, ALT 29, Alkaline Phosphatase 40 L, Total Protein 5.3 L, Albumin 2.3 L, Globulin 3.0, Albumin/Globulin Ratio 0.8 L 09/27/22 05:10: APTT 50.5 H Micro: Microbiology 09/25/22 06:50 Urine Catheter - Clarke Urine Culture - Preliminary Culture exhibits no growth. 09/22/22 16:30 Blood Culture (Wb) - Right Forearm Blood Culture - Preliminary No growth in 48 hours. 09/22/22 16:31 Blood Culture (Wb) - Left Hand Blood Culture - Preliminary No growth in 48 hours. 09/25/22 05:02 Mucosa - Nasopharyngeal Respiratory Panel (PCR) - Final 09/22/22 14:06 Urine, Clean Catch Urine Culture - Final Presumptive E. coli Streptococcus agalactiae (B) Physical Exam Const oriented x3 and no apparent distress Resp normal respiratory effort Cardio regular rate GI soft to palpation and non-tender GI Narrative: incision dressed c/d/i Inspection: Negative for abdominal distention Assessment & Plan Assessment/Plan (1) Small bowel obstruction: PLAN: s/p laparoscopy, NATASHA-release of SBO (2) Elevated troponin: (3) NSTEMI, initial episode of care: PLAN: Plan ?Tolerating her diet denies abdominal pain ?on Heparin drip, planning for heart cath early next week per cardiology Crystal Hennessy M.D. Pager: [phone] [facility] [address] [place] [address], [facility], [address] [place] [address] Office: [phone] 09/27/2214 <Electronically signed by Crystal Hennessy MD> Cosigner Signature (if applicable): CC: ~ Signed [facility] Work Phone: 1(365) 101-982105-27-[address] [facility] September 26, 2022 11:54am Note Date/Time September 26, 2022 8:39a m [facility] Medical Records Department [address] [place] [id number] Progress Note - Surgery 09/26/22 0837 MR#: [id number] Acct: [id number] Name: SUSAN CISNEROS Rep #:[id number] : 1940 82 From: Crystal Hennessy MD PCP: Dr. Gino Boswell, DO Status:ADM IN Location: ICU ICU03-1 Subjective Subjective Patient is status post thoracentesis for 900 cc?transudate, denies shortness of breath with nasal cannula, denies any abdominal pain?tolerating diet. Objective Data Objective Data Vital Signs: Vital Signs Temp Pulse Resp BP Pulse Ox O2 Del Method O2 Flow Rate 99 F 74 18 130/76 H 98 Room Air 2 09/26/22 06:00 09/26/22 07:15 09/26/22 07:15 09/26/22 06:00 09/26/22 07:15 09/26/22 07:15 09/26/22 06:00 Oxygen Flow Rate (L/min) [3] 4 Oxygen Flow Rate (L/min) [2] 4 Oxygen Flow Rate (L/min) [1 ( 4 Initial Baseline)] Oxygen Flow Rate (L/min) 2 Oxygen Delivery Method [3] Nasal Cannula Oxygen Delivery Method [2] Nasal Cannula Oxygen Delivery Method [1 ( Nasal Cannula Initial Baseline)] Oxygen Delivery Method Room Air Weight: 137 lb 12.623 oz Body Mass Index (BMI) 21.5 Intake & Output: Intake and Output for Last 24 Hours 09/24/22 09/25/22 09/26/22 23:59 23:59 23:59 Intake Total 3440 / 3440 902.33 / 902.33 353.20 / 353.20 Output Total 450 / 450 2590 / 2590 100 / 100 Balance 2990 / 2990 -1687.67 / -1687.67 253.20 / 253.20 Lab / Micro Data Result Diagrams: 09/26/22 05:50 09/26/22 05:50 Labs: Laboratory Results - last 24 hr 09/25/22 05:02: COVID-19 (LYSSA) Not Detected 09/25/22 06:35: Procalcitonin 0.18 H 09/25/22 06:35: Free T4 1.53 H 09/25/22 10:28: POC Glucose 217 H 09/25/22 14:50: Fluid Glucose 239 H, Fluid Total Protein 1.9, Fluid LDH 113 09/25/22 14:50: Fluid Source THORACENTESIS, Fluid Color LT YEL, Fluid AppearanceCLEAR, Fluid WBC 0.072, Fluid RBC 437, Fluid Tot Cell Count 0.137 H, Fld Polynuclear WBCs # 0.018, Fld Polynuclear WBCs % 25.0, Fluid Mononuclear WBCs 0.054, Fld Mononuclear WBCs % 75.0, Fluid Neutrophils 24, Fluid Lymphocytes 15, Fluid Macrophages 15, Fld Mesothelial Cells 45, Fluid Other Cells 1, Fl Pathologist Comment May follow, Fluid Comment 2 SEE COMMENT 09/25/22 15:23: POC Glucose 147 H 09/25/22 21:36: APTT > 200.0 H* 09/25/22 21:56: POC Glucose 208 H 09/26/22 02:23: POC Glucose 130 H 09/26/22 05:44: POC Glucose 125 H 09/26/22 05:50: WBC 8.9, RBC 3.51 L, Hgb 11.1 L, Hct 33.6 L, MCV 95.7, MCH 31.6,MCHC 33.0, RDW Std Deviation 45.6 H, RDW Coeff of Reanna 13.2, Plt Count 167, MPV 10.4, Immature Gran % (Auto) 0.600, Neut % (Auto) 70.6 H, Lymph % (Auto) 18.6 L,[place] % (Auto) 9.5, Eos % (Auto) 0.3, Baso % (Auto) 0.4, Absolute Neuts (auto) 6.3, Absolute Lymphs (auto) 1.66, Nucleated RBC % 0 09/26/22 05:50: Sodium 145, Potassium 3.8, Chloride 117 H, Carbon Dioxide 22.0, Anion Gap 6, BUN 31 H, Creatinine 1.43 H, Estim Creat Clear Calc 29.50, Est GFR (MDRD) Af Amer 45 L, Est GFR (MDRD) Non-Af 37 L, BUN/Creatinine Ratio 21.7 H, Glucose 135 H, Calcium 9.7, Total Bilirubin 0.40, AST 27, ALT 30, Alkaline Phosphatase 47, C- React Prot Ext Range 56.90 H, Total Protein 5.5 L, Albumin 2.5L, Globulin 3.0, Albumin/Globulin Ratio 0.8 L 09/26/22 05:50: APTT 141.4 H* Micro: Microbiology 09/22/22 16:30 Blood Culture (Wb) - Right Forearm Blood Culture - Preliminary No growth in 48 hours. 09/22/22 16:31 Blood Culture (Wb) - Left Hand Blood Culture - Preliminary No growth in 48 hours. 09/25/22 05:02 Mucosa - Nasopharyngeal Respiratory Panel (PCR) - Final 09/22/22 14:06 Urine, Clean Catch Urine Culture - Final Presumptive E. coli Streptococcus agalactiae (B) Radiography Diagnostic Testing: Radiology Impression Echocardiogram 09/25/22 04:23 Interpretation Summary Normal LV size. The estimated ejection fraction is 25 %. Mild concentric left ventricular hypertrophy. Pulmonary artery systolic pressure is 46 mmHg. Severe segmental systolic dysfunction (see wall motion). Compared to previous study, the left ventricular systolic function has worsened.. Ordering Physician: Marek Levin Referring Physician: Gino Boswell Performed By: Lakshmi Patel RDCS Thoracentesis Ultrasound 09/25/22 04:54 IMPRESSION: 1. Right-sided ultrasound-guided diagnostic and therapeutic pleural effusion. 2. Small left pleural effusion was not drained on this examination given smaller size. Electronically Signed: Lloyd Shannon DO at 16:10 EDT , Chest X-Ray 09/25/22 15:00 IMPRESSION: Increased left pleural effusion and left basilar opacity. Decreased right pleural effusion. No pneumothorax identified. Electronically Signed: Yodit Verma MD at 15:48 EDT , Physical Exam Const oriented x3 and no apparent distress Resp normal respiratory effort Cardio regular rate GI soft to palpation and non-tender GI Narrative: incision dressed c/d/i Inspection: Negative for abdominal distention Assessment & Plan Assessment/Plan (1) Small bowel obstruction: PLAN: s/p laparoscopy, NATASHA-release of SBO (2) Elevated troponin: PLAN: Plan ? Tolerating her diet denies abdominal pain ?Heparin drip, status post thoracentesis for 900 cc?transudate--Appreciate ICU, cardiology and hospitalist input. 09/26/22 1154 <Electronically signed by Crystal Hennessy MD> Cosigner Signature (if applicable): CC: ~ Signed [facility] Work Phone: [phone]) 506-475105-27-[address] Jimenez [facility] September 26, 2022 10:14am Note Date/Time September 26, 2022 6:39a m [facility] Medical Records Department [address] [place] [address] Progress Note - Hospitalist 09/26/22 0638 MR#: [id number] Acct: [id number] Name: SUSAN CISNEROS Rep #:[id number] : 1940 82 From: Zoey Jimenez MD PCP: Dr. Gino Boswell, DO Status:ADM IN Location: ICU ICU03-1 Reason for Visit Reason for Visit: Diagnoses Essential (primary) hypertension (09/22/22) Non-ST elevation (NSTEMI) myocardial infarction (09/22/22) Heart failure, unspecified (09/22/22) Pleural effusion, not elsewhere classified (09/22/22) Unspecified intestinal obstruction, unspecified as to partial versus complete obstruction (09/22/22) Wheezing (09/22/22) Other specified abnormalities of plasma proteins (09/22/22) Presence of cardiac pacemaker (09/22/22) Subjective Subjective Patient remains in ICU but is doing very well, follow-up increased shortness of breath and pleural effusions. Patient with significantly improved work of breathing after thoracentesis with no significant cough. Patient overall feeling well Objective Data Objective Data Vital Signs: Vital Signs Temp Pulse Resp BP Pulse Ox O2 Del Method O2 Flow Rate 99 F 78 17 130/76 H 100 Nasal Cannula 2 09/26/22 06:00 09/26/22 06:00 09/26/22 06:00 09/26/22 06:00 09/26/22 06:00 09/26/22 06:00 09/26/22 06:00 Oxygen Flow Rate (L/min) [3] 4 Oxygen Flow Rate (L/min) [2] 4 Oxygen Flow Rate (L/min) [1 ( 4 Initial Baseline)] Oxygen Flow Rate (L/min) 2 Oxygen Delivery Method [3] Nasal Cannula Oxygen Delivery Method [2] Nasal Cannula Oxygen Delivery Method [1 ( Nasal Cannula Initial Baseline)] Oxygen Delivery Method Nasal Cannula Weight: 62.5 kg Body Mass Index (BMI) 21.5 Intake & Output: Intake and Output for Last 24 Hours 09/24/22 09/25/22 09/26/22 23:59 23:59 23:59 Intake Total 3440 / 3440 902.33 / 902.33 353.20 / 353.20 Output Total 450 / 450 2590 / 2590 100 / 100 Balance 2990 / 2990 -1687.67 / -1687.67 253.20 / 253.20 Lab / Micro Data Result Diagrams: 09/26/22 05:50 09/26/22 05:50 Labs: Laboratory Results - last 24 hr 09/25/22 05:02: COVID-19 (LYSSA) Not Detected 09/25/22 06:35: WBC 19.1 H, RBC 3.71 L, Hgb 11.8 L, Hct 36.0 L, MCV 97.0, MCH 31.8, MCHC 32.8, RDW Std Deviation 46.1 H, RDW Coeff of Reanna 13.1, Plt Count 193,MPV 10.8, Immature Gran % (Auto) 0.900, Neut % (Auto) 90.9 H, Lymph % (Auto) 3.5L, [place] % (Auto) 4.5, Eos % (Auto) 0.0, Baso % (Auto) 0.2, Absolute Neuts (auto)17.4 H, Absolute Lymphs (auto) 0.67 L, Nucleated RBC % 0 09/25/22 06:35: Sodium 143, Potassium 4.8, Chloride 112 H, Carbon Dioxide 17.0 L, Anion Gap 14, BUN 30 H, Creatinine 1.57 H, Estim Creat Clear Calc 26.87, Est GFR (MDRD) Af Amer 41 L, Est GFR (MDRD) Non-Af 34 L, BUN/Creatinine Ratio 19.1, Glucose 295 H, Calcium 9.6 09/25/22 06:35: Total Bilirubin 0.50, Direct Bilirubin 0.17, AST 52 H, ALT 38, Alkaline Phosphatase 62, Lactate Dehydrogenase 344 H, Troponin I High Sens 2410 H*, C-React Prot Ext Range 94.90 H, Total Protein 6.6, Albumin 2.9 L, Globulin 3.7, Albumin/Globulin Ratio 0.8 L, TSH 0.34 L 09/25/22 06:35: ESR 27 09/25/22 06:35: Lactic Acid 2.9 H* 09/25/22 06:35: Procalcitonin 0.18 H 09/25/22 06:35: Free T4 1.53 H 09/25/22 06:50: Urine Color Yellow, Urine Clarity Clear, Urine pH 5.0, Ur Specific [place] 1.015, Urine Protein 30 H, Urine Glucose (UA) 1000 H, Urine Ketones 15 H, Urine Occult Blood 10 H, Urine Nitrite Negative, Urine Bilirubin Negative, Urine Urobilinogen Normal, Ur Leukocyte Esterase 25 H, Urine RBC 0 SEEN, Urine WBC 0-5 SEEN, Ur Squamous Epith Cells 0-5 SEEN, Urine Bacteria 1+, Urine Mucus 0 SEEN 09/25/22 10:28: POC Glucose 217 H 09/25/22 14:50: Fluid Glucose 239 H, Fluid Total Protein 1.9, Fluid LDH 113 09/25/22 14:50: Fluid Source THORACENTESIS, Fluid Color LT YEL, Fluid AppearanceCLEAR, Fluid WBC 0.072, Fluid RBC 437, Fluid Tot Cell Count 0.137 H, Fld Polynuclear WBCs # 0.018, Fld Polynuclear WBCs % 25.0, Fluid Mononuclear WBCs 0.054, Fld Mononuclear WBCs % 75.0, Fluid Neutrophils 24, Fluid Lymphocytes 15, Fluid Macrophages 15, Fld Mesothelial Cells 45, Fluid Other Cells 1, Fl Pathologist Comment May follow, Fluid Comment 2 SEE COMMENT 09/25/22 15:23: POC Glucose 147 H 09/25/22 21:36: APTT > 200.0 H* 09/25/22 21:56: POC Glucose 208 H 09/26/22 02:23: POC Glucose 130 H 09/26/22 05:44: POC Glucose 125 H 09/26/22 05:50: WBC 8.9, RBC 3.51 L, Hgb 11.1 L, Hct 33.6 L, MCV 95.7, MCH 31.6,MCHC 33.0, RDW Std Deviation 45.6 H, RDW Coeff of Reanna 13.2, Plt Count 167, MPV 10.4, Immature Gran % (Auto) 0.600, Neut % (Auto) 70.6 H, Lymph % (Auto) 18.6 L,[place] % (Auto) 9.5, Eos % (Auto) 0.3, Baso % (Auto) 0.4, Absolute Neuts (auto) 6.3, Absolute Lymphs (auto) 1.66, Nucleated RBC % 0 09/26/22 05:50: Sodium 145, Potassium 3.8, Chloride 117 H, Carbon Dioxide 22.0, Anion Gap 6, BUN 31 H, Creatinine 1.43 H, Estim Creat Clear Calc 29.50, Est GFR (MDRD) Af Amer 45 L, Est GFR (MDRD) Non-Af 37 L, BUN/Creatinine Ratio 21.7 H, Glucose 135 H, Calcium 9.7, Total Bilirubin 0.40, AST 27, ALT 30, Alkaline Phosphatase 47, C- React Prot Ext Range 56.90 H, Total Protein 5.5 L, Albumin 2.5L, Globulin 3.0, Albumin/Globulin Ratio 0.8 L 09/26/22 05:50: APTT 141.4 H* Micro: Microbiology 09/22/22 16:30 Blood Culture (Wb) - Right Forearm Blood Culture - Preliminary No growth in 48 hours. 09/22/22 16:31 Blood Culture (Wb) - Left Hand Blood Culture - Preliminary No growth in 48 hours. 09/25/22 05:02 Mucosa - Nasopharyngeal Respiratory Panel (PCR) - Final 09/22/22 14:06 Urine, Clean Catch Urine Culture - Final Presumptive E. coli Streptococcus agalactiae (B) Radiography Diagnostic Testing: Radiology Impression Echocardiogram 09/25/22 04:23 Interpretation Summary Normal LV size. The estimated ejection fraction is 25 %. Mild concentric left ventricular hypertrophy. Pulmonary artery systolic pressure is 46 mmHg. Severe segmental systolic dysfunction (see wall motion). Compared to previous study, the left ventricular systolic function has worsened.. Ordering Physician: Marek Levin Referring Physician: Gino Boswell Performed By: Lakshmi Patel RDCS Thoracentesis Ultrasound 09/25/22 04:54 IMPRESSION: 1. Right-sided ultrasound-guided diagnostic and therapeutic pleural effusion. 2. Small left pleural effusion was not drained on this examination given smaller size. Electronically Signed: Lloyd Shannon DO at 16:10 EDT , Chest X-Ray 09/25/22 15:00 IMPRESSION: Increased left pleural effusion and left basilar opacity. Decreased right pleural effusion. No pneumothorax identified. Electronically Signed: Yodit Verma MD at 15:48 EDT , Physical Exam Narrative General: Alert, oriented, no acute distress HEENT: Atraumatic, normocephalic Eyes: Anicteric, normal conjunctiva, extraocular movements grossly intact Neck: Supple Respiratory: Improved air movement with no increased work of breathing Cardiovascular: Regular rate and rhythm GI: Soft, nontender, nondistended Extremities: No edema Musculoskeletal: Moving all extremities Neuro: No overt focal neurological deficits Skin: No rashes appreciated Psych: Cooperative Assessment & Plan Assessment/Plan (1) NSTEMI, initial episode of care: (2) Elevated troponin: (3) Wheezing: (4) Pleural effusion: PLAN: Plan #Increased shortness of breath and tachypnea secondary to bilateral pleural effusions with new heart failure with reduced ejection fraction and possible underlying pneumonia cannot be excluded?significantly improved after drainage ofright pleural effusion -CT of chest with no PE however did note bilateral pleural effusions -Could potentially be parapneumonic in nature though unclear at this time, does have elevated white count to 19.1 with neutrophil predominance, Zosyn started -Patient have thoracentesis this a.m. on right side for diagnostic and therapeutic purposes -May need diuretics depending on improvement, BNP obtained was 1909 -COVID obtained -nebs ordered -09/26: Respiratory panel and COVID-negative.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 Maxillofacial Surgeon Yes June 15, 2022 12:40pm Advance Directive Response Recorded Date/ Time Name of Medical Power of Maxillofacial Surgeon Adarsh Cisneros June 15, 2022 1:40pm Name of Medical Power of Maxillofacial Surgeon adarsh cisneros September 22, 2022 8:27pm Advance Directives No September 21 5 5:43pm Living Will Yes September 22, 2022 8 :27pm Power of Maxillofacial Surgeon Yes September 22, 2022 8:27pm Advance Directive Response Recorded Date/ Time Name of Medical Power of Maxillofacial Surgeon adarsh cisneros September 22, 2022 8:27pm Advance Directives No September 21 5 5:43pm Living Will Yes September 22, 2022 8 :27pm Power of Maxillofacial Surgeon Yes September 22, 2022 8:27pm Advance Directive Response Recorded Date/ Time Advance Directives No September 21 5 4:43pm Living Will Yes September 22, 2022 7 :27pm Power of Maxillofacial Surgeon Yes September 22, 2022 7:27pm Advance Directive Response Recorded Date/ Time Living Will Yes September 22, 2022 8 :27pm Do you have a Healthcare Power of Maxillofacial Surgeon? Yes September 22, 2022 8:27pm Advance Directives No September 21 5 5:43pm Advance Directive Response Recorded Date/ Time Advance Directives No September 21 5:43pm Family History No Family History Records Found Relationship Condition Age at Onset Recorded Date/T amdi Not Specified Diabetes mellitus Unknown father Coronary artery disease Unknown Summary Purpose Additional Source Comments Care Teams (unrecognized sec tion and content) Team Status: Active Member Role Status Dates Dr. Gino Boswell , DO Family Provider Active Dr. Gino Boswell , DO Primary Care Provider Active Team Status: Inactive Member Role Status Dates Dr. Gino Boswell , DO Primary Care Prov ider, Attending Provider, Referring Provider Active Team Status: Active Member Role Status Dates Dr. Gino Boswell , DO Primary Care Provider Active Dr. Ronaldo Luong , DO Emergency Provider Active Dr. Gino Bangura , DO Admit Provider, Attending Provider, Other Provider Active Dr. Win Mukherjee MD Other Provider Active Team Status: Active Member Role Status Dates Dr. Gino Boswell , DO Primary Care Provider Active Dr. Win Mukherjee MD Attending Provider Active Team Status: Active Member Role Status Dates Dr. Gino Boswell , DO Primary Care Provider, Referrin g Provider Active Joelle Starks Attending Provider Active Team Status: Active Member Role Status Dates Dr. Gino Boswell , DO Primary Care Provider Active Dr. Ronaldo Luong , DO Emergency Provider Active Dr. Gino Bangura , DO Admit Provider, Other Provide r Active Dr. Win Mukherjee MD Attending Provider, Other Provide r Active Team Status: Inactive Member Role Status Dates Dr. Gino Boswell , DO Primary Care Provider Active Dr. Ronaldo Luong , Emergency Provider Active Dr. Gino Bangura , DO Admit Provider, Attending Pro vider Active Dr. Win Mukherjee MD Other Provider Active Team Status: Active Member Role Status Dates Dr. Gino Boswell , DO Primary Care Provider Active Dr. Win Mukherjee MD Attending Provider, Referring Pro vider Active Team Status: Inactive Member Role Status Dates Dr. Gino Boswell , DO Primary Care Provider, Referrin g Provider Active Joelle Starks Attending Provider Active Team Status: Inactive Member Role Status Dates Dr. Gino Boswell , DO Primary Care Provider Active Joelle Starks Active Dr. Win Mukherjee MD Attending Provider, Referring Pro vider Active Team Status: Inactive Member Role Status Dates Dr. Gino Boswell , DO Primary Care Provider, Referrin g Provider Active Deonna Maher PA, PA Attending Provider Active Team Status: Active Member Role Status Dates Dr. Gino Boswell , DO Primary Care Provider Active Dr. Shauna Rodriguez MD Emergency Provider Active Dr. Lane Rowell MD Admit Provid er, Attending Provider, Other Provider Active Team Status: Active Member Role Status Dates Dr. Gino Boswell , DO Primary Care Provider Active Dr. Shauna Rodriguez MD Emergency Provider Active Dr. Lane Rowell MD Admit Provid er, Attending Provider, Other Provider Active Dr. Marek Levin MD Other Provider Active Team Status: Active Member Role Status Dates Dr. Gino Boswell , DO Primary Care Provider Active Dr. Shauna Rodriguez MD Emergency Provider Active Dr. Lane Rowell MD Admit Provider, Other Prov ider Active Dr. Marek Levin MD Attending Provider, Other Pro vider Active Team Status: Active Member Role Status Dates Dr. Gino Boswell , DO Primary Care Provider Active Dr. Shauna Rodriguez MD Emergency Provider Active Dr. Lane Rowell MD Admit Provider, Other Prov ider Active Dr. Zoey Jimenez MD Other Provider Active Dr. Yong Ambrocio MD Other Provider Active Dr. Hao Cunningham , Other Provider Active Dr. Jak Baltazar MD Other Provider Active Dr. Campbell Wray MD Other Provider Active Agnieszka Bhatti SAMPLE TAILOR, SAMPLE TAILOR-C Other Provider Active Dr. Win Mukherjee MD Attending Provider, Other Provide r Active Team Status: Active Member Role Status Dates Dr. Gino Boswell , DO Primary Care Provider Active Dr. Shauna Rodriguez MD Emergency Provider Active Dr. Lane Rowell MD Admit Provider, Other Prov ider Active Dr. Zoey Jimenez MD Other Provider Active Dr. Yong Ambrocio MD Attending Provider, Other Provid er Active Dr. Hao Cunningham , DO Other Provider Active Dr. Jak Baltazar MD Other Provider Active Dr. Campbell Wray MD Other Provider Active Agnieszka Bhatti SAMPLE TAILOR, SAMPLE TAILOR-C Other Provider Active Dr. Win Mukherjee MD Other Provider Active Team Status: Active Member Role Status Dates Dr. Gino Boswell , DO Primary Care Provider Active Dr. Shauna Rodriguez MD Emergency Provider Active Dr. Lane Rowell MD Admit Provider, Other Prov ider Active Dr. Zoey Jimenez MD Attending Provider, Other Provid er Active Dr. Yong Ambrocio MD Other Provider Active Dr. Hao Cunningham , DO Other Provider Active Dr. Jak Baltazar MD Other Provider Active Dr. Campbell Wray MD Other Provider Active Agnieszka Bhatti SAMPLE TAILOR, SAMPLE TAILOR-C Other Provider Active Dr. Win Mukherjee MD Other Provider Active Team Status: Active Member Role Status Dates Dr. Gino Boswell , DO Primary Care Provider Active Dr. Shauna Rodriguez MD Emergency Provider Active Dr. Lane Rowell MD Admit Provider, Other Prov ider Active Dr. Zoey Jimenez MD Other Provider Active Dr. Yong Ambrocio MD Other Provider Active Dr. Hoa Cunningham , DO Other Provider Active Dr. Jak Baltazar MD Other Provider Active Dr. Campbell Wray MD Other Provider Active Agnieszka Bhatti SAMPLE TAILOR, SAMPLE TAILOR-C Other Provider Active Dr. Win Mukherjee MD Other Provider Active Dr. Crystal Hennessy MD Attending Provider Active Team Status: Active Member Role Status Dates Dr. Gino Boswell , DO Primary Care Provider Active Dr. Shauna Rodriguez MD Emergency Provider Active Dr. Lane Rowell MD Admit Provider, Other Prov ider Active Dr. Zoey Jimenez MD Other Provider Active Dr. Win Mukherjee MD Other Provider Active Dr. Maerk Levin MD Other Provider Active Dr. Yong Ambrocio MD Other Provider Active Dr. Hao Cunningham , Other Provider Active Dr. Jak Baltazar MD Other Provider Active Dr. Campbell Wray MD Other Provider Active Agnieszka Bhatti SAMPLE TAILOR, SAMPLE TAILOR-C Other Provider Active Dr. Crystal Hennessy MD Attending Provider Active Team Status: Active Member Role Status Dates Dr. Gino Boswell , DO Primary Care Provider Active Dr. Shauna Rodriguez MD Emergency Provider Active Dr. Lane Rowell MD Admit Provider, Other Prov ider Active Dr. Zoey Jimenez MD Other Provider Active Dr. Win Mukherjee MD Attending Provider, Other Provide r Active Dr. Marek Levin MD Other Provider Active Dr. Yong Ambrocio MD Other Provider Active Dr. Hao Cunningham , DO Other Provider Active Dr. Jak Baltazar MD Other Provider Active Dr. Campbell Wray MD Other Provider Active Agnieszka Bhatti SAMPLE TAILOR, SAMPLE TAILOR-C Other Provider Active Team Status: Active Member Role Status Dates Dr. Gino Boswell , DO Primary Care Provider Active Dr. Shauna Rodriguez MD Emergency Provider Active Dr. Lane Rowell MD Admit Provider, Other Prov ider Active Dr. Zoey Jimenez MD Other Provider Active Dr. Win Mukherjee MD Other Provider Active Dr. Marek Levin MD Other Provider Active Dr. Yong Ambrocio MD Attending Provider, Other Provid er Active Dr. Hao Cunningham , DO Other Provider Active Dr. Jak Baltazar MD Other Provider Active Dr. Campbell Wray MD Other Provider Active Agnieszka Bhatti SAMPLE TAILOR, SAMPLE TAILOR-C Other Provider Active Team Status: Active Member Role Status Dates Dr. Gino Boswell , DO Primary Care Provider Active Dr. Shauna Rodriguez MD Emergency Provider Active Dr. Lane Rowell MD Admit Provider, Other Prov ider Active Dr. Zoey Jimenez MD Attending Provider, Other Provid er Active Dr. Win Mukherjee MD Other Provider Active Dr. Marek Levin MD Other Provider Active Dr. Yong Ambrocio MD Other Provider Active Dr. Hao Cunningham , DO Other Provider Active Dr. Jak Baltazar MD Other Provider Active Dr. Campbell Wray MD Other Provider Active Agnieszka Bhatti SAMPLE TAILOR, SAMPLE TAILOR-C Other Provider Active Team Status: Active Member Role Status Dates Dr. Gino Boswell , DO Primary Care Provider Active Dr. Shauna Rodriguez MD Emergency Provider Active Dr. Lane Rowell MD Admit Provider, Other Prov ider Active Dr. Win Mukherjee MD Other Provider Active Dr. Marek Levin MD Other Provider Active Dr. Yong Ambrocio MD Other Provider Active Dr. Hao Cunningham , DO Other Provider Active Dr. Jak Baltazar MD Other Provider Active Dr. Campbell Wray MD Other Provider Active Agnieszka Bhatti NP, SAMPLE TAILOR-C Other Provider Active Dr. Diann Peralta MD Other Provider Active Dr. Crystal Hennessy MD Attending Provider Active Team Status: Active Member Role Status Dates Dr. Gino Boswell , DO Primary Care Provider Active Dr. Shauna Rodriguez MD Emergency Provider Active Dr. Lane Rowell MD Admit Provider, Other Prov ider Active Dr. Win Mukherjee MD Attending Provider, Other Provide r Active Dr. Marek Levin MD Other Provider Active Dr. Yong Ambrocio MD Other Provider Active Dr. Hao Cunningham , DO Other Provider Active Dr. Jak Baltazar MD Other Provider Active Dr. Campbell Wray MD Other Provider Active Agnieszka Bhatti SAMPLE TAILOR, SAMPLE TAILOR-C Other Provider Active Dr. Diann Peralta MD Other Provider Active Team Status: Active Member Role Status Dates Dr. Gino Boswell , DO Primary Care Provider Active Dr. Shauna Rodriguez MD Emergency Provider Active Dr. Lane Rowell MD Admit Provider, Other Prov ider Active Dr. Win Mukherjee MD Other Provider Active Dr. Marek Levin MD Other Provider Active Dr. Yong Ambrocio MD Other Provider Active Dr. Hao Cunningham , DO Other Provider Active Dr. Jak Baltazar MD Other Provider Active Dr. Campbell Wray MD Other Provider Active Agnieszka Bhatti SAMPLE TAILOR, SAMPLE TAILOR-C Other Provider Active Dr. Diann Peralta MD Attending Provider, Other Prov ider Active Team Status: Active Member Role Status Dates Dr. Gino Boswell , DO Primary Care Provider Active Dr. Shauna Rodriguez MD Emergency Provider Active Dr. Lane Rowell MD Admit Provid er, Attending Provider, Other Provider Active Dr. Win Mukherjee MD Other Provider Active Dr. Marek Levin MD Other Provider Active Dr. Yong Ambrocio MD Other Provider Active Dr. Hao Cunningham , Other Provider Active Dr. Jak Baltazar MD Other Provider Active Dr. Campbell rWay MD Other Provider Active Agnieszka Bhatti NP, SAMPLE TAILOR-C Other Provider Active Dr. Diann Peralta MD Other Provider Active Team Status: Inactive Member Role Status Dates Dr. Gino Boswell , DO Primary Care Provider Active Dr. Shauna Rodriguez MD Emergency Provider Active Dr. Lane Rowell MD Admit Provider, Attending Provider Active Dr. Win Mukherjee MD Other Provider Active Dr. Marek Levin MD Other Provider Active Dr. Yong Ambrocio MD Other Provider Active Dr. Hao Cunningham , DO Other Provider Active Dr. Jak Baltazar MD Other Provider Active Dr. Campbell Wray MD Other Provider Active Agnieszka Bhatti SAMPLE TAILOR, SAMPLE TAILOR-C Other Provider Active Dr. Diann Peralta MD Other Provider Active Team Status: Active Member Role Status Dates Dr. Gino Boswell , DO Primary Care Provider Active Dr. Shauna Rodriguez MD Emergency Provider Active Dr. Lane Rowell MD Admit Provid er, Referring Provider, Other Provider Active Dr. Zoey Jimenez MD Other Provider Active Dr. Yong Ambrocio MD Attending Provider, Other Provid er Active Dr. Hao Cunningham , DO Other Provider Active Dr. Jak Baltazar MD Other Provider Active Dr. Campbell Wray MD Other Provider Active Agnieszka Bhatti SAMPLE TAILOR, SAMPLE TAILOR-C Other Provider Active Dr. Win Mukherjee MD Other Provider Active Team Status: Active Member Role Status Dates Dr. Gino Boswell , DO Primary Care Provider Active Dr. Shauna Rodriguez MD Emergency Provider Active Dr. Lane Rowell MD Admit Provider, Other Prov ider Active Dr. Zoey Jimenez MD Other Provider Active Dr. Yong Ambrocio MD Other Provider Active Dr. Hao Cunningham , DO Other Provider Active Dr. Jak Baltazar MD Other Provider Active Dr. Campbell Wray MD Other Provider Active Agnieszka Bhatti SAMPLE TAILOR, SAMPLE TAILOR-C Other Provider Active Dr. Win Mukherjee MD Attending Provider, Referring Provider, Other Provider Active Team Status: Active Member Role Status Dates Dr. Gino Boswell , DO Primary Care Provider Active Dr. Shauna Rodriguez MD Emergency Provider Active Dr. Lane Rowell MD Admit Provider, Other Prov ider Active Dr. Zoey Jimenez MD Other Provider Active Dr. Win Mukherjee MD Attending Provider, Referring Provider, Other Provider Active Dr. Marek Levin MD Other Provider Active Dr. Yong Ambrocio MD Other Provider Active Dr. Hao Cunningham , Other Provider Active Dr. Jak Baltazar MD Other Provider Active Dr. Campbell Wray MD Other Provider Active Agnieszka Bhatti SAMPLE TAILOR, SAMPLE TAILOR-C Other Provider Active Team Status: Active Member Role Status Dates Dr. Gino Boswell , DO Primary Care Provider Active Dr. Shauna Rodriguez MD Emergency Provider Active Dr. Lane Rowell MD Admit Provid er, Referring Provider, Other Provider Active Dr. Zoey Jimenez MD Other Provider Active Dr. Win Mukherjee MD Other Provider Active Dr. Marek Levin MD Other Provider Active Dr. Yong Ambrocio MD Attending Provider, Other Provid er Active Dr. Hao Cunningham , Other Provider Active Dr. Jak Baltazar MD Other Provider Active Dr. Campbell Wray MD Other Provider Active Agnieszka Bhatti SAMPLE TAILOR, SAMPLE TAILOR-C Other Provider Active Team Status: Active Member Role Status Dates Dr. Gino Boswell DO Primary Care Provider Active Dr. Shauna Rodriguez MD Emergency Provider Active Dr. Lane Rowell MD Admit Provider, Other Prov ider Active Dr. Win Mukherjee MD Attending Provider, Referring Provider, Other Provider Active Dr. Marek Levin MD Other Provider Active Dr. Yong Ambrocio MD Other Provider Active Dr. Hao Cunningham , DO Other Provider Active Dr. Jak Baltazar MD Other Provider Active Dr. Campbell Wray MD Other Provider Active Agnieszka Bhatti NP, SAMPLE TAILOR-C Other Provider Active Dr. Diann Peralta MD Other Provider Active Team Status: Inactive Member Role Status Dates Dr. Gino Boswell DO Primary Care Provider, Referrin g Provider Active Dr. Lane Rowell MD Attending Provider Active Team Status: Inactive Member Role Status Dates Dr. Gino Boswell DO Primary Care Provider Active Deonna Maher PA, PA Attending Provider, Referr ing Provider Active Team Status: Inactive Member Role Status Dates Dr. Gino Boswell DO Primary Care Provider, Referrin g Provider Active Loree Garcias NP, SAMPLE TAILOR-C Attending Provider Active Team Status: Inactive Member Role Status Dates Dr. Gino Boswell DO Primary Care Provider, Referrin g Provider Active Bozena Kim NP-C Attending Provider Active Team Status: Inactive Member Role Status Dates Dr. Gino Boswell DO Primary Care Provider Active Loree Garcias SAMPLE TAILOR, SAMPLE TAILOR-C Attending Provider, Referring P arely Active Team Status: Inactive Member Role Status Dates Dr. Gino Boswell DO Primary Care Provider Active Start: April 18, 2024 End: April 18, 2024 Dr. Gino Boswell DO Referring Provider Active Start: April 18, 2024 End: April 18, 2024 Deonna Maher PA, PA Attending Provider Active Start: April 18, 2024 End: April 18, 2024 Team Status: Inactive Member Role Status Dates Dr. Gino Boswell DO Primary Care Provider Active Start: May 05, 2024 End: May 05, 2024 Dr. Gino Bosewll DO Attending Provider Active Start: May 05, 2024 End: May 05, 2024 Dr. Gino Boswell DO Referring Provider Active Start: May 05, 2024 End: May 05, 2024 Team Status: Inactive Member Role Status Dates Dr. Gino Boswell DO Primary Care Provider Active Start: May 15, 2024 End: May 15, 2024 Dr. Win Mukherjee MD Attending Provider Active S tart: May 15, 2024 End: May 15, 2024 Dr. Win Mukherjee MD Referring Provider Active S tart: May 15, 2024 End: May 15, 2024 Team Status: Inactive Member Role Status Dates Dr. Gino Boswell DO Primary Care Provider Active Start: August 08, 2024 End: August 08, 2024 Dr. Gino Boswell DO Attending Provider Active Start: August 08, 2024 End: August 08, 2024 Dr. Gino Boswell DO Referring Provider Active Start: August 08, 2024 End: August 08, 2024 Team Status: Active Member Role Status Dates Dr. Gino Boswell DO Primary Care Provider Active Team Status: Inactive Member Role Status Dates Dr. Gino Boswell DO Primary Care Provider Active Start: August 14, 2024 End: August 14, 2024 Dr. Win Mukherjee MD Attending Provider Active S tart: August 14, 2024 End: August 14, 2024 Dr. Win Mukherjee MD Referring Provider Active S tart: August 14, 2024 End: August 14, 2024 Team Status: Inactive Member Role Status Dates Dr. Gino Boswell DO Primary Care Provider Active Start: October 17, 2024 End: October 17, 2024 Dr. Gino Boswell DO Attending Provider Active Start: October 17, 2024 End: October 17, 2024 Goals (unrecognized section and content) Goals may be documented in a n alternate sectionGoals may be documented in an alternate sectionGoals may be documented in an alternate sectionGoals may be documented in an alternate section INFORMATION SOURCE (unrecogn ized section and content) DATE CREATED AUTHOR 10/24/2024 [facility] FOR RECORDS PERTAINING TO PATIENTS WHO ARE OR HAVE BEEN ENROLLED IN A CHEMICAL DEPENDENCY/SUBSTANCEABUSE PROGRAM, SOME INFORMATION MAY BE OMITTED. This clinical summary was aggregated from multiple sources. Caution should be exercised in using it in the provision of clinical care. This summary normalizes information from multiple sources, and as a consequence, information in this document may materially change the coding, format and clinical context of patient data. In addition, data may be omitted in some cases. CLINICAL DECISIONS SHOULD BE BASED ON THE PRIMARY CLINICAL RECORDS. [employer] [facility]. provides no warranty or guarantee of the accuracy or completeness of information in this document.
== END | disposition home or self-care (01) ==
LOC: BFHLAB 14:08
PROVIDERS: PCP Family Medicine; Visit Provider Family Medicine
DX: M10.9 Gout, unspecified (principal); Z51.81 Encounter for therapeutic drug level monitoring
CPT/HCPCS: 36415; 80048; 84550

== ENCOUNTER → 2024-11-14 | Outpatient (CLI) | payer MEDICARE, SELFPAY ==
[2024-11-14 11:09] LABS: Hematocrit 33.9 % (37-47); Hemoglobin 11.1 g/dL (12.0-15.0); Immature Granulocytes Count 0.010 X10^3/uL (0.0-0.0); Mean Corp Hgb Conc 32.7 g/dL (32-36); Mean Corpuscular Volume 98.3 fL (81-99); Mean Platelet Vol. 9.5 fl (6.2-12.0); NRBC Flagged by Analyzer 0 % (0-5); Platelet Count 154 K/mm3 (150-450); RBC Distribution Width CV 14.1 % (11.6-14.6); RBC Distribution Width SD 51.0 fl (35.1-43.9); Red Blood Count 3.45 M/mm3 (4.2-5.4); White Blood Count 6.7 K/mm3 (4.4-11.0)
[2024-11-14 12:01] LABS: AST(SGOT) 22 U/L (<=31); Alanine Aminotransfer ALT/SGPT 26 U/L (<=34); Albumin, Serum 3.8 g/dL (3.4-4.8); Alkaline Phosphatase 71 U/L (35-104); Anion Gap 10 (5-15); BUN 22 mg/dL (4-19); BUN/Creat Ratio 14.1 RATIO (10-20); Calcium,Total 10.8 mg/dL (7.6-11.0); Carbon Dioxide 22.7 mmol/L (21.0-32.0); Chloride 106 mmol/L (98-108); Cholesterol 113 mg/dL (<=200); Globulin 2.4 g/dL (2.2-4.2); Glucose 203 mg/dL (70-99); Low Density Lipoprotein Calc. 25 mg/dL; Potassium 4.7 mmol/L (3.3-5.1); Pro- Brain NATRIURETIC PEPTIDE 2269 pg/mL (<=1800); Triglycerides 204 mg/dL; Very Low Density Lipoprotein 41 mg/dL (5-40); cholesterol:hdl ratio screen 2.40
== END | disposition home or self-care (01) ==
LOC: LAB 10:45
PROVIDERS: PCP Family Medicine; Referring Provider Student in an Organized Health Care Education/Training Program; Visit Provider Student in an Organized Health Care Education/Training Program
DX: I25.10 Atherosclerotic heart disease of native coronary artery without angina pectoris (principal); I11.0 Hypertensive heart disease with heart failure; I50.9 Heart failure, unspecified
CPT/HCPCS: 36415; 80053; 80061; 83880; 85025

== ENCOUNTER → 2024-11-30 | Outpatient (CLI) | payer MEDICARE, SELFPAY ==
[2024-11-30 15:32] LABS: Hematocrit 34.1 % (37-47); Hemoglobin 11.1 g/dL (12.0-15.0); Immature Granulocytes Count 0.020 X10^3/uL (0.0-0.0); Mean Corp Hgb Conc 32.6 g/dL (32-36); Mean Corpuscular Volume 100.6 fL (81-99); Mean Platelet Vol. 10.3 fl (6.2-12.0); NRBC Flagged by Analyzer 0 % (0-5); Platelet Count 171 K/mm3 (150-450); RBC Distribution Width CV 13.4 % (11.6-14.6); RBC Distribution Width SD 49.9 fl (35.1-43.9); Red Blood Count 3.39 M/mm3 (4.2-5.4); White Blood Count 6.9 K/mm3 (4.4-11.0)
[2024-11-30 15:58] LABS: Anion Gap 12 (5-15); BUN 25 mg/dL (4-19); BUN/Creat Ratio 14.4 RATIO (10-20); Calcium,Total 11.1 mg/dL (7.6-11.0); Carbon Dioxide 22.9 mmol/L (21.0-32.0); Chloride 106 mmol/L (98-108); Glucose 129 mg/dL (70-99); Potassium 5.1 mmol/L (3.3-5.1); Uric Acid 6.4 mg/dL (2.6-6.0)
[2024-12-01 09:38] LABS: PTHIN 115 pg/mL (11-61)
== END | disposition home or self-care (01) ==
LOC: BFHLAB 13:04
PROVIDERS: PCP Family Medicine; Visit Provider Family Medicine
DX: E83.52 Hypercalcemia (principal); N18.32 Chronic kidney disease, stage 3b; M10.9 Gout, unspecified
CPT/HCPCS: 36415; 80048; 83970; 84550; 85025

== ENCOUNTER → 2024-12-11 | Outpatient (CLI) | payer MEDICARE, SELFPAY ==
--- NOTE | 2024-12-11 09:00 | ECHOD_ITS ---
Reason For Study Reason For Study: EDEMA, CHF Procedure This was a 2D Doppler, Color Flow transthoracic echocardiogram. Myocardial strain analysis was performed in this exam to aid in the assessment of cardiac function. The study was technically difficult. Exam performed in department. Left Ventricle Normal LV size. The left ventricular ejection fraction is 45 %. Stage 1 diastolic dysfunction. Right Ventricle Normal RV size. Normal systolic function. Atria Normal left atrium. Normal right atrium. Mitral Valve Normal mitral valve. Mild-Moderate (1-2+) eccentric mitral valve insufficiency. Tricuspid Valve Normal tricuspid valve. Mild (1+) tricuspid valve insufficiency. Pulmonary artery systolic pressure is 37 mmHg. Aortic Valve Trisinus/trileaflet aortic valve. Pulmonic Valve Normal pulmonic valve. Mild (1+) pulmonic valve insufficiency. Great Vessels Normal aortic root. The pulmonary artery is normal size. Inferior vena cava collapse with respiration. Pericardium/Pleural No pericardial effusion. MMode/2D Measurements & Calculations LVIDd: 4.8 cm IVSd: 1.2 cm LVOT diam: 2.0 cm LVIDs: 3.5 cm LVPWd: 1.1 cm LVOT area: 3.2 cm2 RVDd: 3.1 cm FS: 27.0 % asc Aorta Diam: 3.0 cm LAV(MOD-bp): 27.5 ml LVAd ap4: 18.4 cm2 LAV(MOD-bp) Indexed: 16.2 ml/m2 LVLd ap4: 6.4 cm LAV(MOD-sp2): 37.6 ml EDV(MOD-sp4): 42.3 ml LAV(MOD-sp4): 18.8 ml EDV(sp4-el): 45.0 ml LVAs ap4: 13.3 cm2 LVLs ap4: 6.2 cm ESV(MOD-sp4): 22.7 ml ESV(sp4-el): 24.2 ml EF(MOD-sp4): 46.3 % EF(sp4-el): 46.3 % LVAd ap2: 18.7 cm2 SV(MOD-sp4): 19.6 ml SV(MOD-sp2): 19.2 ml LVLd ap2: 6.9 cm SI(MOD-sp4): 11.5 ml/m2 SI(MOD-sp2): 11.3 ml/m2 EDV(MOD-sp2): 41.0 ml EDV(sp2-el): 43.3 ml LVAs ap2: 13.7 cm2 LVLs ap2: 6.8 cm ESV(MOD-sp2): 21.7 ml ESV(sp2-el): 23.2 ml EF(MOD-sp2): 47.0 % SV(sp4-el): 20.8 ml Ao sinus diam: 3.[address] Junction: 2.6 cm LA dimension(2D): 2.8 cm LA A4 area: 10.4 cm2 RA A4 area: 9.5 cm2 TAPSE: 1.5 cm Time Measurements MV dec time: 0.31 sec Doppler Measurements & Calculations MV E max himanshu: 36.9 cm/sec Lat Peak E' Himanshu: 4.2 cm/sec Med Peak E' Himanshu: 4.2 cm/sec MV A max himanshu: 65.4 cm/sec E/E' lat: 8.7 E/E' med: 8.7 MV E/A: 0.56 MV dec slope: 118.2 cm/sec2 Ao V2 max: 101.5 cm/sec LV V1 max: 85.4 cm/sec Ao max P.1 mmHg LV V1 max P.9 mmHg Ao V2 mean: 65.8 cm/sec LV V1 mean P.6 mmHg Ao mean P.1 mmHg LV V1 mean: 58.2 cm/sec Ao V2 VTI: 20.5 cm LV V1 VTI: 18.1 cm AV (velocity ratio): 0.88 VENESSA(I,D): 2.9 cm2 VENESSA(V,D): 2.7 cm2 SV(LVOT): 58.7 ml PA V2 max: 71.2 cm/sec PI end-d himanshu: 97.2 cm/sec TR max himanshu: 290.3 cm/sec TR max P.7 mmHg ECHO/Echo Complete Interpretation Summary Normal LV size. The left ventricular ejection fraction is 45 %. Stage 1 diastolic dysfunction. Mild-Moderate (1-2+) eccentric mitral valve insufficiency. Inferior vena cava collapse with respiration. Ordering Physician: To Gracia Referring Physician: Gino Boswell Performed By: Radha Iqbal RDCS
== END | disposition home or self-care (01) ==
PROVIDERS: PCP Family Medicine; Referring Provider Student in an Organized Health Care Education/Training Program; Visit Provider Student in an Organized Health Care Education/Training Program
DX: R60.0 Localized edema (principal); I25.10 Atherosclerotic heart disease of native coronary artery without angina pectoris; I10 Essential (primary) hypertension; Z95.0 Presence of cardiac pacemaker
CPT/HCPCS: 93306